=== PATIENT | male | born 1960 | race Caucasian/White ===

== ENCOUNTER 2020-01-15 07:43 | Outpatient (CLI) | payer MEDICARE, SELFPAY ==
--- NOTE | ~2020-01-15 | CT_ITS ---
EXAMINATION: CT abdomen pelvis w con DATE: 01/15/2020 08:37 INDICATION: Intermittent diarrhea for year, becoming more frequent TECHNIQUE: Computed tomography (CT) of the abdomen and pelvis was performed with 100 cc Omnipaque 350 intravenous contrast. Automated exposure control and iterative reconstruction technique were employe d. Exam dose: 695.97 mGy-cm total exam DLP. COMPARISON: 06/06/2018 CT abdomen pelvis FINDINGS: The included lower lung zones are clear of infiltrate or consolidation or mass lesion. Norm al heart size. No pericardial or pleural effusion. The liver, gallbladder, bile ducts, spleen, pancreas and pancreatic duct appear normal. Normal morphology of the adrenal glands. Bilateral parapelvic renal cysts and multiple small renal cortical cysts. Approximately 3 mm nonobstructing upper pole left renal calculus additional punctate nonobstructing u pper pole left renal calculus is noted. One or 2 punctate mid right renal calculi and approximately 2.5 mm lower pole nonobstructing right re nal calculus. No ureteral calculus or hydroureteronephrosis is evident on either side. Prostate enlargement and calcifications. The urinary bladder is relatively evacuated, unremarkable. There is minimal abdominal aortic calcification. No abdominal aortic aneurysm. No intraperitoneal or retroperitoneal or pelvic mass lesion or adenopathy or ascites. Normal appendix. No bowel obstruction or intraperitoneal free air. No bowel wall thickening, pneumato sis. Bilateral small left larger than right fat-containing inguinal hernias. Small fat-containing umbilical hernia. There is severe degenerative disc disease at L4-5. No suspicious osteolytic or osteoblastic lesions. IMPRESSION: Bilateral renal cysts Mild bilateral nonobstructive nephrolithiasis Prostate enlargement and calcification Reviewed, dictated and finalized at Location A. Reviewed, dictated and finalized at location B.
[2020-01-15 08:05] LABS: Estimated Glomerular Filt Rate > 60
== END 2020-01-15 07:44 | disposition home or self-care (01) ==
PROVIDERS: PCP Internal Medicine; Visit Provider Internal Medicine
DX: R19.7 Diarrhea, unspecified (principal)
CPT/HCPCS: 74177; Q9965

== ENCOUNTER 2020-05-19 10:46 | Outpatient (CLI) | payer MEDICARE, SELFPAY ==
--- NOTE | ~2020-05-19 | XR_ITS ---
EXAMINATION: XR abdomen/kub 1V INDICATION: Right flank pain TECHNIQUE: Supine views of the abdomen were obtained on 2 radiographs. COMPARISON: CT from today FINDINGS: Punctate bilateral nephrolithiasis is noted. The bowel gas pattern is normal. Phleboliths a re noted in the pelvis. There is severe spondylosis at L4-5. IMPRESSION: 1. No radiographic correlate for the patient's symptoms. Reviewed, dictated and finalized at location A.
--- NOTE | ~2020-05-19 | CT_ITS ---
EXAMINATION: CT abdomen pelvis wo con DATE: 05/19/2020 11:13 INDICATION: Right flank pain TECHNIQUE: Computed tomography (CT) of the abdomen and pelvis was performed without intravenous contr ast. The dose-length product (DLP) was 704.25 mGy-cm. Automated exposure control and iterative recons truction technique were employed. COMPARISON: 01/15/2020 FINDINGS: Minimal dependent atelectasis is present in the lung bases. The heart size is normal. A sta ble 4 mm nodule of the left lower lobe is consistent with old granulomatous disease. The liver, splee n, pancreas, gallbladder, and adrenal glands are normal. There are peripelvic cysts of the kidneys. N onobstructing stones of the right kidney measure up to 3 mm. Nonobstructing left kidney stones measur e up to 4 mm. No stones are identified in the ureters or bladder. There is no hydronephrosis or hydro ureter. No pathologically enlarged abdominal or pelvic lymph nodes are identified. There is no free i ntraperitoneal gas or evidence of bowel obstruction. The appendix is normal. Small areas of fat necro sis are noted in the left lower quadrant. There is severe lumbar spondylosis at L4-5. IMPRESSION: 1. No CT correlate for the patient's symptoms. 2. Nonobstructing bilateral nephrolithiasis. Reviewed, dictated and finalized at location A.
== END 2020-05-19 10:47 | disposition home or self-care (01) ==
LOC: ANHIMG 10:49
PROVIDERS: PCP Internal Medicine; Visit Provider Nurse Practitioner Adult Health
DX: R10.9 Unspecified abdominal pain (principal); N20.0 Calculus of kidney
CPT/HCPCS: 74018; 74176

== ENCOUNTER 2021-02-16 15:24 | Outpatient (CLI) | payer MEDICARE, SELFPAY ==
[2021-02-16 17:05] LABS: SARS-CoV-2 RNA PCR Negative (Negative)
== END 2021-02-16 15:25 | disposition home or self-care (01) ==
LOC: CHSLAB 15:26
PROVIDERS: PCP Internal Medicine; Visit Provider Internal Medicine
DX: Z20.822 Contact with and (suspected) exposure to COVID-19 (principal)
CPT/HCPCS: C9803; U0003; U0005

== ENCOUNTER 2021-04-30 09:30 | Outpatient (CLI) | payer MEDICARE, SELFPAY ==
--- NOTE | ~2021-04-30 | CT_ITS ---
EXAMINATION: CT abdomen pelvis w con EXAM DATE: 04/30/2021 10:13 INDICATION: Left groin and abdominal pain . TECHNIQUE: Spiral CT of the abdomen and pelvis was performed following intravenous injection of 100 m L Omnipaque 350. Axial, coronal and sagittal images of the abdomen and pelvis were reviewed. The do se-length product (DLP) for this examination was 588.87 mGy-cm. The exposure was tailored according to patient size (auto mA exposure control), and iterative reconstruction (ASIR) was used as additiona l dose reduction technique. Comparison is made to prior examination from 05/19/2020. FINDINGS: The liver, spleen, adrenal glands and pancreas are unremarkable. Gallbladder is unremarkab le. No biliary obstruction. Portal and splenic veins are patent. Kidneys enhance symmetrically. T here are 2 punctate right calyceal stones. There is a 3 mm left superior calyceal stone additional pu nctate superior calyceal calcification. Renal peripelvic cysts. Mild prostatomegaly. The bladder is unremarkable. There is no retroperitoneal or pelvic lymphadenopathy. There is mild scattered arter iosclerotic disease. Small to moderate left, small right inguinal fat-containing hernias. The appendix is normal. Some small regions of fat necrosis along the descending colon There is mild s igmoid colonic diverticulosis. There is no adjacent inflammatory change to suggest diverticulitis. T he stomach and small bowel are unremarkable. There is expected amount of colonic stool. No free in traperitoneal gas. The heart is normal in size. There are no pericardial or pleural effusions. Mi ld basilar emphysema. There is 3 mm right lower lobe granuloma. The bones are unremarkable. IMPRESSION: 1. No acute intra-abdominal findings. 2. Small to moderate left, small right inguinal hernias. 3. Bilateral nonobstructing small calyceal stones. 4. Mild emphysema. Reviewed, dictated and finalized at location A.
[2021-04-30 09:51] LABS: Estimated Glomerular Filt Rate > 60
== END 2021-04-30 09:31 | disposition home or self-care (01) ==
PROVIDERS: PCP Internal Medicine; Visit Provider Internal Medicine
DX: R10.9 Unspecified abdominal pain (principal)
CPT/HCPCS: 74177; Q9967

== ENCOUNTER 2021-06-15 13:51 | Outpatient (CLI) | payer MEDICARE, SELFPAY ==
[2021-06-15 15:12] LABS: SARS-CoV-2 Ag Negative (Negative)
== END 2021-06-15 13:52 | disposition home or self-care (01) ==
LOC: CHSLAB 13:55
PROVIDERS: PCP Internal Medicine; Visit Provider Internal Medicine
DX: Z20.822 Contact with and (suspected) exposure to COVID-19 (principal)
CPT/HCPCS: 87426; C9803

== ENCOUNTER 2021-08-23 13:13 | Outpatient (CLI) | payer MEDICARE, SELFPAY ==
--- NOTE | 2021-08-23 13:15 | ECG_ITS ---
Measurements Intervals [place] Rate: 67 P: 41 [place]: 161 QRS: -17 QRSD: 110 T: 10 QT: 374 QTc: 395 Interpretive Statements SINUS RHYTHM INCOMPLETE RIGHT BUNDLE BRANCH BLOCK DELAYED PRECORDIAL R/S TRANSITION BASELINE ARTIFACT- I, II, AVR, AVL BORDERLINE ECG Electronically Signed On 08-23-2021 13:31:35 STORES CLERK by Dante Redding D.O.
[2021-08-23 14:05] LABS: Anion Gap 7 mmol/L (8-16); Blood Urea Nitrogen 17 mg/dL (9-20); Calcium 9.7 mg/dL (8.4-10.2); Carbon Dioxide 31 mmol/L (22-30); Chloride 102 mmol/L (98-107); Estimated Glomerular Filt Rate > 60; Glucose 88 mg/dL (65-110); Potassium 3.9 mmol/L (3.4-5.0); Sodium 140 mmol/L (137-145)
== END 2021-08-23 13:14 | disposition home or self-care (01) ==
LOC: ANHSURGERY 13:16
PROVIDERS: Anesthesiology; PCP Internal Medicine; Visit Provider Surgery
DX: E11.9 Type 2 diabetes mellitus without complications (principal); K40.20 Bilateral inguinal hernia, without obstruction or gangrene, not specified as recurrent; I10 Essential (primary) hypertension; Z79.899 Other long term (current) drug therapy
CPT/HCPCS: 36415; 80048; 86850; 86900; 86901; 93005

== ENCOUNTER 2021-08-24 00:04 | Day surgery (SDC) | payer MEDICARE, SELFPAY ==
[2021-08-20 08:52] VITALS: BMI 27.1
--- NOTE | 2021-08-20 09:10 | PC.NURSE ---
Report to the Outpatient Waiting Room, entrance under the green pavilion located off [facility], at time 6:30 on date 08/24/21. OR Time: 8:30. - You and your visitor will be asked a series of questions to screen for COVID 19 for your protection. - A mask is required within the hospital. - Only one visitor is allowed at this time. Patient visitors will be guided where to wait when not with patient. Preoperative COVID Testing Requirements: No COVID Test needed if: (proof is required; if not received patient will have Rapid Test prior to entry) - Patient has received COVID Vaccine at least 14 days prior to procedure date or - Patient has positive COVID test result within last 90 days of surgery date. COVID Test needed if above criteria is not met If not COVID vaccinated a COVID test must be conducted within 72 hours of surgery and patient is asked to isolate self from time of testing until procedure. You will go to the [facility] for your COVID testing. The [facility] is located at the corner of [address] [facility]. You will only be called if COVID results are positive and your surgeon may reschedule your elective surgery date. Patients may have clear liquids (water, carbonated beverages, clear teas, apple juice) until 3 hours prior to surgery with a maximum of 20 ounces. - No food from midnight until time of surgery - Infants may have breast milk until 4 hours before surgery, formula 6 hours prior to surgery. - Children will be allowed to drink immediately following surgery. If applicable, please bring a bottle or sippy cup to assist with drinking. Juice, water, soda, and popsicles are readily available. For infants on formula, please bring formula the day of surgery. Pacifiers are allowed. Take the following medications with a SIP of water the morning of surgery: N/A Medications to discontinue per physician: VITAMINS/SUPPLEMENTS (PROBIOTIC) Date to take last dose: 3 DAYS PRE-OP Please no make-up, nail yoruba, hairspray, perfume, deodorant, or body powder the day of surgery. No jewelry (including any body piercings) or valuables the day of surgery, leave them at home. Please take a shower or bath the night before, or the morning of, surgery with an antibacterial soap. Wear comfortable, loose fitting clothing. Children are encouraged to wear pajamas. HIBICLENS SHOWER - Jewelry must be removed prior to entering the operating room. Rings and piercings that are not removed may be cut off. - The hospital will not accept responsibility for valuables. - Please leave all valuables, including medications, at home the day of surgery. If you are going home after surgery, a licensed diesel truck driver must drive you home. - NO public transportation without another adult. - We recommend that an adult stay with you for 24 hours following discharge. - We also recommend that you do not drive, make important decision, drink alcoholic beverages, or take any drugs that were not prescribed by your health care provider for at least 24 hours after your discharge time. For Pediatric surgeries, we recommend two adults accompany the child home (only one inside the building at this time). Follow any additional instructions given to you from your surgeon. Telephone instructions given to MELISSA TOBIN and asked if any additional questions and then verbalized understanding. Patient advised to call surgeon office or pre surgery nurse liaison [phone] if any additional questions.
[2021-08-24] VITALS (14 sets, daily range): BP systolic 127–152; BP diastolic 70–82; PULSE 65–89; RESP 12–20; TEMP 36.2–36.7; O2SAT 94–100
[2021-08-24] MEDS: ACETAMINOPHEN 500 MG TABLET 1000 MG PO (06:53)
--- NOTE | 2021-08-24 07:13 | PM.IMHP ---
H&P: HPI History of Present Illness Date/Time: 08/24/21 07:13 Chief Complaint: [facility] Narrative: 61 yo man presents for left inguinal hernia repair. He reports no changes since last seen in office. Review of Systems Review of Systems: All systems reviewed & are unremarkable except as noted in HPI and below Constitutional: Constitutional: Denies chills, Denies fever(s), Denies headache(s) and Denies weight loss Eyes: Eyes: Denies change in vision ENT: Denies dizziness, Denies headache(s), Denies neck mass and Denies throat swelling Cardiovascular: Cardiovascular: Denies chest pain, Denies lightheadedness and Denies dyspnea Respiratory: Respiratory: Denies cough, Denies dyspnea and Denies wheezing Gastrointestinal: Gastrointestinal: Denies abdominal pain, Denies change in bowel habits, Denies nausea and Denies vomiting Genitourinary: Genitourinary: Denies hematuria and Denies dysuria Musculoskeletal: Musculoskeletal: Reports as per HPI Integumentary/Breasts: Skin/Breast: Reports as per HPI Neurologic: Denies dizziness and Denies headache(s) Allergic/Immunologic: Allergic/Immunologic: Denies throat swelling and Denies wheezing [facility] Past Medical History Medical History Diarrhea Social History Social History Smoking status: Never smoker Alcohol intake: current Alcohol use details: 1/MONTH Substance use: never Substance use type: does not use Living arrangements: with family Gender identity (if verbalized by the patient): Male Spiritual care concerns: No Meds Home Medications and Allergies Home Medications Medication Instructions Recorded Confirmed Type finasteride 5 mg tablet 5 mg PO DAILY 09/16/20 08/24/21 History glimepiride 1 mg tablet 1 mg PO QAM 09/16/20 08/24/21 History lovastatin 20 mg tablet,extended 20 mg PO HS 09/16/20 08/24/21 History release 24 hr Saccharomyces boulardii 250 mg 250 mg PO BID 05/24/21 08/24/21 History capsule hydrocodone-acetaminophen 1 tablet PO Q6H PRN 08/20/21 08/24/21 History triamterene-hydrochlorothiazid 1 tablet PO DAILY 08/20/21 08/24/21 History Allergies Allergy/AdvReac Type Severity Reaction Status Date / Time No Known Allergies Allergy Verified 08/20/21 08:50 Exam Const: General: no acute distress and alert Orientation/consciousness: patient oriented x3 HENMT: Head: normocephalic and atraumatic Ears: hearing grossly normal bilaterally General nose exam: Normal nares present Mouth: Yes Normal oral and palatal mucosa present Eyes: Periorbital: periorbital findings normal Sclera: sclerae normal EOM: EOMs intact bilaterally Neck: Neck: normal visual inspection, no lymphadenopathy and trachea midline Chest: Chest palpation & inspection: normal inspection of the chest Resp: Effort & Inspection: normal respiratory effort Auscultation: clear to auscultation bilaterally Cardio: Jugular venous distension: no JVD Rate: regular rate Rhythm: regular rhythm Heart sounds: S1 normal heart sound present and S2 normal heart sound present Peripheral pulses: Peripheral pulses 2+ throughout GI: Inspection: normal to inspection GI Palp: Yes Soft to palpation, No Tenderness to palpation present (GI), No Guarding due to palpation present (GI) and No Rebound tenderness present Percussion: Yes normal to percussion Auscultation: normal bowel sounds : General: Yes no CVA tenderness Scrotum: inguinal hernia on the left Back/Spine/Pelvis: Back: no CVA tenderness Neuro: General: patient oriented x3, no focal motor deficits and CN's II-XI intact bilaterally Cognition (Neuro): normal cognition Speech: normal speech Motor exam (neuro): 5/5 motor strength present throughout Extrem: General: capillary refill normal and no clubbing, cyanosis or edema Assessment and Plan Assessment and plan (1) Left inguinal hernia: C
--- NOTE | 2021-08-24 07:15 | WPDHPUPDATE1 ---
History and Physical Update Update Date/Time: 08/24/21 07:15 History and Physical has been reviewed, including an updated exam of the patient. There are NO changes in the patient's condition. Risks, benefits, and alternatives have been discussed and questions answered. Patient agrees to proceed with procedure.
[2021-08-24] MEDS: KETOROLAC 15 MG/ML VIAL (*BKC) IV PUSH (07:25)
[2021-08-24] MEDS: LACTATED RINGERS 1,000 ML 30 ML IV CONT ×2 (07:25→10:30)
--- NOTE | 2021-08-24 07:28 | P.PNAN_ITS ---
Anes - Initial Pre Proc Eval Procedure: Operation Date: 08/24/21 08:30 Proposed Procedures p Laparoscopic Left Inguinal Hernia Repair with Mesh, Davinci Assisted - Peter Card DO Date/Time: 08/24/21 07:28 Surgeon: Peter Card DO Pre Op Diagnosis: bilateral inguinal hernia Patient Data Age: 61 Gender: M Height: 1.8 m Weight: 90.6 kg Allergies Allergy/AdvReac Type Severity Reaction Status Date / Time No Known Allergies Allergy Verified 08/20/21 08:50 Home Medications Medication Instructions Recorded Confirmed Type finasteride 5 mg tablet 5 mg PO DAILY 09/16/20 08/24/21 History glimepiride 1 mg tablet 1 mg PO QAM 09/16/20 08/24/21 History lovastatin 20 mg tablet,extended 20 mg PO HS 09/16/20 08/24/21 History release 24 hr Saccharomyces boulardii 250 mg 250 mg PO BID 05/24/21 08/24/21 History capsule hydrocodone-acetaminophen 1 tablet PO Q6H PRN 08/20/21 08/24/21 History triamterene-hydrochlorothiazid 1 tablet PO DAILY 08/20/21 08/24/21 History Patient hx anesthesia problems: none Family hx anesthesia problems: none Results Review: All pre-operative results and documents have been reviewed as part of the pre-operative evaluation. [facility] Past Medical History Medical History (Updated 08/24/21 @ 07:14 by Peter Card DO) Diarrhea Surgical History Surgical History (Updated 08/24/21 @ 07:32 by Salbador Thomas MD) History of lumbar surgery Social History Social History Smoking status: Never smoker Alcohol intake: current Alcohol use details: 1/MONTH Substance use: never Substance use type: does not use Living arrangements: with family Gender identity (if verbalized by the patient): Male Spiritual care concerns: No Anes - Eval Final PreProcedure Day of Procedure 08/24/21 07:28 Patient weight: overweight Heart: regular rate and rhythm Lungs: clear to auscultation Airway: Mallampati scale class 1 Neurological: alert and oriented Last oral intake: >/= 8 hours ASA classification: III Emergent: no Anesthetic plan: proceed Anesthesia type and monitoring: general ETT Results Review: All pre-operative results and documents have been reviewed as part of the pre-operative evaluation. Informed Consent: The patient's anesthetic plan and its attendant risks and benefits were discussed with the patient/family/POA. Questions were solicited and answers provided to the satisfaction of the patient/family/POA.
[2021-08-24 07:31] LABS: Glucose Point of Care 140 mg/dl (65-105)
[2021-08-24] MEDS: ceFAZolin 2 GM/D5W 50 ML 2 GM/50 ML BAG IVPB (08:30)
[2021-08-24] MEDS: BUPIVACAINE HCL 0.5% PF 30 ML VIAL INFILTRATE (08:53)
--- NOTE | 2021-08-24 09:52 | W.PM.PROC2 ---
Procedure Note - Detailed Date of Procedure 08/24/21 Pre-op Diagnosis Left inguinal hernia Post-op Diagnosis same (Indirect left inguinal hernia) Procedure Performed Laparoscopic left inguinal hernia repair with mesh, da Jaci assisted Surgeon Peter Card, Anesthesia general and local (0.5% bupivacaine) Indications This is a 61-year-old man who presents with left groin pain and a left groin bulge that he has noticed for several years. Over the past several months he has become more symptomatic from it. He was seen a couple months ago and his PCP had ordered a CT of his pelvis which did show evidence of a bilateral inguinal hernia. The left side was larger than the right, and he had no symptoms on the right. The left inguinal hernia was easily palpable, and he had a very small right inguinal hernia on exam. Discussions were made with the patient about treatment options and he did not want a pursue right inguinal hernia at the time due to it being asymptomatic. I even discussed with him that it would not increase the amount of incisions, but he still wished to proceed with only left inguinal hernia repair. Decision was made to proceed with robotic assisted laparoscopic left inguinal hernia repair with mesh. Findings Laparoscopic left inguinal hernia repair was performed. A robotic transabdominal preperitoneal approach was utilized. Patient was found to have a moderate-sized indirect left inguinal hernia and sigmoid colon was going right up to the opening of the hernia. Epiploic appendages were also scarred within the hernia sac and this had to be taken down to allow adequate mobilization. On exam on the right side he did not have an easily visible right inguinal hernia laparoscopically. There might have been a small amount of adipose tissue going within the inguinal canal or he might of had a small direct hernia on the right side containing some preperitoneal fat, but laparoscopically this was not clearly evident. Decision was made to only repair the left side. Once the preperitoneal pocket was created, a large left Bard 3DMax mid mesh was placed within the preperitoneal pocket overlying the entire left myopectineal orifice. The mesh was secured in place using 3-0 Vicryl sutures. No specimens were obtained for pathology. Description of Procedure Procedure as well as risks, benefits, and alternatives were discussed with the patient. Written consent was obtained and placed in chart prior to procedure. Patient was brought back to surgical suite. He was placed supine on operating table. Time-out was done to confirm patient and procedure. He was then intubated by Anesthesia Department. His abdomen was prepped and draped in sterile fashion using chlorhexidine prep. 0.5% bupivacaine with epinephrine was infiltrated at each location for incision. An 8 mm incision was made in the left lateral abdomen, and a 5 mm Optiview trocar was advanced through the abdominal layers under direct visualization. Once inside the abdominal cavity, carbon dioxide insufflation was used to create a pneumoperitoneum. A camera was inserted and the abdominal cavity was inspected. The patient was placed in slight Trendelenburg position. An 8 millimeter incision was made on the right lateral abdomen and an 8 millimeter trocar was inserted under direct visualization. Another 8 millimeter incision was made just superior to the umbilicus and an 8 millimeter trocar was inserted under direct visualization. The 5 mm port was then removed and this was replaced with another 8 mm robotic port. The robotic arms were brought up to the patient's bedside and secured to the ports. The camera and instruments were inserted. I then moved over to the robotic console and took control of the camera and instruments. After careful inspection of the abdominal cavity, I began scoring the peritoneum along the left lower quadrant using scissors with electrocautery. The preperitoneal plane was enter
[2021-08-24 10:21] LABS: Glucose Point of Care 126 mg/dl (65-105)
[2021-08-24] MEDS: fentaNYL CITRATE INJ (*CRX) 100 MCG/2 ML VIAL 25 MCG IV PUSH ×8 (10:35→11:32)
[2021-08-24] MEDS: oxyCODONE HCL (*CRX) 5 MG TAB IR PO (11:55)
--- NOTE | 2021-08-24 14:02 | SUR.PHASEII ---
1250- pt urinated at 1250 with difficulty.
== END 2021-08-24 13:05 | disposition home or self-care (01) ==
PROVIDERS: PCP Internal Medicine; Visit Provider Surgery
PROC: 8E0Y4CZ Robotic Assisted Procedure of Lower Extremity, Percutaneous Endoscopic Approach (ICD-10-PCS; CPT 49650; principal; 2021-08-24 08:30)
DX: K40.90 Unilateral inguinal hernia, without obstruction or gangrene, not specified as recurrent (principal); Z79.899 Other long term (current) drug therapy
CPT/HCPCS: 49650; S2900; 82948; A9270; C1781; J0690; J1100; J1170; J1885; J2250; J2405; J2704; J2710; J3010; J7030; J7120

== ENCOUNTER 2021-11-25 07:38 | Outpatient (CLI) | payer MEDICARE, SELFPAY ==
[2021-11-25 09:02] LABS: SARS-CoV-2 Ag Negative (Negative)
[2021-11-25 09:40] LABS: SARS-CoV-2 RNA PCR Negative (Negative)
== END 2021-11-25 07:39 | disposition home or self-care (01) ==
LOC: CHSLAB 07:41
PROVIDERS: PCP Internal Medicine; Visit Provider Nurse Practitioner Family
DX: R05.9 Cough, unspecified (principal); R51.9 Headache, unspecified; Z20.822 Contact with and (suspected) exposure to COVID-19
CPT/HCPCS: 87426; C9803; U0003; U0005

== ENCOUNTER 2022-02-16 13:57 | Outpatient (CLI) | payer MEDICARE, SELFPAY ==
--- NOTE | ~2022-02-16 | XR_ITS ---
EXAMINATION: XR knee LT min 4V DATE: 02/16/2022 14:24 INDICATION: Left knee pain. TECHNIQUE: 4 views of left knee were obtained. COMPARISON: Left knee radiographs 09/10/2012 FINDINGS: Bone alignment is normal. No fracture. There is mild tricompartmental osteoarthritis charac terized by tiny osteophytes. No joint space narrowing. There is chondrocalcinosis of the menisci. No knee joint effusion. IMPRESSION: 1. Mild left knee osteoarthritis. Reviewed, dictated and finalized at location B.
--- NOTE | ~2022-02-16 | XR_ITS ---
EXAMINATION: XR knee RT min 4V DATE: 02/16/2022 14:24 INDICATION: Right knee pain. TECHNIQUE: 4 views of right knee were obtained. COMPARISON: Right knee radiographs 02/11/2011 FINDINGS: Bone alignment is normal. No fracture. There is mild tricompartmental osteoarthritis charac terized by tiny osteophytes. No joint space narrowing. There is chondrocalcinosis of the menisci. No knee joint effusion. IMPRESSION: 1. Mild right knee osteoarthritis. Reviewed, dictated and finalized at location B.
== END 2022-02-16 13:58 | disposition home or self-care (01) ==
LOC: CHSIMG 13:59
PROVIDERS: PCP Internal Medicine; Visit Provider Internal Medicine
DX: M25.562 Pain in left knee (principal); M25.561 Pain in right knee
CPT/HCPCS: 73564

== ENCOUNTER 2022-03-15 03:15 | Inpatient (IN) | payer MEDICARE, SELFPAY ==
[2022-03-15] VITALS (21 sets, daily range): BP systolic 89–140; BP diastolic 66–111; PULSE 45–165; RESP 16–26; TEMP 36.3–36.7; O2SAT 92–99; BMI 28.5
--- NOTE | ~2022-03-15 | XR_ITS ---
EXAMINATION: XR chest 1V portable 03/15/2022 03:28 INDICATION: Chest pain. A. fib. PROCEDURE: AP portable chest COMPARISON: Comparison to multiple prior studies sequentially, with oldest reviewed study dated 01/2012. FINDINGS: The lungs are clear. The cardiomediastinal silhouette is within normal limits. There are no pleural effusions. There is no pneumothorax suspected. IMPRESSION: 1: NO ACUTE CARDIOPULMONARY DISEASE. Reviewed, dictated and finalized at location A.
--- NOTE | ~2022-03-15 | CT_ITS ---
EXAMINATION: CT chest abdomen pelvis wo con DATE: 03/17/2022 09:20 INDICATION: Leukocytosis. Chest pressure. Shortness of breath. Cough. TECHNIQUE: Computed tomography (CT) of the chest, abdomen, and pelvis was performed without intraveno us contrast. Automated exposure control and iterative reconstruction technique were employed. The dos e-length product was 965.43 mGy-cm. COMPARISON: CT abdomen and pelvis 04/30/2021 FINDINGS: CHEST CT: The lungs demonstrate mild atelectasis. Again seen is a 3 mm nodule in right lower lobe, likely benig n. Again seen is a 5 mm nodule in left lower lobe, likely benign. No pleural effusion. The heart size is normal. There are coronary artery calcifications. No pericardial effusion. There is mild chronic height loss of multiple vertebral bodies. There is mild thoracic spondylosis. ABDOMEN/PELVIS CT: The liver, gallbladder, spleen, pancreas, and adrenal glands are normal. There are cysts in the kidne ys including peripelvic cysts measuring up to 5.4 cm on the right. There are 3 stones in right kidney measuring up to 2 mm. There are 2 stones in left kidney measuring up to 4 mm. The prostate is mildly enlarged. Again seen is prominent fat in right inguinal canal that may be a hernia. There is promine nt fat in left inguinal canal status post inguinal hernia repair. There are no dilated loops of bowel . The appendix is normal. There are no pathologically enlarged lymph nodes. There is no free intraper itoneal fluid. There is severe lumbar spondylosis. IMPRESSION: 1. Bilateral nonobstructing kidney stones. Reviewed, dictated and finalized at location A.
--- NOTE | 2022-03-15 03:17 | ECG_ITS ---
Measurements Intervals [place] Rate: 155 P: NC: 0 QRS: 3 QRSD: 82 T: 29 QT: 266 QTc: 427 Interpretive Statements ATRIAL FIBRILLATION WITH RAPID VENTRICULAR RESPONSE BASELINE ARTIFACT- I, II, III, AVR, AVL, AVF, V2 ABNORMAL ECG Electronically Signed On 03-15-2022 6:41:13 CDT by Dante Redding D.O.
--- NOTE | 2022-03-15 03:19 | ED.GENADULT ---
HPI - General Adult General Chief complaint: Chest Pain Stated complaint: chest pain History of Present Illness HPI narrative: Beck is a 62M with a PMH of DMII and recent covid that presented to the ED with chest pain. It is a severe pressure in his left chest that does not radiate. It started an hour before coming to the ED. He has some increased work of breathing and nausea but no vomiting or syncope. Of note he was diagnosed with COVID a little over 2 weeks ago. Related Data Home Medications Medication Instructions Recorded Confirmed finasteride 5 mg tablet 5 mg PO DAILY 09/16/20 03/15/22 glimepiride 1 mg tablet 1 mg PO QAM 09/16/20 03/15/22 lovastatin 20 mg tablet,extended 20 mg PO HS 09/16/20 03/15/22 release 24 hr Saccharomyces boulardii 250 mg 250 mg PO BID 05/24/21 03/15/22 capsule (Daily Probiotic (S. boulardii)) triamterene 37.5 1 tablet PO DAILY 08/20/21 03/15/22 mg-hydrochlorothiazide 25 mg tablet albuterol sulfate 90 mcg/actuation 2 puff inhalation PRN PRN 03/15/22 03/15/22 aerosol inhaler Shortness Of Breath Allergies Allergy/AdvReac Type Severity Reaction Status Date / Time No Known Allergies Allergy Verified 03/15/22 03:27 Review of Systems Constitutional: Constitutional: Denies chills and Denies fever(s) Eyes: Eyes: Reports no additional eye complaints ENT: Reports system reviewed and no additional complaints, except as documented Cardiovascular: Cardiovascular: Reports as per HPI Respiratory: Respiratory: Reports as per HPI Gastrointestinal: Gastrointestinal: Reports no additional gastrointestinal complaints Genitourinary: Genitourinary: Reports no additional male genitourinary complaints Musculoskeletal: Musculoskeletal: Reports no additional musculoskeletal complaints Integumentary/Breasts: Skin/Breast: Reports system reviewed and no additional complaints, except as docu Neurologic: Reports system reviewed and no additional complaints, except as documented Psychiatric: Psychiatric: Reports no additional psychiatric complaints Endocrine: Endocrine: Reports no additional endocrine complaints Hematologic/Lymphatic: Hematologic/Lymphatic: Reports no additional hematologic/lymphatic complaints Allergic/Immunologic: Allergic/Immunologic: Reports no additional allergic/immunologic complaints PMFSH Past Medical History Medical History Diarrhea Surgical History Surgical History History of hernia repair LIH hernia repair with mesh 08/24/21 History of lumbar surgery Family History Family History Sibling Acute myocardial infarction Sibling Acute myocardial infarction Social History Social History Smoking status: Never smoker Second hand tobacco smoke exposure: Yes Alcohol intake: never Alcohol use details: 1/MONTH Substance use: never Substance use type: does not use Gender identity (if verbalized by the patient): Male Spiritual care concerns: No Exam Const: Nutritional Appearance: well nourished Orientation/consciousness: patient oriented x3 Other: Beck was in moderate distress HENMT: Head: normal to inspection Ears: external ears normal Face and sinus: normal facial exam Mouth: Yes Normal oral and palatal mucosa present Eyes: Conjunctivae: conjunctivae normal Pupils: Equal, round and reactive pupils present Neck: Neck: normal visual inspection Chest: Chest palpation & inspection: normal inspection of the chest Resp: Effort & Inspection: normal respiratory effort Cardio: Other: tachypnea with irregularly irregular rhythm GI: Other: normal to inspection Skin: General skin exam: normal color Neuro: General: patient oriented x3 and moves all extremities Speech: normal speech Extrem: Other: n
[2022-03-15] MEDS: dilTIAZem HCl INJ 25 MG/5 ML VIAL 10 MG IV PUSH (03:32)
[2022-03-15] MEDS: dilTIAZem 100 MG/100 ML 100 MG/100 ML BAG IV CONT (03:33)
[2022-03-15 03:47] LABS: Basophils Absolute Auto 0.03 K/mm3 (0.00-0.10); Basophils Percent Auto 0.2 % (0.0-1.0); Hematocrit 46.3 % (40.0-54.0); Hemoglobin 15.8 g/dL (14.0-18.0); Immature Granulocyte Absolute 0.19 K/mm3 (0.00-0.00); Lymphocytes Percent Auto 6.1 % (18.0-42.0); Mean Corpuscular HGB Conc 34.1 g/dL (32.0-36.0); Mean Corpuscular Hemoglobin 29.8 pg (27.0-31.0); Mean Corpuscular Volume 87.2 fL (78.0-102.0); Mean Platelet Volume 10.3 fl (8.7-11.0); Monocytes Absolute Auto 1.36 K/mm3 (0.10-0.90); Monocytes Percent Auto 7.5 % (2.0-11.0); Neutrophils Absolute Auto 15.5 K/mm3 (1.7-7.2); Neutrophils Percent Auto 85.2 % (50.0-70.0); Platelet Count Result 262 K/mm3 (150-420); Red Blood Count 5.31 M/mm3 (4.70-6.10); Red Cell Distribution Width 12.7 % (11.6-14.4); White Blood Count 18.2 K/mm3 (4.8-10.8)
[2022-03-15 03:59] LABS: Prothrombin Time 10.5 Seconds (9.50-12.10)
[2022-03-15 04:09] LABS: Alanine Aminotransferase 45 U/L (16-63); Albumin Level 3.1 g/dL (3.4-5.0); Alkaline Phosphatase 71 U/L (46-116); Anion Gap 8 mmol/L (8-16); Aspartate Amino Transferase 16 U/L (15-37); Bilirubin,Total 0.7 mg/dL (0.00-1.00); Blood Urea Nitrogen 25 mg/dL (7-18); Calcium 8.9 mg/dL (8.5-10.1); Carbon Dioxide 25 mmol/L (21-32); Chloride 100 mmol/L (98-108); Estimated CRCL calculation 64 ml/min; Estimated Glomerular Filt Rate > 60; Glucose 221 mg/dL (70-99); Lipase 322 U/L (73-393); Magnesium 2.2 mg/dL (1.8-2.4); NT Pro B Type Natriuretic Pept 237 pg/mL (0-125); Osmolality Calculated 287 mOsm/kg (285-295); Potassium 4.2 mmol/L (3.5-5.1); Sodium 133 mmol/L (136-145); Total Protein 6.4 g/dL (6.4-8.2); Troponin I 7.5 ng/L (0.00-60.4)
[2022-03-15] MEDS: METOPROLOL TARTRATE INJ 5 MG/5 ML VIAL IV PUSH (04:23)
[2022-03-15] MEDS: METOPROLOL TARTRATE 25 MG TABLET 50 MG (04:41)
[2022-03-15 05:07] LABS: Add Urine Microscopic? NO; Appearance Urine Clear (Clear); Bilirubin Urine Negative (Negative); Blood Urine Negative (Negative); Color Urine Light Yellow (Yellow); Glucose Urine UA Negative (Negative); Ketones Urine Negative (Negative); Leukocyte Esterase Ur Negative LEU/UL (Negative); Nitrate Urine Negative (Negative); Protein Urine Negative (Negative); Urobilinogen Urine 0.2 mg/dL (0.2-1.0)
--- NOTE | 2022-03-15 05:20 | PC.NURSE ---
ERP Dr Browne spoke c BILL Whitt about admission. Pt accepted for admission. Orders being put in by FLOW SPECIALIST. Call placed to floor for bed assignment.
--- NOTE | 2022-03-15 06:39 | ADMGEN ---
This patient, Beck Almeida, was admitted to 2nd Floor Room 226-2. Patient/family oriented to hospital policies and general routines including ID bracelet, bed and alarms, pain management, procedures, bathroom and other care routines, personal items, smoking policy, room service/diet, and visiting hours. Information on how to activate the Rapid Response Team has been discussed. Patient/Family are encouraged to report perceived risks to care and to ask questions if they do not understand what they are told or what they should do.
--- NOTE | 2022-03-15 06:40 | PC.NURSE ---
Patient was brought to the unit at 0520 while on a cardizem drip. Patient had been titrated down from 15mg to 10 mg immediately prior to coming to the floor. ER nurse indicated that he should be titrated down again, in approximately 30 minutes, if his heart rate remained in the 70 to 80 range. Patient was placed on a heart monitor, and his heart rate did stay in that range. Patient remained in Atrial Fibrillation. His cardizem drip was titrated down at approximately 0630, as his heart rate remained in the 70 to 80 range. Patient's blood pressure was 124/111 and his heart rate was 80 when vitals were given.
--- NOTE | 2022-03-15 06:53 | PC.NURSE ---
Cardizem drip paused at this time. Pulse rate is 74 and pt denies c/o chest pain or discomfort.
[2022-03-15 08:13] LABS: Glucose Point of Care 171 mg/dl (65-105)
--- NOTE | 2022-03-15 09:03 | PCOTNOTE ---
Patient is independent, up ad desiree in room. Has no OT concerns at this time and will not have an OT plan of care. Will be discharged from OT
[2022-03-15] MEDS: TRIAMTERENE 37.5 MG/HCTZ 25 MG (MAXZIDE) TABLET 1 TAB PO (09:30)
[2022-03-15] MEDS: SACCHAROMYCES BOULARDII 250 MG CAPSULE PO ×2 (09:30→18:08)
[2022-03-15] MEDS: FINASTERIDE 5 MG TABLET PO (09:31)
[2022-03-15] MEDS: ENOXAPARIN 40 MG/0.4 ML SYRINGE SUB-Q (09:31)
--- NOTE | 2022-03-15 09:47 | PCPTNOTE ---
03/15/22 - 47 - spoke with CHANGE MANAGEMENT DIRECTOR this morning. she informed PT she is removing PT orders on patient, and no need to evaluate him. TRISTA
[2022-03-15 10:33] LABS: Troponin I 11.4 ng/L (0.00-60.4)
--- NOTE | 2022-03-15 10:36 | PM.IMHP ---
H&P: HPI History of Present Illness Date/Time: 03/15/22 10:36 Chief Complaint: Heart palpitations shortness of breath and chest pain Narrative: This is a 62-year-old male that states that yesterday he was not feeling well when he woke up early in the morning when he got out of bed he felt dizzy and he could feel his heart beating funny per patient. Patient states that he went and got his apple watch put it on and it told him he was in A. fib asked him several questions told him he needed to go to the emergency room. When patient arrived his heart rate was 165 and he was in atrial fibrillation with RVR patient received some metoprolol as well as on Cardizem and his heart rate stayed in A. fib but was controlled. Patient denies having a history of atrial fibrillation he has a history of high blood pressure. States that he is has some heart problems every since he has been recovering from COVID which she was diagnosed 2 weeks ago. Patient states he has been more tired since he has been recovering I will start him on some oral Cardizem and some Xarelto at this time we will continue to monitor him echocardiogram has been ordered which is pending he will need to see a employment office clerk on after discharge. Patient has a past history of hernia repair approximately a month ago, hypertension, prostate problems, patient states he has some respiratory issues and not for sure what even prior to COVID. He also has diabetes that is controlled with oral antiglycemic. labs were potassium 4.2, sodium 133, BUN 25, creatinine 1.11, white blood count is 18.2 patient states he just got off a steroid Dosepak less than 24 hours ago chest x-ray is negative urine is negative no source of infection noted at this time we will continue to monitor labs. Had a conversation with patient regarding atrial fibrillation explained to him the risk of stroke and or the need of medications that he was going to need to be on and the need for him to follow-up with employment office clerk patient acknowledged understanding and pamphlets have been given to him. Review of Systems Review of Systems: Shortness of breath atrial fibrillation with RVR All systems reviewed & are unremarkable except as noted in HPI and below [facility] Past Medical History Medical History Diarrhea Surgical History Surgical History History of hernia repair LIH hernia repair with mesh 08/24/21 History of lumbar surgery Family History Family History Sibling Acute myocardial infarction Sibling Acute myocardial infarction Social History Social History Smoking status: Never smoker Second hand tobacco smoke exposure: Yes Alcohol intake: never Alcohol use details: 1/MONTH Substance use: never Substance use type: does not use Gender identity (if verbalized by the patient): Male Spiritual care concerns: No Meds Home Medications and Allergies Home Medications Medication Instructions Recorded Confirmed Type finasteride 5 mg tablet 5 mg PO DAILY 09/16/20 03/15/22 History glimepiride 1 mg tablet 1 mg PO QAM 09/16/20 03/15/22 History lovastatin 20 mg tablet,extended 20 mg PO HS 09/16/20 03/15/22 History release 24 hr Saccharomyces boulardii 250 mg 250 mg PO BID 05/24/21 03/15/22 History capsule (Daily Probiotic (S. boulardii)) triamterene 37.5 1 tablet PO DAILY 08/20/21 03/15/22 History mg-hydrochlorothiazide 25 mg tablet albuterol sulfate 90 mcg/actuation 2 puff inhalation PRN PRN 03/15/22 03/15/22 History aerosol inhaler Shortness Of Breath Allergies Allergy/AdvReac Type Severity Reaction Status Date / Time No Known Allergies Allergy Verified 03/15/22 03:27 Vital Signs Vital Signs - 24 hr 03/15/22 03:33 03/15/22 03:15 03/15/22 0
[2022-03-15 11:40] LABS: Glucose Point of Care 139 mg/dl (65-105)
[2022-03-15] MEDS: ACETAMINOPHEN 325 MG TABLET 650 MG PO (11:42)
[2022-03-15] MEDS: RIVAROXABAN 10 MG TABLET 20 MG PO (11:43)
[2022-03-15 16:49] LABS: Glucose Point of Care 187 mg/dl (65-105)
--- NOTE | 2022-03-15 18:05 | P.PNCROSS_ITS ---
Event Note Event Note Event Note: patient remained in afib but not he is sinus rythmn but his heart rate is curre ntly in the 50s we may need to reduce his dosage of cardizem
[2022-03-15] MEDS: LOVASTATIN 20 MG TABLET PO (21:23)
[2022-03-15 21:30] LABS: Glucose Point of Care 203 mg/dl (65-105)
--- NOTE | 2022-03-15 22:17 | PC.NURSE ---
2135 Gabi George Hospitalist/MASTER [employer], updated on patient's heart rate and status. No new orders at this time.
--- NOTE | 2022-03-15 22:18 | PC.NURSE ---
Call received from Gabi George NP with new order for D/C Trazodone and start Melatonin 10 mg prn sleep.
[2022-03-15] MEDS: MELATONIN 5 MG TABLET 10 MG PO (23:59)
[2022-03-16] VITALS (8 sets, daily range): BP systolic 122–129; BP diastolic 67–74; PULSE 47–64; RESP 16; TEMP 36.3–36.6; O2SAT 95–99
--- NOTE | 2022-03-16 01:00 | ECHO_ITS ---
Patient Info Name: Beck Almeida Age: 62 years : 1960 Gender: Male Ht: 71 in Wt: 204 lbs BSA: 2.17 m2 HR: 47 bpm BP: 115 / 66 mmHg Heart Rhythm: Bradycardia Technical Quality: Fair Exam Date: 03/16/2022 7:09 AM Exam Location: [facility] Patient Status: Inpatient Admit Date: 03/15/2022 Staff Ordering Physician: Amy George NP Title Lawyer: Cristiana Dasilva RDCS Attending Provider: Nicho Bella MD Referring Physician: Ariel RODRIGES; Exam Type: CA echo doppler color flow Study Info Indications - new onset Afib Complete two-dimensional, color flow and Doppler transthoracic echocardiogram is performed. Summary 1. Complete two-dimensional, color flow and Doppler transthoracic echocardiogram is performed. 2. Left ventricular chamber dimension is normal. 3. Left ventricular systolic function is normal, estimated at 60-65%. 4. The left ventricular diastolic function is normal. 5. E/e' 9 is minimally elevated. 6. There is mild tricuspid valve regurgitation. 7. No pulmonary hypertension, estimated pulmonary arterial systolic pressure is 20 mmHg. Left Ventricle E/e' 9 is minimally elevated. Left ventricular chamber dimension is normal. Left ventricular systolic function is normal, estimated at 60-65%. The left ventricular diastolic function is normal. Right Ventricle Right ventricular systolic function is normal and with normal TAPSE 2.5 cm. Right ventricular chamber dimension is normal. Left Atria Left atrial chamber dimension is normal. Right Atria Right atrial chamber dimension is normal. Aortic Valve The aortic valve is trileaflet. There is no aortic valve stenosis. There is no aortic valve regurgitation. Pulmonic Valve There is no pulmonic regurgitation. Mitral Valve There is no mitral valve stenosis. There is no mitral valve regurgitation. Tricuspid Valve There is mild tricuspid valve regurgitation. No pulmonary hypertension, estimated pulmonary arterial systolic pressure is 20 mmHg. Pericardium/Pleural There is no pericardial effusion. Inferior Vena Cava Normal inferior vena cava with >50% collapse upon inspiration consistent with normal right atrial pressure, 5 mmHg. Aorta The aortic root size at the sinus of Valsalva is normal. Left Ventricular Outflow Tract Name Value Normal LVOT 2D LVOT Diameter 2.1 cm LVOT Doppler LVOT Peak Velocity 100 cm/s LVOT Peak Gradient 4 mmHg LVOT Mean Gradient 0 mmHg LVOT VTI 18 cm LVOT VTI/AV VTI Ratio 0.6 LVOT Stroke Volume 65 ml Pulmonic Valve Name Value Normal RVOT Doppler RVOT Peak Gradient 2 mmHg PV Doppler
[2022-03-16 05:04] LABS: Hematocrit 46.4 % (40.0-54.0); Hemoglobin 15.5 g/dL (14.0-18.0); Mean Corpuscular HGB Conc 33.4 g/dL (32.0-36.0); Mean Corpuscular Hemoglobin 29.9 pg (27.0-31.0); Mean Corpuscular Volume 89.6 fL (78.0-102.0); Mean Platelet Volume 10.3 fl (8.7-11.0); Platelet Count Result 271 K/mm3 (150-420); Red Blood Count 5.18 M/mm3 (4.70-6.10); Red Cell Distribution Width 12.9 % (11.6-14.4)
[2022-03-16 05:09] LABS: White Blood Count 21.6 K/mm3 (4.8-10.8)
[2022-03-16 05:14] LABS: Anion Gap 3 mmol/L (8-16); Blood Urea Nitrogen 26 mg/dL (7-18); Calcium 8.6 mg/dL (8.5-10.1); Carbon Dioxide 30 mmol/L (21-32); Chloride 99 mmol/L (98-108); Estimated CRCL calculation 62 ml/min; Estimated Glomerular Filt Rate > 60; Glucose 202 mg/dL (70-99); Osmolality Calculated 284 mOsm/kg (285-295); Potassium 4.4 mmol/L (3.5-5.1); Sodium 132 mmol/L (136-145)
--- NOTE | 2022-03-16 06:05 | PC.NURSE ---
Lab called to report critical lab value for WBC of 21.6.
--- NOTE | 2022-03-16 06:07 | PC.NURSE ---
Gabi George called and WBC results were reported. New orders received and noted.
[2022-03-16 08:16] LABS: Glucose Point of Care 176 mg/dl (65-105)
[2022-03-16] MEDS: SACCHAROMYCES BOULARDII 250 MG CAPSULE PO ×2 (08:57→17:32)
[2022-03-16] MEDS: TRIAMTERENE 37.5 MG/HCTZ 25 MG (MAXZIDE) TABLET 1 TAB PO (08:57)
[2022-03-16] MEDS: FINASTERIDE 5 MG TABLET PO (08:57)
[2022-03-16 12:02] LABS: Glucose Point of Care 201 mg/dl (65-105)
--- NOTE | 2022-03-16 12:27 | ECG_ITS ---
Measurements Intervals [place] Rate: 58 P: 56 [place]: 145 QRS: -15 QRSD: 102 T: 35 QT: 386 QTc: 382 Interpretive Statements SINUS BRADYCARDIA OTHERWISE NORMAL ECG COMPARED TO ECG 03/15/2022 03:21:58 SINUS BRADYCARDIA HAS REPLACED ATRIAL FIBRILLATION Electronically Signed On 03-16-2022 13:51:22 CDT by Sal Coello M.D.
--- NOTE | 2022-03-16 12:49 | WPDPN ---
Progress Note: A&P Assessment and Plan (1) New onset a-fib: Code(s): I48.91 - Unspecified atrial fibrillation Status: Acute Assessment and Plan: Oxygen as needed On quality assurance monitor final controlled Started on oral Cardizem discontinue Cardizem and changed to Coreg due to bradycardia. Will closely monitor Started on Xarelto Patient will need to follow-up with sales marketing director on discharge we will continue to monitor for 24 hours Echocardiogram ordered no significant findings (2) Type 2 diabetes mellitus: Code(s): E11.9 - Type 2 diabetes mellitus without complications Status: Acute Assessment and Plan: Hold all oral antiglycemic's We will treat with insulin (3) Hypertension: Code(s): I10 - Essential (primary) hypertension Status: Acute Assessment and Plan: We will continue on all home medications Monitor vitals Patient on telemetry (4) Abnormal WBC count: Code(s): D72.9 - Disorder of white blood cells, unspecified Status: Acute Assessment and Plan: WBCs 18>21.6 Etiology unknown We will complete a differential blood cultures pending CRP pending Chest x-ray negative for infection Urine negative for infection we will continue to monitor labs Patient has remained afebrile Subjective Date/time seen: 03/16/22 12:49 patient does not appear to be in any distress at this time. Did receive report the patient's heart rate has been in the 40s. While patient around heart rate did increase in the 60s to 80s. Patient is asymptomatic with bradycardia. Patient did note that on occasions when he stands up he is feels a little lightheaded and dizzy. Patient's and family members given echo results and plan of care explained to family members and patient. Patient later decides that he wants to be transferred to [facility] so that he can be seen by a sales marketing director. Call to [facility] in [place] for transfer informed that he will be placed on a waiting list, call center notes that several patients are waiting in ER for placement. I informed patient that he is on a waiting list and there are no beds available in [facility]. I also explained to him that if his situation worsens which I do not believe it will we will transfer him to any hospital that has a bed available in able to treat him. Patient agrees. Patient has no complaints at this time. The patient denies SOB, CP, palpitation, extremity numbness, constipation, diarrhea, chills, or fever. Review of Systems Review of Systems: All systems reviewed & are unremarkable except as noted in HPI and below Exam Narrative: GENERAL:Well-appearing, well-nourished, and in no acute distress. HEAD:Normocephalic, atraumatic. EYES: PERRLA and EOMI. ENT: Nares clear, no rhinorrhea or epistaxis. Mucous membranes moist. NECK: Supple. CHEST: Clear to auscultation. No respiratory distress. HEART: Irregular Regular rate and rhythm.. Normal peripheral pulses. ABDOMEN: Soft, nontender, nondistended, normal active bowel sounds. EXTREMITIES: Normal range of motion. No edema. SKIN: Warm, dry, no rash. NEURO: No focal deficits. Alert and oriented x3. Objective Data Vital Signs Vital Signs: Vital Signs - 24 hr 03/15/22 16:45 03/15/22 16:45 03/15/22 18:09 Temperature 97.4 F L Pulse Rate 88 83 55 L Respiratory Rate 18 Blood Pressure 112/81 Pulse Oximetry 97 Oxygen Delivery Room Air 03/15/22 18:14 03/15/22 19:57 03/15/22 23:07 Temperature 97.6 F Pulse Rate 48 L 45 L 49 L Respiratory Rate 16 Blood Pressure 115/66 Pulse Oximetry 92 Oxygen Delivery Room Air 03/15/22 23:07 03/16/22 03:06 03/16/22 08:00 Temperature Pulse Rate 47 L 47 L 49 L Respiratory Rate Blood Pressure Pulse Oximetry Oxygen Delivery 03/16/22 08:00 03/16/22 09:00 03/16/22 12:00 Temperature 97.4 F L Pulse Rate 54 L 48 L 53 L Respiratory Rate 16 Blood Pressure 129/74 Pulse Oximetry 99 O
[2022-03-16] MEDS: carvediloL 3.125 MG TABLET PO ×2 (12:51→20:38)
[2022-03-16] MEDS: guaiFENesin 12 HR 600 MG TABCR 1200 MG PO ×2 (12:51→20:39)
[2022-03-16 16:54] LABS: Glucose Point of Care 188 mg/dl (65-105)
[2022-03-16] MEDS: RIVAROXABAN 10 MG TABLET 20 MG PO (17:31)
[2022-03-16 20:32] LABS: Glucose Point of Care 214 mg/dl (65-105)
[2022-03-16] MEDS: LOVASTATIN 20 MG TABLET PO (21:18)
[2022-03-16] MEDS: ACETAMINOPHEN 325 MG TABLET 650 MG PO (23:14)
[2022-03-17] VITALS (8 sets, daily range): BP systolic 120–128; BP diastolic 58–74; PULSE 54–76; RESP 18–20; TEMP 36.2–36.6; O2SAT 95–98
[2022-03-17 05:11] LABS: Basophils Absolute Auto 0.02 K/mm3 (0.00-0.10); Basophils Percent Auto 0.1 % (0.0-1.0); Eosinophils Absolute Auto 0.08 K/mm3 (0.02-0.50); Eosinophils Percent Auto 0.5 % (1.0-6.0); Hematocrit 42.4 % (40.0-54.0); Hemoglobin 14.4 g/dL (14.0-18.0); Immature Granulocyte Absolute 0.19 K/mm3 (0.00-0.00); Immature Granulocyte Percent A 1.1 % (0.0-0.0); Lymphocytes Absolute Auto 1.93 K/mm3 (1.10-4.50); Lymphocytes Percent Auto 11.1 % (18.0-42.0); Mean Corpuscular Hemoglobin 30.1 pg (27.0-31.0); Mean Corpuscular Volume 88.5 fL (78.0-102.0); Mean Platelet Volume 10.6 fl (8.7-11.0); Monocytes Absolute Auto 1.31 K/mm3 (0.10-0.90); Monocytes Percent Auto 7.5 % (2.0-11.0); Neutrophils Absolute Auto 13.9 K/mm3 (1.7-7.2); Neutrophils Percent Auto 79.7 % (50.0-70.0); Platelet Count Result 224 K/mm3 (150-420); Red Blood Count 4.79 M/mm3 (4.70-6.10); Red Cell Distribution Width 12.7 % (11.6-14.4); White Blood Count 17.4 K/mm3 (4.8-10.8)
[2022-03-17 05:32] LABS: Alanine Aminotransferase 113 U/L (16-63); Albumin Level 2.7 g/dL (3.4-5.0); Alkaline Phosphatase 61 U/L (46-116); Anion Gap 4 mmol/L (8-16); Aspartate Amino Transferase 17 U/L (15-37); Bilirubin,Total 0.7 mg/dL (0.00-1.00); Blood Urea Nitrogen 25 mg/dL (7-18); Calcium 8.3 mg/dL (8.5-10.1); Carbon Dioxide 28 mmol/L (21-32); Chloride 102 mmol/L (98-108); Estimated CRCL calculation 64 ml/min; Estimated Glomerular Filt Rate > 60; Glucose 193 mg/dL (70-99); Magnesium 2.2 mg/dL (1.8-2.4); Osmolality Calculated 287 mOsm/kg (285-295); Potassium 4.4 mmol/L (3.5-5.1); Sodium 134 mmol/L (136-145); Total Protein 5.8 g/dL (6.4-8.2)
[2022-03-17 05:33] LABS: CRP < 0.2 mg/dL (0.0-0.9)
[2022-03-17 07:23] LABS: Glucose Point of Care 174 mg/dl (65-105)
[2022-03-17] MEDS: SACCHAROMYCES BOULARDII 250 MG CAPSULE PO ×2 (08:09→16:58)
[2022-03-17] MEDS: TRIAMTERENE 37.5 MG/HCTZ 25 MG (MAXZIDE) TABLET 1 TAB PO (08:09)
[2022-03-17] MEDS: carvediloL 3.125 MG TABLET PO ×2 (08:09→20:39)
[2022-03-17] MEDS: guaiFENesin 12 HR 600 MG TABCR 1200 MG PO ×2 (08:10→20:39)
[2022-03-17] MEDS: FINASTERIDE 5 MG TABLET PO (08:10)
--- NOTE | 2022-03-17 09:58 | PC.NURSE ---
0930 mrsa done of nares. down and back from xray. up in halls walking at this time.
[2022-03-17 11:51] LABS: Glucose Point of Care 221 mg/dl (65-105)
--- NOTE | 2022-03-17 11:51 | WPDPN ---
Progress Note: A&P Assessment and Plan (1) New onset a-fib: Code(s): I48.91 - Unspecified atrial fibrillation Status: Acute Assessment and Plan: Controlled Oxygen as needed On monitoring engineer controlled Started on oral Cardizem discontinue Cardizem and changed to Coreg due to bradycardia. Patient will discharge home with Coreg Started on Xarelto Patient will need to follow-up with industrial workers on discharge Echocardiogram ordered no significant findings (2) Type 2 diabetes mellitus: Code(s): E11.9 - Type 2 diabetes mellitus without complications Status: Acute Assessment and Plan: Hold all oral antiglycemic's We will treat with insulin Resume home medication on discharge (3) Hypertension: Code(s): I10 - Essential (primary) hypertension Status: Acute Assessment and Plan: We will continue on all home medications Monitor vitals Patient on telemetry (4) Abnormal WBC count: Code(s): D72.9 - Disorder of white blood cells, unspecified Status: Acute Assessment and Plan: WBCs 18>21.6>18.2 Etiology unknown Differential no significant findings CRP within normal limits Chest x-ray negative for infection Urine negative for infection we will continue to monitor labs repeat UA negative Patient has remained afebrile Will call patient's primary care physician and inform him of patient leukocytosis, will do repeat CBC in 1 week with results going to primary care physician Patient afebrile and asymptomatic. Patient stable enough to discharge patient agrees with discharge Patient instructed to return back to the hospital if he becomes febrile, short of breath or any other abnormal Subjective Date/time seen: 03/17/22 11:51 patient has no complaints today he does not complain of chest pains, palpitation or shortness of breath. Patient is anxious to discharge home. Will keep patient for an additional day to monitor WBC count. The patient denies SOB, CP, palpitation, extremity numbness, lightheadedness, dizziness, constipation, diarrhea, chills, or fever. Review of Systems Review of Systems: All systems reviewed & are unremarkable except as noted in HPI and below Exam Narrative: GENERAL:Well-appearing, well-nourished, and in no acute distress. HEAD:Normocephalic, atraumatic. EYES: PERRLA and EOMI. ENT: Nares clear, no rhinorrhea or epistaxis. Mucous membranes moist. NECK: Supple. CHEST: Clear to auscultation. No respiratory distress. HEART: Irregular Regular rate and rhythm.. Normal peripheral pulses. ABDOMEN: Soft, nontender, nondistended, normal active bowel sounds. EXTREMITIES: Normal range of motion. No edema. SKIN: Warm, dry, no rash. NEURO: No focal deficits. Alert and oriented x3. Objective Data Vital Signs Vital Signs: Vital Signs - 24 hr 03/16/22 12:00 03/16/22 12:51 03/16/22 16:00 Temperature 98 F Pulse Rate 53 L 62 64 Respiratory Rate 16 Blood Pressure 122/67 Pulse Oximetry 95 Oxygen Delivery Room Air 03/16/22 16:00 03/16/22 20:38 03/16/22 20:00 Temperature Pulse Rate 64 59 L 59 L Respiratory Rate Blood Pressure Pulse Oximetry Oxygen Delivery 03/17/22 00:00 03/17/22 00:00 03/17/22 04:00 Temperature 97.2 F L Pulse Rate 59 L 59 L 58 L Respiratory Rate 20 Blood Pressure 122/69 Pulse Oximetry 95 Oxygen Delivery Room Air 03/17/22 08:09 03/17/22 08:00 03/17/22 08:00 Temperature 97.8 F Pulse Rate 54 L 54 L 54 L Respiratory Rate 18 Blood Pressure 120/74 Pulse Oximetry 96 Oxygen Delivery Room Air Intake/Output Intake/Output: Intake & Output 03/14/22 03/15/22 03/16/22 03/17/22 23:59 23:59 23:59 23:59 Intake Total 2130 1800 1130 Output Total 1325 1400 Balance 2130 864 -270 Meds/Results Medications: Active Medications Generic Name Dose Route Start Last Admin Trade Name Freq PRN Reason Stop Dose Admin Acetaminophen 650 mg 03/15/22 04:54
--- NOTE | 2022-03-17 12:18 | PC.NURSE ---
Patient request lab to be drawn this evening and if ok to go home this evening, message sent to hospitalist regarding patient request
[2022-03-17 16:06] LABS: Hematocrit 45.5 % (40.0-54.0); Hemoglobin 15.1 g/dL (14.0-18.0); Mean Corpuscular HGB Conc 33.2 g/dL (32.0-36.0); Mean Corpuscular Hemoglobin 29.3 pg (27.0-31.0); Mean Corpuscular Volume 88.3 fL (78.0-102.0); Mean Platelet Volume 10.1 fl (8.7-11.0); Platelet Count Result 242 K/mm3 (150-420); Red Blood Count 5.15 M/mm3 (4.70-6.10); Red Cell Distribution Width 12.7 % (11.6-14.4); White Blood Count 19.7 K/mm3 (4.8-10.8)
[2022-03-17 16:39] LABS: Glucose Point of Care 146 mg/dl (65-105)
--- NOTE | 2022-03-17 16:50 | PC.NURSE ---
No new orders. Patient will not be discharged tonight.
[2022-03-17] MEDS: RIVAROXABAN 10 MG TABLET 20 MG PO (16:58)
[2022-03-17] MEDS: LOVASTATIN 20 MG TABLET PO (20:27)
[2022-03-17 20:35] LABS: Glucose Point of Care 206 mg/dl (65-105)
[2022-03-17] MEDS: MELATONIN 5 MG TABLET 10 MG PO (20:39)
[2022-03-18] VITALS: BP 137/76; PULSE 71; RESP 20; TEMP 36.4; O2SAT 96
[2022-03-18 04:00] VITALS: PULSE 76
[2022-03-18 05:04] LABS: Hematocrit 41.5 % (40.0-54.0); Hemoglobin 14.2 g/dL (14.0-18.0); Mean Corpuscular HGB Conc 34.2 g/dL (32.0-36.0); Mean Corpuscular Hemoglobin 30.2 pg (27.0-31.0); Mean Corpuscular Volume 88.3 fL (78.0-102.0); Mean Platelet Volume 10.4 fl (8.7-11.0); Platelet Count Result 205 K/mm3 (150-420); Red Cell Distribution Width 12.7 % (11.6-14.4); White Blood Count 17.4 K/mm3 (4.8-10.8)
[2022-03-18 05:26] LABS: Alanine Aminotransferase 90 U/L (16-63); Albumin Level 2.6 g/dL (3.4-5.0); Alkaline Phosphatase 63 U/L (46-116); Anion Gap 3 mmol/L (8-16); Aspartate Amino Transferase 13 U/L (15-37); Bilirubin,Total 0.6 mg/dL (0.00-1.00); Blood Urea Nitrogen 24 mg/dL (7-18); Calcium 8.2 mg/dL (8.5-10.1); Carbon Dioxide 29 mmol/L (21-32); Chloride 100 mmol/L (98-108); Estimated CRCL calculation 60 ml/min; Estimated Glomerular Filt Rate > 60; Glucose 266 mg/dL (70-99); Osmolality Calculated 287 mOsm/kg (285-295); Potassium 4.4 mmol/L (3.5-5.1); Sodium 132 mmol/L (136-145)
[2022-03-18 07:31] LABS: Glucose Point of Care 160 mg/dl (65-105)
[2022-03-18 08:00] VITALS: BP 120/60; PULSE 56; RESP 18; TEMP 36.5
[2022-03-18 08:47] VITALS: PULSE 54
[2022-03-18] MEDS: carvediloL 3.125 MG TABLET PO (08:47)
[2022-03-18] MEDS: SACCHAROMYCES BOULARDII 250 MG CAPSULE PO (08:47)
[2022-03-18] MEDS: TRIAMTERENE 37.5 MG/HCTZ 25 MG (MAXZIDE) TABLET 1 TAB PO (08:47)
[2022-03-18] MEDS: guaiFENesin 12 HR 600 MG TABCR 1200 MG PO (08:47)
[2022-03-18] MEDS: FINASTERIDE 5 MG TABLET PO (08:47)
[2022-03-18 12:00] VITALS: PULSE 58
[2022-03-18 12:16] LABS: Glucose Point of Care 156 mg/dl (65-105)
--- NOTE | 2022-03-18 12:33 | PM.DS ---
DS: Admitting Diagnosis Discharge Date 04/14/2022 Admitting Diagnosis A. fib with RVR DS: Discharge Diagnosis Discharge Diagnosis (1) New onset a-fib: Code(s): I48.91 - Unspecified atrial fibrillation Status: Acute Assessment and Plan: Controlled Oxygen as needed On internet retailer controlled Started on oral Cardizem discontinue Cardizem and changed to Coreg due to bradycardia. Patient will discharge home with Coreg Started on Xarelto Patient will need to follow-up with paintings restorer on discharge Echocardiogram ordered no significant findings (2) Type 2 diabetes mellitus: Code(s): E11.9 - Type 2 diabetes mellitus without complications Status: Acute Assessment and Plan: Hold all oral antiglycemic's We will treat with insulin Resume home medication on discharge (3) Hypertension: Code(s): I10 - Essential (primary) hypertension Status: Acute Assessment and Plan: We will continue on all home medications Monitor vitals Patient on telemetry (4) Abnormal WBC count: Code(s): D72.9 - Disorder of white blood cells, unspecified Status: Acute Assessment and Plan: WBCs 18>21.6>18.2 Etiology unknown Differential no significant findings CRP within normal limits Chest x-ray negative for infection Urine negative for infection we will continue to monitor labs repeat UA negative Patient has remained afebrile Will call patient's primary care physician and inform him of patient leukocytosis, will do repeat CBC in 1 week with results going to primary care physician Patient afebrile and asymptomatic. Patient stable enough to discharge patient agrees with discharge Patient instructed to return back to the hospital if he becomes febrile, short of breath or any other abnormal Unsure if the leukocytosis is a result of long-haul COVID. Patient reports being treated for COVID at the beginning of February with steroids. (5) Elevated liver enzymes: Code(s): R74.8 - Abnormal levels of other serum enzymes Status: Acute Plan A. fib and leukocytosis DS: Summary Hospital Course Reason for hospitalization: Shortness of breath with chest pain and palpitations Hospital Course: This is a 62-year-old male that states that y he was not feeling well when he woke up early in the morning the day of admission .when he got out of bed he felt dizzy and he could feel his heart beating fast per patient.? Patient states that he went and got his apple watch put it on and it told him he was in A. fib .? When patient arrived his heart rate was 165 and he was in atrial fibrillation with RVR patient received some metoprolol as well as on Cardizem .? Patient denies having a history of atrial fibrillation he has a history of high blood pressure.? States that he is has some heart problems every since he has been recovering from COVID which she was diagnosed 2 weeks ago. This day of discharge patient will discharge with Coreg his Cardizem was discontinued due to bradycardia. Patient did continue to have leukocytosis as inpatient. All diagnostic tests such as chest x-ray and UA along with abdominal CT are negative. A blood culture will be collected. Patient is asymptomatic he denies any fever chills, fatigue, chills, chest pain, palpitation, lightheadedness, dizziness, nausea and vomiting. His primary care physician will be updated he will get a repeat CBC in 1 week with results going to his primary care physician. Patient agrees with discharge she was instructed that if he have any abnormal signs and symptoms he will need to come back to our emergency department. Will contact patient's primary care physician: 1.We will recheck labs in 1 week if patient's WBC remains elevated: 2. Patient will more than likely need to follow-up with a apple solutions consultant 3. Need further diagnostics testing to determine etiology 4. Hepatic panel ordered with results going to primary care physician Time Spent with Patient
[2022-03-18 13:11] LABS: Add Urine Microscopic? NO; Appearance Urine Clear (Clear); Bilirubin Urine Negative (Negative); Blood Urine Negative (Negative); Color Urine Light Yellow (Yellow); Glucose Urine UA Negative (Negative); Ketones Urine Negative (Negative); Leukocyte Esterase Ur Negative LEU/UL (Negative); Nitrate Urine Negative (Negative); Protein Urine Negative (Negative); Urobilinogen Urine 0.2 mg/dL (0.2-1.0)
--- NOTE | 2022-03-18 13:40 | PC.NURSE ---
1330 patient dc to home. walked down to personal auto with nurse and at his side. dc orders went over. they both vocalize an understanding.
--- NOTE | 2022-03-21 15:53 | PC.NURSE ---
Pt states he received and understood his discharge instructions. Pt has no other comments.
== END 2022-03-18 13:00 | disposition home or self-care (01) | DRG 310 ==
LOC: CHSED 04:57 → CHS2ND 05:20
PROVIDERS: Nurse Practitioner; Nurse Practitioner Family; Admitting Provider Internal Medicine; Emergency Provider Family Medicine; PCP Internal Medicine; Visit Provider Internal Medicine
DX: I48.91 Unspecified atrial fibrillation (principal); E11.9 Type 2 diabetes mellitus without complications; Z86.16 Personal history of COVID-19; R06.9 Unspecified abnormalities of breathing; I10 Essential (primary) hypertension; D72.829 Elevated white blood cell count, unspecified
CPT/HCPCS: 36415; 71045; 71250; 74176; 80048; 80053; 81003; 82948; 83690; 83735; 83880; 84443; 84484; 85025; 85027; 85610; 86140; 87040; 87081; 93005; 93306; 96365; 96375; 97165; 99285; A9270; J0696; J1650; J1815; J3370

== ENCOUNTER 2022-03-29 09:52 | Outpatient (CLI) | payer MEDICARE, SELFPAY ==
--- NOTE | 2022-05-02 11:16 | P.PCNHOL_ITS ---
Holter/Event Monitor Holter/Event Monitor Date of procedure: 03/29/22 Holter/Event Procedure: Event Monitor Indications: PAF Conclusion: 1. 24 days event monitor between 03/29/22-04/27/22. There are 30 available transm issions for analysis. 2. Predominant rhythm is sinus rhythm. HR range 50-207 bpm; average HR 75 bpm. 3. There are occasional premature supraventricular coplexes with total burden of 1%. No supraventricular tachycardia. 4. There are occasional premature ventricular complexes with total burden of 1%. 1 episode of ventricular tachycardia at 207 bpm lasting 4 beats on 04/17/22 at 17:04. 5. No significant pauses greater than seconds. 6. No symptoms availalbe for correlation.
== END 2022-03-29 09:53 | disposition home or self-care (01) ==
PROVIDERS: PCP Internal Medicine; Visit Provider Internal Medicine
DX: I48.91 Unspecified atrial fibrillation (principal)
CPT/HCPCS: 93225

== ENCOUNTER 2022-04-19 14:00 | Outpatient (RCR) | payer MEDICARE, SELFPAY ==
--- NOTE | 2022-04-19 17:50 | PTOPEVAL ---
Thank you for referring Beck Almeida to [facility].? The patient is scheduled to be seen for therapy? ____x/week for ___ weeks. Please review, sign, date and return this plan of care TERESA. I agree with and certify that the following plan of care is medically necessary. Referring Physician Date Admitting Provider: Attending Provider: Noe Fisher MD Referring Provider: *PT Outpatient Evaluation Start: 04/19/22 14:09 Freq: Status: Active Protocol: Document 04/19/22 14:00 Dequan (Rec: 04/19/22 15:09 [facility] [email or web address]) Therapy Assessment Status Assessment Status Assessment Status Evaluation Outpatient Past Medical History Neurological History Hx Neurological Disorders No Significant History Cardiovascular History Hx Hypercholesterolemia Yes Hx Hypertension Yes Respiratory History Hx COVID-19 Yes: OCT 2020-LOSS OF SMELL/ TASTE, H/A, TIRED Hx Other Respiratory Disorders Yes: chronic cough years ago Gastrointestinal History Hx Gastroesophageal Reflux Disease Yes Hx Hernia Yes: Fixed 08/2021 Genitourinary History Hx Benign Prostatic Hyperplasia Yes Hx Kidney Stones Yes: 20's to 40's Musculoskeletal History Hx Back Injury Yes: LOW D/T FALL Hx Back Pain Yes: LOW Hx Spinal Surgery Yes: L4-5 - DISCECTOMY (NO IMPLANTS) Hematological History Hx Hematological Disorders No Significant History Endocrine History Hx Diabetes Yes: TYPE 2 PREDIABETIC HEENT History Hx HEENT Disorders No Significant History Integumentary History Hx Other Skin Disorders Yes: EXC. SCCA NOSE, ARM, FACE Reproductive History Hx Reproductive Disorders No Significant History Psychosocial History Hx Psychiatric Disorders No Significant History Pain History Has Past Pain Affected Your Daily Life Yes History of Long-Term Prescription Pain Yes Medication Use (Opiates) Effective Methods of Pain Control Uses low dose vicodin for back pain when needed Anesthesia History Hx Anesthesia Reactions No Significant History Other History Hx Other Surgeries Yes: FATTY TUMORE EXC FROM BACK Evaluation Information Problem Diagnosis R knee pain Onset 10/30/21 Additional Evaluation Detail LEFS = 59% Functionally Declined Subjective Information Pt reports that he went to Query Text:As Reported By Patient/ [place] in October, which is Family when his knee started bothering him so much. that he recently got a shot in his R
--- NOTE | 2022-05-17 12:44 | PTOPEVAL ---
Thank you for referring Beck Almeida to [facility].? The patient is scheduled to be seen for therapy? ____x/week for ___ weeks. Please review, sign, date and return this plan of care TERESA. I agree with and certify that the following plan of care is medically necessary. Referring Physician Date Admitting Provider: Attending Provider: Noe Fisher MD Referring Provider: *PT Outpatient Evaluation Start: 04/19/22 14:09 Freq: Status: Active Protocol: Document 05/17/22 12:00 TRISTA (Rec: 05/17/22 12:43 [facility] [email or web address]) Therapy Assessment Status Assessment Status Assessment Status Discharge Outpatient Past Medical History Neurological History Hx Neurological Disorders No Significant History Cardiovascular History Hx Hypercholesterolemia Yes Hx Hypertension Yes Respiratory History Hx COVID-19 Yes: OCT 2020-LOSS OF SMELL/ TASTE, H/A, TIRED Hx Other Respiratory Disorders Yes: chronic cough years ago Gastrointestinal History Hx Gastroesophageal Reflux Disease Yes Hx Hernia Yes: Fixed 08/2021 Genitourinary History Hx Benign Prostatic Hyperplasia Yes Hx Kidney Stones Yes: 20's to 40's Musculoskeletal History Hx Back Injury Yes: LOW D/T FALL Hx Back Pain Yes: LOW Hx Spinal Surgery Yes: L4-5 - DISCECTOMY (NO IMPLANTS) Hematological History Hx Hematological Disorders No Significant History Endocrine History Hx Diabetes Yes: TYPE 2 PREDIABETIC HEENT History Hx HEENT Disorders No Significant History Integumentary History Hx Other Skin Disorders Yes: EXC. SCCA NOSE, ARM, FACE Reproductive History Hx Reproductive Disorders No Significant History Psychosocial History Hx Psychiatric Disorders No Significant History Pain History Has Past Pain Affected Your Daily Life Yes History of Long-Term Prescription Pain Yes Medication Use (Opiates) Effective Methods of Pain Control Uses low dose vicodin for back pain when needed Anesthesia History Hx Anesthesia Reactions No Significant History Other History Hx Other Surgeries Yes: FATTY TUMORE EXC FROM BACK Evaluation Information Problem Diagnosis R knee pain Onset 10/30/21 Additional Evaluation Detail LEFS = 48% functionally declined Subjective Information mr. almeida reports he feels Query Text:As Reported By Patient/ about the same overall. he Family reports slight improvements in activities at home, but reports he is still limited by
== END 2022-05-17 14:29 | disposition home or self-care (01) ==
LOC: CHSPT 14:00
PROVIDERS: Visit Provider Orthopaedic Surgery
DX: M25.561 Pain in right knee (principal); M17.11 Unilateral primary osteoarthritis, right knee; S83.241A Other tear of medial meniscus, current injury, right knee, initial encounter
CPT/HCPCS: 97014; 97035; 97110; 97161; 97530; G0283

== ENCOUNTER 2022-06-08 09:26 | Outpatient (CLI) | payer MEDICARE, SELFPAY ==
--- NOTE | ~2022-06-08 | CT_ITS ---
EXAMINATION: CT sinus wo con DATE: 06/08/2022 09:48 INDICATION: Chronic sinusitis. TECHNIQUE: Computed tomography (CT) of the paranasal sinuses was performed without intravenous contra st. Iterative reconstruction technique was employed. The dose-length product was 295.03 mGy-cm. COMPARISON: CT sinuses 05/14/2012 FINDINGS: There is mild mucosal thickening in the frontal and ethmoid sinuses. The sphenoid sinuses a re clear. There is mild mucosal thickening in the maxillary sinuses. There are Sylvester cells bilateral ly. The ostiomeatal units are patent. The middle turbinates are paradoxical. The nasal septum is at m idline. IMPRESSION: 1. Mucosal thickening in the paranasal sinuses. Reviewed, dictated and finalized at location A.
== END 2022-06-08 09:27 | disposition home or self-care (01) ==
LOC: CHSIMG 09:28
PROVIDERS: PCP Internal Medicine; Visit Provider Internal Medicine
DX: J32.9 Chronic sinusitis, unspecified (principal)
CPT/HCPCS: 70486

== ENCOUNTER 2022-08-23 10:55 | Outpatient (CLI) | payer MEDICARE, SELFPAY ==
--- NOTE | ~2022-08-23 | XR_ITS ---
EXAMINATION: XR chest 2V DATE: 08/23/2022 11:21 INDICATION: Cough TECHNIQUE: PA and lateral views of the chest are obtained. COMPARISON: None available FINDINGS: The lungs are free of acute opacities. No pleural effusion or pneumothorax. The cardiomedia stinal silhouette is normal. There is moderate thoracic spondylosis. IMPRESSION: 1. No acute cardiopulmonary abnormality. Reviewed, dictated and finalized at location B. RNMENT PROFESSOR
[2022-08-23 11:10] LABS: Basophils Absolute Auto 0.06 K/mm3 (0.00-0.10); Basophils Percent Auto 0.5 % (0.0-1.0); Eosinophils Absolute Auto 0.18 K/mm3 (0.02-0.50); Eosinophils Percent Auto 1.5 % (1.0-6.0); Hematocrit 42.6 % (40.0-54.0); Hemoglobin 14.4 g/dL (14.0-18.0); Immature Granulocyte Absolute 0.06 K/mm3 (0.00-0.00); Immature Granulocyte Percent A 0.5 % (0.0-0.0); Lymphocytes Absolute Auto 2.03 K/mm3 (1.10-4.50); Lymphocytes Percent Auto 16.7 % (18.0-42.0); Mean Corpuscular HGB Conc 33.8 g/dL (32.0-36.0); Mean Corpuscular Volume 88.8 fL (78.0-102.0); Mean Platelet Volume 9.9 fl (8.7-11.0); Monocytes Absolute Auto 1.03 K/mm3 (0.10-0.90); Monocytes Percent Auto 8.4 % (2.0-11.0); Neutrophils Absolute Auto 8.8 K/mm3 (1.7-7.2); Neutrophils Percent Auto 72.4 % (50.0-70.0); Platelet Count Result 252 K/mm3 (150-420); Red Cell Distribution Width 12.3 % (11.6-14.4); White Blood Count 12.2 K/mm3 (4.8-10.8)
[2022-08-23 11:26] LABS: Alanine Aminotransferase 36 U/L (16-63); Albumin Level 3.5 g/dL (3.4-5.0); Alkaline Phosphatase 64 U/L (46-116); Anion Gap 3 mmol/L (8-16); Aspartate Amino Transferase 11 U/L (15-37); Bilirubin,Total 0.6 mg/dL (0.00-1.00); Blood Urea Nitrogen 22 mg/dL (7-18); Calcium 8.7 mg/dL (8.5-10.1); Carbon Dioxide 30 mmol/L (21-32); Chloride 103 mmol/L (98-108); Estimated Glomerular Filt Rate > 60; Glucose 128 mg/dL (70-99); Osmolality Calculated 287 mOsm/kg (285-295); Potassium 3.7 mmol/L (3.5-5.1); Sodium 136 mmol/L (136-145); Total Protein 6.7 g/dL (6.4-8.2)
== END 2022-08-23 10:56 | disposition home or self-care (01) ==
LOC: CHSLAB 10:57
PROVIDERS: PCP Internal Medicine; Visit Provider Internal Medicine
DX: R05.9 Cough, unspecified (principal)
CPT/HCPCS: 36415; 71046; 80053; 85025

== ENCOUNTER 2022-09-27 12:27 | Outpatient (CLI) | payer MEDICARE, SELFPAY ==
[2022-09-27 12:41] LABS: Basophils Absolute Auto 0.04 K/mm3 (0.00-0.10); Basophils Percent Auto 0.5 % (0.0-1.0); Eosinophils Percent Auto 2.6 % (1.0-6.0); Hematocrit 42.9 % (40.0-54.0); Hemoglobin 14.2 g/dL (14.0-18.0); Immature Granulocyte Absolute 0.02 K/mm3 (0.00-0.00); Immature Granulocyte Percent A 0.3 % (0.0-0.0); Lymphocytes Percent Auto 19.3 % (18.0-42.0); Mean Corpuscular HGB Conc 33.1 g/dL (32.0-36.0); Mean Corpuscular Hemoglobin 29.9 pg (27.0-31.0); Mean Corpuscular Volume 90.3 fL (78.0-102.0); Mean Platelet Volume 9.6 fl (8.7-11.0); Monocytes Absolute Auto 0.62 K/mm3 (0.10-0.90); Neutrophils Absolute Auto 5.4 K/mm3 (1.7-7.2); Neutrophils Percent Auto 69.3 % (50.0-70.0); Platelet Count Result 235 K/mm3 (150-420); Red Blood Count 4.75 M/mm3 (4.70-6.10); Red Cell Distribution Width 12.9 % (11.6-14.4); White Blood Count 7.8 K/mm3 (4.8-10.8)
[2022-09-27 12:42] LABS: Add Urine Microscopic? NO; Appearance Urine Clear (Clear); Bilirubin Urine Negative (Negative); Blood Urine Negative (Negative); Color Urine Light Yellow (Yellow); Glucose Urine UA Negative (Negative); Ketones Urine Negative (Negative); Leukocyte Esterase Ur Negative (Negative); Nitrate Urine Negative (Negative); Protein Urine Negative (Negative); Urobilinogen Urine 0.2 mg/dL (0.2-1.0)
[2022-09-27 13:36] LABS: Prostate Specific Antigen 12.8 ng/mL (< OR = 4.0)
[2022-09-27 13:44] LABS: CRP < 0.5 mg/dL (0.0-0.9)
[2022-10-03 07:45] LABS: LH 2.9 mIU/mL (1.6-15.2)
[2022-10-03 11:41] LABS: Testosterone Free 61.1 pg/mL (35.0-155.0); Testosterone Total 330 ng/dL (250-1100)
== END 2022-09-27 12:28 | disposition home or self-care (01) ==
LOC: CHSLAB 12:29
PROVIDERS: PCP Internal Medicine; Visit Provider Internal Medicine
DX: R61 Generalized hyperhidrosis (principal); R97.20 Elevated prostate specific antigen [PSA]; N39.0 Urinary tract infection, site not specified
CPT/HCPCS: 36415; 81003; 83002; 84153; 84402; 84403; 85025; 86140; 87086

== ENCOUNTER 2022-12-28 13:48 | Outpatient (CLI) | payer MEDICARE, SELFPAY ==
--- NOTE | ~2022-12-28 | XR_ITS ---
EXAMINATION: XR chest 2V Exam Date/Time: 12/28/2022 13:58 CDT HISTORY: PRODUCTIVE COUGH SEVERAL WEEKS. Comparison: 08/23/2022. RESULT: Lines, tubes, and devices: None. Lungs and pleura: Clear. Cardiomediastinal silhouette: Stable. Other: No acute osseous or upper abdominal finding. IMPRESSION: No acute cardiopulmonary process. Reviewed, dictated and finalized at location K.
--- NOTE | ~2022-12-28 | XR_ITS ---
EXAM: XR lumbar spine 2-3V DATE: 12/28/2022 14:18 HISTORY: LEFT LOWER BACK PAIN WITH RADIATION TO LEFT LEG; ACUTE. . COMPARISON: X-ray chest 08/23/2022. FINDINGS: 5 nonrib-bearing lumbar-type vertebral bodies. Pedicles intact. Mild rotatory scoliosis. N ormal vertebral body alignment. Mild stable anterior wedge deformity at L1. Remaining vertebral body heights preserved. Multilevel disc space narrowing and marginal osteophytosis, severe at L4-5. Mid an d lower lumbar facet hypertrophy and sclerosis. No fracture or dislocation. IMPRESSION: Mild stable anterior wedge deformity at L1. Multilevel degenerative disc disease, severe at L4-5. Mid and lower lumbar facet arthropathy. Reviewed, dictated and finalized at location K.
== END 2022-12-28 13:49 | disposition home or self-care (01) ==
LOC: CHSIMG 13:50
PROVIDERS: PCP Internal Medicine; Visit Provider Internal Medicine
DX: R05.9 Cough, unspecified (principal); M54.50 Low back pain, unspecified; M48.56XA Collapsed vertebra, not elsewhere classified, lumbar region, initial encounter for fracture; M51.36 Other intervertebral disc degeneration, lumbar region; M12.88 Other specific arthropathies, not elsewhere classified, other specified site
CPT/HCPCS: 71046; 72100

== ENCOUNTER 2023-02-16 10:31 | Outpatient (CLI) | payer MEDICARE, SELFPAY ==
[2023-02-16 10:48] LABS: Appearance Urine Clear (Clear); Basophils Absolute Auto 0.06 K/mm3 (0.00-0.10); Basophils Percent Auto 0.5 % (0.0-1.0); Bilirubin Urine Negative (Negative); Blood Urine Negative (Negative); Color Urine Yellow (Yellow); Eosinophils Absolute Auto 0.12 K/mm3 (0.02-0.50); Eosinophils Percent Auto 1.1 % (1.0-6.0); Glucose Urine UA Negative (Negative); Hematocrit 44.9 % (37.0-46.0); Hemoglobin 15.3 g/dL (12.4-15.3); Immature Granulocyte Absolute 0.14 K/mm3 (0.00-0.00); Immature Granulocyte Percent A 1.2 % (0.0-0.0); Ketones Urine Negative (Negative); Leukocyte Esterase Ur Negative (Negative); Lymphocytes Absolute Auto 2.52 K/mm3 (1.10-4.50); Lymphocytes Percent Auto 22.4 % (18.0-42.0); Mean Corpuscular HGB Conc 34.1 g/dL (32.0-36.0); Mean Corpuscular Hemoglobin 30.3 pg (27.0-31.0); Mean Corpuscular Volume 88.9 fL (78.0-102.0); Monocytes Absolute Auto 1.18 K/mm3 (0.10-0.90); Monocytes Percent Auto 10.5 % (2.0-11.0); Neutrophils Absolute Auto 7.2 K/mm3 (1.7-7.2); Neutrophils Percent Auto 64.3 % (50.0-70.0); Nitrate Urine Negative (Negative); Platelet Count Result 319 K/mm3 (150-420); Protein Urine Negative (Negative); Red Blood Count 5.05 M/mm3 (4.70-6.10); Red Cell Distribution Width 12.5 % (11.6-14.4); Specific Grav Ur >= 1.030 (1.010-1.020); Urobilinogen Urine 0.2 mg/dL (0.2-1.0); White Blood Count 11.2 K/mm3 (4.8-10.8)
[2023-02-16 10:49] LABS: Add Urine Microscopic? NO
[2023-02-16 11:32] LABS: Alanine Aminotransferase 38 U/L (16-63); Albumin Level 3.5 g/dL (3.4-5.0); Alkaline Phosphatase 58 U/L (46-116); Anion Gap 9 mmol/L (8-16); Aspartate Amino Transferase 15 U/L (15-37); Bilirubin,Total 0.7 mg/dL (0.00-1.00); Blood Urea Nitrogen 29 mg/dL (7-18); Carbon Dioxide 30 mmol/L (21-32); Chloride 103 mmol/L (98-108); Estimated Glomerular Filt Rate 60; Glucose 124 mg/dL (70-99); Osmolality Calculated 300 mOsm/kg (285-295); Potassium 3.7 mmol/L (3.5-5.1); Sodium 142 mmol/L (136-145); Total Protein 6.3 g/dL (6.4-8.2)
== END 2023-02-16 10:32 | disposition home or self-care (01) ==
LOC: CHSLAB 10:32
PROVIDERS: PCP Internal Medicine; Visit Provider Internal Medicine
DX: R31.9 Hematuria, unspecified (principal); R97.20 Elevated prostate specific antigen [PSA]
CPT/HCPCS: 36415; 80053; 81003; 84153; 85025; 87086

== ENCOUNTER 2023-07-24 15:12 | Outpatient (CLI) | payer MEDICARE, SELFPAY ==
--- NOTE | ~2023-07-24 | XR_ITS ---
EXAMINATION: XR chest 2V 07/24/2023 15:38 INDICATION: Cough. Covid 19. PROCEDURE: 2 view chest COMPARISON: No prior studies for comparison. FINDINGS: The lungs are clear. The cardiomediastinal silhouette is within normal limits. There are no pleural effusions. There is no pneumothorax suspected. IMPRESSION: 1: NO ACUTE CARDIOPULMONARY DISEASE. Reviewed, dictated and finalized at location B.
[2023-07-24 15:25] LABS: Basophils Absolute Auto 0.02 K/mm3 (0.00-0.10); Basophils Percent Auto 0.4 % (0.0-1.0); Eosinophils Absolute Auto 0.18 K/mm3 (0.02-0.50); Eosinophils Percent Auto 3.3 % (1.0-6.0); Hematocrit 43.8 % (37.0-46.0); Hemoglobin 14.5 g/dL (12.4-15.3); Immature Granulocyte Absolute 0.02 K/mm3 (0.00-0.00); Immature Granulocyte Percent A 0.4 % (0.0-0.0); Lymphocytes Absolute Auto 1.57 K/mm3 (1.10-4.50); Lymphocytes Percent Auto 28.9 % (18.0-42.0); Mean Corpuscular HGB Conc 33.1 g/dL (32.0-36.0); Mean Corpuscular Hemoglobin 29.6 pg (27.0-31.0); Mean Corpuscular Volume 89.4 fL (78.0-102.0); Mean Platelet Volume 10.3 fl (8.7-11.0); Monocytes Absolute Auto 0.72 K/mm3 (0.10-0.90); Monocytes Percent Auto 13.2 % (2.0-11.0); Neutrophils Absolute Auto 2.9 K/mm3 (1.7-7.2); Neutrophils Percent Auto 53.8 % (50.0-70.0); Platelet Count Result 220 K/mm3 (150-420); White Blood Count 5.4 K/mm3 (4.8-10.8)
[2023-07-24 15:40] LABS: Alanine Aminotransferase 41 U/L (16-63); Albumin Level 3.2 g/dL (3.4-5.0); Alkaline Phosphatase 61 U/L (46-116); Anion Gap 6 mmol/L (8-16); Aspartate Amino Transferase 17 U/L (15-37); Bilirubin,Total 0.6 mg/dL (0.00-1.00); Blood Urea Nitrogen 21 mg/dL (7-18); Calcium 8.8 mg/dL (8.5-10.1); Carbon Dioxide 31 mmol/L (21-32); Chloride 103 mmol/L (98-108); Estimated Glomerular Filt Rate 56; Glucose 100 mg/dL (70-99); Osmolality Calculated 293 mOsm/kg (285-295); Potassium 4.2 mmol/L (3.5-5.1); Sodium 140 mmol/L (136-145); Total Protein 6.5 g/dL (6.4-8.2)
== END 2023-07-24 15:13 | disposition home or self-care (01) ==
LOC: CHSLAB 15:14
PROVIDERS: PCP Internal Medicine; Visit Provider Internal Medicine
DX: R05.9 Cough, unspecified (principal)
CPT/HCPCS: 36415; 71046; 80053; 85025

== ENCOUNTER 2023-08-24 14:31 | Outpatient (RCR) | payer MEDICARE, SELFPAY ==
--- NOTE | 2023-08-24 15:51 | OPREHPOC ---
Outpatient Therapy Plan of Care This is a Multidisciplinary Plan of Care that may contain components documented by all disciplines (PT, OT, and ST.) PT Problem 1 PT Problem #1 Knowledge Deficit PT Goal 1 Goal Patient to demonstrate independence with HEP Target Visit 6 PT Problem 2 PT Problem #2 Pain PT Goal 1 Goal 1. Patient to report highest pain at 2/10 2. Patient to report ability to sleep with no disturbance due to neck pain Target Visit 12 PT Problem 3 PT Problem #3 Impaired Range of Motion PT Goal 1 Goal Patient to demonstrate 70 deg of B cervical rotation to improve ability to look over his shoulder when driving Target Visit 12 PT Problem 4 PT Problem #4 Impaired Functional Mobil PT Goal 1 Goal 1. Patient to improve NDI by 20% 2. Patient to report ability to lift house hold objects with no limitations due to pain Target Visit 12
--- NOTE | 2023-08-24 15:51 | PTOPEVAL1 ---
Assessment and note entered by Luz Hernandes DPT Evaluation Information Assessment Status Evaluation Diagnosis neck pain Onset 08/11/23 Subjective Information Patient reports that on Aug 11 he was sleeping in a hotel and woke up with a stiff neck. He reports he has a history of neck pain but it typically goes away within a week. He reports pain is persisting this occurance. He reports pain is from the neck into the R shoulder. He denies numbness and tingling but does report sensation of decreased library sales consultant strength. Patient has difficulty with sleeping, lifting with the R UE and turning his head to drive. Patient is retired but does house and yard work. Reported Pain Level Pain Score 8: Self Report Assessment PT Clinical Summary Mr. Almeida is a 63 year old male who presents to PT with R sided neck pain. Patient demonstrates decreased B cervical ROM, hypomobility of the cervical spine and tenderness to the R upper trap consistent with R sided facet involvement. Patient has difficulty with sleeping, driving and lifting objects at home. He would benefit from skilled PT to address impairments and return to [facility]. Plan of Care Interventions Electrical Stimulation,Hot Pack/Cold Pack,Manual Therapy,Mechanical Traction,Neuro Re-education, Patient/Caregiver Educati,Therapeutic Activities, Therapeutic Exercise PT Services Indicated Yes Treatment Frequency and 2x weekly for 12 visits Duration These treatments will address the objective and functional deficits as defined above. The patient will be advanced safely and appropriately in order for the patient to progress towards his/her prior level of function. Additional exercises will be introduced and as well as a comprehensive home exercise program upon discharge, if needed, ?to ensure carryover of functional gains achieved in the clinic. This treatment plan has been reviewed and agreement upon by the patient.
== END 2023-11-22 23:59 | disposition home or self-care (01) ==
LOC: CHSPT 14:31
PROVIDERS: PCP Internal Medicine; Visit Provider Internal Medicine
DX: M54.12 Radiculopathy, cervical region (principal)
CPT/HCPCS: 97014; 97110; 97140; 97161; G0283

== ENCOUNTER 2023-08-29 12:34 | Outpatient (CLI) | payer MEDICARE, SELFPAY ==
--- NOTE | ~2023-08-29 | US_ITS ---
EXAMINATION: US art doppler w press UE BI DATE: 08/29/2023 13:32 INDICATION: Arterial occlusive disease. Subclavian stenosis. TECHNIQUE: Segmental pressures and plethysmographic and Doppler waveforms of the upper extremity jose manuel sherron were obtained. COMPARISON: None. FINDINGS: Right and left brachial artery pressures of 124 mm Hg and 120 mm Hg, respectively, are concordant (no rmal difference <= 30 mmHg). The right finger:brachial systolic pressure ratio is 1.06 (normal > 0.8) . Arterial Doppler waveforms demonstrate normal upstroke (normal upstroke < 0.2 s). The left finger:brachial systolic pressure ratio is 1.19. Arterial Doppler waveforms demonstrate nor mal upstroke. IMPRESSION: 1. No significant arterial occlusive disease. Reviewed, dictated and finalized at location A. Y LEVEL JAVA DEVELOPER
--- NOTE | ~2023-08-29 | US_ITS ---
Procedure: Duplex Doppler examination of the bilateral carotids. Indication: Asymmetric blood pressure Technique: Real time, color-flow and pulse wave Doppler examination of the bilateral carotids was performed. Findings: Christopher scale ultrasonography of the right neck demonstrated no significant plaque. There was demonstrat ion of normal color-flow and Doppler waveforms within the right common, internal and external carotid arteries. The peak systolic velocities in the right common, internal and external carotid arteries w ere demonstrated to be 84 cm/sec, 85 cm/sec and 82 cm/sec respectively. The right ICA/CCA ratio was 1 .0.The proximal right internal carotid artery demonstrates 0% stenosis relative to the normal distal artery lumen diameter. Christopher scale sonography of the left neck demonstrated no significant plaque. There was demonstration of normal color-flow and wave forms within the left common, internal and external carotid arteries. The peak systolic velocities in the left common, internal and external carotid arteries were demonstrate d to be 105cm/sec, 67 cm/sec and 88 cm/sec respectively. The left ICA/CCA ratio was 0.6. The proximal left internal carotid artery demonstrates 0% stenosis relative to the normal distal artery lumen latoya meter. There was antegrade flow demonstrated in the bilateral vertebral arteries. Impression: No hemodynamically significant stenosis of the bilateral internal carotid arteries. Antegrade flow in the bilateral vertebral arteries. Note: The methodology used is an indirect measurement validated against a direct method (such as the NASCET criteria) that compares diameters at the stenosis to the distal ICA. Reviewed, dictated and finalized at location . ER MERCHANDISER Impression: No hemodynamically significant stenosis of the bilateral internal carotid arter ies. Antegrade flow in the bilateral vertebral arteries. Note: The methodology used is an indirect measurement validated against a direct meth od (such as the NASCET criteria) that compares diameters at the stenosis to the distal ICA.
== END 2023-08-29 12:35 | disposition home or self-care (01) ==
LOC: CHSIMG 12:35
PROVIDERS: PCP Internal Medicine; Visit Provider Internal Medicine
DX: I65.23 Occlusion and stenosis of bilateral carotid arteries (principal)
CPT/HCPCS: 93880; 93923

== ENCOUNTER 2023-08-30 16:28 | Outpatient (CLI) | payer MEDICARE, SELFPAY ==
--- NOTE | ~2023-08-30 | XR_ITS ---
Cervical Spine: AP, lateral, open-mouth views Clinical History: Pain Findings: The normal lordotic curve is maintained. No fracture seen. There is minimal grade 1 retroli sthesis of C4 over C5. There is minimal degenerative disc narrowing at C5-C6. There is minimal facet arthropathy and cervical spine. Pre-vertebral soft tissues are unremarkable. Impression: Minimal grade 1 retrolisthesis of C4 over C5. Minimal degenerative spondylosis, as above. Reviewed, dictated and finalized at location . SUPPORT TECHNICIAN Impression: Minimal grade 1 retrolisthesis of C4 over C5. Minimal degenerative spondylosis, as above.
== END 2023-08-30 16:29 | disposition home or self-care (01) ==
LOC: CHSIMG 16:30
PROVIDERS: PCP Internal Medicine; Visit Provider Internal Medicine
DX: M54.12 Radiculopathy, cervical region (principal); M43.12 Spondylolisthesis, cervical region
CPT/HCPCS: 72040

== ENCOUNTER 2023-11-23 11:49 | Outpatient (CLI) | payer MEDICARE, SELFPAY ==
--- NOTE | 2023-11-23 12:07 | ECG_ITS ---
Measurements Intervals [place] Rate: 63 P: 27 VA: 165 QRS: -4 QRSD: 108 T: 2 QT: 372 QTc: 383 Interpretive Statements SINUS RHYTHM INFERIOR MYOCARDIAL INFARCTION , PROBABLY OLD [40+ ms Q WAVE AND/OR ST/T ABNORMALITY IN II/aVF] COMPARED TO ECG 03/16/2022 13:06:59 SINUS RHYTHM NOW PRESENT MYOCARDIAL INFARCT FINDING NOW PRESENT Electronically Signed On 11-23-2023 15:00:21 PILE DRIVING SUPERINTENDENT by Harleen West M.D.
== END 2023-11-23 11:50 | disposition home or self-care (01) ==
LOC: CHSCARD 11:50
PROVIDERS: PCP Internal Medicine; Visit Provider Internal Medicine
DX: Z01.818 Encounter for other preprocedural examination (principal); I21.9 Acute myocardial infarction, unspecified
CPT/HCPCS: 93005

== ENCOUNTER 2024-02-23 10:38 | Outpatient (CLI) | payer MEDICARE, SELFPAY ==
--- NOTE | ~2024-02-23 | MR_ITS ---
MRI of the lumbar spine Clinical History: Disc herniation Technique: Axial T2-weighted images, and sagittal T1-weighted, T2-weighted, and T2 fat-sat images wer e acquired. Following intravenous administration of 19 cc MultiHance gadolinium, T1-weighted fat-sat imaging was performed in the axial and sagittal planes. Findings: No acute fracture identified. There is minimal grade 1 retrolisthesis of L4 over L5. There is probable focal orthopedic hardware or metallic debris in the right paravertebral region near the f acet joint at L4-L5 level with focal susceptibility artifact. Suspected prior left L3 hemilaminectomy . No suspicious bone marrow signal abnormality seen. At L1-L2, there is no disc bulge or herniation. There is moderate to advanced facet arthropathy. No c entral canal stenosis or neural foraminal narrowing. At L2-L3, there is no disc bulge or herniation. There is moderate facet arthropathy. No central canal stenosis or left neural foraminal narrowing. Is mild right neural foraminal narrowing. At L3-L4, there is mild degenerative disc narrowing. There is diffuse disc bulge and severe facet art hropathy. No hugh central canal stenosis. There is severe bilateral neural foraminal compromise. At L4-L5, there is severe degenerative disc narrowing. Diffuse disc bulge and moderate to advanced fa cet arthropathy are present. No central canal stenosis. There is severe bilateral neural foraminal, o r mass. At L5-S1, there is diffuse disc bulge with advanced facet arthropathy. No central canal stenosis. The re is severe left neural foraminal narrowing. Right neural foramen preserved. Paravertebral soft tissues are unremarkable. No abnormal postcontrast enhancement identified. Impression: Advanced degenerative spondylosis at L3-L4, L4-L5, and L5-S1, as detailed above. Minimal grade 1 retrolisthesis of L4 over L5. Probable postoperative changes, as above. Reviewed, dictated and finalized at location . Impression: Advanced degenerative spondylosis at L3-L4, L4-L5, and L5-S1, as detailed above . Minimal grade 1 retrolisthesis of L4 over L5. Probable postoperative changes, as above.
== END 2024-02-23 10:39 ==
LOC: MICIMG 10:39
PROVIDERS: PCP Neurological Surgery; Visit Provider Neurological Surgery
DX: M51.26 Other intervertebral disc displacement, lumbar region (principal); M47.896 Other spondylosis, lumbar region; M47.897 Other spondylosis, lumbosacral region; M43.16 Spondylolisthesis, lumbar region
CPT/HCPCS: 72158; A9577

== ENCOUNTER 2024-04-05 09:34 | Outpatient (CLI) | payer MEDICARE, SELFPAY ==
[2024-04-05 09:59] LABS: Basophils Absolute Auto 0.07 K/mm3 (0.00-0.10); Basophils Percent Auto 0.9 % (0.0-1.0); Eosinophils Percent Auto 2.6 % (1.0-6.0); Hematocrit 44.6 % (37.0-46.0); Hemoglobin 15.2 g/dL (12.4-15.3); Immature Granulocyte Absolute 0.03 K/mm3 (0.00-0.00); Immature Granulocyte Percent A 0.4 % (0.0-0.0); Lymphocytes Percent Auto 18.4 % (18.0-42.0); Mean Corpuscular HGB Conc 34.1 g/dL (32-36); Mean Corpuscular Hemoglobin 29.2 pg (27.0-31.0); Mean Corpuscular Volume 85.6 fL (78.0-102.0); Mean Platelet Volume 9.9 fl (8.7-11.0); Monocytes Absolute Auto 0.62 K/mm3 (0.10-0.90); Monocytes Percent Auto 8.1 % (2.0-11.0); Neutrophils Absolute Auto 5.29 K/mm3 (1.70-7.20); Neutrophils Percent Auto 69.6 % (50.0-70.0); Platelet Count Result 275 K/mm3 (150-420); Red Blood Count 5.21 M/mm3 (4.70-6.10); Red Cell Distribution Width 12.3 % (11.6-14.4); White Blood Count 7.6 K/mm3 (4.8-10.8)
[2024-04-05 10:02] LABS: Appearance Urine Clear (Clear); Bilirubin Urine Negative (Negative); Blood Urine Negative (Negative); Color Urine Yellow (Yellow); Glucose Urine UA Negative (Negative); Ketones Urine Negative (Negative); Leukocyte Esterase Ur Trace (Negative); Nitrate Urine Negative (Negative); Protein Urine Negative (Negative); Urobilinogen Urine 0.2 mg/dL (0.2-1.0)
[2024-04-05 10:08] LABS: Creatinine Urine 229.08 mg/dL (40-278); MALB Creatinine Ratio 5.6 mg/g (0-30); Microalbumin Urine Random < 13.0 mg/L
[2024-04-05 10:10] LABS: Hemoglobin A1C 6.1 % (<5.7)
[2024-04-05 10:12] LABS: Add Urine Microscopic? YES
[2024-04-05 10:13] LABS: Bacteria Urine Trace /hpf; Mucus Urine Few /lpf; RBC Urine None seen /hpf (0-2); WBC Urine 0-3 /hpf (0-3)
[2024-04-05 10:30] LABS: Alanine Aminotransferase 31 U/L (16-63); Albumin Level 3.6 g/dL (3.4-5.0); Alkaline Phosphatase 59 U/L (46-116); Anion Gap 3 mmol/L (4-12); Aspartate Amino Transferase 16 U/L (15-37); Bilirubin,Total 0.6 mg/dL (0.00-1.00); Blood Urea Nitrogen 17 mg/dL (7-18); Calcium 9.1 mg/dL (8.5-10.1); Carbon Dioxide 32 mmol/L (21-32); Chloride 106 mmol/L (98-108); Cholesterol 177 mg/dL (0-200); Estimated Glomerular Filt Rate > 60; Glucose 128 mg/dL (70-99); HDL Direct 47 mg/dL (40-60); LDL Cholesterol Calculated 114 mg/dL (<130); NT Pro B Type Natriuretic Pept 110 pg/mL (0-125); Osmolality Calculated 295 mOsm/kg (285-295); Potassium 4.3 mmol/L (3.5-5.1); Sodium 141 mmol/L (136-145); Total Protein 6.4 g/dL (6.4-8.2); Triglycerides 80 mg/dL (0-150)
== END 2024-04-05 09:35 | disposition home or self-care (01) ==
LOC: CHSLAB 09:36
PROVIDERS: PCP Internal Medicine; Visit Provider Internal Medicine
DX: E78.2 Mixed hyperlipidemia (principal); E11.9 Type 2 diabetes mellitus without complications; R53.82 Chronic fatigue, unspecified; I48.0 Paroxysmal atrial fibrillation; I10 Essential (primary) hypertension; I50.9 Heart failure, unspecified
CPT/HCPCS: 36415; 80053; 80061; 81001; 82043; 83036; 83880; 85025

== ENCOUNTER 2024-06-25 09:53 | Outpatient (CLI) | payer MEDICARE, SELFPAY ==
--- NOTE | ~2024-06-25 | PE_ITS ---
EXAMINATION: PET_PETPSMAST_PT DATE: 06/25/2024 12:02 INDICATION: Prostate cancer TECHNIQUE: 4.498 mCi of Illucix Ga-68([id number]) was administered i.v. Low dose computed yoanna graphy (CT) images were acquired from the base of the brain to the base of the brain to the proximal thighs for attenuation correction and anatomic localization. Positron emission tomography (PET) image s were acquired in the same distribution beginning 95 minutes after injection. Images including fused PET/CT images were reconstructed in axial, coronal, and sagittal planes. Automated exposure control technique was employed. The dose-length product was 1238.77mGy-cm. COMPARISON: CT chest, abdomen and pelvis dated 03/17/2022 FINDINGS: Head/neck: Typical pattern of symmetric physiologic increased activity in the lacrimal, parotid and submandibula r glands as well as along the mucosa of the nasal and oral cavities, pharynx and hypopharynx. No path ologically enlarged cervical lymphadenopathy or suspicious foci of increased uptake in the visualized head or neck. Chest: 5 mm left lower lobe nodule without evident PSMA uptake. No other suspicious pulmonary nodules, pneum onia, pulmonary edema or pleural effusion. Heart size is normal. Atherosclerotic coronary artery calc ifications. No pericardial effusion. Thoracic aorta is normal in caliber. There are few calcified med iastinal lymph nodes consistent with old granulomatous disease. No pathologically enlarged or PSMA av id thoracic lymphadenopathy. Abdomen/pelvis/proximal thighs: Physiologic renal accumulation and excretion of activity in the kidneys, bladder and along portions o f ureters. Multiple bilateral photopenic renal peripelvic cysts an additional 2.8 cm photopenic 2.8 c m parenchymal cyst in the right kidney. There are few nonobstructing bilateral renal stones the large st on the left measuring up to 3-4 mm. There is increased PSMA uptake without radiologic correlate al ethan the right and right posterior aspect of the mildly enlarged prostate with maximal SUV of 20.3 con sistent with primary prostate cancer. Normal degree and slightly heterogenous pattern of increased up take throughout the liver and spleen without radiologic correlate or dominant PSMA avid lesion. The g allbladder, pancreas and bilateral adrenal glands are normal. Moderate uptake scattered throughout th e bowels with typical duodenal and proximal jejunal predominance and without radiologic correlate, al so likely physiologic. There are few scattered colonic diverticula without adjacent from 3 change to suggest diverticulitis. Normal appendix. No other abnormal foci of increased uptake or pathologically enlarged lymphadenopathy in the abdomen, pelvis or proximal thighs. Musculoskeletal: Severe lower lumbar spondylosis. No suspicious lytic, blastic or PSMA abdomen avid bone lesions. IMPRESSION: 1. Foci of increased PSMA activity at the right and right posterior aspect of the enlarged prostate c onsistent with primary prostate cancer. No evident metastatic disease. 2. Bilateral nonobstructing nephrolithiasis. Reviewed, dictated and finalized at location B. IMPRESSION: 1. Foci of increased PSMA activity at the right and right posterior aspect of t he enlarged prostate consistent with primary prostate cancer. No evident metast atic disease. 2. Bilateral nonobstructing nephrolithiasis.
== END 2024-06-25 09:54 | disposition home or self-care (01) ==
PROVIDERS: PCP Internal Medicine; Visit Provider Urology
DX: C61 Malignant neoplasm of prostate (principal); N20.0 Calculus of kidney
CPT/HCPCS: 78815; A9596

== ENCOUNTER 2024-10-14 22:00 | Emergency (ER) | payer MEDICARE, SELFPAY ==
[2024-10-14] VITALS (7 sets, daily range): BP systolic 123–132; BP diastolic 72–85; PULSE 69–93; RESP 12–22; TEMP 36.6; O2SAT 95–99
--- NOTE | ~2024-10-14 | XR_ITS ---
XR chest 2V Ordering provider: Ray Meng MD History: 64 years Male with . EPISTRIC PAIN . Comparison: , July 24, 2023 FINDINGS: MEDIASTINUM: The cardiac silhouette is not enlarged. LUNGS: No infiltrates, effusions or pneumothorax. OTHER: No free air under the diaphragm. IMPRESSION: No acute cardiopulmonary pathology. Reviewed, dictated and finalized at location A. 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
--- NOTE | 2024-10-14 22:15 | ED_ITS ---
HPI - Chest Pain General Chief Complaint: Abdominal Pain Stated Complaint: gastric pain Time Seen by Provider: 10/14/24 22:13 Source: patient and family Mode of arrival: ambulatory Limitations: no limitations History of Present Illness HPI narrative: patient is a 64-year-old male with chest pain that goes down to the abdomen and more so abdominal pain. He had a PET-CT scan that was showing a negative abnormality of the aorta in June 2024. Patient is having multiple complaints and self diagnosis of many symptoms. abdomen pain is more of a bloating feeling and throughout the entire abdomen. Apparently the chest pain at this time has resolved. He is concerned with a heart rate of 100. He is concerned with yeast infection of the skin. He is concerned with many different nonspecific complaints. He is currently in treatment for prostate cancer. He has diabetes and AFib. MD complaint: chest pain Pertinent past history: other ( History of AFib) Onset (ago): month(s) (1) Timing of current episode: episodic and daily Prior episodes: Yes Onset: during rest and during exertion Pain location: epigastric ( midline) Pain radiation: abdomen Severity: mild Pain scale (0-10): 2 Quality: fullness Relieving factors: nothing Exacerbating factors: nothing Context: other ( patient currently in prostate cancer treatment and here for abdominal bloating sensation and occasional chest pain midline /epigastric) Associated symptoms: other ( elevated heart rate at 100 concerns the patient) Treatment prior to arrival: none Risk Factors Coronary artery disease risk factors: diabetes, hyperlipidemia and hypertension Thoracic aortic dissection risk factors: none Related Data Home Medications ?Medication ?Instructions ?Recorded ?Confirmed ?Last Taken ?Type finasteride 5 mg tablet 5 mg PO DAILY 09/16/20 03/15/22 08/23/21 History glimepiride 1 mg tablet 1 mg PO QAM 09/16/20 03/15/22 08/23/21 History lovastatin 20 mg tablet,extended 20 mg PO HS 09/16/20 03/15/22 08/23/21 History release 24 hr Saccharomyces boulardii 250 mg 250 mg PO BID 05/24/21 03/15/22 08/23/21 History capsule (Daily Probiotic (S. boulardii)) triamterene 37.5 1 tablet PO DAILY 08/20/21 03/15/22 08/23/21 History mg-hydrochlorothiazide 25 mg tablet albuterol sulfate 90 mcg/actuation 2 puff inhalation PRN PRN 03/15/22 03/15/22 Unknown History aerosol inhaler Shortness Of Breath Allergies Allergy/AdvReac Type Severity Reaction Status Date / Time No Known Allergies Allergy Verified 03/15/22 03:27 Review of Systems 2 Review of Systems: All systems reviewed & are unremarkable except as noted in HPI and below Constitutional: Constitutional: Reports no additional constitutional complaints Eyes: Eyes: Reports no additional eye complaints ENT: Reports system reviewed and no additional complaints, except as documented Cardiovascular: Cardiovascular: Reports no additional cardiovascular complaints Respiratory: Respiratory: Reports no additional respiratory complaints Gastrointestinal: Gastrointestinal: Reports no additional gastrointestinal complaints Genitourinary: Genitourinary: Reports no additional male genitourinary complaints Musculoskeletal: Musculoskeletal: Reports no additional musculoskeletal complaints Integumentary/Breasts: Skin/Breast: Reports system reviewed and no additional complaints, except as docu Neurologic: Reports system reviewed and no additional complaints, except as documented Psychiatric: Psychiatric: Reports no additional psychiatric complaints Endocrine: Endocrine: Reports no additional endocrine complaints Hematologic/Lymphatic: Hematologic/Lymphatic: Reports no additional hematologic/lymphatic complaints Allergic/Immunologic: Allergic/Immunologic: Reports no additional allergic/immunologic complaints PMFSH Past Medical History Medical History Diarrhea Surgical History Surgical History History of hernia repair LIH hernia repair with mesh 08/24/21 History of lumbar surgery Family History Family History Sibling Acute myocardial infarction Sibling Acute myocardial infarction Social History Social History Smoking status: Never smoker Second hand tobacco smoke exposure: Yes Alcohol intake: never Alcohol use details: 1/MONTH Substance use: never Substance use type: does not use Living arrangements: with family Occupation/Education: retired Gender identity (if verbalized by the patient): Male Spiritual care concerns: No Exam 2 Const: General: healthy appearing Nutritional Appearance: well nourished Orientation/consciousness: patient oriented x3 Limitations: no limitations HENMT: Head: normal to inspection Ears: external ears normal F peter/Nose/Sinus: Normal external nose present Eyes: Conjunctivae: conjunctivae normal Pupils: Equal, round and reactive pupils present EOM: EOMs intact bilaterally Neck: Neck: normal visual inspection Chest: Chest palpation & inspection: normal inspection of the chest Resp: Effort & Inspection: normal respiratory effort and not labored A uscultation: clear to auscultation bilaterally and no crackles Cardio: Rate: regular rate Rhythm: regular rhythm Heart sounds: no murmurs GI: Inspection: non-distended GI Palp: Yes Soft to palpation, No Tenderness to palpation present (GI), No Guarding due to palpation present (GI), No Rigid due to palpation, No Hernia present, No Palpable mass present and No Rebound tenderness present Auscultation: normal bowel sounds : General: Yes bladder normal to palpation Back/Spine/Pelvis: Back: no CVA tenderness Skin: General skin exam: normal color Rashes: no rashes Wounds: no wounds Neuro: General: patient oriented x3 Cranial nerves: Yes Nystagmus not present Speech: normal speech Gait exam (Neuro): Normal gait present Extrem: General: normal to inspection Psych: Mental Status: mental status grossly normal Affect: Anxious affect present Attitude: cooperative MDM - Chest Pain MDM Narrative Medical decision making narrative: patient is a 64-year-old male with multiple complaints but specifically abdominal bloating. He did have some chest pain. We did a cardiac workup which was negative at this time and further no abnormal findings on examination for the belly. I offered a CT scan of the abdomen and pelvis but he declined at this time. He was happy with current workup and negative findings. He will see the primary doctor this week. Lab Data Attestation: I reviewed the patient's lab results. 10/14/24 22:22 10/14/24 22:22 Labs: Lab Results 10/14/24 Range/Units 22:22 WBC 6.8 (4.8-10.8) K/mm3 RBC 4.25 L (4.70-6.10) M/mm3 Hgb 13.0 (12.4-15.3) g/dL Hct 35.8 L (37.0-46.0) % MCV 84.2 (78.0-102.0) fL MCH 30.6 (27.0-31.0) pg MCHC 36.3 H (32-36) g/dL RDW 12.6 (11.6-14.4) % Plt Count 192 (150-420) K/mm3 MPV 9.7 (8.7-11.0) fl Immature Gran % (Auto) 0.3 H (0.0-0.0) % Neut % (Auto) 64.1 (50.0-70.0) % Lymph % (Auto) 22.9 (18.0-42.0) % Hopkins % (Auto) 10.0 (2.0-11.0) % Eos % (Auto) 2.1 (1.0-6.0) % Baso % (Auto) 0.6 (0.0-1.0) % Lymph # (Auto) 1.55 (1.10-4.50) K/mm3 Hopkins # (Auto) 0.68 (0.10-0.90) K/mm3 Eos # (Auto) 0.14 (0.02-0.50) K/mm3 Baso # (Auto) 0.04 (0.00-0.10) K/mm3 Abs Immat Gran (auto) 0.02 H (0.00-0.00) K/mm3 Absolute Neuts (auto) 4.34 (1.70-7.20) K/mm3 Absolute Nucleated RBC 0.00 (0.00-0.00) K/mm3 Nucleated RBC % 0.0 (0-0.0) % PT 13.7 H (9.50-12.1) Seconds INR 1.3 APTT 34.2 H (23.9-30.70) Sec D-Dimer 0.19 (0.19-0.50) mg/L Sodium 140 (136-145) mmol/L Potassium 3.6 (3.5-5.1) mmol/L Chloride 104 (98-108) mmol/L Carbon Dioxide 27 (21-32) mmol/L Anion Gap 9 (4-12) mmol/L BUN 26 H (7-18) mg/dL Creatinine 1.22 (0.70-1.30) mg/dL Estim Creat Clear Calc Not Reportable Estimated GFR 59 (59 - ) Glucose 139 H (70-99) mg/dL Calculated Osmolality 296 H (285-295) mOsm/kg Calcium 8.9 (8.5-10.1) mg/dL Total Bilirubin 0.4 (0.00-1.00) mg/dL AST 11 L (15-37) U/L ALT 28 (16-63) U/L Alkaline Phosphatase 67 (46-116) U/L Troponin I 4.4 (0.00-60.4) ng/L NT-Pro-B Natriuret Pep 118 (0-125) pg/mL Total Protein 6.1 L (6.4-8.2) g/dL Albumin 3.4 (3.4-5.0) g/dL Imaging Data Attestation: I personally reviewed and interpreted this imaging study as follows: Radiologist's impression: Chest x-ray is negative for acute process ECG Data EKG #1: Attestation: I personally reviewed and interpreted this ECG as follows: ECG completion date: 10/14/24 ECG completion time: 22:46 EKG Interpretation: normal rate, sinus rhythm, no ectopy, non-specific ST changes, normal QRS, normal QT and left axis Discharge Plan Discharge Clinical Impression: Atypical chest pain Abdominal pain Qualifiers: Abdominal location: generalized Qualified Code(s): R10.84 - Generalized abdominal pain Patient Disposition: Home, Self-Care Condition: Stable Instructions: Chest Pain (ED), Abdominal Pain (ED) Additional Instructions: please follow-up with the primary doctor in the next week. Come back to the emergency room with any worsening symptoms. Patient Language: Faroese Prescriptions: No Action albuterol sulfate 90 mcg/actuation HFA aerosol inhaler 2 puff INHALATION PRN PRN (Reason: Shortness Of Breath) carvedilol [Coreg] 3.125 mg Tablet 3.125 mg PO Q12HR Qty: 30 0RF Xarelto 10 mg Tablet 20 mg PO DAILY@1700 Qty: 30 0RF lovastatin 20 mg tablet extended release 24 hr 20 mg PO HS glimepiride 1 mg tablet 1 mg PO QAM Rx Instructions: administer with breakfast finasteride 5 mg tablet 5 mg PO DAILY Saccharomyces boulardii [Daily Probiotic (S. boulardii)] 250 mg capsule 250 mg PO BID triamterene-hydrochlorothiazid 37.5-25 mg tablet 1 tablet PO DAILY hydrocodone-acetaminophen 10-325 mg tablet 1 tablet PO Q4-6H PRN (Reason: pain) Qty: 20 0RF Follow-up/Referrals: Ludivina Loaiza MD [Primary Care Provider] - Time of Disposition: 23:12
--- NOTE | 2024-10-14 22:15 | ECG_ITS ---
Test Date: 2024-10-14 22:28:44 Measurements Intervals [place] Rate: 73 P: 52 [place]: 164 QRS: -12 QRSD: 111 T: 18 QT: 376 QTc: 415 Interpretive Statements SINUS RHYTHM INCOMPLETE RIGHT BUNDLE BRANCH BLOCK [90+ ms QRS DURATION, TERMINAL R IN V1/V2, 40+ ms S IN I/aVL/V4/V5/V6] No previous ECG available for comparison Electronically Signed On 10-15-2024 22:52:45 FRONT DESK COORDINATOR by Mckenzie Macdonald M.D.
[2024-10-14 22:25] LABS: Basophils Absolute Auto 0.04 K/mm3 (0.00-0.10); Basophils Percent Auto 0.6 % (0.0-1.0); Eosinophils Absolute Auto 0.14 K/mm3 (0.02-0.50); Eosinophils Percent Auto 2.1 % (1.0-6.0); Hematocrit 35.8 % (37.0-46.0); Immature Granulocyte Absolute 0.02 K/mm3 (0.00-0.00); Immature Granulocyte Percent A 0.3 % (0.0-0.0); Lymphocytes Absolute Auto 1.55 K/mm3 (1.10-4.50); Lymphocytes Percent Auto 22.9 % (18.0-42.0); Mean Corpuscular HGB Conc 36.3 g/dL (32-36); Mean Corpuscular Hemoglobin 30.6 pg (27.0-31.0); Mean Corpuscular Volume 84.2 fL (78.0-102.0); Mean Platelet Volume 9.7 fl (8.7-11.0); Monocytes Absolute Auto 0.68 K/mm3 (0.10-0.90); Neutrophils Absolute Auto 4.34 K/mm3 (1.70-7.20); Neutrophils Percent Auto 64.1 % (50.0-70.0); Platelet Count Result 192 K/mm3 (150-420); Red Blood Count 4.25 M/mm3 (4.70-6.10); Red Cell Distribution Width 12.6 % (11.6-14.4); White Blood Count 6.8 K/mm3 (4.8-10.8)
--- NOTE | 2024-10-14 22:28 | PC.NURSE ---
patient to imaging via wheelchair, spouse at bedside. patient awaiting results of labs. ekg completed.
[2024-10-14 22:40] LABS: D Dimer 0.19 mg/L (0.19-0.50); INR 1.3; Partial Thromboplastin Time 34.2 Sec (23.9-30.70); Prothrombin Time 13.7 Seconds (9.50-12.1)
[2024-10-14 22:47] LABS: Alanine Aminotransferase 28 U/L (16-63); Albumin Level 3.4 g/dL (3.4-5.0); Alkaline Phosphatase 67 U/L (46-116); Anion Gap 9 mmol/L (4-12); Aspartate Amino Transferase 11 U/L (15-37); Bilirubin,Total 0.4 mg/dL (0.00-1.00); Blood Urea Nitrogen 26 mg/dL (7-18); Calcium 8.9 mg/dL (8.5-10.1); Carbon Dioxide 27 mmol/L (21-32); Chloride 104 mmol/L (98-108); Estimated Glomerular Filt Rate 59; Glucose 139 mg/dL (70-99); NT Pro B Type Natriuretic Pept 118 pg/mL (0-125); Osmolality Calculated 296 mOsm/kg (285-295); Potassium 3.6 mmol/L (3.5-5.1); Sodium 140 mmol/L (136-145); Total Protein 6.1 g/dL (6.4-8.2); Troponin I 4.4 ng/L (0.00-60.4)
== END 2024-10-14 23:31 | disposition home or self-care (01) ==
PROVIDERS: Emergency Provider Emergency Medicine; PCP Internal Medicine
DX: R07.89 Other chest pain (principal); R10.84 Generalized abdominal pain; C61 Malignant neoplasm of prostate; E11.9 Type 2 diabetes mellitus without complications; I48.91 Unspecified atrial fibrillation; Z79.84 Long term (current) use of oral hypoglycemic drugs; Z79.51 Long term (current) use of inhaled steroids
CPT/HCPCS: 36415; 71046; 80053; 83880; 84484; 85025; 85380; 85610; 85730; 93005; 99284

== ENCOUNTER 2024-11-27 15:31 | Outpatient (CLI) | payer MEDICARE, SELFPAY ==
--- NOTE | ~2024-11-27 | XR_ITS ---
CHEST RADIOGRAPH, PA AND LATERAL CLINICAL HISTORY: URI, CREPTS/WHEEZING,SORE THROAT,CONGESTION,X2WK . COMPARISON: 10/14/2024 TECHNIQUE: PA and lateral views of the chest. FINDINGS The cardiomediastinal silhouette is unremarkable. The lungs are clear. Visualized osseous structures and soft tissues are unremarkable. IMPRESSION: No focal infiltrate or effusion. Reviewed, dictated and finalized at location A. ER STITCHER
--- OUTSIDE RECORDS SUMMARY | 2024-11-27 15:36 | XMS_ITS | Continuity of Care Document ---
Author Organization [facility], located [facility]. If a dditional information is needed, contact Health Information Management at [phone] [address] [place] [address] Phone Care Team Providers Care Mining Technician Name Role Phone Unavailable Unavailable Unavailable Unavailable Unavailable Unavailable Unavailable Unavailable Unavailable Problems Backache Onset:25-Oct-2023 Elayne BLANCO Allergies and Adverse Reactions No Known Drug Allergies(Tay rgy) Onset: 25-Oct-2023 Social History Smoking Status Tobacco smoking consumption unknown Recorded:
--- OUTSIDE RECORDS SUMMARY | 2024-11-27 15:36 | XMS_ITS | Clinical Summary ---
Author Organization [facility] Address [address] [place] [address] Care Team Providers Care Layup Worker Name Role Phone Ludivina Loaiza MD Primary Care Provider [phone] Brian Cole MD Unavailable + [phone] Christiano Ramesh MD Unavailable [phone] Dharmesh Roche MD Unavailable [phone] Edinson York APRN Unavailable [phone] Denis Cantrell MD Unavailable Pennie Garcia PA-C Unavailable + [phone] Allergies No known active allergies Medications glimepiride 1 MG tablet Take 0.5 tablets (0.5 mg total) by mouth every morning before breakfast. 1/2 tab daily Active lovastatin (MEVACOR) 10 MG tablet Take 1 tablet (10 mg total) by mouth nightly at bedtime. Active fluticasone propionate 50 MCG/ACT nasal spray 1 spray by Nasal route daily. Active budesonide-form oterol 160-4.5 MCG/ACT inhaler Inhale 2 puffs into the lungs 2 (two) times daily. Active XARELTO 20 MG Tab tablet Take 1 tablet (20 mg total) by mouth daily with supper. 2 Active baclofen (LIORESAL) 10 MG tablet Take 1 tablet (10 mg total) by mouth 3 (three) times daily as needed. Active HYDROcodone-peter taminophen (NORCO) 10-325 MG tablet Take 0.5 tablets by mouth every 8 (eight) hours as needed for Pain. 3 Active albuterol sulfate HFA 108 (90 Base) MCG/ACT inhaler 3 Active ipratropium (ATROVENT) 0.06 % nasal spray USE 2 SPRAYS IN BOTH NOSTRILS 3 TIMES DAILY 3 Active triamterene-hyd roCHLOROthiazid e (MAXZIDE-25) 37.5-25 MG tablet 3 Active COMPRESSION STOCKINGSIndica tions:Fluctuati ng blood pressure 20-30 MMHG Compression stockings, Thigh -high, open or closed toe Dx: I83.893 1 Container 6 3 Active gabapentin (NEURONTIN) 100 MG capsule Take 1 capsule (100 mg total) by mouth 3 (three) times daily. 4 Active relugolix (ORGOVYX) 120 MG Tab tablet Take 1 tablet by mouth daily. Active Active Problems Problem Noted Date Diagnosed Date Varicose veins of bilateral lower extremities with other complications 08/22/2023 Paroxysmal atrial fibrillation ([facility]) 03/28/2023 Typical atrial flutter ([facility]) 023 Chronic venous insufficiency 02/17/2023 Chronic pain Dyslipidemia Essential hypertension Diabetes ([facility]) Chest pain Dyspnea Resolved Problems Problem Noted Date Diagnosed Date Resolved Date Pre-operative cardiovascular examination 02/17/2023 12/25/2023 Encounters Date Type Department Care Team Description 11/01/2024 [facility] [address] [place] [address] Brian Cole MD Question from Last 3 Months Family History Medical History Relation Comments Coronary artery disease Brother Open Heart Brother Stroke Brother cad, Stent Sister Relation Status Comments Brother Father Maternal Grandfather Maternal Grandmother Mother Paternal Grandfather Paternal Grandmother Sister Alive Social History Tobacco Use Types Packs/Day Years Used Date Smoking Tobacco: Never Smokeless Tobacco: Never Tobacco Cessation:Counseling Given: Not Answered Alcohol Use Standard Drinks/Week Comments Yes 0 (1 standard drink = 0.6 oz pur e alcohol) 1 drink per week Humiliation, Afraid, Rape, and Kick questionnair e Answer Date Recorded Within the last year, have y ou been afraid of your partner or ex-partner? No 04/25/2023 Within the last year, have y ou been humiliated or emotionally abused in other ways by your partner or ex-partner? No Within the last year, have y ou been kicked, hit, slapped, or otherwise physically hurt by your partner or ex-partner? No 04/25/2023 Within the last year, have y ou been raped or forced to have any kind of sexual activity by your partner or ex-partner? No 04/25/2023 Overall Financial Resource Strain (CARDIA) Answe r Date Recorded How hard is it for you to pa y for the very basics like food, housing, medical care, and heating? Not hard at all 04/25/2023 Hunger Vital Sign Answer Date Recorded Within the past 12 months, y ou worried that your food would run out before you got the money to buy more. Never true 04/25/20 23 Within the past 12 months, t he food you bought just didn't last and you didn't have money to get more. Never true 04/25/2023 PRAPARE - Transportation Answer Date Re corded In the past 12 months, has l ack of transportation kept you from medical appointments or from getting medications? No 04/15 In the past 12 months, has l ack of transportation kept you from meetings, work, or from getting things needed for daily living? No 04/25/2023 Housing Stability Vital Sign Answer Jose e Recorded In the last 12 months, was t here a time when you were not able to pay the mortgage or rent on time? No 04/25/2023 In the last 12 months, how many places have you lived? 1 04/25/2023 In the last 12 months, was t here a time when you did not have a steady place to sleep or slept in a [facility] (including now)? No 04/25/2023 Sex and Gender Information Value Date Recorded Sex Assigned at Not on file Legal Sex Male 10:24 AM CDT Gender Identity Not on file Sexual Orientation Not on file Occupation Industry Job Start Date Job End Date disabled Not on file Not on file Not on file Last Filed Vital Signs Vital Sign Reading Time Taken Comments Blood Pressure 130/80 08/05/2024 1:26 PM CDT Pulse 64 08/05/2024 1:26 PM CDT Temperature 36.6 C (97.9 F) 04/26/2023 8:48 AM CDT Respiratory Rate 16 08/05/2024 1:26 PM CDT Oxygen Saturation 96% 08/05/2024 1:26 PM CDT Inhaled Oxygen Concentration - - Weight 93.8 kg (206 lb 12.8 oz) 08/05/2024 1:26 PM CDT Height 180.3 cm (5' 11 ) 08/05/2024 1:26 PM CDT Body Mass Index 28.84 08/05/2024 1:26 PM CDT Plan of Treatment Upcoming Encounters Date Type Department Care Team (Late st Contact Info) Description 08/05/2025 12:45 PM CDT Office Visit [facility] [address] [place] [id number] Brian Cole MD [address] [place] [address] Health Maintenance Due Date Last Done Comments Colorectal Cancer Screening Colonoscopy (10 Years) 1960 Kidney Health Evaluation 1960 Hemoglobin A1C 1958 Lipid Panel 1960 Diabetes: Retinopathy Eye Exam 02/10/1976 Hepatitis C 02/10/1976 Pneumococcal Vaccine: 65+ Years (2 of 2 - PPSV23 or PCV20) 12/11/2017 10/16/2017, 04/06/2016 RSV Immunization or 60+ Years (1 - Risk 60-74 years 1-dose series) 2018 Zoster Vaccines (2 of 2) 08/07/2020 06/12/2020 Annual Medicare Wellness Visit 2023 COVID-19 Vaccine (3 - season) 2024 10/04/2021, 01/21/2021 Influenza Adult (#1) 2024 07/27/2021, 07/30/2020, 08/06/2019, Additional history exists DTaP, Tdap and Td Vaccines (2 - Td or Tdap) 12/08/2024 12/08/2014 Meningococcal B Vaccine Aged Out No l onger eligible based on patient's age to complete this topic Meningococcal Vaccine Aged Out No ricky momo eligible based on patient's age to complete this topic RSV Immunizations Under 20 Months Aged Out No longer eligible based on patient's age to complete this topic Insurance [facility] Advance Directives * Full Code (Latest Code Status on File) Date Activated Date Inactivated Comments 04/25/2023 10:58 AM 04/26/2023 12:31 PM Care Teams Layup Worker Relationship Specialty Start Date End Date Ludivina Loaiza MD [address] [place] [address] PCP - General INTERNAL MEDICINE 01/24/18 Brian Cole MD [address] [place] [address] EP Flight Radio Officer CLINICAL CARDIAC ELECTROPHYSIOLOGY 03/25/22 Christiano Ramesh MD [address] [facility]. [address] [place] [address] Surgeon NEUROLOGICAL SURGERY 02/17/23 Dharmesh Roche MD [address] [place] [address] Consulting Physician INTERVENTIONAL CARDIOLOGY 02/20/23 Edinson York APRN [address] [facility] [address] [address] Nurse Practitioner NURSE PRACTITIONER 02/20/23 Denis Cantrell MD [address] [place] [address] Consulting Physician INTERNAL MEDICINE 07/28/23 Pennie Garcia PA-C [address] [place] [address] Referring Physician PHYSICIAN VENEER JOINTER 08/05/24
--- OUTSIDE RECORDS SUMMARY | 2024-11-27 15:36 | XMS_ITS | Continuity of Care Document ---
Author Organization [employer] [facility] Address [address] [address] [place] [address] Phone Care Team Providers Care Lathe Set Up Operator Name Role Phone Jaya Florentino PA-C Unavailable [...] 12 Lead; W/intrpt Offic/outpt E m [facility] Advance Directives Directive Yes / No Effective Date File Name No Information Encounters Encounter Description Practice Location Reason(s) For Visit Diagnoses Date Provider Providers Copied on Encounter [employer], [address] [address], [place], [place], [id number], tel:[phone] No Information [address] [place]. [address] [place], [place], [id number] , . tel:[phone] Offic/outpt E m [facility], [address] [address], [place], [id number], tel:[phone] 1st Care Swelling (chief complaint) Edema, unspecifiedChest pain, unspecified type [facility] [address] [place] [address], [id number] , [place]. tel: [phone] Family History Family Member Type Diagnosis Age At Onset No Information Payers Payer name Insurance type Covered libertarian ID Ching lopez(s) [facility] [id number] Social History Type Description Quantity Date Captured Comments Sex Male Smoking Status No Information Chief Complaint And Reason For Visit No Information Reason For Referral Reason For Referral No Information Plan Of Treatment Date Type Action Status Future Order: Radiology Order XR Chest 2 View ([id number]), Sent on: Sent History Of Present Illness Encounter Date Complaint History Of Prese nt Illness Swelling Swelling (comments) Patient ents the clinic today with recent chest pain, bilateral lower extremity swelling, shortness of breath.He arrived in [place] from the [place] [address], having traveled on a cruise ship and then most recently on an extended train ride from [place] to [facility].He states that his symptoms began after exiting [...]
--- OUTSIDE RECORDS SUMMARY | 2024-11-27 15:36 | XMS_ITS | Encounter Summary ---
Author Organization [facility] Address [facility] [place] [address] Care Team Providers Care Cardiac Rn Name Role Phone Ludivina Loaiza MD Primary Care Provider [phone] Tor Burns MD Unavailable Unavailabl e Brian Cole MD Unavailable [phone] Christiano Ramesh MD Unavailable [phone] Dharmesh Roche MD Unavailable [phone] Edinson York APRN Unavailable [phone] Denis Cantrell MD Unavailable Pennie Garcia PA-C Unavailable + [phone] Encounter Details Date Type Department Care Team (Late st Contact Info) Description 02/14/2023 Hospital Orders Only [facility] Pre/Post [address] [place] [address] Brian Cole MD [address] [place], [place] [address] Social History Tobacco Use Types Packs/Day Years Used Date Smoking Tobacco: Never Smokeless Tobacco: Never Alcohol Use Standard Drinks/Week Comments Yes 0 (1 standard drink = 0.6 oz pur e alcohol) 1 drink per week Sex and Gender Information Value Date Recorded Sex Assigned at Not on file Legal Sex Male 10:24 AM CDT Gender Identity Not on file Sexual Orientation Not on file Occupation Industry Job Start Date Job End Date disabled Not on file Not on file Not on file COVID-19 Exposure Response Date Recorded In the last 10 days, have yo u been in contact with someone who was confirmed or suspected to have Coronavirus/COVID-19? No / Unsure 02/17/2023 11:48 AM CDT documented as of this encounter Plan of Treatment Upcoming Encounters Date Type Department Care Team (Late st Contact Info) Description 08/05/2025 12:45 PM CDT Office Visit [facility] el [address] [place] [phone] Brian Cole MD [address] [place] [address] documented as of this encounter Visit Diagnoses Not on filedocumented in this encounter Care Teams Cardiac Rn Relationship Specialty Start Date End Date Ludivina Loaiza MD [address] [place] [address] PCP - General INTERNAL MEDICINE 01/24/18 Tor Burns MD [address] [place] [address] [place] [facility] [employer] Lace CARDIOVASCULAR DISEASE 01/24/18 02/16/23 Brian Cole MD [address] [place] [address] EP Burn Out Tender Lace CLINICAL CARDIAC ELECTROPHYSIOLOGY 03/25/22 Christiano Ramesh MD [address] [facility] [address] [place] [address] Surgeon NEUROLOGICAL SURGERY 02/17/23 Dharmesh Roche MD [address] [place] [address] Consulting Physician INTERVENTIONAL CARDIOLOGY 02/20/23 Edinson York APRN [address] [facility] [address] [place] [address] Nurse Practitioner NURSE PRACTITIONER 02/20/23 Denis Cantrell MD [address] [place] [address] Consulting Physician INTERNAL MEDICINE 07/28/23 Pennie Garcia PA-C [address] [place] [address] Referring Physician PHYSICIAN RADIATOR SPECIALIST 08/05/24 documented as of this encounter
--- OUTSIDE RECORDS SUMMARY | 2024-11-27 15:36 | XMS_ITS | Data Portability ---
Author Organization [place] [facility] [employer], Main Office Address [address] [place] [address] Care Team Providers Care Service Line Bus Cleaner Name Role Phone ANABELLA ISABEL Primary Care Provider [phone] ANABELLA ISABEL Referring Provider Assessment No assessment recorded. Plan of Treatment Reminders Order Date Submit Date Provider Last Modified By Organization Details Last Modified Time Details Appointments None recorded. Lab None recorded. Referral None recorded. Procedures None recorded. Surgeries None recorded. Imaging None recorded. Medication Orders mometasone 0.1 % topical cream 2023 024 [facility]/Pharmacy #[id number], [address] [place], [address], 12:40:55 Patient TargetsNo targets recorded. Patient Instructions Encounter Date Encounter Id Patient Instructions Last Modified By Organization Details Last Modified Time 06/13/2024 [id number] An audiogram was also ordered the patient reports asymmetrical loss [email or web address] Not available 06/13/2024 12:41:11 Reason for Referral None Reported. Results Created Date Observation Date Name Description Value Unit Range Abnormal Flag Note LastModifiedBy Organization Detail LastModifiedTime 04/13/20 22 XR, knee No observ ation record ed. [id number] [id number] [place] [address], [place], [address], 12/15/2022 01:02:20 04/13/20 22 02/24/2022 XR, knee No observ ation record ed. [id number] [facility]) [address] [place], [address], 12/15/2022 01:02:20 04/13/20 22 02/24/2022 MRI, knee, w/o contr ast No observ ation record ed. [id number] Not Available 12/15/2022 01:02:20 09/02/20 22 XR, knee No observ ation record ed. [id number] [facility] [place] [address], [place], [address], 12/15/2022 01:02:20 Result Notes None recorded. Problems Name Problem SNOMED Code Status Onset Date Resolution Date Notes Provider Name and Address Organization Details Recorded Time Arthriti s 4130154 Active 2021 Not Available [facility] 3 00:59:55 Osteoart hritis 804448007 Active 2021 Not Available [facility] 3 00:59:56 Pain of right knee joint 84336361810 4100 Active 2021 Not Available [facility] 3 00:59:56 Paroxysm al atrial fibrilla tion 682919979 Completed 202306/11/2024 JENNY Perez, [facility] [employer] [facility] 4 12:45:17 Kidney stone 71479885 Completed 202306/11/2024 Renal stones. JENNY Perez, [place] [facility] [employer] [facility] 17:17:10 COVID-19 450399734 Completed 202306/11/2024 Removal Reason: 2020, 2021. JENNY Perez, [place] [facility] [employer] 17:20:10 Sensorin eural hearing loss 97052173 Active 2023 Paulette Garsia RN null, [facility] [employer] [facility] 12:37:25 Eczema of external auditory canal 66630641 Active 2023 Jake Peres MD [address] [place] [address], [phone] , [place] [facility] 12:40:33 Problem Notes None recorded. Procedures Surgical History Date Name Laterality Status Provider Name and Address Organization Details Recorded Time hernia repair completed Not Available [facility] 12/15/2022 00:58:09 Back Surgery completed Not Available [facility] 12/15/2022 00:58:09 Imaging Results Imaging Date Name Status [facility] Details LastModified Time 09/02/2022 XR, knee completed [id number] [facility] [place] [address] [facility] [address] [facility] [address], [place], [address], 12/15/2022 01:02:20 04/13/2022 XR, knee completed [id number] 026 [facility] [place] [address], [place], [address], 12/15/2022 01:02:20 02/24/2022 XR, knee completed [id number] [facility]) [address] [place] [address], [address], 12/15/2022 01:02:20 02/24/2022 MRI, knee, w/o contrast completed [id number] Information not available 12/15/2022 01:02:20 Procedure Notes None recorded. Medical Equipment None Reported. Allergies No known drug allergies Medications Name Sig Start Date Stop Date Status Note LastModified by Organization Details LastModified Time xarelto no dispense - refill NO DISPENSE 06/13 completed Not Available Not Available Not Available amoxicillin 500 mg capsule TAKE 1 CAPSULE BY MOUTH EVERY 8 HOURS UNTIL GONE 04/13 completed Not Available Not Available Not Available hydrocodone 5 mg-acetamin ophen 325 mg tablet TAKE 1 TO 2 TABLETS BY MOUTH EVERY 4 HOURS NEEDED FOR PAIN active Not Available Not Available No t Available hydrocodone 10 mg-acetamin ophen 325 mg tablet TAKE 1 TABLET BY MOUTH EVERY 6 TO 8 HOURS NEEDED FOR PAIN 06/11 completed Not Available Not Available Not Available lovastatin 10 mg tablet active Not Available Not Available Not Available carvedilol 3.125 mg tablet TAKE 1 TABLET BY MOUTH EVERY 12 HOURS active Not Available Not Available No t Available glimepiride 1 mg tablet TAKE 1/2 A TABLET BY MOUTH EVERY DAY active Not Available Not Available No t Available oxycodone-a cetaminophe n 10 mg-325 mg tablet TAKE BY MOUTH 1 TABLET EVERY 6 HOURS NEEDED FOR ACUTE PAIN (3 DAYS) active Not Available Not Available No t Available Kenalog 10 mg/mL suspension for injection In office injection administe red by the provider active [facility]: 0003- 0494- 20 Not Available Not Available Not Available baclofen 10 mg tablet TAKE 1 TABLET BY MOUTH THREE TIMES A DAY NEEDED 06/13 completed Not Available Not Available Not Available doxycycline monohydrate 100 mg capsule TAKE 1 CAPSULE BY MOUTH TWICE A DAY 06/13 completed Not Available Not Available Not Available dexamethaso ne 4 mg tablet TAKE 1 TABLET BY MOUTH 4X DAILY X 2 DAYS, THEN 2X DAILY X 2 DAYS, THEN DAILY X 2 DAYS 06/13 completed Not Available Not Available Not Available gabapentin 300 mg capsule TAKE 1 CAPSULE BY MOUTH THREE TIMES A DAY 06/13 completed Not Available Not Available Not Available triamterene 37.5 mg-hydrochl orothiazide 25 mg tablet active Not Available Not Available Not Available montelukast 10 mg tablet Take 1 tablet every day by oral route. active Not Available Not Available No t Available mupirocin 2 % topical ointment APPLY A SMALL AMOUNT TO THE AFFECTED AREA BY TOPICAL ROUTE 3 TIMES PER DAY active Not Available Not Available No t Available gabapentin 100 mg capsule Take 1 capsule 3 times a day by oral route. active Not Available Not Available No t Available lorazepam 1 mg tablet TAKE 1 TABLET (1 MG) BY ORAL ROUTE 2 HOURS PRIOR TO PROCEDURE . MAY REPEAT ONCE AT TIME OF PROCEDURE 06/13 completed Not Available Not Available Not Available lovastatin 20 mg tablet 06/11 completed Not Available Not Available Not Available methylpredn isolone 4 mg tablets in a dose pack TAKE 6 TABLETS ON DAY 1 DIRECTED ON PACKAGE AND DECREASE BY 1 TAB EACH DAY FOR A TOTAL OF 6 DAYS 06/11 completed Not Available Not Available Not Available albuterol sulfate HFA 90 mcg/actuati on aerosol inhaler INHALE 2 PUFFS EVERY 6 HOURS NEEDED active Not Available Not Available No t Available ipratropium bromide 42 mcg (0.06 %) nasal spray [place] 2 sprays 3 times a day by intranasa l route. active Not Available Not Available No t Available fluticasone propionate 50 mcg/actuati on nasal spray,suspe nsion [place] 1 spray every day by intranasa l route. active Not Available Not Available No t Available mometasone 0.1 % topical cream APPLY SPARINGLY TO AFFECTED AREA EVERY DAY active Not Available Not Available No t Available diazepam 5 mg tablet TAKE 1 TABLET BY MOUTH 30 MINS PRIOR TO MRI AND 1 TABLET AT TIME OF MRI 06/13 completed Not Available Not Available Not Available amoxicillin 875 mg-potassiu m clavulanate 125 mg tablet TAKE 1 TABLET BY MOUTH EVERY 12 HOURS 06/11 completed Not Available Not Available Not Available neomycin-po lymyxin-hyd rocort 3.5 mg-10,000 unit/mL-1 % ear drops,susp INSTILL 4 DROPS INTO AFFECTED EAR(S) BY OTIC ROUTE 4 TIMES PER DAY 06/13 completed Not Available Not Available Not Available sildenafil (pulmonary hypertensio n) 20 mg tablet TAKE 2 TO 5 TABLETS BY MOUTH DAILY NEEDED active Not Available Not Available No t Available neomycin active Not Available Not Avai lable Not Available baclofen active Not Available Not Avai lable Not Available lidocaine (PF) 5 mg/mL (0.5 %) injection solution In office injection administe red by the provider active Not Available Not Available No t Available ropivacaine (PF) 5 mg/mL (0.5 %) injection solution In office injection administe red by the provider active Not Available Not Available No t Available Xarelto 20 mg tablet TAKE 1 TABLET BY MOUTH EVERY DAY WITH EVENING MEAL active Not Available Not Available No t Available Paxlovid 300 mg (150 mg x 2)-100 mg tablets in a dose pack TAKE 3 TABS BY MOUTH TWICE A DAY IN THE MORNING AND EVENING FOR 5 DAYS. FOLLOW PACKAGE DIRECTION S active Not Available Not Available No t Available Vitals Date Recorded Body mass index (BMI) Body height Body height Body height Body weight Provider Name and Address Organization Details Last Updated DateTime 12/15/2022 29.5 kg/m2 175.26 cm 175.26 cm 175.26 cm 33032.47 g Not Available [facility] 12/15/2022 00:58:15 Date Recorded Body height Body mass index (BMI) Body weight Body temperature Provider Name and Address Organization Details Last Updated DateTime 06/13/2024 180.34 cm 28.7 kg/m2 82586.59 g 98.6 [degF] JENNY Perez [place] [facility] [employer] [facility] 06/13/2024 12:28:29 Social History Question Answer Notes LastModified by Organizat ion Details LastModified Time Tobacco Smoking Status Never Smoker Not Available [facility] 12/15/2022 00:57:20 What Is Your Level Of Alcohol Consumption? Occasional [id number] Information not available 12/15/2022 Sex: Unknown Functional Status None recorded. Mental Status None recorded. Family History Relationship Description Onset Age of this Age Resolved Age Notes LastModified by Organization Details LastModified Time Brother Heart disease [id number] Not available 12/15/2022 00:58:09 Brother Family history of stroke [id number] Not available 12/15/2022 00:58:09 Brother Diabetes mellitus [id number] Not available 12/15/2022 00:58:09 Notes:NO ENT Medical History Condition Response BLINDNESS N KIDNEY STONES N MRSA N CARPAL TUNNEL SYNDROME N LUNG DISEASE/DISORDER N HISTORY OF DRUG ABUSE N COPD N RADIATION / CHEMOTHERAPY N SPORTS INJURY N ANKLE PAIN N BLOOD DISEASES N SCHIZOPHRENIA N SHINGLES N BOWEL PROBLEMS N SHOULDER PAIN N DEPRESSION (INCLUDING POST ) Y STROKE/TIA N KNEE PAIN Y ULCERS N BENIGN PROSTATIC HYPERPLASIA N OBESITY N GERD/NAUSEA N ANEURYSM N URINARY/BLADDER/KIDNEY PROBLEMS N CORONARY ARTERY DISEASE (CAD) N ADDICTION CONCERNS N USE OF BLOOD THINNERS Y SKIN PROBLEMS N EMPHYSEMA N MUSCLE,JOINT OR BONE PROBLEMS N DVT N STOMACH ULCERS N BLOOD CLOTS N USE OF NSAIDS N CONCUSSION OR SPINAL TRAUMA N NEUROPATHY N AIDS/HIV N FRACTURES N ELBOW PAIN N HYPERTENSION Y TOURETTE'S N ANXIETY DISORDER N Metal allergy N BLOOD TRANSFUSION N ANEMIA/BLOOD DISORDER N BIPOLAR DISORDER N BRONCHITIS N OSTEOARTHRITIS N TUBERCULOSIS N FOOT PROBLEM N HEART VALVE DISORDERS N ALLERGIES/HAYFEVER N SOFT TISSUE INJURY N INFECTIOUS DISEASE N HEART ARRHYTHMIA N INSOMNIA N RHEUMATOID ARTHRITIS N HIGH CHOLESTEROL / HYPERLIPIDEMIA Y EDEMA N CHRONIC PAIN SYNDROME N CAROTID BLOCKAGE N BACK / NECK PROBLEMS Y HAVE YOU BEEN HOSPITALIZED OR SEEN IN TH E ER IN THE PAST YEAR ? N BURSITIS N HERNIATED DISC N DIALYSIS N FIBROMYALGIA N OSTEOPOROSIS N ARTHRITIS N NO SIGNIFICANT PAST MEDICAL HISTORY N PERIPHERAL NEUROPATHY N DIABETES, TYPE Y ENT Y SEASONAL ALLERGIES Y HEARTBURN / REFLUX N HEPATITIS / LIVER DISEASE N GOUT N SLEEP DISORDER Y ALZHEIMER'S DISEASE N HERPES N SEIZURES/EPILEPSY N HEADACHES/MIGRAINES N VASCULAR DISEASE N HIP PAIN N Blood Disorder N DIZZINESS N HEAD TRAUMA OR INJURY N HEART DISEASE/HEART PROBLEMS Y MULTIPLE SCLEROSIS N CARDIAC ARRHYTHMIA N CANCER: SPECIFY N ANESTHESIA COMPLICATIONS N ATRIAL FIBRILLATION N AUTOIMMUNE DISEASE N Past Encounters Encounter ID Performer Location Encounter Start Date Encounter Closed Date Diagnosis/Indication Diagnosis SNOMED-CT Code Diagnosis ICD10 Code Diagnosis Note [id number] [facility] [place] [address] [place] [address] 04/13/2022 00:00:00 04/13/2022 12:41:49 [id number] [facility] [place] [address] [place] [address] 05/25/2022 00:00:00 05/25/2022 12:44:51 [id number] [facility] [place] [address] [place] [address] 09/02/2022 00:00:00 09/02/2022 16:12:17 [id number] Jake Peres MD [facility] [place] [address] [place] [address] 06/13/2024 12:10:58 06/14/2024 12:04:16 Eczema of external auditory canal 16686969 H60.549 Health Concerns Section Related Observation LastModified by Organization Detai ls LastModified Time None Recorded Concern Status LastModified by Organization Details LastModified Time None Recorded Advance Directives Directive None Recorded Payers Encounter Date Sequence Insurance Name Policy Number Policy Blair Covered Member ID Blair Member ID Guarantor Name 06/13/2024 1 [facility] (MEDICARE REPLACEMENT/A DVANTAGE - HMO) [id number] Beck Almeida [id number] Beck Almeida Notes Date Note Type Note Provider Name and Address Organization Details Recorded Time 06/13/2024 text/html The patient reports itching ears a month ago. He was placed on Cortisporin which was effective. In addition he has allergic rhinitis successfully managed with Atrovent Flonase and montelukast. Jake Peres MD [address] [place] [address], [place], [address], [facility] 06/13/2024 12:41:27
--- OUTSIDE RECORDS SUMMARY | 2024-11-27 15:36 | XMS_ITS | Encounter Summary ---
Author Organization [facility] Address [facility] [place] [address] Care Team Providers Care Block Feeder Name Role Phone Ludivina Loaiza MD Primary Care Provider [phone] Tor Burns MD Unavailable Unavailabl e Brian Cole MD Unavailable [phone] Christiano Ramesh MD Unavailable [phone] Dharmesh Roche MD Unavailable [phone] Edinson York APRN Unavailable [phone] Denis Cantrell MD Unavailable Pennie Garcia PA-C Unavailable + [phone] Encounter Details Date Type Department Care Team (Late st Contact Info) Description 01/22/2018 Abstract [facility] [address] [place] [address] Tor Burns MD Social History Tobacco Use Types Packs/Day Years Used Date Smoking Tobacco: Never Smokeless Tobacco: Never Sex and Gender Information Value Date Recorded Sex Assigned at Not on file Legal Sex Male 10:24 AM CDT Gender Identity Not on file Sexual Orientation Not on file Occupation Industry Job Start Date Job End Date disabled Not on file Not on file Not on file documented as of this encounter Plan of Treatment Upcoming Encounters Date Type Department Care Team (Late st Contact Info) Description 08/05/2025 12:45 PM CDT [facility] [address] [place] [address] Brian Cole MD [address] [place] [address] documented as of this encounter Visit Diagnoses Not on filedocumented in this encounter Care Teams Block Feeder Relationship Specialty Start Date End Date Ludivina Loaiza MD [address] [place] [address] PCP - General INTERNAL MEDICINE 01/24/18 Tor Burns MD [address] [place] [address] [place] Insurance Follow Up Representative CARDIOVASCULAR DISEASE 01/24/18 02/16/23 Brian Cole MD [address] [place] [address] EP Insurance Follow Up Representative CLINICAL CARDIAC ELECTROPHYSIOLOGY 03/25/22 Christiano Ramesh MD [address] [facility] [place] [address] Surgeon NEUROLOGICAL SURGERY 02/17/23 Dharmesh Roche MD [address] [place] [address] Consulting Physician INTERVENTIONAL CARDIOLOGY 02/20/23 Edinson York APRN [address] [facility] [address] [place], [place] [address] Nurse Practitioner NURSE PRACTITIONER 02/20/23 Denis Cantrell MD [address] [place] [address] Consulting Physician INTERNAL MEDICINE 07/28/23 Pennie Garcia PA-C [address] [place] [address] Referring Physician PHYSICIAN DAIRY FARMER 08/05/24 documented as of this encounter
--- OUTSIDE RECORDS SUMMARY | 2024-11-27 15:36 | XMS_ITS | Encounter Summary ---
Author Organization [facility] Address [address] [place] [address] Care Team Providers Care Wood Crew Supervisor Name Role Phone Ludivina Loaiza MD Primary Care Provider [phone] Brian Cole MD Unavailable [phone] Christiano Ramesh MD Unavailable [phone] Dharmesh Roche MD Unavailable [phone] Edinson York APRN Unavailable [phone] Denis Cantrell MD Unavailable Pennie Garcia PA-C Unavailable + [phone] Encounter Details Date Type Department Care Team (Late st Contact Info) Description 04/20/2023 Hospital Orders Only [facility] Anesthesia [address] [place] [address] Melissa Wallis RN Anesthesia Record Procedure Summary Procedure Name Responsible Anesthesiologist Anesthesia Start Time Anesthesia Stop Time XA AFLUTTER ABLATION Trip Chacon MD 04/25/23 0710 04/25/23 1046 Events Date Time Event Comment 04/25/2023 0652 0652 AN Anesthesia Prepped 0710 An Start Patient ID and consent checked and patient reassessed. 0710 An Start Data 0716 Preoxygenation 0723 An Induction The patient was reevaluated immediately before moderate or deep sedation use and before anesthesia induction. 0728 An Intubation 0745 Anesthesia Ready 0805 Quick Note Give 12,000 uni ts heprain start drip at 2000 units/hr 0831 Quick Note Act 293 give 40 00 units of heparin, increase rate to 2200 units/hr 0855 Quick Note Act 329 give 40 00 units of heparin, increase rate to 2600 units /hr 0920 Quick Note Act 391 0941 Quick Note Act 347, give 1 000 units of heparin 1003 Quick Note Act 353 1026 Quick Note Act 173 1029 An Extubation 1029 Face Mask Applied 1039 an stop data 1046 Post Anesthetic Care Handoff I completed my handoff to the receiving nurse during which we: 1. Identified the patient 2. Identified the responsible provider 3. Reviewed the pertinent medical history 4. Discussed the surgical course 5. Reviewed intra-op anesthesia management and issues during anesthesia 6. Set expectations for post-procedure period 7. Allowed opportunity for questions and acknowledgement of understanding. 1046 An Stop Meds * Agents No agents on file. * Blood No blood administrations on file. Lines, Drains, and Airways Type Details Placement Removal Peripheral IV Placement Date: 04/15 11/07; Placement Time: 06; Placed Outside of This Facility?: No; Size: 18 G; Orientation: Left; Location: Antecubital; Site Prep: Alcohol; Local Anesthetic: None; Inserted By: renetta rn; Insertion attempts: 1; Ultrasound-guided Placement?: No; Patient Tolerance: Tolerated well; Removal Date: 04/26/23; Removal Time: 0907; Removal Reason: Patient Discharged 04/25/23 06 by Cristina Singh RN 04/26/23 09 by Shruthi Dow RN ETT Placement Date: 04/15 11/07; Placement Time: 07; Mask Ventilate: Medium; Size (mm) : 7.5; Endotracheal: Oral, Stylet used; Blade Type: MAC 4; Placement Method: Video Laryngoscope (see comments); View Grade: 1; Viewable Anatomy: Epiglottis, Arytenoid, Vocal cords; Insertion Attempts: 1; Placement Verified By: Auscultation, Capnography, Chest Rise; Placed By: EMERITA; Removal Date: 04/25/23; Removal Time: 1029; Removal Person: PROFESSOR OF SPANISH; Removal Reason: End of Case 04/25/23727 by Suzy Torres CRNA 04/25/23 102 by Suzy Torres CRNA Peripheral IV Placement Date: 04/15 11/07; Placement Time: 0730 (created via procedure documentation); Size: 18 G; Orientation: Right; Location: Hand; Site Prep: Chlorhexidine; Local Anesthetic: None; Insertion attempts: 1; Ultrasound-guided Placement?: No; Patient Tolerance: Tolerated well; Removal Date: 04/26/23; Removal Time: 09; Removal Reason: Patient Discharged 04/25/23 0730 by Suzy Torres, PROFESSOR OF SPANISH 04/26/23 0908 by Shruthi Dow RN Arterial Line Placement Date: 04/15 11/07; Placement Time: 743 (created via procedure documentation); Orientation: Right; Location: Radial; Site Prep: Chlorhexidine; Local Anesthetic: None; Insertion Attempts: 1; Patient Tolerance: Tolerated well; Removal Date: 04/25/23; Removal Time: 1215; Removal Reason: Therapy Completed 04/25/23 07 by Suzy Torres, PROF[employer]OR [employer]ISH 04/25/23 121 by Steffanie Toscano RN documented in this encounter Social History Tobacco Use Types Packs/Day Years [...] Description 08/05/2025 12:45 PM CDT [facility] [address] [place] [address] Brian Cole MD [address] [place] [address] documented as of this encounter Visit Diagnoses Not on filedocumented in this encounter Care Teams Wood Crew Supervisor Relationship Specialty Start Date End Date Ludivina Loaiza MD [address] [place] [address] PCP - General INTERNAL MEDICINE 01/24/18 Brian Cole MD [address] [place] [address] EP Contractor Field Hauling CLINICAL CARDIAC ELECTROPHYSIOLOGY 03/25/22 Christiano Ramesh MD [address] [place] [address] Surgeon NEUROLOGICAL SURGERY 02/17/23 Dharmesh Roche MD [address] [place] [address] Consulting Physician INTERVENTIONAL CARDIOLOGY 02/20/23 Edinson York APRN [address] [facility] [address] [place] [address] Nurse Practitioner NURSE PRACTITIONER 02/20/23 Denis Cantrell MD [address] [place] [address] Consulting Physician INTERNAL MEDICINE 07/28/23 Pennie Garcia PA-C [address] [place] [address] Referring Physician PHYSICIAN COMMUNITY SPECIALIST 08/05/24 documented as of this encounter
--- OUTSIDE RECORDS SUMMARY | 2024-11-27 15:36 | XMS_ITS | Clinical Summary ---
Author Organization [facility] Address [address] [place] [address] Care Team Providers Care Assistant Property Manager Name Role Phone Ludivina Loaiza MD Primary Care Provider [phone] Christiano Ramesh MD Unavailable [phone] Nadira Valle RN Unavailable Dawson Hidalgo MD Unavailable [phone] Allergies No known active allergies Medications lovastatin (MEVACOR) 10 mg tablet 1 tablet (10 mg total) daily 06/26/20 18 Active glimepiride (AMARYL) 1 mg tabletIndicati ons:type 2 diabetes mellitus 1 tablet (1 mg total) daily Takes 1/2 tab daily 09/02/20 18 Active triamterene-hy droCHLOROthiaz maximo (triamterene-h ydroCHLOROthia zide) 37.5-25 mg per tablet/capsule Take 1 tablet/capsul e by mouth daily Active baclofen (LIORESAL) 10 mg tablet 1 tablet (10 mg total) 3 (three) times a day as needed 12/29/19 23 Active gabapentin (NEURONTIN) 100 mg capsule Take 1 capsule (100 mg total) by mouth 3 (three) times a day 270 capsule 02/21/20 23 Active fluticasone propionate (FLONASE) 50 mcg/actuation nasal spray Administer 1 spray into affected nostril(s) daily Active albuterol HFA (PROVENTIL HFA,VENTOLIN HFA,PROAIR HFA) 90 mcg/actuation inhaler Inhale 1 puff every 6 (six) hours as needed for shortness of breath 08/14/20 23 Active ipratropium (ATROVENT) 42 mcg (0.06 %) nasal spray USE 2 SPRAYS IN BOTH NOSTRILS 3 TIMES DAILY 07/25/20 23 Active HYDROcodone-ac etaminophen (NORCO) 5-325 mg per tabletIndicati ons:Pain Take 1-2 tablets by mouth every 4 (four) hours as needed for pain 30 tablet 12/22/19 24 Active ciprofloxacin (Cipro) 250 mg tabletIndicati ons:Prostate cancer (HCC) 500 mg the night before the procedure then 250 mg twice a day for 4 days 10 tablet 09/08/20 24 Active tamsulosin (FLOMAX) 0.4 mg extended release capsuleIndicat ions:Prostate cancer (HCC) TAKE 1 CAPSULE BY MOUTH EVERY DAY 90 capsule 10/31/19 25 Active tamsulosin (Flomax) 0.4 mg extended release capsuleIndicat ions:Prostate cancer (HCC) 0.4 mg the night before the procedure, then 0.4 mg nightly for 9 days. 10 capsule 10/10/20 24 025 Discontinued(Du plicate order) tamsulosin (FLOMAX) 0.4 mg extended release capsuleIndicat ions:Prostate cancer (HCC) Take 1 capsule (0.4 mg total) by mouth daily 30 capsule 2 10/29/19 25 025 Discontinued Active Problems Problem Noted Date Diagnosed Date Herniated nucleus pulposus, L3-4 left 02/17/2023 intermission coordinator current use of anticoagulant 3 Degenerative lumbar spinal stenosis 01/16/2023 Encounter for long-term use of opiate analgesic 06/24/2020 Insomnia secondary to chronic pain 06/19/2020 Thoracic spine pain 06/09/2020 Lumbar radiculopathy 06/09/2020 Acute right-sided thoracic back pain 05/20/2020 Thoracic radiculopathy 05/20/2020 Right-sided chest wall pain 05/20/2020 Low back pain radiating to r ight lower extremity-L4/L5 distribution 09/03/2018 DDD (degenerative disc disease), lumbar-severe L 4-5 level 09/03/2018 Encounters Date Type Department Care Team Description 11/01/2024 Telephone [facility] Advanced Medicine Radiation Oncology [address] [place] [address] Janice Stewart RN 10/30/2024 Telephone [facility] Advanced Medicine Radiation Oncology [address] [facility] [place] [address] Janice Stewart RN 10/29/2024 5:45 PM IT QUALITY ASSURANCE ANALYST Lab [facility] Advanced [facility] [address] [place] [address] Prostate cancer (HCC) 10/29/2024 12:44 PM IT QUALITY ASSURANCE ANALYST - 10/29/2024 11:59 PM IT QUALITY ASSURANCE ANALYST Hospital Encounter [facility] Advanced Medicine Radiation Oncology [address] [place] [id number] Dawson Alcaraz MD Discharge Disposition: Discharge to home or self care 10/29/2024 Orders Only [facility] Advanced Medicine Radiation Oncology [address] [place] [id number] Dawson Alcaraz MD Prostate cancer (HCC) (Primary Dx) 10/29/2024 Documentation [facility] Advanced Medicine Radiation Oncology [address] [place] [address] [place] [address] Janice Stewart RN 10/29/2024 OTV [facility] Advanced Medicine Radiation Oncology [address] [place] [address] Jonathan Medina MD 10/29/2024 Orders Only RAD ONC TREATMENTS Miscellaneous, Not In File 10/29/2024 Completion of Therapy [facility] Advanced [facility] Radiation Oncology [address] [place] [id number] Dawson Alcaraz MD 10/24/2024 Orders Only [facility] Radiation Oncology [address] [place] [address] Dawson Alcaraz MD Prostate cancer (HCC) (Primary Dx) 10/24/2024 Orders Only [facility] [address] [facility] [place] [address] Dawson Alcaraz MD Prostate cancer (HCC) (Primary Dx); Pathological fracture in neoplastic disease, other specified site, initial encounter for fracture 10/24/2024 Orders Only [facility] Advanced Medicine Radiation Oncology [address] [place] [address] Dawson Alcaraz MD Prostate cancer (HCC) (Primary Dx); Pathological fracture in neoplastic disease, other specified site, initial encounter for fracture 10/23/2024 Telephone [facility] Advanced Medicine Radiation Oncology [address] [place] [address] Janice Stewart RN 10/23/2024 Telephone [facility] Advanced Medicine Radiation Oncology [address] [place] [phone] Janice Stewart RN 10/23/2024 Orders Only [facility] Advanced Medicine Radiation Oncology [facility] [place] [address] Dawson Alcaraz MD Prostate cancer (HCC) (Primary Dx) 10/22/2024 1:29 PM IT QUALITY ASSURANCE ANALYST - 10/22/2024 11:59 PM IT QUALITY ASSURANCE ANALYST Hospital Encounter [facility] Advanced Medicine Radiation Oncology [facility] [place] [address] Dawson Alcaraz MD Discharge Disposition: Discharge to home or self care 10/22/2024 1:20 PM IT QUALITY ASSURANCE ANALYST Lab [facility] ([facility]) [address] [place] [phone] Prostate cancer (HCC) 10/22/2024 OTV [facility] Advanced Medicine Radiation Oncology [address] [place] [address] Dawson Alcaraz MD 10/22/2024 Orders Only RAD ONC TREATMENTS Miscellaneous, Not In File 10/21/2024 Telephone [facility] Advanced Medicine Radiation Oncology [address] [place] [address] Janice Stewart RN 10/21/2024 Telephone [facility] Advanced Medicine Radiation Oncology [address] [place] [address] Janice Stewart RN 10/21/2024 Telephone [facility] Advanced [facility] Radiation Oncology [address] [place] [address] Janice Stewart RN 10/21/2024 Orders Only [facility] Advanced [facility] Radiation Oncology [facility] [place] [address] Dawson Alcaraz MD Prostate cancer (HCC) (Primary Dx) 10/21/2024 Telephone [facility] Advanced [facility] Radiation Oncology [facility] [place] [address] Janice Stewart RN 10/17/2024 1:10 PM IT QUALITY ASSURANCE ANALYST - 10/17/2024 11:59 PM IT QUALITY ASSURANCE ANALYST Hospital Encounter [facility] Advanced Medicine Radiation Oncology [facility] [place] [address] Dawson Alcaraz MD Discharge Disposition: Discharge to home or self care 10/17/2024 11:00 AM IT QUALITY ASSURANCE ANALYST - 10/17/2024 11:59 PM IT QUALITY ASSURANCE ANALYST Hospital Encounter [address] [address] Prostate cancer (HCC); Pathological fracture in neoplastic disease, other specified site, initial encounter for fracture Discharge Disposition: Discharge to home or self care 10/17/2024 Orders Only RAD ONC TREATMENTS Miscellaneous, Not In File 10/10/2024 12:56 PM IT QUALITY ASSURANCE ANALYST - 10/10/2024 11:59 PM IT QUALITY ASSURANCE ANALYST Hospital Encounter [facility] Rad[facility] [address] [facility] [place] [address] Dawson Alcaraz MD Discharge Disposition: Discharge to home or self care 10/10/2024 Telephone [facility] [address] [facility] [place] [address] Jay Segovia, DENIZ 10/10/2024 Orders Only [facility] Rad[facility] [address] [facility] [place] [address] Jay Segovia, RN Prostate cancer (HCC) 10/10/2024 Orders Only RAD ONC TREATMENTS Miscellaneous, Not In File 10/03/2024 12:49 PM IT QUALITY ASSURANCE ANALYST - 10/03/2024 11:59 PM IT QUALITY ASSURANCE ANALYST Hospital Encounter [facility] [address] [facility] [place] [address] Dawson Alcaraz MD Discharge Disposition: Discharge to home or self care 10/03/2024 Documentation [facility] [address] [place] [address] Janice Stewart RN 10/03/2024 Orders Only RAD ONC TREATMENTS Miscellaneous, Not In File 09/25/2024 Telephone [facility] [address] [facility] [place] [address] Janice Stewart RN 09/23/2024 Telephone [facility] [address] [facility] [place] [address] Janice Stewart RN 09/23/2024 Telephone [facility] [address] [facility] [place] [address] Janice Stewart RN 09/18/2024 Telephone [facility] [address] [facility] [place] [address] Janice Stewart RN 09/10/2024 1:09 PM IT QUALITY ASSURANCE ANALYST - 09/10/2024 11:59 PM IT QUALITY ASSURANCE ANALYST Hospital Encounter [facility] [address] [facility] [place] [address] Dawson Alcaraz MD Discharge Disposition: Discharge to home or self care 09/10/2024 1:00 PM IT QUALITY ASSURANCE ANALYST - 09/10/2024 11:59 PM IT QUALITY ASSURANCE ANALYST Hospital Encounter [facility] [address] [facility] [place] [address] Dawson Alcaraz MD Discharge Disposition: Discharge to home or self care 09/09/2024 12:42 PM IT QUALITY ASSURANCE ANALYST - 09/09/2024 11:59 PM IT QUALITY ASSURANCE ANALYST Hospital Encounter [facility] [address] [facility] [place] [address] Dawson Alcaraz MD Prostate cancer (HCC) Discharge Disposition: Discharge to home or self care 09/09/2024 Documentation [facility] [address] [facility] [place] [address] Linda Franklin, DENIZ 09/09/2024 Orders Only [facility] [address] [facility] [place] [address] Linda Franklin, DENIZ 09/06/2024 Telephone [facility] [address] [facility] [place] [address] Janice Stewart RN 09/02/2024 Telephone [facility] [address] [facility] [place] [address] Janice Stewart RN 09/02/2024 Orders Only [facility] Advanced Medicine Radiation Oncology [address] [facility] [place] [address] Dawson Alcaraz MD Prostate cancer (HCC) (Primary Dx); Pathological fracture in neoplastic disease, other specified site, initial encounter for fracture from Last 3 Months Surgical History Surgery Date Site/Laterality Comments CT GUIDED TRANSFORAMINAL EPI DURAL INJECTION LUMBAR SACRAL FIRST LEVEL 01/30/2023 N/A HERNIA REPAIR with mesh LUMBAR DISC SURGERY discectomy x 4 COLONOSCOPY MOHS SURGERY CARDIAC ELECTROPHYSIOLOGY ST UDY AND ABLATION Medical History Medical History Date Comments Hypertension pt states he has hx of HTN, treated by PCP Low back pain Covid-19 10/2020 & 02/2022 Arrhythmia afib PONV (postoperative nausea and vomiting) Delayed emergence from general anesthesia History of kidney stones Type 2 diabetes mellitus (HCC) Chronic pain disorder back pain Basal cell carcinoma (BCC) x 2-3 mohs procedures Benign enlargement of prostate Environmental allergies Social History Tobacco Use Types Packs/Day Years Used Date Smoking Tobacco: Never Smokeless Tobacco: Never Tobacco Cessation:Counseling Given: Not Answered Social Connection and Isolat ion Panel [NHANES] Answer Date Recorded In a typical week, how many times do you talk on the phone with family, friends, or neighbors? More than three times a week 12/21/2023 How often do you get togethe r with friends or relatives? More than three times a week 12/21/2023 How often do you attend [facility] or confucianism services? More than 4 times per year 12/21/2023 Do you belong to any clubs o r organizations such as religious groups, unions, fraternal or athletic groups, or school groups? No 12/21/2023 How often do you attend meet ings of the clubs or organizations you belong to? Never 12/21/2023 Are you , , di vorced, , never , or living with a partner? 12/21/2023 AUDIT-C Answer Date Recorded Q1: How often do you have a drink containing alc ohol? Monthly or less 07/19/2024 Q2: How many drinks containi ng alcohol do you have on a typical day when you are drinking? 1 or 2 07/19/2024 Q3: How often do you have si x or more drinks on one occasion? Never 07/19/2024 Overall Financial Resource Strain (CARDIA) Answe r Date Recorded How hard is it for you to pa y for the very basics like food, housing, medical care, and heating? Not very hard 12/21/2023 Hunger Vital Sign Answer Date Recorded Within the past 12 months, y ou worried that your food would run out before you got the money to buy more. Never true 12/21/19 24 Within the past 12 months, t he food you bought just didn't last and you didn't have money to get more. Never true 12/21/2023 PRAPARE - Transportation Answer Date Re corded In the past 12 months, has l ack of transportation kept you from medical appointments or from getting medications? No 04/2024 In the past 12 months, has l ack of transportation kept you from meetings, work, or from getting things needed for daily living? No 12/21/2023 Housing Stability Vital Sign Answer Jose e Recorded In the last 12 months, was t here a time when you were not able to pay the mortgage or rent on time? No 12/21/2023 In the last 12 months, how many places have you lived? 1 12/21/2023 In the last 12 months, was t here a time when you did not have a steady place to sleep or slept in a alf (including now)? No 12/21/2023 Personal Safety Answer Date Recorded Have you ever been in or are you currently in a harmful physical or emotional relationship or is someone making you feel afraid or unsafe? Denies 12/22/2023 Sex and Gender Information Value Date Recorded Sex Assigned at Not on file Legal Sex Male 12:37 AM IT QUALITY ASSURANCE ANALYST Gender Identity Not on file Sexual Orientation Not on file Obstetrics History Last Filed Vital Signs Vital Sign Reading Time Taken Comments Blood Pressure 137/80 10/29/2024 2:12 PM IT QUALITY ASSURANCE ANALYST Pulse 73 09/09/2024 3:00 PM IT QUALITY ASSURANCE ANALYST Temperature 36.3 C (97.4 F) 10/29/2024 2:12 PM IT QUALITY ASSURANCE ANALYST Respiratory Rate 16 09/09/2024 3:00 PM IT QUALITY ASSURANCE ANALYST Oxygen Saturation 96% 09/09/2024 3:00 PM IT QUALITY ASSURANCE ANALYST Inhaled Oxygen Concentration - - Weight 95.2 kg (209 lb 12.8 oz) 10/29/2024 2:12 PM IT QUALITY ASSURANCE ANALYST Height 180.3 cm (5' 11 ) 08/03/2024 6:51 AM CDT Body Mass Index 29.26 08/03/2024 6:51 AM CDT Plan of Treatment Health Maintenance Due Date Last Done Comments Colon Cancer Screening-Colonoscopy 1960 Depression Screening 1960 Hepatitis C Screening 1960 Hepatitis B Screening 02/10/1976 Zoster Vaccine (1 of 2) 1977 Pneumococcal vaccine 65+ (2 of 2 - PPSV23 or PCV20) 12/11/2017 10/16/2017, 04/06/2016 Well Visit 65+ 2023 Influenza Vaccine (#1) 2024 9, 08/02/2018, 08/01/2017, Additional history exists DTaP/Tdap/Td Vaccine (2 - Td or Tdap) 12/08/2024 12/08/2014 Fall Risk Assessment 07/19/2025 07/19/2024, 12/22/19 24 Prostate Cancer Screening-PSA 10/29/2026 10/29/2024, 08/26/2024 Goals Goal Patient Goal Type Associated Problems Recent Progress Patient-Stated? Author [facility] Jenelle Vora, RN Note: Patient will establish a comfort-function goal and identify the pain level that will allow the patient to perform desired activities and achieve an acceptable quality of life. Medical Devices Implanted Type Area Balancer Scale Device Identifier Shelf Expiration Date Model / Serial / Lot Hernia Mesh Left: Pelvis Procedures Procedure Name Priority Date/Time Associated Diagnosis Comments PSA, TOTAL AND FREE Routine 10/29/2024 3 :04 PM IT QUALITY ASSURANCE ANALYST Prostate cancer (HCC) TOTAL TESTOSTERONE Routine 10/29/2024 3: 04 PM IT QUALITY ASSURANCE ANALYST Prostate cancer (HCC) RAD ONC ARIA SESSION SUMMARY 10/29/2024 2:02 PM IT QUALITY ASSURANCE ANALYST RAD ONC ARIA SESSION SUMMARY 10/22/2024 2:37 PM IT QUALITY ASSURANCE ANALYST URINALYSIS AND REFLEX TO MICROSCOPIC AND CULTURE Routine 10/22/2024 12:57 PM IT QUALITY ASSURANCE ANALYST Prostate cancer (HCC) RAD ONC ARIA SESSION SUMMARY 10/17/2024 2:35 PM IT QUALITY ASSURANCE ANALYST DEXA APPENDICULAR BONE DENSITY Schedule Routine, Read Routine (OP Routine) 10/17/2024 11:25 AM IT QUALITY ASSURANCE ANALYST Prostate cancer (HCC) Pathological fracture in neoplastic disease, other specified site, initial encounter for fracture RAD ONC ARIA SESSION SUMMARY 10/10/2024 2:21 PM IT QUALITY ASSURANCE ANALYST RAD ONC ARIA SESSION SUMMARY 10/03/2024 1:55 PM IT QUALITY ASSURANCE ANALYST from Last 3 Months Results * PSA, total and free (10/29/2024 3:04 PM IT QUALITY ASSURANCE ANALYST) PSA-free 0.2 ng/mL [facility] PSA-Total 1.5 <=4.5 ng/mL [facility] PSA-Free/Total Ratio See Footnote [facility] Comment: Ratio not calculated because clinical usefulness is not defined except in range of total PSA 4.0-10.0 ng/mL. ADDITIONAL INFORMATION The testing method is an electrochemiluminescence assay manufactured by [employer] and performed on the Modular or Nancy system. Values obtained with different assay methods or kits may be different and cannot be used interchangeably. Test results cannot be interpreted as absolute evidence for the presence or absence of malignant disease. Test Performed by: [facility] [place] [address] Ethnoarchaeologist: Marisol Varela Ph.D.; CLIA# [id number] Blood 10/29/2024 3:04 PM IT QUALITY ASSURANCE ANALYST 10/29/2024 4:48 PM IT QUALITY ASSURANCE ANALYST Dawson Alcaraz MD LAB BLOOD ORDERABLES Final Result [facility] Department [place] [address] [facility] * (ABNORMAL) Total testosterone (10/29/2024 3:04 PM IT QUALITY ASSURANCE ANALYST) Testosterone <5.0(L) 193.0 - 740.0 ng/dL Blood 10/29/2024 3:04 PM IT QUALITY ASSURANCE ANALYST 10/29/2024 4:24 PM IT QUALITY ASSURANCE ANALYST us Dawson Alcaraz MD LAB BLOOD ORDERABLES Final Result Performing Organization Address City/[facility] Co de Phone Number [facility] Department [place] [address] * RAD ONC ARIA SESSION SUMMARY (10/29/2024 2:02 PM IT QUALITY ASSURANCE ANALYST) Course Name C1_Prostat ARIA Course Plan Date 09/10/2024 2:39 PM ARIA Elapsed Days 26 ARIA Treatment Start Date 10/03/2024 ARIA Treatment Site [id number] ARIA Dose Given To Date (cGy) 5,000 ARIA Session Dosage Given (cGy) 1,000 ARIA Plan ID [id number] ARIA Fractions Treated 1 ARIA Prescribed Dose Per Fraction (cGy) 1,000 ARIA Prescribed Total Dose (cGy) 1,000 ARIA 10/29/2024 2:02 PM IT QUALITY ASSURANCE ANALYST us Not In File Miscellaneous RADIATION ONCOLOGY ORD ERABLES Final Result ARIA * RAD ONC ARIA SESSION SUMMARY (10/22/2024 2:37 PM IT QUALITY ASSURANCE ANALYST) Course Name C1_Prostat e ARIA Course Plan Date 09/10/2024 2:39 PM ARIA Elapsed Days 19 ARIA Treatment Start Date 10/03/2024 ARIA Treatment Site [id number] ARIA Dose Given To Date (cGy) 4,000 ARIA Session Dosage Given (cGy) 1,000 ARIA Plan ID [id number] ARIA Fractions Treated 1 ARIA Prescribed Dose Per Fraction (cGy) 1,000 ARIA Prescribed Total Dose (cGy) 2,000 ARIA 10/22/2024 2:37 PM IT QUALITY ASSURANCE ANALYST us Not In File Miscellaneous RADIATION ONCOLOGY ORD ERABLES Final Result ARIA * Urinalysis reflex to microscopic and culture Urine (10/22/2024 12:57 PM IT QUALITY ASSURANCE ANALYST) Color, ur Straw Yellow Clarity, ur Clear Clear [facility] Specific gravity, ur 1.020 1.003 - 1.030 [facility] pH, urine 7.0 [facility] Comment: Interpretive Data U rine pH is affected by diet, medications, systemic acid-base disturbances, and renal tubular function. pH may affect urinary stone formation. For example, urine pH below 6.0 may help reduce the tendency for calcium phosphate stones and pH greater than 6.0 may reduce the tendency for uric acid stone formation. Source: [facility] dscovered Current Interpretive Data was last revised on 2017 Protein, ur ql Negative Negative [facility] Glucose, ur ql Negative Negative [facility] Ketones, ur Negative Negative [facility] Bilirubin, ur Negative Negative [facility] Blood, ur Negative Negative [facility] Urobilinogen, ur <2.0 <2.0 mg/dL [facility] Nitrite, ur Negative Negative [facility] Leukocyte esterase, ur Negative Negative [facility] UA reflex comment Reflex conditions for microscopic UA and culture not met. [facility] Urine 10/22/2024 12:5 7 PM IT QUALITY ASSURANCE ANALYST 10/22/2024 1:07 PM IT QUALITY ASSURANCE ANALYST us Dawson Alcaraz MD LAB MICROBIOLOGY - NERAL ORDERABLES Final Result [facility] Department [place] [address] * RAD ONC ARIA SESSION SUMMARY (10/17/2024 2:35 PM IT QUALITY ASSURANCE ANALYST) Course Name C1_Prostat e_2023 ARIA Course Plan Date 09/10/2024 2:39 PM ARIA Elapsed Days 14 ARIA Treatment Start Date 10/03/2024 ARIA Treatment Site [id number] ARIA Dose Given To Date (cGy) 3,000 ARIA Session Dosage Given (cGy) 1,000 ARIA Plan ID [id number] ARIA Fractions Treated 1 ARIA Prescribed Dose Per Fraction (cGy) 1,000 ARIA Prescribed Total Dose (cGy) 3,000 ARIA 10/17/2024 2:35 PM IT QUALITY ASSURANCE ANALYST us Not In File Miscellaneous RADIATION ONCOLOGY ORD ERABLES Final Result ARIA * Dexa Bone Density (10/17/2024 11:25 AM IT QUALITY ASSURANCE ANALYST) Anatomical Region Laterality Modality Wrist N/A Other 10/17/2024 4:35 PM IT QUALITY ASSURANCE ANALYST Narrative 10/17/2024 4:36 PM IT QUALITY ASSURANCE ANALYST EXAM DESCRIPTION: DEXA AXIAL FOREARM (PERIPHERAL) REASON FOR STUDY: 64 y/o year old M with given history of: Prostate cancer, high risk, staging Screening. Balancer Scale/Model: [employer] Interactive SL (S/N 02466) CLINICAL INFORMATION: Current height: 71 inches Maximum height: 71.5 inches Weight: 204 pounds Risk factors: Cancer COMPARISON: None available FINDINGS: AP LUMBAR SPINE L1-L4: Total BMD is 1.151 g/cm2 T-score is 0.9 LEFT HIP: Total BMD is 0.947 g/cm2 T-score is 0.0 Femoral neck BMD is 0.858 g/cm2 T-score is 0.1 FRAX: FRAX not reported due to T-scores of hip, femoral neck and/or spine being at or above -1.0 (Normal). IMPRESSION: Normal bone mass. REFERENCE: Bone mineral density: T-Score: Normal (T-score above or = -1.0) Low bone mass (T-score between -1.0 and -2.5) replaces the previously used term osteopenia Osteoporosis (T-score = or below -2.5) Z-Score: Within the expected range for age (Z-score above -2.0) Below the expected range for age (Z-score is -2.0 or below) Please see below follow up recommendations. Medical evaluation for secondary causes of low bone mineral density may be appropriate. FRAX is a World Health Organization validated fracture risk assessment tool that calculates a person's 10 year probability of a major osteoporosis related fracture and hip fracture. According to the National Osteoporosis Foundation guidelines, postmenopausal women and men age 50 or older with low bone mass and a 10 year probability of a major osteoporosis related fracture = or greater than 20% or a 10 year probability of a hip fracture = or greater than 3% should be considered for pharmacological treatment for the prevention of osteoporosis. For further information, including treatment recommendations, please refer to the 2019 ISCD Official Positions (http://www.iscd.org) and the NOF's Clinician's Guide to Prevention and Treatment of Osteoporosis (http://www.nof.org/professionals/clinical-guidelines) THIS IS AN ELECTRONICALLY VERIFIED FINAL REPORT 10/17/2024 4:36 PM - Electronically signed by Preston Zuleta M.D. MF: ZEKE Report ID: [id number] Reading Location: [address] Note Preston Zuleta MD - 10/17/2024 EXAM DESCRIPTION: DEXA AXIAL FOREARM (PERIPHERAL) REASON FOR STUDY: 64 y/o year old M with given history of: Prostate cancer, high risk, staging Screening. Balancer Scale/Model: [facility] (S/N [id number]) CLINICAL INFORMATION: Current height: 71 inches Maximum height: 71.5 inches Weight: 204 pounds Risk factors: Cancer COMPARISON: None available FINDINGS: AP LUMBAR SPINE L1-L4: Total BMD is 1.151 g/cm2 T-score is 0.9 LEFT HIP: Total BMD is 0.947 g/cm2 T-score is 0.0 Femoral neck BMD is 0.858 g/cm2 T-score is 0.1 FRAX: FRAX not reported due to T-scores of hip, femoral neck and/or spine beingat or above -1.0 (Normal). IMPRESSION: Normal bone mass. REFERENCE: Bone mineral density: T-Score: Normal (T-score above or = -1.0) Low bone mass (T-score between -1.0 and -2.5) replaces thepreviously used term osteopenia Osteoporosis (T-score = or below -2.5) Z-Score: Within the expected range for age (Z-score above -2.0) Below the expected range for age (Z-score is -2.0 or below) Please see below follow up recommendations. Medical evaluation forsecondary causes of low bone mineral density may be appropriate. FRAX is a World Health Organization validated fracture risk assessmenttool that calculates a person's 10 year probability of a major osteoporosisrelated fracture and hip fracture. According to the National OsteoporosisFoundation guidelines, postmenopausal women and men age 50 or older with low bonemass and a 10 year probability of a major osteoporosis related fracture = or greater than 20% or a 10 year probability of a hip fracture = or greaterthan 3% should be considered for pharmacological treatment for the preventionof osteoporosis. For further information, including treatment recommendations, please referto the 2019 ISCD Official Positions (http://www.iscd.org) and the NOF's Clinician's Guide to Prevention and Treatment of Osteoporosis (http://www.nof.org/professionals/clinical-guidelines) THIS IS AN ELECTRONICALLY VERIFIED FINAL REPORT 10/17/2024 4:36 PM - Electronically signed by Preston Zuleta M.D. MF: ZEKE Report ID: [id number] Reading Location: [id number] us Dawson Alcaraz MD IM DXA PROCEDURES Fi nal Result * RAD ONC ARIA SESSION SUMMARY (10/10/2024 2:21 PM IT QUALITY ASSURANCE ANALYST) [facility] Course Name C1_[email or web address] _2023 ARIA Course Plan Date 09/10/2024 2:39 PM ARIA Elapsed Days 7 ARIA Treatment Start Date 10/03/2024 ARIA Treatment Site [id number] ARIA Dose Given To Date (cGy) 2,000 ARIA Session Dosage Given (cGy) 1,000 ARIA Plan ID [id number] 204 ARIA Fractions Treated 1 ARIA Prescribed Dose Per Fraction (cGy) 1,000 ARIA Prescribed Total Dose (cGy) 4,000 ARIA 10/10/2024 2:21 PM IT QUALITY ASSURANCE ANALYST us Not In File Miscellaneous RADIATION ONCOLOGY ORD ERABLES Final Result ARIA * RAD ONC ARIA SESSION SUMMARY (10/03/2024 1:55 PM IT QUALITY ASSURANCE ANALYST) Course Name [email or web address] ARIA Course Plan Date 09/10/2024 2:39 PM ARIA Elapsed Days 0 ARIA Treatment Start Date 10/03/2024 ARIA Treatment Site [id number] ARIA Dose Given To Date (cGy) 1,000 ARIA Session Dosage Given (cGy) 1,000 ARIA Plan ID [id number] 103 ARIA Fractions Treated 1 ARIA Prescribed Dose Per Fraction (cGy) 1,000 ARIA Prescribed Total Dose (cGy) 5,000 ARIA 10/03/2024 1:55 PM IT QUALITY ASSURANCE ANALYST us Not In File Miscellaneous RADIATION ONCOLOGY ORD ERABLES Final Result ANTONIO from Last 3 Months Insurance MEDICARE TNA [facility] TNA [facility] MEDICARE SOLUTIONS MEDICARE SOLUTIONS [place] [address] MEDICARE SOLUTIONS MEDICARE [employer] MEDICARE SOLUTIONS Care Teams Assistant Property Manager Relationship Specialty Start Date End Date Ludivina Loaiza MD [address] [place] [address] PCP - General 12/05/16 Christiano Ramesh MD [id number] [facility] [address] [place] [address] Consulting Physician Neurosurgery 03/02/23 Nadira Valle RN Case Manager 12/22/23 Dawson Alcaraz MD [address] [facility] [address] [place] [address] Radiation Oncologist Radiation Oncology 07/16/24
--- OUTSIDE RECORDS SUMMARY | 2024-11-27 15:36 | XMS_ITS | Referral Summary ---
Author Organization [facility] Address [address] [place] [address] Care Team Providers Care Civil Engineering Project Manager Name Role Phone Ludivina Loaiza MD Primary Care Provider [phone] Christiano Ramesh MD Unavailable [phone] Nadira Valle RN Unavailable Dawson Hidalgo MD Unavailable Encounters Date Type Department Care Team Description 11/01/2024 Telephone [facility] Radiation Oncology [address] [facility] [place] [address] Janice Stewart, RN 10/30/2024 Telephone [facility] Radiation Oncology [address] [facility] [place] [address] Janice Stewart RN 10/29/2024 Orders Only [facility] Radiation Oncology [address] [facility] [place] [address] Dawson Alcaraz MD Prostate cancer (HCC) (Primary Dx) 10/29/2024 Documentation [facility] Radiation Oncology [address] [facility] [place] [address] Janice Stewart, RN 10/29/2024 5:45 PM FURNACE COOLER Lab [facility] ([facility]) [address] [place] [address] Prostate cancer (HCC) 10/29/2024 OTV [facility] Radiation Oncology [address] [place] [address] Jonathan Medina MD 10/29/2024 Orders Only RAD ONC TREATMENTS Miscellaneous, Not In File 10/29/2024 Completion of Therapy [facility] Radiation Oncology [address] [place] [address] Dawson Alcaraz MD 10/29/2024 12:44 PM FURNACE COOLER - 10/29/2024 11:59 PM FURNACE COOLER Hospital Encounter [facility] Radiation Oncology [address] [place] [address] Dawson Alcarza MD Discharge Disposition: Discharge to home or self care 10/24/2024 Orders Only [facility] Radiation Oncology [address] [place] [address] Dawson Alcaraz MD Prostate cancer (HCC) (Primary Dx) 10/24/2024 Orders Only [facility] Radiation Oncology [address] [place] [address] Dawson Alcaraz MD Prostate cancer (HCC) (Primary Dx); Pathological fracture in neoplastic disease, other specified site, initial encounter for fracture 10/24/2024 Orders Only [facility] Radiation Oncology [address] [place] [address] Dawson Alcaraz MD Prostate cancer (HCC) (Primary Dx); Pathological fracture in neoplastic disease, other specified site, initial encounter for fracture 10/23/2024 Telephone [facility] Radiation Oncology [address] [place] [address] Janice Stewart RN 10/23/2024 Telephone [facility] Radiation Oncology [address] [facility] [place] [address] Janice Stewart, RN 10/23/2024 Orders Only [facility] Radiation Oncology [address] [facility] [place] [address] Dawson Alcaraz MD Prostate cancer (HCC) (Primary Dx) 10/22/2024 OTV [facility] Radiation Oncology [address] [facility] [place] [address] Dawson Alcaraz MD 10/22/2024 Orders Only RAD ONC TREATMENTS Miscellaneous, Not In File 10/22/2024 1:20 PM FURNACE COOLER Lab [facility] ([facility]) [address] [place] [address] Prostate cancer (HCC) 10/22/2024 1:29 PM FURNACE COOLER - 10/22/2024 11:59 PM FURNACE COOLER Hospital Encounter [facility] Radiation Oncology [address] [place] [address] [place] [address] Dawson Alcaraz MD Discharge Disposition: Discharge to home or self care 10/21/2024 Telephone [facility] Radiation Oncology [address] [facility] [place] [address] Janice Stewart, RN 10/21/2024 Telephone [facility] Radiation Oncology [address] [place] [address] [place] [address] Janice Stewart, RN 10/21/2024 Telephone [facility] Radiation Oncology Critical access hospital1 [facility] [place] [address] Janice Stewart RN 10/21/2024 Orders Only [facility] Radiation Oncology Critical access hospital1 [facility] [place] [address] Dawson Alcaraz MD Prostate cancer (HCC) (Primary Dx) 10/21/2024 Telephone [facility] Radiation Oncology [address] [facility] [place] [address] Janice Stewart RN 10/17/2024 Orders Only RAD ONC TREATMENTS Miscellaneous, Not In File 10/17/2024 1:10 PM FURNACE COOLER - 10/17/2024 11:59 PM FURNACE COOLER Hospital Encounter [facility] Radiation Oncology [address] [facility] [place] [address] Dawson Alcaraz MD Discharge Disposition: Discharge to home or self care 10/17/2024 11:00 AM FURNACE COOLER - 10/17/2024 11:59 PM FURNACE COOLER Hospital Encounter [address] [address] Prostate cancer (HCC); Pathological fracture in neoplastic disease, other specified site, initial encounter for fracture Discharge Disposition: Discharge to home or self care 10/10/2024 Telephone [facility] Radiation Oncology [address] [facility] [place] [address] Jay Segovia, DENIZ 10/10/2024 Orders Only [facility] Radiation Oncology [address] [facility] [place] [address] Jay Segovia, RN Prostate cancer (HCC) 10/10/2024 Orders Only RAD ONC TREATMENTS Miscellaneous, Not In File 10/10/2024 12:56 PM FURNACE COOLER - 10/10/2024 11:59 PM FURNACE COOLER Hospital Encounter [facility] Radiation Oncology [address] [facility] [place] [address] Dawson Alcaraz MD Discharge Disposition: Discharge to home or self care 10/03/2024 Documentation [facility] Radiation Oncology [address] [facility] [place] [address] Janice Stewart RN 10/03/2024 Orders Only RAD ONC TREATMENTS Miscellaneous, Not In File 10/03/2024 12:49 PM FURNACE COOLER - 10/03/2024 11:59 PM FURNACE COOLER Hospital Encounter [facility] Radiation Oncology [address] [place] [address] [place] [address] Dawson Alcaraz MD Discharge Disposition: Discharge to home or self care 09/25/2024 [facility] Radiation Oncology [address] [place] [address] [place] [address] Janice Stewart RN 09/23/2024 [facility] Radiation Oncology [address] [place] [address] Janice Stewart RN 09/23/2024 [facility] Radiation Oncology [address] [place] [address] Janice Stewart RN 09/18/2024 [facility] Radiation Oncology [address] [place] [address] Janice Stewart RN 09/10/2024 1:09 PM FURNACE COOLER - 09/10/2024 11:59 PM FURNACE COOLER Hospital Encounter [facility] Radiation Oncology [address] [place] [address] Dawson Alcaraz MD Discharge Disposition: Discharge to home or self care 09/10/2024 1:00 PM FURNACE COOLER - 09/10/2024 11:59 PM FURNACE COOLER Hospital Encounter [facility] Radiation Oncology [address] [place] [address] Dawson Alcaraz MD Discharge Disposition: Discharge to home or self care 09/09/2024 Documentation [facility] Radiation Oncology [address] [place] [address] [place] [address] Linda Franklin RN 09/09/2024 Orders Only [facility] Radiation Oncology Critical access hospital1 [place] [address] Linda Franklin RN 09/09/2024 12:42 PM FURNACE COOLER - 09/09/2024 11:59 PM FURNACE COOLER Hospital Encounter [facility] Radiation Oncology [address] [place] [address] Dawson Alcaraz MD Prostate cancer (HCC) Discharge Disposition: Discharge to home or self care 09/06/2024 Telephone [facility] Radiation Oncology [address] [place] [address] Janice Stewart RN 09/02/2024 Telephone [facility] Radiation Oncology [address] [place] [address] Janice Stewart RN 09/02/2024 Orders Only [facility] Radiation Oncology [address] [place] [address] Dawson Alcaraz MD Prostate cancer (HCC) (Primary Dx); Pathological fracture in neoplastic disease, other specified site, initial encounter for fracture from Last 3 Months Allergies No known active allergies Medications lovastatin (MEVACOR) 10 mg tablet 1 tablet (10 mg total) daily 06/26/20 Active glimepiride (AMARYL) 1 mg tabletIndicati ons:type [...] Date Herniated nucleus pulposus, L3-4 left 02/17/2023 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 More than 4 times per year 12/21/2023 Do you belong to any clubs o r organizations such as roman catholic groups, unions, fraternal or athletic groups, or [...] place to sleep or slept in a usp (including now)? No 12/21/2023 Personal Safety Answer Date Recorded Have you ever been in or are you currently in a harmful physical or emotional relationship or is someone making you feel afraid or unsafe? Denies 12/22/2023 Sex and Gender Information Value Date Recorded Sex Assigned at Not on file Legal Sex Male 12:37 AM FURNACE COOLER Gender Identity Not on file Sexual Orientation Not on file Last Filed Vital Signs Vital Sign Reading Time Taken Comments Blood Pressure 137/80 10/29/2024 2:12 PM FURNACE COOLER Pulse 73 09/09/2024 3:00 PM FURNACE COOLER Temperature 36.3 C (97.4 F) 10/29/2024 2:12 PM FURNACE COOLER Respiratory Rate 16 09/09/2024 3:00 PM FURNACE COOLER Oxygen Saturation 96% 09/09/2024 3:00 PM FURNACE COOLER Inhaled Oxygen Concentration - - Weight 95.2 kg (209 lb 12.8 oz) 10/29/2024 2:12 PM FURNACE COOLER Height 180.3 cm (5' 11 ) 08/03/2024 6:51 AM CDT Body Mass Index 29.26 08/03/2024 6:51 AM CDT Plan of Treatment Not on file Goals Goal Patient Goal Type Associated Problems Recent Progress Patient-Stated? Author [facility] No Jenelle Truong, RN Note: Patient will establish a comfort-function goal and identify the pain level that will allow the patient to perform desired activities and achieve an acceptable quality of life. Medical Devices Implanted Type Area Web Art Director Device Identifier Shelf Expiration Date Model / Serial / Lot Hernia Mesh Left: Pelvis Procedures Procedure Name Priority Date/Time Associated Diagnosis Comments PSA, TOTAL AND FREE Routine 10/29/2024 3 :04 PM FURNACE COOLER Prostate cancer (HCC) TOTAL TESTOSTERONE Routine 10/29/2024 3: 04 PM FURNACE COOLER Prostate cancer (HCC) RAD ONC ARIA SESSION SUMMARY 10/29/2024 2:02 PM FURNACE COOLER RAD ONC ARIA SESSION SUMMARY 10/22/2024 2:37 PM FURNACE COOLER URINALYSIS AND REFLEX TO MICROSCOPIC AND CULTURE Routine 10/22/2024 12:57 PM FURNACE COOLER Prostate cancer (HCC) RAD ONC ARIA SESSION SUMMARY 10/17/2024 2:35 PM FURNACE COOLER DEXA APPENDICULAR BONE DENSITY Schedule Routine, Read Routine (OP Routine) 10/17/2024 11:25 AM FURNACE COOLER Prostate cancer (HCC) Pathological fracture in neoplastic disease, other specified site, initial encounter for fracture RAD ONC ARIA SESSION SUMMARY 10/10/2024 2:21 PM FURNACE COOLER RAD ONC ARIA SESSION SUMMARY 10/03/2024 1:55 PM FURNACE COOLER from Last 3 Months Results * PSA, total and free (10/29/2024 3:04 PM FURNACE COOLER) PSA-free 0.2 ng/mL [facility] PSA-Total 1.5 <=4.5 ng/mL [facility] PSA-Free/Total Ratio See Footnote [facility] Comment: Ratio not calculated because clinical usefulness [...] absence of malignant disease. Test Performed by: [facility] [address] [place] [address] Sewage Treatment Plant Operator: Marisol Varela Ph.D.; CLIA# [id number] Blood 10/29/2024 3:04 PM FURNACE COOLER 10/29/2024 4:48 PM FURNACE COOLER Dawson Alcaraz MD LAB BLOOD ORDERABLES Final Result Performing Organization Address City/[facility]/ZIP Co de Phone Number [facility] [place] [address] [facility] * (ABNORMAL) Total testosterone (10/29/2024 3:04 PM FURNACE COOLER) Pathologist [facility] Testosterone <5.0(L) 193.0 - 740.0 ng/dL Blood 10/29/2024 3:04 PM FURNACE COOLER 10/29/2024 4:24 PM FURNACE COOLER Dawson Alcaraz MD LAB BLOOD ORDERABLES Final Result Performing Organization Address City/[facility] Co de Phone Number [facility] [place] [address] * RAD ONC ARIA SESSION SUMMARY (10/29/2024 2:02 PM FURNACE COOLER) Course Name C1_Prostat e_2023 ARIA Course Plan [...] Dose (cGy) 1,000 ARIA 10/29/2024 2:02 PM FURNACE COOLER us Not In File Miscellaneous RADIATION ONCOLOGY ORD ERABLES Final Result ANTONIO * RAD ONC ARIA SESSION SUMMARY (10/22/2024 2:37 PM FURNACE COOLER) Course Name C1_Prostat e_2023 ARIA Course Plan [...] Dose (cGy) 2,000 ARIA 10/22/2024 2:37 PM FURNACE COOLER us Not In File Miscellaneous RADIATION ONCOLOGY ORD ERABLES Final Result Performing Organization Address City/[facility] Co de Phone Number ANTONIO * Urinalysis reflex to microscopic and culture Urine (10/22/2024 12:57 PM FURNACE COOLER) Color, ur Straw Yellow Clarity, ur Clear Clear [facility] Specific gravity, ur 1.020 1.003 - 1.030 [facility] pH, urine 7.0 [facility] Comment: Interpretive Data U rine pH is affected by diet, medications, systemic acid-base disturbances, and renal tubular function. pH may affect urinary stone formation. For example, urine pH below 6.0 may help reduce the tendency for calcium phosphate stones and pH greater than 6.0 may reduce the tendency for uric acid stone formation. Source: [employer] Current Interpretive Data was last revised on 2017 Protein, ur ql Negative Negative [facility] Glucose, ur ql Negative Negative [facility] Ketones, ur Negative Negative [facility] Bilirubin, ur Negative Negative [facility] Blood, ur Negative Negative [facility] Urobilinogen, ur <2.0 <2.0 mg/dL [facility] Nitrite, ur Negative Negative [facility] Leukocyte esterase, ur Negative Negative [facility] UA reflex comment Reflex conditions for microscopic UA and culture not met. [facility] Urine 10/22/2024 12:5 7 PM FURNACE COOLER 10/22/2024 1:07 PM FURNACE COOLER us Dawson Alcaraz MD LAB MICROBIOLOGY - NERAL ORDERABLES Final Result Performing Organization Address [facility] Co de Phone Number [facility] [place] [address] * RAD ONC ARIA SESSION SUMMARY (10/17/2024 2:35 PM FURNACE COOLER) Course Name C1_Prostat e_2023 ARIA Course Plan [...] Dose (cGy) 3,000 ARIA 10/17/2024 2:35 PM FURNACE COOLER us Not In File Miscellaneous RADIATION ONCOLOGY ORD ERABLES Final Result Performing Organization Address [facility] Co de Phone Number ARIA * Dexa Bone Density (10/17/2024 11:25 AM FURNACE COOLER) Anatomical Region Laterality Modality Wrist N/A Other 10/17/2024 4:35 PM FURNACE COOLER Narrative 10/17/2024 4:36 PM FURNACE COOLER EXAM DESCRIPTION: DEXA AXIAL FOREARM (PERIPHERAL) REASON FOR STUDY: 64 y/o year old M with given history of: Prostate cancer, high risk, staging Screening. Web Art Director/Model: [employer] ([id number]/N [id number]) CLINICAL INFORMATION: Current height: 71 inches Maximum [...] Preston Zuleta M.D. MF: ZEKE Report ID: [id number] Reading Location: [address] Note Preston Zuleta MD - 10/17/2024 EXAM DESCRIPTION: DEXA AXIAL FOREARM (PERIPHERAL) REASON FOR STUDY: 64 y/o year old M with given history of: Prostate cancer, high risk, staging Screening. Web Art Director/Model: [employer] (S/N [id number]) CLINICAL INFORMATION: Current height: 71 inches Maximum [...] Preston Zuleta M.D. MF: ZEKE Report ID: [id number] Reading Location: [place] [address] us Dawson Alcaraz MD IMG DXA PROCEDURES Fi nal Result * RAD ONC ARIA SESSION SUMMARY (10/10/2024 2:21 PM FURNACE COOLER) Course Name C1_Prostat ARIA Course Plan Date 09/10/2024 2:39 PM ARIA Elapsed Days 7 ARIA Treatment Start Date 10/03/2024 ARIA Treatment Site [id number] ARIA Dose Given To Date (cGy) 2,000 ARIA Session Dosage Given (cGy) 1,000 ARIA Plan ID [id number] ARIA Fractions Treated 1 ARIA Prescribed Dose Per Fraction (cGy) 1,000 ARIA Prescribed Total Dose (cGy) 4,000 ARIA 10/10/2024 2:21 PM FURNACE COOLER us Not In File Miscellaneous RADIATION ONCOLOGY ORD ERABLES Final Result ARIA * RAD ONC ARIA SESSION SUMMARY (10/03/2024 1:55 PM FURNACE COOLER) Course Name C1_Prostat ARIA Course Plan Date 09/10/2024 2:39 PM ARIA Elapsed Days 0 ARIA Treatment Start Date 10/03/2024 ARIA Treatment Site [id number] ARIA Dose Given To Date (cGy) 1,000 ARIA Session Dosage Given (cGy) 1,000 ARIA Plan ID [id number] ARIA Fractions Treated 1 ARIA Prescribed Dose Per Fraction (cGy) 1,000 ARIA Prescribed Total Dose (cGy) 5,000 ARIA 10/03/2024 1:55 PM FURNACE COOLER us Not In File Miscellaneous RADIATION ONCOLOGY ORD ERABLES Final Result ARIA from Last 3 Months Insurance MEDICARE [facility] MEDICARE [employer]UTIONS MEDICARE SOLUTIONS MEDICARE [employer] MEDICARE [employer] MEDICARE SOLUTIONS MEDICARE SOLUTIONS Care Teams Civil Engineering Project Manager Relationship Specialty Start Date End Date Ludivina Loaiza MD [address] [place] [address] PCP - General 12/05/16 Christiano Ramesh MD [address] [facility] [address] [place] [address] Consulting Physician Neurosurgery 03/02/23 Nadira Valle, slip cover estimator 12/22/23 Dawson Alcaraz MD [address] [facility] [address] [place] [address] Radiation Oncologist Radiation Oncology 07/16/24
[2024-11-27 15:47] LABS: Basophils Absolute Auto 0.06 K/mm3 (0.00-0.10); Basophils Percent Auto 0.8 % (0.0-1.0); Eosinophils Absolute Auto 0.18 K/mm3 (0.02-0.50); Eosinophils Percent Auto 2.4 % (1.0-6.0); Hematocrit 40.8 % (37.0-46.0); Hemoglobin 13.8 g/dL (12.4-15.3); Immature Granulocyte Absolute 0.04 K/mm3 (0.00-0.00); Immature Granulocyte Percent A 0.5 % (0.0-0.0); Lymphocytes Absolute Auto 1.15 K/mm3 (1.10-4.50); Lymphocytes Percent Auto 15.5 % (18.0-42.0); Mean Corpuscular HGB Conc 33.8 g/dL (32-36); Mean Corpuscular Hemoglobin 29.9 pg (27.0-31.0); Mean Corpuscular Volume 88.5 fL (78.0-102.0); Mean Platelet Volume 9.5 fl (8.7-11.0); Monocytes Absolute Auto 0.84 K/mm3 (0.10-0.90); Monocytes Percent Auto 11.3 % (2.0-11.0); Neutrophils Absolute Auto 5.14 K/mm3 (1.70-7.20); Neutrophils Percent Auto 69.5 % (50.0-70.0); Platelet Count Result 327 K/mm3 (150-420); Red Blood Count 4.61 M/mm3 (4.70-6.10); Red Cell Distribution Width 13.5 % (11.6-14.4); White Blood Count 7.4 K/mm3 (4.8-10.8)
[2024-11-27 16:02] LABS: Alanine Aminotransferase 28 U/L (16-63); Albumin Level 3.8 g/dL (3.4-5.0); Alkaline Phosphatase 77 U/L (46-116); Anion Gap 8 mmol/L (4-12); Aspartate Amino Transferase 14 U/L (15-37); Bilirubin,Total 0.4 mg/dL (0.00-1.00); Blood Urea Nitrogen 19 mg/dL (7-18); Calcium 9.6 mg/dL (8.5-10.1); Carbon Dioxide 31 mmol/L (21-32); Chloride 104 mmol/L (98-108); Estimated Glomerular Filt Rate > 60; Glucose 87 mg/dL (70-99); Osmolality Calculated 297 mOsm/kg (285-295); Potassium 4.1 mmol/L (3.5-5.1); Sodium 143 mmol/L (136-145); Total Protein 7.3 g/dL (6.4-8.2)
== END 2024-11-27 15:32 | disposition home or self-care (01) ==
LOC: CHSLAB 15:34
PROVIDERS: PCP Internal Medicine; Visit Provider Internal Medicine
DX: J06.9 Acute upper respiratory infection, unspecified (principal)
CPT/HCPCS: 36415; 71046; 80053; 85025

== ENCOUNTER 2024-12-27 11:00 | Outpatient (CLI) | payer MEDICARE, SELFPAY ==
[2024-12-27 11:10] LABS: Hematocrit 40.2 % (37.0-46.0); Hemoglobin 13.2 g/dL (12.4-15.3); Mean Corpuscular HGB Conc 32.8 g/dL (32-36); Mean Corpuscular Hemoglobin 30.1 pg (27.0-31.0); Mean Corpuscular Volume 91.6 fL (78.0-102.0); Mean Platelet Volume 9.5 fl (8.7-11.0); Platelet Count Result 287 K/mm3 (150-420); Red Blood Count 4.39 M/mm3 (4.70-6.10); Red Cell Distribution Width 12.9 % (11.6-14.4)
--- OUTSIDE RECORDS SUMMARY | 2024-12-27 11:47 | XMS_ITS | Continuity of Care Document ---
Author Organization [employer] [facility] Address [address] [address] [place] [address] Phone Care Team Providers Care Block Sorter Name Role Phone Jaya Florentino PA-C Unavailable [...] 12 Lead; W/intrpt Offic/outpt E m [facility] Advance Directives Directive Yes / No Effective Date File Name No Information Encounters Encounter Description Practice Location Reason(s) For Visit Diagnoses Date Provider Providers Copied on Encounter [id number], [address] [address], [place], [place], [id number], tel:[phone] No Information [address] [place]. [address] [place], [place], [id number] , . tel:[phone] Offic/outpt E m [facility], [address] [address], [place], [id number], tel:[phone] 1st Care Swelling (chief complaint) Edema, unspecifiedChest pain, unspecified type 9 Florentino Jaya. [address] [place] [address], [id number] , [place]. tel: [phone] Family History Family Member Type Diagnosis Age At Onset No Information Payers Payer name Insurance type Covered democrat ID Ching lopez(s) [facility] [id number] Social History Type Description Quantity Date Captured Comments Sex Male Smoking Status No Information Chief Complaint And Reason For Visit No Information Reason For Referral Reason For Referral No Information Plan Of Treatment Date Type Action Status Future Order: Radiology Order XR Chest 2 View ([id number]), Sent on: Sent History Of Present Illness Encounter Date Complaint History Of Prese nt Illness Swelling (comments) Patient pres ents the clinic today with recent chest pain, bilateral lower extremity swelling, shortness of breath.He arrived in [place] from the [place] [address], having traveled on a cruise ship and then most recently on an extended train ride from [place] to [facility].He states that his symptoms began after exiting [...]
--- OUTSIDE RECORDS SUMMARY | 2024-12-27 11:47 | XMS_ITS | Encounter Summary ---
Author Organization [facility] Address Replaced by [facility] [place] [address] Care Team Providers Care Perfect Bind Machine Operator Name Role Phone Ludivina Loaiza MD Primary Care Provider [phone] Tor Burns MD Unavailable Unavailabl e Brian Cole MD Unavailable [phone] Christiano Ramesh MD Unavailable [phone] Dharmesh Roche MD Unavailable [phone] Edinson York APRN Unavailable [phone] Denis Cantrell MD Unavailable Pennie Garcia PA-C Unavailable [phone] Encounter Details Date Type Department Care Team (Late st Contact Info) Description 02/14/2023 Hospital Orders Only [place] Manager Mobility Pre/Post [address] [place] [address] Brian Cole MD [address] [place], [place] [address] Social History Tobacco Use Types Packs/Day Years [...] Description 08/05/2025 12:45 PM CDT Office Visit [facility] el [address] [place] [id number] Brian Cole MD [address] [place] [address] documented as of this encounter Visit Diagnoses Not on filedocumented in this encounter Care Teams Perfect Bind Machine Operator Relationship Specialty Start Date End Date Ludivina Loaiza MD [address] [place] [address] PCP - General INTERNAL MEDICINE 01/24/18 Tor Burns MD [address] [place] [address] [employer] Geologist CARDIOVASCULAR DISEASE 01/24/18 02/16/23 Brian Cole MD [address] [place] [address] EP Petroleum Geologist CLINICAL CARDIAC ELECTROPHYSIOLOGY 03/25/22 Christiano Ramesh MD [address] [place], [place] [id number] Surgeon NEUROLOGICAL SURGERY 02/17/23 Dharmesh Roche MD [address] [place], [place] [id number] Consulting Physician INTERVENTIONAL CARDIOLOGY 02/20/23 Edinson York APRN [address] [facility] [place] [address] [address] Nurse Practitioner NURSE PRACTITIONER 02/20/23 Denis Cantrell MD [address] [id number] Consulting Physician INTERNAL MEDICINE 07/28/23 Pennie Garcia PA-C [address] [place], [place] [address] Referring Physician PHYSICIAN THERAPY COORDINATOR 08/05/24 documented as of this encounter
--- OUTSIDE RECORDS SUMMARY | 2024-12-27 11:47 | XMS_ITS | Continuity of Care Document ---
Author Organization [facility]. If a dditional information is needed, contact Health Information Management at [phone] Address [address] [place] [address] Phone Care Team Providers Care Operations Asst Name Role Phone Unavailable Unavailable Unavailable Unavailable Unavailable Unavailable Unavailable Unavailable Unavailable Problems Backache Onset:25-Oct-2023 Elayne BLANCO Allergies and Adverse Reactions No Known Drug Allergies(Tay rgy) Onset: 25-Oct-2023 Social History Smoking Status Tobacco smoking consumption unknown Recorded:
--- OUTSIDE RECORDS SUMMARY | 2024-12-27 11:47 | XMS_ITS | Clinical Summary ---
Author Organization [facility] Address [address] [place] [address] Care Team Providers Care Nuclear Plant Equipment Operator Name Role Phone Ludivina Loaiza MD Primary Care Provider [phone] Brian Cole MD Unavailable [phone] Christiano Ramesh MD Unavailable [phone] Dharmesh Roche MD Unavailable + [phone] Edinson York APRN Unavailable [phone] Denis Cantrell MD Unavailable Pennie Garcia PA-C Unavailable + [phone] Allergies No known active allergies Medications glimepiride [...] with other complications 08/22/2023 Paroxysmal atrial fibrillation ([facility] 03/28/2023 Typical atrial flutter ([facility] 023 Chronic venous insufficiency 02/17/2023 Chronic pain Dyslipidemia Essential hypertension Diabetes ([facility]) Chest pain Dyspnea Resolved Problems Problem Noted Date Diagnosed Date Resolved Date Pre-operative cardiovascular examination 02/17/2023 12/25/2023 Encounters Date Type Department Care Team Description 11/01/2024 [facility] [address] [place] [address] Brian Cole MD Question from [...] place to sleep or slept in a [place] health care facility (including now)? No 04/25/2023 Sex and Gender [...] 08/05/2025 12:45 PM CDT Office Visit [facility] [address] [place] [id number] Brian Cole MD [address] [place] [address] Health Maintenance Due Date Last Done Comments [...] patient's age to complete this topic Insurance [facility] Advance Directives * Full Code (Latest Code Status on File) Date Activated Date Inactivated Comments 04/25/2023 10:58 AM 04/26/2023 12:31 PM Care Teams Nuclear Plant Equipment Operator Relationship Specialty Start Date End Date Ludivina Loaiza MD [address] [place] [address] PCP - General INTERNAL MEDICINE 01/24/18 Brian Cole MD [address] [place] [address] EP Track Service Worker CLINICAL CARDIAC ELECTROPHYSIOLOGY 03/25/22 Christiano Ramesh MD 3 [facility]. [address] [place] [address] Surgeon NEUROLOGICAL SURGERY 02/17/23 Dharmesh Roche MD 3 [facility] [address] [place] [address] [phone] Consulting Physician INTERVENTIONAL CARDIOLOGY 02/20/23 Edinson York APRN [address] [phone] Nurse Practitioner NURSE PRACTITIONER 02/20/23 Denis Cantrell MD [address] [place] [address] [phone] Consulting Physician INTERNAL MEDICINE 07/28/23 Pennie Garcia PA-C [address] [place] [address] Referring Physician PHYSICIAN BENZENE WASHER 08/05/24
--- OUTSIDE RECORDS SUMMARY | 2024-12-27 11:47 | XMS_ITS | Data Portability ---
Author Organization [place] - [facility], Main Office Address [address] [place] [address] Care Team Providers Care Federal Agent Name Role Phone ANABELLA ISABEL Primary Care Provider ANABELLA ISABEL Referring Provider Assessment No assessment recorded. Plan of Treatment Reminders Order Date Submit Date Provider Last Modified By Organization Details Last Modified Time Details Appointments None recorded. Lab None recorded. Referral None recorded. Procedures None recorded. Surgeries None recorded. Imaging None recorded. Medication Orders mometasone 0.1 % topical cream 2023 024 [facility][id number], [address] [place], [address], 12:40:55 Patient TargetsNo targets recorded. Patient Instructions Encounter Date Encounter Id Patient Instructions Last Modified By Organization Details Last Modified Time 06/13/2024 [id number] An audiogram was also ordered the patient reports asymmetrical loss [email or web address] Not available 06/13/2024 12:41:11 Reason for Referral None Reported. Results Created Date Observation Date Name Description Value Unit Range Abnormal Flag Note LastModifiedBy Organization Detail LastModifiedTime 04/13/20 22 XR, knee No observ ation record ed. [id number] [facility] [place] [address], [place], [address], 12/15/2022 01:02:20 04/13/20 22 02/24/2022 XR, knee No observ ation record ed. [id number] [facility]) [address] [place], [address], 12/15/2022 01:02:20 04/13/20 22 02/24/2022 MRI, knee, w/o contr ast No observ ation record ed. [id number] Not Available 12/15/2022 01:02:20 09/02/20 22 XR, knee No observ ation record ed. [id number] [facility] [place] [address], [place], [address], 12/15/2022 01:02:20 Result Notes None recorded. Problems Name Problem SNOMED Code Status Onset Date Resolution Date Notes Provider Name and Address Organization Details Recorded Time Arthriti s 6461194 Active 2021 Not Available [facility] 3 00:59:55 Osteoart hritis 796638157 Active 2021 Not Available [facility] 3 00:59:56 Pain of right knee joint 51784507133 4100 Active 2021 Not Available [facility] 3 00:59:56 Paroxysm al atrial fibrilla tion 782334482 Completed 202306/11/2024 JENNY Perez, [facility] [employer] 4 12:45:17 Kidney stone 85534890 Completed 202306/11/2024 Renal stones. JENNY Perez, [place] [facility] [place] [facility] 17:17:10 COVID-19 133588158 Completed 202306/11/2024 Removal Reason: 2020, 2021. JENNY Perez, [place] - [facility] 17:20:10 Sensorin eural hearing loss 84073579 Active 2023 Paulette Garsia RN null, [facility] [employer] [facility] 12:37:25 Eczema of external auditory canal 94030088 Active 2023 Jake Peres MD [address] [place] [address], [phone] , [place] [facility] 12:40:33 Problem Notes None recorded. Procedures Surgical History Date Name Laterality Status Provider Name and Address Organization Details Recorded Time hernia repair completed Not Available [facility] 12/15/2022 00:58:09 Back Surgery completed Not Available [facility] 12/15/2022 00:58:09 Imaging Results Imaging Date Name Status LastModified by [facility] Details LastModified Time 09/02/2022 XR, knee completed [id number] [facility] [place] [address] [facility] [address], [place], [address], 12/15/2022 01:02:20 04/13/2022 XR, knee completed [id number] 026 [facility] [place] [address] [facility] [address], [place], [address], 12/15/2022 01:02:20 02/24/2022 XR, knee completed [id number] [facility]) [address] [place] [address], [address], 12/15/2022 01:02:20 02/24/2022 MRI, knee, w/o contrast completed [id number] Information not available 12/15/2022 01:02:20 Procedure [...] injection administe red by the provider active [facility]: [id number] Not Available Not Available [...] bromide 42 mcg (0.06 %) nasal spray [place] 2 sprays 3 times a day by intranasa l route. active Not Available Not Available No t Available fluticasone propionate 50 mcg/actuati on nasal spray,suspe nsion [place] 1 spray every day by intranasa l [...] Body mass index (BMI) Body height Body weight Provider Name and Address Organization Details Last Updated DateTime 04/13/2022 29.5 kg/m2 175.26 cm 72622.47 g Not Available Jess [facility] 12/15/2022 00:58:15 Date Recorded Body height Provider Name an d Address Organization Details Last Updated DateTime 05/25/2022 175.26 cm Not Available [facility] 3 00:58:15 Date Recorded Body height Provider Name an d Address Organization Details Last Updated DateTime 09/02/2022 175.26 cm Not Available [facility] 3 00:58:15 Date Recorded Body height Body mass index (BMI) Body weight Body temperature Provider Name and Address Organization Details Last Updated DateTime 06/13/2024 180.34 cm 28.7 kg/m2 70214.59 g 98.6 [degF] [facility] [place] [facility] [place] [facility] 06/13/2024 12:28:29 Social History Question Answer Notes LastModified by Organizat ion Details LastModified Time Tobacco Smoking Status Never Smoker Not Available [facility] 12/15/2022 00:57:20 What Is Your Level Of Alcohol Consumption? Occasional [id number] Information not available 12/15/2022 Sex: Unknown Functional Status None recorded. Mental Status None recorded. Family History Relationship Description Onset Age of this Age Resolved Age Notes LastModified by Organization Details LastModified Time Brother Heart disease [id number] Not available 12/15/2022 00:58:09 Brother Family history of stroke [id number] Not available 12/15/2022 00:58:09 Brother Diabetes mellitus [id number] Not available 12/15/2022 00:58:09 Notes:NO ENT Medical History Condition Response BLINDNESS N KIDNEY STONES N MRSA N CARPAL TUNNEL SYNDROME N LUNG DISEASE/DISORDER N HISTORY OF DRUG ABUSE N RADIATION / CHEMOTHERAPY N COPD N SPORTS INJURY N ANKLE PAIN N BLOOD DISEASES N SCHIZOPHRENIA N SHINGLES N SHOULDER PAIN N DEPRESSION (INCLUDING POST ) Y BOWEL PROBLEMS N STROKE/TIA N ULCERS N KNEE PAIN Y BENIGN PROSTATIC HYPERPLASIA N OBESITY N GERD/NAUSEA N ANEURYSM N URINARY/BLADDER/KIDNEY PROBLEMS N CORONARY ARTERY DISEASE (CAD) N ADDICTION CONCERNS N USE OF BLOOD THINNERS Y SKIN PROBLEMS N EMPHYSEMA N MUSCLE,JOINT OR BONE PROBLEMS N DVT N STOMACH ULCERS N BLOOD CLOTS N USE OF NSAIDS N CONCUSSION OR SPINAL TRAUMA N NEUROPATHY N AIDS/HIV N FRACTURES N HYPERTENSION Y ELBOW PAIN N TOURETTE'S N Metal allergy N ANXIETY DISORDER N BLOOD TRANSFUSION N ANEMIA/BLOOD DISORDER N BIPOLAR DISORDER N BRONCHITIS N OSTEOARTHRITIS N TUBERCULOSIS N FOOT PROBLEM N HEART VALVE DISORDERS N ALLERGIES/HAYFEVER N SOFT TISSUE INJURY N INFECTIOUS DISEASE N HEART ARRHYTHMIA N INSOMNIA N HIGH CHOLESTEROL / HYPERLIPIDEMIA Y RHEUMATOID ARTHRITIS N EDEMA N CHRONIC PAIN SYNDROME N CAROTID BLOCKAGE N BACK / NECK PROBLEMS Y HAVE YOU BEEN HOSPITALIZED OR SEEN IN [facility] ER IN THE PAST YEAR ? N BURSITIS N HERNIATED DISC N DIALYSIS N FIBROMYALGIA N OSTEOPOROSIS N ARTHRITIS N NO SIGNIFICANT PAST MEDICAL HISTORY N PERIPHERAL NEUROPATHY N DIABETES, TYPE Y ENT Y SEASONAL ALLERGIES Y HEARTBURN / REFLUX N HEPATITIS / LIVER DISEASE N GOUT N ALZHEIMER'S DISEASE N SLEEP DISORDER Y HERPES N HEADACHES/MIGRAINES N SEIZURES/EPILEPSY N VASCULAR DISEASE N Blood Disorder N HIP PAIN N DIZZINESS N HEAD TRAUMA OR INJURY N HEART DISEASE/HEART PROBLEMS Y MULTIPLE SCLEROSIS N CANCER: SPECIFY N CARDIAC ARRHYTHMIA N ANESTHESIA COMPLICATIONS N ATRIAL FIBRILLATION N AUTOIMMUNE DISEASE N Past Encounters Encounter ID Performer Location Encounter Start Date Encounter Closed Date Diagnosis/Indication Diagnosis SNOMED-CT Code Diagnosis ICD10 Code Diagnosis Note [id number] [facility] [place] [address] [place] [address] 04/13/2022 00:00:00 04/13/2022 12:41:49 [id number] [facility] [place] [address] [place] [address] 05/25/2022 00:00:00 05/25/2022 12:44:51 [id number] [facility] [place] [address] [place] [address] 09/02/2022 00:00:00 09/02/2022 16:12:17 [id number] Jake Peres MD [facility] [place] [address] [place] [address] 06/13/2024 12:10:58 06/14/2024 12:04:16 Eczema of external auditory canal 14778497 H60.549 Health Concerns Section Related Observation LastModified by Organization Detai ls LastModified Time None Recorded Concern Status LastModified by Organization Details LastModified Time None Recorded Advance Directives Directive None Recorded Payers Encounter Date Sequence Insurance Name Policy Number Policy Blair Covered Member ID Blair Member ID Guarantor Name 06/13/2024 1 [facility] (MEDICARE REPLACEMENT/A DVANTAGE - HMO) [id number] Beck Leonel Almeida [id number] Beck Almeida Notes Date Note Type Note Provider Name and Address Organization Details Recorded Time 06/13/2024 text/html The patient reports itching ears a month ago. He was placed on Cortisporin which was effective. In addition he has allergic rhinitis successfully managed with Atrovent Flonase and montelukast. Jake Peres MD [address] [place] [address], [place], [address], [facility] [employer] 06/13/2024 12:41:27
--- OUTSIDE RECORDS SUMMARY | 2024-12-27 11:48 | XMS_ITS | Encounter Summary ---
Author Organization [facility] Address [address] [place] [address] Care Team Providers Care Audiologist Name Role Phone Ludivina Loaiza MD Primary Care Provider + [phone] Christiano Ramesh MD Unavailable [phone] Nadira Valle RN Unavailable Dawson Hidalgo MD Unavailable Encounter Details Date Type Department Care Team (Late st Contact Info) Description 12/26/2024 Orders Only [facility] Radiation Oncology [address] [facility] Advanced Medicine [place], [place] [id number] Dawson Alcaraz MD [address] [facility] [address] [place] [address] Prostate cancer (HCC) (Primary Dx) Social History Tobacco Use Types Packs/Day Years Used Date Smoking Tobacco: Never Smokeless Tobacco: Never Social Connection and Isolat ion Panel [NHANES] Answer Date Recorded In a typical week, how many times do you talk on the phone with family, friends, or neighbors? More than three times a week 12/21/2023 How often do you get togethe r with friends or relatives? More than three times a week 12/21/2023 How often do you attend chur ch or catholic services? More than 4 times per year 12/21/2023 Do you belong to any clubs o r organizations such as denominational groups, unions, fraternal or athletic groups, or [...] place to sleep or slept in a detention (including now)? No 12/21/2023 Personal Safety Answer Date Recorded Have you ever been in or are you currently in a harmful physical or emotional relationship or is someone making you feel afraid or unsafe? 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 Author [facility] No Jenelle Truong RN Note: Patient will establish a comfort-function goal and identify the pain level that will allow the patient to perform desired activities and achieve an acceptable quality of life. documented as of this encounter Visit Diagnoses Diagnosis Prostate cancer (HCC)- Primary Malignant neoplasm of prostate documented in this encounter Care Teams Audiologist Relationship Specialty Start Date End Date Ludivina Loaiza MD [address] [place] [address] PCP - General 12/05/16 Christiano Ramesh MD [address] [facility] [address] [address] [place] [address] Consulting Physician Neurosurgery 03/02/23 Nadira Valle, qc tech 12/22/23 Dawson Alcaraz MD [address] [facility] [address] [place], [place] [phone] Radiation Oncologist Radiation Oncology 07/16/24 documented as of this encounter
--- OUTSIDE RECORDS SUMMARY | 2024-12-27 11:48 | XMS_ITS | Referral Summary ---
Author Organization [facility] Address [address] [place] [address] Care Team Providers Care Medical Lead Name Role Phone Ludivina Loaiza MD Primary Care Provider + [phone] Christiano Ramesh MD Unavailable [phone] Nadira Valle RN Unavailable Dawson Hidalgo MD Unavailable Encounters Date Type Department Care Team Description 12/26/2024 [address]ation [facility] Radiation Oncology [address] [facility] [place] [address] Janiec Stewart, RN 12/26/2024 Documentation [facility] Radiation Oncology [address] [facility] [place] [address] Janice Stewart, RN LVAD Equipment Documentation (error) 12/26/2024 Telephone [facility] Radiation Oncology [address] [facility] [place] [address] Janice Stewart, RN 12/26/2024 Orders Only [facility] Radiation Oncology [facility] [place] [address] Dawson Alcaraz MD Prostate cancer (HCC) (Primary Dx) 12/24/2024 Orders Only [facility] Radiation Oncology [address] [facility] [place] [address] Dawson Alcaraz MD 12/23/2024 Telephone [facility] Radiation Oncology [address] [facility] [place] [address] Janice Stewart RN 12/23/2024 Telephone [facility] Radiation Oncology [facility] [place] [address] Janice Stewart RN 11/01/2024 Telephone [facility] Radiation Oncology [address] [place] [address] [place] [address] Janice Stewart RN 10/30/2024 Telephone [facility] Radiation Oncology [address] [place] [address] Janice Stewart RN 10/29/2024 Orders Only [facility] Radiation Oncology [address] [place] [address] Dawson Alcaraz MD Prostate cancer (HCC) (Primary Dx) 10/29/2024 Documentation [facility] Radiation Oncology [address] [place] [address] Janice Stewart RN 10/29/2024 5:45 PM DIRECTOR OF PEOPLE Lab [facility] ([facility]) [address] [place] [phone] Prostate cancer (HCC) 10/29/2024 OTV [facility] Radiation Oncology [address] [place] [address] Jonathan Medina MD 10/29/2024 Orders Only RAD ONC TREATMENTS Miscellaneous, Not In File 10/29/2024 Completion of Therapy [facility] Radiation Oncology [address] [place] [address] Dawson Alcaraz MD 10/29/2024 12:44 PM DIRECTOR OF PEOPLE - 10/29/2024 11:59 PM DIRECTOR OF PEOPLE Hospital Encounter [facility] Radiation Oncology [address] [place] [address] Dawson Alcaraz MD Discharge Disposition: Discharge to home or self care 10/24/2024 Orders Only [facility] Radiation Oncology [address] [place] [address] Dawson Alcaraz MD Prostate cancer (HCC) (Primary Dx) 10/24/2024 Orders Only [facility] Radiation Oncology [address] [place] [address] Dawson Alcaraz MD Prostate cancer (HCC) (Primary Dx); Pathological fracture in neoplastic disease, other specified site, initial encounter for fracture 10/24/2024 Orders Only [facility] Radiation Oncology [address] [place] [address] Dawson Alcaraz MD Prostate cancer (HCC) (Primary Dx); Pathological fracture in neoplastic disease, other specified site, initial encounter for fracture 10/23/2024 Telephone [facility] Radiation Oncology [address] [place] [address] Janice Stewart RN 10/23/2024 Telephone [facility] Radiation Oncology [address] [place] [address] Janice Stewart RN 10/23/2024 Orders Only [facility] Radiation Oncology [address] [place] [address] Dawson Alacraz MD Prostate cancer (HCC) (Primary Dx) 10/22/2024 OTV [facility] Radiation Oncology [address] [facility] [place] [address] Dawson Alcaraz MD 10/22/2024 Orders Only RAD ONC TREATMENTS Miscellaneous, Not In File 10/22/2024 1:20 PM DIRECTOR OF PEOPLE [facility] ([facility]) [address] [place] [address] Prostate cancer (HCC) 10/22/2024 1:29 PM DIRECTOR OF PEOPLE - 10/22/2024 11:59 PM [facility] Radiation Oncology [address] [facility] [place] [address] Dawson Alcaraz MD Discharge Disposition: Discharge to home or self care 10/21/2024 [facility] Radiation Oncology [address] [facility] [place] [address] Janice Stewart RN 10/21/2024 [facility] Radiation Oncology [address] [facility] [place] [address] Janice Stewart RN 10/21/2024 [facility] Radiation Oncology [address] [facility] [place] [address] Janice Stewart RN 10/21/2024 Orders Only [facility] Radiation Oncology [address] [place] [address] Dawson Alcaraz MD Prostate cancer (HCC) (Primary Dx) 10/21/2024 [facility] Radiation Oncology [address] [facility] [place] [address] Janice Stewart RN 10/17/2024 Orders Only RAD ONC TREATMENTS Miscellaneous, Not In File 10/17/2024 1:10 PM DIRECTOR OF PEOPLE - 10/17/2024 11:59 PM DIRECTOR OF PEOPLE Hospital Encounter [facility] Radiation Oncology [address] [facility] [place] [address] Dawson Alcaraz MD Discharge Disposition: Discharge to home or self care 10/17/2024 11:00 AM DIRECTOR OF PEOPLE - 10/17/2024 11:59 PM DIRECTOR OF PEOPLE Hospital Encounter [facility] [address] [place] [address] Prostate cancer (HCC); Pathological fracture in neoplastic disease, other specified site, initial encounter for fracture Discharge Disposition: Discharge to home or self care 10/10/2024 Telephone [facility] Radiation Oncology [address] [place] [address] [place] [address] Jay Segovia, DENIZ 10/10/2024 Orders Only [facility] Radiation Oncology [address] [place] [address] Jay Segovia, DENIZ Prostate cancer (HCC) 10/10/2024 Orders Only RAD ONC TREATMENTS Miscellaneous, Not In File 10/10/2024 12:56 PM DIRECTOR OF PEOPLE - 10/10/2024 11:59 PM DIRECTOR OF PEOPLE Hospital Encounter [facility] Radiation Oncology [address] [place] [address] Dawson Alcaraz MD Discharge Disposition: Discharge to home or self care 10/03/2024 Documentation [facility] Radiation Oncology [address] [facility] [place] [address] Janice Stewart RN 10/03/2024 Orders Only RAD ONC TREATMENTS Miscellaneous, Not In File 10/03/2024 12:49 PM DIRECTOR OF PEOPLE - 10/03/2024 11:59 PM DIRECTOR OF PEOPLE Hospital Encounter [facility] Radiation Oncology [address] [facility] [place] [address] Dawson Alcaraz MD Discharge Disposition: Discharge to home or self care from Last 3 Months Allergies No known active allergies Medications lovastatin (MEVACOR) 10 mg tablet 1 tablet (10 mg total) daily 8 Active glimepiride (AMARYL) 1 mg tabletIndicatio ns:type 2 diabetes mellitus 1 tablet (1 mg total) daily Takes 1/2 tab daily 8 Active triamterene-hyd roCHLOROthiazid e (triamterene-hy droCHLOROthiazi de) 37.5-25 mg per tablet/capsule Take 1 tablet/capsule by mouth daily Active baclofen (LIORESAL) 10 mg tablet 1 tablet (10 mg total) 3 (three) times a day as needed 3 Active gabapentin (NEURONTIN) 100 mg capsule Take 1 capsule (100 mg total) by mouth 3 (three) times a day 270 capsule 3 Active fluticasone propionate (FLONASE) 50 mcg/actuation nasal spray Administer 1 spray into affected nostril(s) daily Active albuterol HFA (PROVENTIL HFA,VENTOLIN HFA,PROAIR HFA) 90 mcg/actuation inhaler Inhale 1 puff every 6 (six) hours as needed for shortness of breath 3 Active ipratropium (ATROVENT) 42 mcg (0.06 %) nasal spray USE 2 SPRAYS IN BOTH NOSTRILS 3 TIMES DAILY 3 Active HYDROcodone-peter taminophen (NORCO) 5-325 mg per tabletIndicatio ns:Pain Take 1-2 tablets by mouth every 4 (four) hours as needed for pain 30 tablet 4 Active ciprofloxacin (Cipro) 250 mg tabletIndicatio ns:Prostate cancer (HCC) 500 mg the night before the procedure then 250 mg twice a day for 4 days 10 tablet 4 Active tamsulosin (FLOMAX) 0.4 mg extended release capsuleIndicati ons:Prostate cancer (HCC) TAKE 1 CAPSULE BY MOUTH EVERY DAY 90 capsule 5 Active Active Problems Problem Noted Date Diagnosed Date Herniated nucleus pulposus, L3-4 left 02/17/2023 [facility] current use of anticoagulant 3 Degenerative lumbar [...] week 12/21/2023 How often do you attend [facility] or sabianism services? More than 4 times per year 12/21/2023 Do you belong to any clubs o r organizations such as rastafari groups, unions, fraternal or athletic groups, or [...] place to sleep or slept in a skilled nursing (including now)? No 12/21/2023 Personal Safety Answer Date Recorded Have you ever been in or are you currently in a harmful physical or emotional relationship or is someone making you feel afraid or unsafe? Denies 12/22/2023 Sex and Gender Information Value Date Recorded Sex Assigned at Not on file Legal Sex Male 12:37 AM DIRECTOR OF PEOPLE Gender Identity Not on file Sexual Orientation Not on file Last Filed Vital Signs Vital Sign Reading Time Taken Comments Blood Pressure 137/80 10/29/2024 2:12 PM DIRECTOR OF PEOPLE Pulse 73 09/09/2024 3:00 PM DIRECTOR OF PEOPLE Temperature 36.3 C (97.4 F) 10/29/2024 2:12 PM DIRECTOR OF PEOPLE Respiratory Rate 16 09/09/2024 3:00 PM DIRECTOR OF PEOPLE Oxygen Saturation 96% 09/09/2024 3:00 PM DIRECTOR OF PEOPLE Inhaled Oxygen Concentration - - Weight 95.2 kg (209 lb 12.8 oz) 10/29/2024 2:12 PM DIRECTOR OF PEOPLE Height 180.3 cm (5' 11 ) 08/03/2024 [...] of life. Medical Devices Implanted Type Area Cutting Torch Operator Device Identifier Shelf Expiration Date Model / Serial / Lot Hernia Mesh Left: Pelvis Procedures Procedure Name Priority Date/Time Associated Diagnosis Comments PSA, TOTAL AND FREE Routine 12/24/2024 1 1:11 AM CDT TOTAL TESTOSTERONE Routine 12/24/2024 11 :11 AM CDT PSA, TOTAL AND FREE Routine 10/29/2024 3 :04 PM DIRECTOR OF PEOPLE Prostate cancer (HCC) TOTAL TESTOSTERONE Routine 10/29/2024 3: 04 PM DIRECTOR OF PEOPLE Prostate cancer (HCC) RAD ONC ARIA SESSION SUMMARY 10/29/2024 2:02 PM DIRECTOR OF PEOPLE RAD ONC ARIA SESSION SUMMARY 10/22/2024 2:37 PM DIRECTOR OF PEOPLE URINALYSIS AND REFLEX TO MICROSCOPIC AND CULTURE Routine 10/22/2024 12:57 PM DIRECTOR OF PEOPLE Prostate cancer (HCC) RAD ONC ARIA SESSION SUMMARY 10/17/2024 2:35 PM DIRECTOR OF PEOPLE DEXA APPENDICULAR BONE DENSITY Schedule Routine, Read Routine (OP Routine) 10/17/2024 11:25 AM DIRECTOR OF PEOPLE Prostate cancer (HCC) Pathological fracture in neoplastic disease, other specified site, initial encounter for fracture RAD ONC ARIA SESSION SUMMARY 10/10/2024 2:21 PM DIRECTOR OF PEOPLE RAD ONC ARIA SESSION SUMMARY 10/03/2024 1:55 PM DIRECTOR OF PEOPLE from Last 3 Months Results * PSA, total and free (12/24/2024 11:11 AM CDT) PSA 0.1 < OR = 4.0 ng/mL [facility] PSA, free <0.1 ng/mL [facility] PSA, free UNABLE TO CALCULATE >25 % (calc) [facility] Comment: The free PSA level is below detectable limits. We are unable to calculate a % free PSA. PSA(ng/mL) Free PSA(%) Estimated(x) Probability of Cancer(as%) 0-2.5 (*) Approx. 1 2.6-4.0(1) 0-27(2) 24(3) 4.1-10(4) 0-10 56 11-15 28 16-20 20 21-25 16 >or =26 8 >10(+) N/A >50 References:(1)Triston et al.:Urology 60: 469-474 (2001) (2)Triston et al.:J.Urol 168: 922-925 (2001) Free PSA(%) Sensitivity(%) Specificity(%) < or = 25 85 19 < or = 30 93 9 (3)Catalona et al.:ZANA 277: 4274-9447 (1996) (4)Catalona et al.:ZANA 279: 8313-8714 (1997) (x)These estimates vary with age, ethnicity, family history and BRAD results. (*)The diagnostic usefulness of % Free PSA has not been established in patients with total PSA below 2.6 ng/mL (+)In men with PSA above 10 ng/mL, prostate cancer risk is determined by total PSA alone. The Total PSA value from this assay system is standardized against the equimolar PSA standard. The test result will be approximately 20% higher when compared to the WHO-standardized Total PSA (Siemens assay). Comparison of serial PSA results should be interpreted with this fact in mind. PSA was performed using the Yeyo Krebs Immunoassay method. Values obtained from different assay methods cannot be used interchangeably. PSA levels, regardless of value, should not be interpreted as absolute evidence of the presence or absence of disease. 12/24/2024 11:1 1 AM CDT 12/24/2024 11:12 AM CDT us Dawson Alcaraz MD LAB BLOOD ORDERABLES Final Result [facility] [address] [place] [address] * (ABNORMAL) Total testosterone (12/24/2024 11:11 AM CDT) Testosterone <10(L) 250 - 827 ng/dL [facility] Comment: In hypogonadal males, Testosterone, Total, LC/MS/MS, is the recommended assay due to the diminished accuracy of immunoassay at levels below 250 ng/dL. This test code (28352) must be collected in a red-top tube with no gel. 12/24/2024 11:1 1 AM CDT 12/24/2024 11:12 AM CDT us Dawson Alcaraz MD LAB BLOOD ORDERABLES Final Result [facility] [address] [place] [address] * PSA, total and free (10/29/2024 3:04 PM DIRECTOR OF PEOPLE) Pathologist [facility] PSA-free 0.2 ng/mL [place] ref Lab PSA-Total 1.5 <=4.5 ng/mL [facility] PSA-Free/Total Ratio See Footnote [facility] Comment: [...] absence of malignant disease. Test Performed by: [address] [address] Casket Trimmer: Marisol Varela Ph.D.; CLIA# [id number] Blood 10/29/2024 3:04 PM DIRECTOR OF PEOPLE 10/29/2024 4:48 PM DIRECTOR OF PEOPLE Dawson Alcaraz MD LAB BLOOD ORDERABLES Final Result [facility] [place] [address] [place] ref [facility] * (ABNORMAL) Total testosterone (10/29/2024 3:04 PM DIRECTOR OF PEOPLE) Testosterone <5.0(L) 193.0 - 740.0 ng/dL Blood 10/29/2024 3:04 PM DIRECTOR OF PEOPLE 10/29/2024 4:24 PM DIRECTOR OF PEOPLE Dawson Alcaraz MD LAB BLOOD ORDERABLES Final Result Performing Organization Address [facility] Co de Phone Number [facility] [place] [address] * RAD ONC ARIA SESSION SUMMARY (10/29/2024 2:02 PM DIRECTOR OF PEOPLE) Course Name C1_Prostat e_2023 ARIA Course Plan [...] Dose (cGy) 1,000 ARIA 10/29/2024 2:02 PM DIRECTOR OF PEOPLE us Not In File Miscellaneous RADIATION ONCOLOGY ORD ERABLES Final Result ARIA * RAD ONC ARIA SESSION SUMMARY (10/22/2024 2:37 PM DIRECTOR OF PEOPLE) Course Name C1_Prostat e_2023 ARIA Course Plan [...] Dose (cGy) 2,000 ARIA 10/22/2024 2:37 PM DIRECTOR OF PEOPLE us Not In File Miscellaneous RADIATION ONCOLOGY ORD ERABLES Final Result ARI[facility] * Urinalysis reflex to microscopic and culture Urine (10/22/2024 12:57 PM DIRECTOR OF PEOPLE) Color, ur Straw Yellow Clarity, ur Clear Clear [facility] Specific gravity, ur 1.020 1.003 - 1.030 [facility] pH, urine 7.0 [facility] Comment: Interpretive Data U rine pH is affected by diet, medications, systemic acid-base disturbances, and renal tubular function. pH may affect urinary stone formation. For example, urine pH below 6.0 may help reduce the tendency for calcium phosphate stones and pH greater than 6.0 may reduce the tendency for uric acid stone formation. Source: [facility] Current Interpretive Data was last revised on 2017 Protein, ur ql Negative Negative [facility] Glucose, ur ql Negative Negative [facility] Ketones, ur Negative Negative [facility] Bilirubin, ur Negative Negative [facility] Blood, ur Negative Negative [facility] Urobilinogen, ur <2.0 <2.0 mg/dL [facility] Nitrite, ur Negative Negative [facility] Leukocyte esterase, ur Negative Negative [facility] UA reflex comment Reflex conditions for microscopic UA and culture not met. [facility] Urine 10/22/2024 12:5 7 PM DIRECTOR OF PEOPLE 10/22/2024 1:07 PM DIRECTOR OF PEOPLE us Dawson Alcaraz MD LAB MICROBIOLOGY - NERAL ORDERABLES Final Result [facility] [place] [address] * RAD ONC ARIA SESSION SUMMARY (10/17/2024 2:35 PM DIRECTOR OF PEOPLE) Course Name C1_Prostat e_2023 ARIA Course Plan [...] Dose (cGy) 3,000 ARIA 10/17/2024 2:35 PM DIRECTOR OF PEOPLE us Not In File Miscellaneous RADIATION ONCOLOGY ORD ERABLES Final Result ARI[facility] * Dexa Bone Density (10/17/2024 11:25 AM DIRECTOR OF PEOPLE) Anatomical Region Laterality Modality Wrist N/A Other 10/17/2024 4:35 PM DIRECTOR OF PEOPLE Narrative 10/17/2024 4:36 PM DIRECTOR OF PEOPLE EXAM DESCRIPTION: DEXA AXIAL FOREARM (PERIPHERAL) REASON FOR STUDY: 64 y/o year old M with given history of: Prostate cancer, high risk, staging Screening. Cutting Torch Operator/Model: OpSource (S/N [id number]) CLINICAL INFORMATION: Current height: 71 inches Maximum [...] Preston Zuleta M.D. MF: ZEKE Report ID: [id number] Reading Location: [place] [address] Procedure Note Preston Zuleta MD - 10/17/2024 EXAM DESCRIPTION: DEXA AXIAL FOREARM (PERIPHERAL) REASON FOR STUDY: 64 y/o year old M with given history of: Prostate cancer, high risk, staging Screening. Cutting Torch Operator/Model: OpSource (S/N [id number]) CLINICAL INFORMATION: Current height: 71 inches Maximum [...] Preston Zuleta M.D. MF: ZEKE Report ID: [id number] Reading Location: [id number] Dawson CARTAGENA DXA PROCEDURES Fi nal Result * RAD ONC ARIA SESSION SUMMARY (10/10/2024 2:21 PM DIRECTOR OF PEOPLE) [facility] Course Name C1_Prostat ARIA Course Plan Date 09/10/2024 2:39 PM ARIA Elapsed Days 7 ARIA Treatment Start Date 10/03/2024 ARIA Treatment Site [id number] ARIA Dose Given To Date (cGy) 2,000 ARIA Session Dosage Given (cGy) 1,000 ARIA Plan ID [id number] ARIA Fractions Treated 1 ARIA Prescribed Dose Per Fraction (cGy) 1,000 ARIA Prescribed Total Dose (cGy) 4,000 ARIA 10/10/2024 2:21 PM DIRECTOR OF PEOPLE us Not In File Miscellaneous RADIATION ONCOLOGY ORD ERABLES Final Result [facility] * RAD ONC ARIA SESSION SUMMARY (10/03/2024 1:55 PM DIRECTOR OF PEOPLE) Course Name C1_Prostat e_2023 ARIA Course Plan [...] Dose (cGy) 5,000 ARIA 10/03/2024 1:55 PM DIRECTOR OF PEOPLE us Not In File Miscellaneous RADIATION ONCOLOGY ORD ERABLES Final Result ANTONIO from Last 3 Months Insurance MEDICARE [facility] Address: [address] [address] [place] [address] [facility] [employer] MEDICARE SOLUT[employer] MEDICARE [employer] MEDICARE [employer] MEDICARE [employer] MEDICARE [employer] Care Teams Medical Lead Relationship Specialty Start Date End Date Ludivina Loaiza MD [address] [place] [address] PCP - General 12/05/16 Christiano Ramesh MD [address] [facility] [address] [place] [address] Consulting Physician Neurosurgery 03/02/23 Nadira Valle RN Case Manager 12/22/23 Dawson Alcaraz MD [address] [facility] [address] [place] [address] Radiation Oncologist Radiation Oncology 07/16/24
--- OUTSIDE RECORDS SUMMARY | 2024-12-27 11:48 | XMS_ITS | Encounter Summary ---
Author Organization [facility] Healthcare Address [address] [place] [address] Care Team Providers Care Linoleum Installer Name Role Phone Ludivnia Loaiza MD Primary Care Provider + [phone] Christiano Ramesh MD Unavailable [phone] Nadira Valle RN Unavailable Dawson Hidalgo MD Unavailable Encounter Details Date Type Department Care Team (Late st Contact Info) Description 12/26/2024 Telephone [facility] Advanced Medicine Radiation Oncology [address] [facility] [place] [address] Janice Stewart RN Social History Tobacco Use Types Packs/Day Years [...] often do you attend chur ch or temple services? More than 4 times per year 12/21/2023 Do you belong to any clubs o r organizations such as christian groups, unions, fraternal or athletic groups, or [...] place to sleep or slept in a fdc (including now)? No 12/21/2023 Personal Safety Answer Date Recorded Have you ever been in or are you currently in a harmful physical or emotional relationship or is someone making you feel afraid or unsafe? 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 Nurse stated patient has f/u appointment on Monday. Patient verbalized understanding. documented in this encounter Plan of Treatment Not on [...] on filedocumented in this encounter Care Teams Linoleum Installer Relationship Specialty Start Date End Date Ludivina Loaiza MD [address] [place] [address] PCP - General 12/05/16 Christiano Ramesh MD [address] [facility] [address] [place] [address] Consulting Physician Neurosurgery 03/02/23 Nadira Valle, sanding machine operator 12/22/23 Dawson Alcaraz MD [address] [facility] [address] [place] [address] Radiation Oncologist Radiation Oncology 07/16/24 documented as of this encounter
--- OUTSIDE RECORDS SUMMARY | 2024-12-27 11:48 | XMS_ITS | Clinical Summary ---
Author Organization [facility] Address [address] [place] [address] Care Team Providers Care Oil Expeller Name Role Phone Ludivina Loaiza MD Primary Care Provider + [phone] Christiano Ramesh MD Unavailable [phone] Nadira Valle RN Unavailable Dawson Hidalgo MD Unavailable [phone] Allergies No known active allergies Medications lovastatin [...] Date Herniated nucleus pulposus, L3-4 left 02/17/2023 [facility] current use of anticoagulant 3 Degenerative lumbar [...] Type Department Care Team Description 12/26/2024 Documentation [facility] Radiation Oncology [facility] [place] [address] Janice Stewart RN 12/26/2024 Documentation [facility] Radiation Oncology [facility] [place] [address] Janice Stewart RN LVAD Equipment Documentation (error) 12/26/2024 Telephone [facility] Radiation Oncology [facility] [place] [address] Janice Stewart RN 12/26/2024 Orders Only [facility] Radiation Oncology [address] [facility] [place] [address] Dawson Alcaraz MD Prostate cancer (HCC) (Primary Dx) 12/24/2024 Orders Only [facility] Radiation Oncology [address] [place] [address] [place] [address] Dawson Alcaraz MD 12/23/2024 Telephone [facility] Radiation Oncology [address] [place] [address] [place] [address] Janice Stewart RN 12/23/2024 Telephone [facility] Radiation Oncology [address] [place] [address] [place] [address] Janice Stewart, RN 11/01/2024 Telephone [facility] Radiation Oncology [address] [place] [address] [place] [address] Janice Stewart, RN 10/30/2024 Telephone [facility] Radiation Oncology [address] [place] [address] [place] [address] Janice Stewart, RN 10/29/2024 5:45 PM BAND SINGER [facility] ([facility]) [address] [place] [phone] Prostate cancer (HCC) 10/29/2024 12:44 PM BAND SINGER - 10/29/2024 11:59 PM [facility] Advanced Medicine Radiation Oncology [address] [place] [address] [place] [address] Dawson Alcaraz MD Discharge Disposition: Discharge to home or self care 10/29/2024 Orders Only [facility] Radiation Oncology [address] [place] [address] Dawson Alcaraz MD Prostate cancer (HCC) (Primary Dx) 10/29/2024 Documentation [facility] Radiation Oncology [address] [place] [address] Janice Stewart RN 10/29/2024 [facility] Radiation Oncology [address] [place] [address] Jonathan Medina MD 10/29/2024 Orders Only RAD ONC TREATMENTS Miscellaneous, Not In File 10/29/2024 Completion of Therapy [facility] Radiation Oncology [address] [place] [address] Dawson Alcaraz MD 10/24/2024 Orders Only [facility] Radiation Oncology [address] [place] [address] Dawson Alcaraz MD Prostate cancer (HCC) (Primary Dx) 10/24/2024 Orders Only [facility] Radiation Oncology [facility] [place] [address] Dawson Alcaraz MD Prostate cancer (HCC) (Primary Dx); Pathological fracture in neoplastic disease, other specified site, initial encounter for fracture 10/24/2024 Orders Only [facility] Radiation Oncology [facility] [place] [address] Dawson Alcaraz MD Prostate cancer (HCC) (Primary Dx); Pathological fracture in neoplastic disease, other specified site, initial encounter for fracture 10/23/2024 Telephone [facility] Radiation Oncology [address] [place] [address] Janice Stewart RN 10/23/2024 Telephone [facility] Radiation Oncology [address] [facility] [place] [address] Janice Stewart, RN 10/23/2024 Orders Only [facility] Radiation Oncology [address] [facility] [place] [address] Dawson Alcaraz MD Prostate cancer (HCC) (Primary Dx) 10/22/2024 1:29 PM BAND SINGER - 10/22/2024 11:59 PM BAND SINGER Hospital Encounter [facility] Radiation Oncology [address] [place] [address] Dawson Alcaraz MD Discharge Disposition: Discharge to home or self care 10/22/2024 1:20 PM BAND SINGER Lab [facility] ([facility]) [address] [place] [address] Prostate cancer (HCC) 10/22/2024 [facility] Radiation Oncology [address] [place] [address] Dawson Alcaraz MD 10/22/2024 Orders Only RAD ONC TREATMENTS Miscellaneous, Not In File 10/21/2024 Telephone [facility] Radiation Oncology [address] [facility] [place] [address] Janice Stewart, RN 10/21/2024 Telephone [facility] Radiation Oncology [address] [facility] [place] [address] Janice Stewart, RN 10/21/2024 Telephone [facility] Radiation Oncology [address] [facility] [place] [address] Janice Stewart RN 10/21/2024 Orders Only [facility] Radiation Oncology [address] [place] [address] Dawson Alcaraz MD Prostate cancer (HCC) (Primary Dx) 10/21/2024 Telephone [facility] Radiation Oncology [address] [facility] [place] [address] Janice Stewart RN 10/17/2024 1:10 PM BAND SINGER - 10/17/2024 11:59 PM BAND SINGER Hospital Encounter [facility] Radiation Oncology [address] [place] [address] Dawson Alcaraz MD Discharge Disposition: Discharge to home or self care 10/17/2024 11:00 AM BAND SINGER - 10/17/2024 11:59 PM BAND SINGER Hospital Encounter [address] [address] Prostate cancer (HCC); Pathological fracture in neoplastic disease, other specified site, initial encounter for fracture Discharge Disposition: Discharge to home or self care 10/17/2024 Orders Only RAD ONC TREATMENTS Miscellaneous, Not In File 10/10/2024 12:56 PM BAND SINGER - 10/10/2024 11:59 PM BAND SINGER Hospital Encounter [facility] Radiation Oncology [facility] [place] [address] Dawson Alcaraz MD Discharge Disposition: Discharge to home or self care 10/10/2024 Telephone [facility] Radiation Oncology [address] [facility] [place] [address] Jay Segovia, DENIZ 10/10/2024 Orders Only [facility] Radiation Oncology [address] [place] [address] Jay Segovia, RN Prostate cancer (HCC) 10/10/2024 Orders Only RAD ONC TREATMENTS Miscellaneous, Not In File 10/03/2024 12:49 PM BAND SINGER - 10/03/2024 11:59 PM BAND SINGER Hospital Encounter [facility] Radiation Oncology [address] [place] [address] Dawson Alcaraz MD Discharge Disposition: Discharge to home or self care 10/03/2024 Documentation [facility] Radiation Oncology [address] [place] [address] Janice Stewart RN 10/03/2024 Orders Only RAD ONC TREATMENTS Miscellaneous, Not In File from Last 3 Months Surgical History Surgery [...] How often do you attend chur or mandaeism services? More than 4 times per year 12/21/2023 Do you belong to any clubs o r organizations such as sabianism groups, unions, fraternal or athletic groups, or [...] place to sleep or slept in a fpc (including now)? No 12/21/2023 Personal Safety Answer Date Recorded Have you ever been in or are you currently in a harmful physical or emotional relationship or is someone making you feel afraid or unsafe? Denies 12/22/2023 Sex and Gender Information Value Date Recorded Sex Assigned at Not on file Legal Sex Male 12:37 AM BAND SINGER Gender Identity Not on file Sexual Orientation Not on file Obstetrics History Last Filed Vital Signs Vital Sign Reading Time Taken Comments Blood Pressure 137/80 10/29/2024 2:12 PM BAND SINGER Pulse 73 09/09/2024 3:00 PM BAND SINGER Temperature 36.3 C (97.4 F) 10/29/2024 2:12 PM BAND SINGER Respiratory Rate 16 09/09/2024 3:00 PM BAND SINGER Oxygen Saturation 96% 09/09/2024 3:00 PM BAND SINGER Inhaled Oxygen Concentration - - Weight 95.2 kg (209 lb 12.8 oz) 10/29/2024 2:12 PM BAND SINGER Height 180.3 cm (5' 11 ) 08/03/2024 6:51 AM CDT Body Mass Index 29.26 08/03/2024 6:51 AM CDT Plan of Treatment Health Maintenance Due Date Last Done Comments Colon Cancer Screening-Colonoscopy 1960 Depression Screening 1960 Hepatitis C Screening 1960 Hepatitis B Screening 02/10/1976 Zoster Vaccine (1 of 2) 1977 Pneumococcal vaccine 65+ (2 of 2 - PPSV23) 12/11/2017 10/16/2017, 04/06/2016 Well Visit 65+ 2023 Influenza Vaccine (#1) 2024 9, 08/02/2018, 08/01/2017, Additional history exists DTaP/Tdap/Td Vaccine (2 - Td or Tdap) 12/08/2024 12/08/2014 Fall Risk Assessment 07/19/2025 07/19/2024, 12/22/19 24 Prostate Cancer Screening-PSA 12/24/2026, 10/29/2024, 08/26/2024 Goals Goal Patient Goal Type Associated Problems Recent Progress Patient-Stated? Author [facility] Jenelle Vora, RN Note: Patient will establish a comfort-function goal and identify the pain level that will allow the patient to perform desired activities and achieve an acceptable quality of life. Medical Devices Implanted Type Area Compilation Clerk Device Identifier Shelf Expiration Date Model / Serial / Lot Hernia Mesh Left: Pelvis Procedures Procedure Name Priority Date/Time Associated Diagnosis Comments PSA, TOTAL AND FREE Routine 12/24/2024 1 1:11 AM CDT TOTAL TESTOSTERONE Routine 12/24/2024 11 :11 AM CDT PSA, TOTAL AND FREE Routine 10/29/2024 3 :04 PM BAND SINGER Prostate cancer (HCC) TOTAL TESTOSTERONE Routine 10/29/2024 3: 04 PM BAND SINGER Prostate cancer (HCC) RAD ONC ARIA SESSION SUMMARY 10/29/2024 2:02 PM BAND SINGER RAD ONC ARIA SESSION SUMMARY 10/22/2024 2:37 PM BAND SINGER URINALYSIS AND REFLEX TO MICROSCOPIC AND CULTURE Routine 10/22/2024 12:57 PM BAND SINGER Prostate cancer (HCC) RAD ONC ARIA SESSION SUMMARY 10/17/2024 2:35 PM BAND SINGER DEXA APPENDICULAR BONE DENSITY Schedule Routine, Read Routine (OP Routine) 10/17/2024 11:25 AM BAND SINGER Prostate cancer (HCC) Pathological fracture in neoplastic disease, other specified site, initial encounter for fracture RAD ONC ARIA SESSION SUMMARY 10/10/2024 2:21 PM BAND SINGER RAD ONC ARIA SESSION SUMMARY 10/03/2024 1:55 PM BAND SINGER from Last 3 Months Results * PSA, total and free (12/24/2024 11:11 AM CDT) PSA 0.1 < OR = 4.0 ng/mL [facility] PSA, free <0.1 ng/mL [facility] PSA, free UNABLE TO CALCULATE >25 % (calc) [facility] Comment: The free PSA level is below detectable limits. We are unable to calculate a % free PSA. PSA(ng/mL) Free PSA(%) Estimated(x) Probability of Cancer(as%) 0-2.5 (*) Approx. 1 2.6-4.0(1) 0-27(2) 24(3) 4.1-10(4) 0-10 56 11-15 28 16-20 20 21-25 16 >or =26 8 >10(+) N/A >50 References:(1)Triston et al.:Urology 60: 469-474 (2002) (2)Triston et al.:J.Urol 168: 922-925 (2001) Free PSA(%) Sensitivity(%) Specificity(%) < or = 25 85 19 < or = 30 93 9 (3)Catalona et al.:ZANA 277: 3264-5651 (1996) (4)Catalona et al.:ZANA 279: 2811-4992 (1997) (x)These estimates vary with age, ethnicity, [...] mind. PSA was performed using the Yeyo Carlos Immunoassay method. Values obtained from different assay methods cannot be used interchangeably. PSA levels, regardless of value, should not be interpreted as absolute evidence of the presence or absence of disease. 12/24/2024 11:1 1 AM CDT 12/24/2024 11:12 AM CDT Dawson Alcaraz MD LAB BLOOD ORDERABLES Final Result [facility] [address] [place] [address] * (ABNORMAL) Total testosterone (12/24/2024 11:11 AM CDT) Testosterone <10(L) 250 - 827 ng/dL [facility] Comment: In hypogonadal males, Testosterone, Total, LC/MS/MS, is the recommended assay due to the diminished accuracy of immunoassay at levels below 250 ng/dL. This test code (64003) must be collected in a red-top tube with no gel. 12/24/2024 11:1 1 AM CDT 12/24/2024 11:12 AM CDT Dawson Alcaraz MD LAB BLOOD ORDERABLES Final Result [facility] [address] [place] [address] * PSA, total and free (10/29/2024 3:04 PM BAND SINGER) PSA-free 0.2 ng/mL [facility] PSA-Total 1.5 <=4.5 ng/mL [facility] PSA-Free/Total Ratio See Footnote [facility] Comment: Ratio not calculated because clinical usefulness is not defined except in range of total PSA 4.0-10.0 ng/mL. ADDITIONAL INFORMATION The testing method is an electrochemiluminescence assay manufactured by [employer] and performed on the Modular or Nancy system. Values obtained with different assay methods or kits may be different and cannot be used interchangeably. Test results cannot be interpreted as absolute evidence for the presence or absence of malignant disease. Test Performed by: [place] [address] Baseball Coach: Marisol Varela Ph.D.; CLIA# [id number] Blood 10/29/2024 3:04 PM BAND SINGER 10/29/2024 4:48 PM BAND SINGER Dawson Alcaraz MD LAB BLOOD ORDERABLES Final Result [facility] Department [place] [address] [facility] * (ABNORMAL) Total testosterone (10/29/2024 3:04 PM BAND SINGER) Testosterone <5.0(L) 193.0 - 740.0 ng/dL Blood 10/29/2024 3:04 PM BAND SINGER 10/29/2024 4:24 PM BAND SINGER Dawson Alcaraz MD LAB BLOOD ORDERABLES Final Result [facility] Department [place] [address] * RAD ONC ARIA SESSION SUMMARY (10/29/2024 2:02 PM BAND SINGER) Course Name C1_Prostat e ARIA Course Plan [...] Dose (cGy) 1,000 ARIA 10/29/2024 2:02 PM BAND SINGER us Not In File Miscellaneous RADIATION ONCOLOGY ORD ERABLES Final Result ARIA * RAD ONC ARIA SESSION SUMMARY (10/22/2024 2:37 PM BAND SINGER) Course Name C1_Prostat ARIA Course Plan Date 09/10/2024 2:39 PM ARIA Elapsed Days 19 ARIA Treatment Start Date 10/03/2024 ARIA Treatment Site [id number] ARIA Dose Given To Date (cGy) 4,000 ARIA Session Dosage Given (cGy) 1,000 ARIA Plan ID [id number] ARIA Fractions Treated 1 ARIA Prescribed Dose Per Fraction (cGy) 1,000 ARIA Prescribed Total Dose (cGy) 2,000 ARIA 10/22/2024 2:37 PM BAND SINGER us Not In File Miscellaneous RADIATION ONCOLOGY ORD ERABLES Final Result ARIA * Urinalysis reflex to microscopic and culture Urine (10/22/2024 12:57 PM BAND SINGER) Color, ur Straw Yellow Clarity, ur Clear Clear [facility] Specific gravity, ur 1.020 1.003 - 1.030 [facility] pH, urine 7.0 [facility] Comment: Interpretive Data U rine pH is affected by diet, medications, systemic acid-base disturbances, and renal tubular function. pH may affect urinary stone formation. For example, urine pH below 6.0 may help reduce the tendency for calcium phosphate stones and pH greater than 6.0 may reduce the tendency for uric acid stone formation. Source: [facility] [employer] Current Interpretive Data was last revised on 2017 Protein, ur ql Negative Negative [facility] Glucose, ur ql Negative Negative [facility] Ketones, ur Negative Negative [facility] Bilirubin, ur Negative Negative [facility] Blood, ur Negative Negative [facility] Urobilinogen, ur <2.0 <2.0 mg/dL [facility] Nitrite, ur Negative Negative [facility] Leukocyte esterase, ur Negative Negative [facility] UA reflex comment Reflex conditions for microscopic UA and culture not met. [facility] Urine 10/22/2024 12:5 7 PM BAND SINGER 10/22/2024 1:07 PM BAND SINGER Dawson Alcaraz MD LAB MICROBIOLOGY - NERAL ORDERABLES Final Result [facility] Department [place] [address] * RAD ONC ARIA SESSION SUMMARY (10/17/2024 2:35 PM BAND SINGER) Course Name C1_Prostat e_2023 ARIA Course Plan [...] Dose (cGy) 3,000 ARIA 10/17/2024 2:35 PM BAND SINGER us Not In File Miscellaneous RADIATION ONCOLOGY ORD ERABLES Final Result [facility] * Dexa Bone Density (10/17/2024 11:25 AM BAND SINGER) Anatomical Region Laterality Modality Wrist N/A Other 10/17/2024 4:35 PM BAND SINGER Narrative 10/17/2024 4:36 PM BAND SINGER EXAM DESCRIPTION: DEXA AXIAL FOREARM (PERIPHERAL) REASON FOR STUDY: 64 y/o year old M with given history of: Prostate cancer, high risk, staging Screening. Compilation Clerk/Model: [employer] SL (S/N [id number]) CLINICAL INFORMATION: Current height: 71 inches Maximum [...] Preston Zuleta M.D. MF: ZEKE Report ID: [id number] Reading Location: [id number] [facility] Note Preston Zuleta MD - 10/17/2024 EXAM DESCRIPTION: DEXA AXIAL FOREARM (PERIPHERAL) REASON FOR STUDY: 64 y/o year old M with given history of: Prostate cancer, high risk, staging Screening. Compilation Clerk/Model: [employer] (S/N [id number]) CLINICAL INFORMATION: Current height: 71 inches Maximum [...] 10/17/2024 4:36 PM - Electronically signed by Pretson Zuleta M.D. MF: ZEKE Report ID: [id number] Reading Location: [place] [address] [place] Dawson Alcaraz MD IM DXA PROCEDURES Fi nal Result * RAD ONC ARIA SESSION SUMMARY (10/10/2024 2:21 PM BAND SINGER) Course Name C1_Prostat e_2023 ARIA Course Plan [...] Dose (cGy) 4,000 ARIA 10/10/2024 2:21 PM BAND SINGER us Not In File Miscellaneous RADIATION ONCOLOGY ORD ERABLES Final Result [facility] * RAD ONC ARIA SESSION SUMMARY (10/03/2024 1:55 PM BAND SINGER) Course Name C1_Prostat e_2023 ARIA Course Plan [...] Dose (cGy) 5,000 ARIA 10/03/2024 1:55 PM BAND SINGER us Not In File Miscellaneous RADIATION ONCOLOGY ORD ERABLES Final Result [facility] from Last 3 Months Insurance [facility] [employer] MEDICARE [employer] MEDICARE [employer]ICARE [employer] MEDICARE [employer] MEDICARE SOLUTIONS Care Teams Oil Expeller Relationship Specialty Start Date End Date Ludivina Loaiza MD [address] [place], [place] [id number] PCP - General 12/05/16 Christiano Ramesh MD [address] [place] [address] Consulting Physician Neurosurgery 03/02/23 Nadira Valle, salesperson yard goods 12/22/23 Dawson Alcaraz MD [address] [facility] [address] [place] [address] Radiation Oncologist Radiation Oncology 07/16/24
--- OUTSIDE RECORDS SUMMARY | 2024-12-27 11:48 | XMS_ITS | Encounter Summary ---
Author Organization [facility] Healthcare Address [address] [place] [address] Care Team Providers Care Shortage Worker Name Role Phone Ludivina Loaiza MD Primary Care Provider + [phone] Christiano Ramesh MD Unavailable [phone] Nadira Valle RN Unavailable Dawson Hidalgo MD Unavailable [phone] Encounter Details Date Type Department Care Team (Late st Contact Info) Description 12/26/2024 Documentation [facility] Radiation Oncology [address] [facility] [place] [address] Janice Stewart RN Social History Tobacco Use [...] often do you attend chur ch or anglican services? 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 Nurse Nikki answered the phone and walked over to the lab. She stated the dairy and food laboratory assistant told her the PSA was drawn and is still pending. senior energy market coordinator was messaged that PSA is drawn and pending. Patient notified that no further lab work is needed at this time. documented in this encounter Plan of Treatment [...] on filedocumented in this encounter Care Teams Shortage Worker Relationship Specialty Start Date End Date Ludivina Loaiza MD [address] [place] [address] PCP - General 12/05/16 Christiano Ramesh MD [address] [place] [address] Consulting Physician Neurosurgery 03/02/23 Nadira Valle, bed placement coordinator 12/22/23 Dawson Alcaraz MD [address] [facility] [place] [address] [place] [address] Radiation Oncologist Radiation Oncology 07/16/24 documented as of this encounter
--- OUTSIDE RECORDS SUMMARY | 2024-12-27 11:48 | XMS_ITS | Encounter Summary ---
Author Organization [facility] Healthcare Address [address] [place] [address] Care Team Providers Care Sales Designer Name Role Phone Ludivina Loaiza MD Primary Care Provider + [phone] Christiano Ramesh MD Unavailable [phone] Nadira Valle RN Unavailable Dawson Hidalgo MD Unavailable [phone] Reason for Visit * Reason Onset Date Comments LVAD Equipment Documentation 12/26/2024 err or Encounter Details Date Type Department Care Team (Late st Contact Info) Description 12/26/2024 Documentation [facility] Radiation Oncology [address] [facility] [place] [address] Janice Stewart RN LVAD Equipment Documentation (error) Social History Tobacco Use Types Packs/Day Years [...] often do you attend chur ch or zoroastrian services? More than 4 times per year 12/21/2023 Do you belong to any clubs o r organizations such as scientology groups, unions, fraternal or athletic groups, or [...] place to sleep or slept in a care home (including now)? No 12/21/2023 Personal Safety Answer Date Recorded Have you ever been in or are you currently in a harmful physical or emotional relationship or is someone making you feel afraid or unsafe? 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 Gender Identity Not on file Sexual Orientation Not on file documented as of this encounter Nursing Notes * Janice Stewart RN - 12/26/2024 9:44 AM CDT error documented in this encounter Plan of Treatment [...] on filedocumented in this encounter Care Teams Sales Designer Relationship Specialty Start Date End Date Ludivina Loaiza MD [address] [place] [address] PCP - General 12/05/16 Christiano Ramesh MD [address] [facility] [address] [place] [address] Consulting Physician Neurosurgery 03/02/23 Nadira Valle, lead auditor 12/22/23 Dawson Alcaraz MD [address] [facility] [address] [place] [address] Radiation Oncologist Radiation Oncology 07/16/24 documented as of this encounter
--- OUTSIDE RECORDS SUMMARY | 2024-12-27 11:48 | XMS_ITS | Encounter Summary ---
Author Organization [facility] Address [address] [place] [address] Care Team Providers Care Cheese Factory Worker Name Role Phone Ludivina Loaiza MD Primary Care Provider [phone] Brian Cole MD Unavailable +[phone] Christiano Ramesh MD Unavailable [phone] Dharmesh Roche MD Unavailable +[phone] Edinson York APRN Unavailable [phone] Denis Cantrell MD Unavailable Pennie Garcia PA-C Unavailable [phone] Encounter Details Date Type Department Care Team (Late st Contact Info) Description 04/20/2023 Hospital Orders Only [facility] Anesthesia [address] [place] [address] Melissa Wallis RN Anesthesia Record Procedure Summary [...] Date: 04/25/23; Removal Time: 1029; Removal Person: USED CAR MAKE READY MECHANIC; Removal Reason: End of Case 04/25/23727 by [...] Patient Discharged 04/25/23 0730 by Suzy Torres, USED CAR MAKE READY MECHANIC 04/26/23 0908 by Shruthi Dow RN Arterial Line Placement Date: 04/15 11/07; Placement Time: 743 (created via procedure documentation); Orientation: Right; Location: Radial; Site Prep: Chlorhexidine; Local Anesthetic: None; Insertion Attempts: 1; Patient Tolerance: Tolerated well; Removal Date: 04/25/23; Removal Time: 1215; Removal Reason: Therapy Completed 04/25/23 07 by Suzy Torres, USED CAR MAKE READY MECHANIC 04/25/23 121 by Steffanie Toscano RN documented [...] Description 08/05/2025 12:45 PM CDT [facility] [address] [place] [address] Brian Cole MD [address] [place] [address] documented as of this encounter Visit Diagnoses Not on filedocumented in this encounter Care Teams Cheese Factory Worker Relationship Specialty Start Date End Date Ludivina Loaiza MD [address] [place] [address] PCP - General INTERNAL MEDICINE 01/24/18 Brian Cole MD [address] [place] [address] EP Cell Lead CLINICAL CARDIAC ELECTROPHYSIOLOGY 03/25/22 Christiano Ramesh MD 3 [facility]. [address] [place] [address] Surgeon NEUROLOGICAL SURGERY 02/17/23 Dharmesh Roche MD 3 [facility]. [address] [place], [place] [address] Consulting Physician INTERVENTIONAL CARDIOLOGY 02/20/23 Edinson York APRN [address] [phone] Nurse Practitioner NURSE PRACTITIONER 02/20/23 Denis Cantrell MD [address] [address] Consulting Physician INTERNAL MEDICINE 07/28/23 Pennie Garcia PA-C 9 [place], [place] [address] Referring Physician PHYSICIAN OUTPATIENT PHYSICAL THERAPIST ASSISTANT 08/05/24 documented as of this encounter
--- OUTSIDE RECORDS SUMMARY | 2024-12-27 11:48 | XMS_ITS | Encounter Summary ---
Author Organization [facility] Address [facility] [place] [address] Care Team Providers Care Dry Man Name Role Phone Ludivina Loaiza MD Primary Care Provider [phone] Tor Burns MD Unavailable Unavailabl e Brian Cole MD Unavailable + [phone] Christiano Ramesh MD Unavailable [phone] Dharmesh Roche MD Unavailable + [phone] Edinson York APRN Unavailable [phone] Denis Cantrell MD Unavailable Pennie Garcia PA-C Unavailable + [phone] Encounter Details Date Type Department Care Team (Late st Contact Info) Description 01/22/2018 Abstract [facility] [address] [place] [address] Tor Burns MD Social History Tobacco Use [...] Description 08/05/2025 12:45 PM CDT [facility] [address] [place] [address] Brian Cole MD [address] [place] [address] documented as of this encounter Visit Diagnoses Not on filedocumented in this encounter Care Teams Dry Man Relationship Specialty Start Date End Date Ludivina Loaiza MD [address] [place] [address] PCP - General INTERNAL MEDICINE 01/24/18 Tor Burns MD [address] [place] [address] [place] [employer] CARDIOVASCULAR DISEASE 01/24/18 02/16/23 Brian Cole MD [address] [place] [address] EP Die Tripper CLINICAL CARDIAC ELECTROPHYSIOLOGY 03/25/22 Christiano Ramesh MD 3 [facility]. [address] [place] [address] Surgeon NEUROLOGICAL SURGERY 02/17/23 Dharmesh Roche MD 3 [facility]. [address] [place] [address] Consulting Physician INTERVENTIONAL CARDIOLOGY 02/20/23 Edinson York APRN 9 [facility] [address] [place] [id number] Nurse Practitioner NURSE PRACTITIONER 02/20/23 Denis Cantrell MD [address] [id number] Consulting Physician INTERNAL MEDICINE 07/28/23 Pennie Garcia PA-C [address] [place] [address] Referring Physician PHYSICIAN BATTERY CONTAINER TESTER 08/05/24 documented as of this encounter
== END 2024-12-27 11:01 | disposition home or self-care (01) ==
LOC: CHSLAB 11:01
PROVIDERS: PCP Internal Medicine; Visit Provider Internal Medicine
DX: J06.9 Acute upper respiratory infection, unspecified (principal)
CPT/HCPCS: 36415; 85027

== ENCOUNTER 2025-02-21 12:40 | Outpatient (CLI) | payer MEDICARE, SELFPAY ==
--- NOTE | ~2025-02-21 | XR_ITS ---
EXAMINATION: XR chest 2V 02/21/2025 13:05 INDICATION: Cough 2 weeks PROCEDURE: 2 view chest COMPARISON: Comparison to multiple prior studies sequentially, with oldest reviewed study dated 12/28. FINDINGS: The lungs are clear. The cardiomediastinal silhouette is within normal limits. There are no pleural effusions. There is no pneumothorax suspected. IMPRESSION: 1: NO ACUTE CARDIOPULMONARY DISEASE. Reviewed, dictated and finalized at location A.
--- OUTSIDE RECORDS SUMMARY | 2025-02-21 12:44 | XMS_ITS | Continuity of Care Document ---
Author Organization [email or web address] [facility] Address [address] [address] [place] [address] Phone Care Team Providers Care Vaccine Key Customer Leader Name Role Phone Jaya Florentino PA-C Unavailable [...] 12 Lead; W/intrpt Offic/outpt E m [facility] Advance Directives Directive Yes / No Effective Date File Name No Information Encounters Encounter Description Practice Location Reason(s) For Visit Diagnoses Date Provider Providers Copied on Encounter [facility], [address] [address], [place], [place], [id number], tel:[phone] Care No Information [address] [place]. [address] [place], [place], [id number] , . tel:[phone] Offic/outpt E m [facility], [address] [address], [place], [id number], tel:[phone] 1st Care Swelling (chief complaint) Edema, unspecifiedChest pain, unspecified type 9 [facility]. [address] [place] [address], [id number] , [place]. tel: [phone] Family History Family Member Type Diagnosis Age At Onset No Information Payers Payer name Insurance type Covered alliance party ID Ching lopez(s) [facility] [id number] Social History Type Description Quantity Date Captured Comments Sex Male Smoking Status No Information Chief Complaint And Reason For Visit No Information Reason For Referral Reason For Referral No Information Plan Of Treatment Date Type Action Status Future Order: Radiology Order XR Chest 2 View ([id number]), Sent on: Sent History Of Present Illness Encounter Date Complaint History Of Prese nt Illness Swelling Swelling (comments) Patient ents the clinic today with recent chest pain, bilateral lower extremity swelling, shortness of breath.[place] [address], having traveled on a cruise ship and then most recently on an extended train ride from [place] to [facility].He states that his symptoms began after exiting [...]
--- OUTSIDE RECORDS SUMMARY | 2025-02-21 12:44 | XMS_ITS | Encounter Summary ---
Author Organization [facility] Address [facility]ly [facility] [place] [address] Care Team Providers Care Mixer Helper Name Role Phone Ludivina Loaiza MD Primary Care Provider [phone] Tor Burns MD Unavailable [phone] Brian Cole MD Unavailable [phone] Christiano Ramesh MD Unavailable [phone] Dharmesh Roche MD Unavailable [phone] Edinson York APRN Unavailable [phone] Denis Cantrell MD Unavailable Pennie Garcia PA-C Unavailable [phone] Encounter Details Date Type Department Care Team (Late st Contact Info) Description 01/22/2018 Abstract [facility] [address] [place] [address] Tor Burns MD [address] [place] [address] Social History Tobacco Use Types Packs/Day Years [...] Description 08/05/2025 12:45 PM CDT Office Visit [facility] [address] [place] [address] Brian Cole MD [address] [place] [address] documented as of this encounter Visit Diagnoses Not on filedocumented in this encounter Care Teams Mixer Helper Relationship Specialty Start Date End Date Ludivina Loaiza MD [address] [place] [address] PCP - General INTERNAL MEDICINE 01/24/18 Tor Burns MD [address] [place] [address] [facility] [employer] [facility] [employer] CARDIOVASCULAR DISEASE 01/24/18 02/16/23 Brian Cole MD [address] [place], [place] [address] [facility] [employer] CLINICAL CARDIAC ELECTROPHYSIOLOGY 03/25/22 Christiano Ramesh MD 3 [facility]. [address] [place] [address] Surgeon NEUROLOGICAL SURGERY 02/17/23 Dharmesh Roche MD 3 [facility]. [address] [place] [address] Consulting Physician INTERVENTIONAL CARDIOLOGY 02/20/23 Edinson York APRN 3 [facility]. [address] [place] [address] Nurse Practitioner NURSE PRACTITIONER 02/20/23 Denis Cantrell MD 3 [facility] [address] [place], [place] [address] Consulting Physician INTERNAL MEDICINE 07/28/23 Pennie Garcia PA-C [address] [place], [place] [address] Referring Physician PHYSICIAN FUNCTIONAL SKILLS TUTOR 08/05/24 documented as of this encounter
--- OUTSIDE RECORDS SUMMARY | 2025-02-21 12:44 | XMS_ITS | Continuity of Care Document ---
Author Organization [facility]. If a dditional information is needed, contact Health Information Management at [phone] Address [address] [place] [address] Phone Care Team Providers Care Lard Tub Washer Name Role Phone Unavailable Unavailable Unavailable Unavailable Unavailable Unavailable Unavailable Unavailable Unavailable Problems Backache Onset:25-Oct-2023 Elayne BLANCO Allergies and Adverse Reactions No Known Drug Allergies(Tay rgy) Onset: 25-Oct-2023 Social History Smoking Status Tobacco smoking consumption unknown Recorded:
--- OUTSIDE RECORDS SUMMARY | 2025-02-21 12:44 | XMS_ITS | Clinical Summary ---
Author Organization [facility] Address [address] [place] [address] Care Team Providers Care Market Maker Name Role Phone Ludivina Loaiza MD Primary Care Provider [phone] Brian Cole MD Unavailable [phone] Christiano Ramesh MD Unavailable [phone] Dharmesh Roche MD Unavailable [phone] Edinson York APRN Unavailable [phone] Denis Cantrell MD Unavailable Pennie Garcia PA-C Unavailable + [phone] Allergies No known active allergies Medications glimepiride [...] with other complications 08/22/2023 Paroxysmal atrial fibrillation ([facility]) 03/28/2023 Typical atrial flutter ([facility]) 023 Chronic venous insufficiency 02/17/2023 Chronic pain Dyslipidemia Essential hypertension Diabetes ([facility]) Chest pain Dyspnea Resolved Problems Problem Noted Date Diagnosed Date Resolved Date Pre-operative cardiovascular examination 02/17/2023 12/25/2023 Family History Medical History Relation Comments Coronary [...] place to sleep or slept in a penitentiary (including now)? No 04/25/2023 Sex and Gender [...] CDT Office Visit [facility] [address] [place] [address] Brian Cole MD [address] [place] [address] Health Maintenance Due Date Last Done Comments Colorectal Cancer Screening Colonoscopy (10 Years) 1960 Kidney Health Evaluation 1960 Hemoglobin A1C 1958 Lipid Panel 1958 Diabetes: Retinopathy Eye Exam 02/10/1976 Hepatitis C 02/10/1976 Pneumococcal Vaccine: 50+ Years (2 of 2 - PPSV23) 12/11/2017 10/16/2017, 04/06/2016 RSV Immunization or 60+ Years (1 - Risk 60-74 years 1-dose series) 2018 Zoster Vaccines (2 of 2) 08/07/2020 06/12/2020 Annual Medicare Wellness Visit 2023 COVID-19 Vaccine (3 - 2023-2 5 season) 2024 10/04/2021, 01/21/2021 DTaP, Tdap and Td Vaccines ( 2 - Td or Tdap) 12/08/2024 12/08/2014 Meningococcal B Vaccine Aged Out No l onger eligible based on patient's age to complete this topic Meningococcal Vaccine Aged Out No ricky momo eligible based on patient's age to complete this topic RSV Immunizations Under 20 Months Aged Out No longer eligible b ased on patient's age to complete this topic Insurance [facility] Advance Directives * Full Code (Latest Code Status on File) Date Activated Date Inactivated Comments 04/25/2023 10:58 AM 04/26/2023 12:31 PM Care Teams Market Maker Relationship Specialty Start Date End Date Ludivina Loaiza MD [address] [place] [address] PCP - General INTERNAL MEDICINE 01/24/18 Brian Cole MD [address] [place] [address] EP Hospice Rn CLINICAL CARDIAC ELECTROPHYSIOLOGY 03/25/22 Christiano Ramesh MD 3 [facility]. [address] [place], [place] [address] Surgeon NEUROLOGICAL SURGERY 02/17/23 Dharmesh Roche MD 3 [facility]. [address] [place], [place] [address] Consulting Physician INTERVENTIONAL CARDIOLOGY 02/20/23 Edinson York APRN 3 [facility]. [address] [place] [address] Nurse Practitioner NURSE PRACTITIONER 02/20/23 Denis Cantrell MD 3 [facility]. [address] [place] [address] Consulting Physician INTERNAL MEDICINE 07/28/23 Pennie Garcia PA-C [address] [place] [address] Referring Physician PHYSICIAN COMMUNICATION PROFESSOR 08/05/24
--- OUTSIDE RECORDS SUMMARY | 2025-02-21 12:44 | XMS_ITS | Clinical Summary ---
Author Organization [facility] Address [address] [place] [address] Care Team Providers Care Storage Facility Housekeeper Name Role Phone Ludivina Loaiza MD Primary Care Provider [phone] Christiano Ramesh MD Unavailable [phone] Nadira Valle RN Unavailable Unavailabl Dawson Servin MD Unavailable [phone] Allergies No known active allergies Medications lovastatin [...] Date Herniated nucleus pulposus, L3-4 left 02/17/2023 shelter current use of anticoagulant 3 Degenerative lumbar [...] Encounters Date Type Department Care Team Description 01/27/2025 Telephone [facility] Radiation Oncology [facility] [place] [address] Janice Stewart RN 01/27/2025 Telephone [facility] Radiation Oncology [address] [place] [address] Janice Stewart RN 12/30/2024 11:00 AM CDT Office Visit [facility] Radiation Oncology [address] [place] [address] Dawson Alcaraz MD Prostate cancer (HCC) [C61] (Primary Dx) 12/26/2024 Documentation [facility] Radiation Oncology [address] [facility] [place] [address] Janice Stewart RN 12/26/2024 Documentation [facility] Radiation Oncology [address] [facility] [place] [address] Janice Stewart RN LVAD Equipment Documentation (error) 12/26/2024 Telephone [facility] Radiation Oncology [address] [place] [address] [place] [address] Janice Stewart RN 12/26/2024 Orders Only [facility] Radiation Oncology [address] [place] [address] Dawson Alcaraz MD Prostate cancer (HCC) (Primary Dx) 12/24/2024 Orders Only [facility] Radiation Oncology [address] [facility] [place] [address] Dawson Alcaraz MD 12/23/2024 Telephone [facility] Radiation Oncology [address] [place] [address] Janice Stewart RN 12/23/2024 Telephone [facility] Radiation Oncology [address] [facility] [place] [address] Janice Stewart RN from Last 3 Months Surgical History Surgery [...] often do you attend chur ch or confucianist services? More than 4 times per year 12/21/2023 Do you belong to any clubs o r organizations such as rastafarian groups, unions, fraternal or athletic groups, or [...] place to sleep or slept in a senior living (including now)? No 12/21/2023 Personal Safety Answer Date Recorded Have you ever been in or are you currently in a harmful physical or emotional relationship or is someone making you feel afraid or unsafe? Denies 12/22/2023 Sex and Gender Information Value Date Recorded Sex Assigned at Not on file Legal Sex Male 12:37 AM MILK WAGON DRIVER Gender Identity Not on file Sexual Orientation Not on file Obstetrics History Last Filed Vital Signs Vital Sign Reading Time Taken Comments Blood Pressure 137/85 12/30/2024 11:42 AM CDT Pulse 73 09/09/2024 3:00 PM MILK WAGON DRIVER Temperature 36.3 C (97.4 F) 10/29/2024 2:12 PM MILK WAGON DRIVER Respiratory Rate 16 09/09/2024 3:00 PM MILK WAGON DRIVER Oxygen Saturation 96% 09/09/2024 3:00 PM MILK WAGON DRIVER Inhaled Oxygen Concentration - - Weight 94.8 kg (208 lb 14.4 oz) 025 11:42 AM CDT Height 180.3 cm (5' 11 ) 08/03/2024 6:51 AM CDT Body Mass Index 29.14 08/03/2024 6:51 AM CDT Plan of Treatment Health Maintenance Due Date Last Done Comments Colon Cancer Screening-Colonoscopy 1958 Depression Screening 1958 Hepatitis C Screening 1958 Hepatitis B Screening 02/10/1976 Zoster Vaccine (1 of 2) 1977 Pneumococcal vaccine 65+ (2 of 2 - PPSV23) 12/11/2017 10/16/2017, 04/06/2016 Well Visit 65+ 2023 DTaP/Tdap/Td Vaccine (2 - Td or Tdap) 12/08/2024 12/08/2014 Influenza Vaccine (Season Ended) 2025 08/06/2019, 08/02/2018, 08/01/2017, Additional history exists Fall Risk Assessment 07/19/2025 07/19/2024, 12/22/19 24 [...] of life. Medical Devices Implanted Type Area Asbestos Hazard Abatement Worker Device Identifier Shelf Expiration Date Model / Serial / Lot Hernia Mesh Left: Pelvis Procedures Procedure Name Priority Date/Time Associated Diagnosis Comments PSA, TOTAL AND FREE Routine 12/24/2024 1 1:11 AM CDT TOTAL TESTOSTERONE Routine 12/24/2024 11 :11 AM CDT from Last 3 Months Results * PSA, total and free (12/24/2024 11:11 AM CDT) PSA 0.1 < OR = 4.0 ng/mL [facility] PSA, free <0.1 ng/mL [facility] PSA, free UNABLE TO CALCULATE >25 % (calc) [facility] Comment: The free PSA level is below [...] 30 93 9 (3)Catalona et al.:ZANA 277: [id number] (1996) (4)Catalona et al.:ZANA 279: [id number] (1997) (x)These estimates vary with age, ethnicity, [...] MD LAB BLOOD ORDERABLES Final Result [facility] [address] [place] [address] * (ABNORMAL) Total testosterone (12/24/2024 11:11 AM CDT) Testosterone <10(L) 250 - 827 ng/dL [facility] Comment: In hypogonadal males, Testosterone, Total, LC/MS/MS, is the recommended assay due to the diminished accuracy of immunoassay at levels below 250 ng/dL. This test code (44695) must be collected in a red-top tube with no gel. 12/24/2024 11:1 1 AM CDT 12/24/2024 11:12 AM CDT Dawson Alcaraz MD LAB BLOOD ORDERABLES Final Result [facility] [address] [id number] from Last 3 Months Insurance MEDICARE [facility] MEDICARE ADVANTAGE [facility] MEDICARE ADVANTAGE [place] [address] [facility] MEDICARE ADVANTAGE [facility] MEDICARE ADVANTAGE Member Subscriber Plan / Payer (Ef fective 2018-Present) Name:Beck Almeida Relation to Subscriber:Self Name:Beck Almeida Payer ID:[id number] (NAIC) Type:[facility] MEDICARE Address: [address] [id number] [facility] MEDICARE ADVANTAGE Care Teams Storage Facility Housekeeper Relationship Specialty Start Date End Date Ludivina Loaiza MD [address] [place] [address] PCP - General 12/05/16 Christiano Ramesh MD [address] [facility] [address] [address] [place] [address] Consulting Physician Neurosurgery 03/02/23 Nadira Valle, field administrative assistant 12/22/23 Dawson Alcaraz MD [address] [facility] [address] [place] [address] Radiation Oncologist Radiation Oncology 07/16/24
--- OUTSIDE RECORDS SUMMARY | 2025-02-21 12:44 | XMS_ITS | Encounter Summary ---
Author Organization [facility] Address [facility] [place] [address] Care Team Providers Care Alarm Installation Technician Name Role Phone Ludivina Loaiza MD Primary Care Provider [phone] Tor Burns MD Unavailable [phone] Brian Cole MD Unavailable [phone] Christiano Ramesh MD Unavailable [phone] Dharmesh Roche MD Unavailable [phone] Edinson York APRN Unavailable [phone] Denis Cantrell MD Unavailable Pennie Garcia PA-C Unavailable [phone] Encounter Details Date Type Department Care Team (Late st Contact Info) Description 02/14/2023 Hospital Orders Only [facility] Bus Aide Pre/Post [address] [place] [address] Brian Cole MD [address] [place] [address] Social History Tobacco Use Types Packs/Day Years [...] Description 08/05/2025 12:45 PM CDT Office Visit [facility] [address] [place] [address] Brian Cole MD [address] [place] [address] documented as of this encounter Visit Diagnoses Not on filedocumented in this encounter Care Teams Alarm Installation Technician Relationship Specialty Start Date End Date Ludivina Loaiza MD [address] [place] [address] PCP - General INTERNAL MEDICINE 01/24/18 Tor Burns MD [address] [place] [address] [place] Hand Pleater CARDIOVASCULAR DISEASE 01/24/18 02/16/23 Brian Cole MD [address] [place] [address] EP Hand Pleater CLINICAL CARDIAC ELECTROPHYSIOLOGY 03/25/22 Christiano Ramesh MD 3 [facility] [address] [place] [id number] Surgeon NEUROLOGICAL SURGERY 02/17/23 Dharmesh Roche MD 3 [facility] [address] [place], [place] [address] Consulting Physician INTERVENTIONAL CARDIOLOGY 02/20/23 Edinson York APRN 3 [facility]. [address] [place] [address] Nurse Practitioner NURSE PRACTITIONER 02/20/23 Denis Cantrell MD 3 [facility]. [address] [place] [address] Consulting Physician INTERNAL MEDICINE 07/28/23 Pennie Garcia PA-C [address] [place] [address] Referring Physician PHYSICIAN SLOT HOST 08/05/24 documented as of this encounter
--- OUTSIDE RECORDS SUMMARY | 2025-02-21 12:44 | XMS_ITS | Data Portability ---
Author Organization [place] [facility] [employer], Main Office Address [address] [place] [address] Care Team Providers Care Regulatory Manager Name Role Phone ANABELLA ISABEL Primary Care Provider ANABELLA ISABEL Referring Provider Assessment No assessment recorded. Plan of Treatment Reminders Order Date Submit Date Provider Last Modified By Organization Details Last Modified Time Details Appointments None recorded. Lab None recorded. Referral None recorded. Procedures None recorded. Surgeries None recorded. Imaging None recorded. Medication Orders mometasone 0.1 % topical cream 2023 024 [facility] #[id number], [address] [place], [address], 12:40:55 Patient TargetsNo targets recorded. Patient Instructions Encounter Date Encounter Id Patient Instructions Last Modified By Organization Details Last Modified Time 06/13/2024 [id number] An audiogram was also ordered the patient reports asymmetrical loss [email or web address] Not available 06/13/2024 12:41:11 Reason for Referral None Reported. Results Created Date Observation Date Name Description Value Unit Range Abnormal Flag Note LastModifiedBy Organization Detail LastModifiedTime 04/13/20 22 XR, knee No observ ation record ed. [id number] [facility] [place] [address], [place], [address], 12/15/2022 01:02:20 04/13/20 22 02/24/2022 XR, knee No observ ation record ed. [id number] [facility]) [address] [place], [address], 12/15/2022 01:02:20 04/13/20 22 02/24/2022 MRI, knee, w/o contr ast No observ ation record ed. [id number] Not Available 12/15/2022 01:02:20 09/02/20 22 XR, knee No observ ation record ed. [id number] [facility] [place] [address], [place], [address], 12/15/2022 01:02:20 Result Notes None recorded. Problems Name Problem SNOMED Code Status Onset Date Resolution Date Notes Provider Name and Address Organization Details Recorded Time Arthriti s 4294510 Active 2021 Not Available [facility] 3 00:59:55 Osteoart hritis 246140478 Active 2021 Not Available [facility] 3 00:59:56 Pain of right knee joint 27041753957 4100 Active 2021 Not Available [facility] 3 00:59:56 Paroxysm al atrial fibrilla tion 318720723 Completed 202306/11/2024 JENNY Perez, [facility] [employer] [facility] 4 12:45:17 Kidney stone 22595780 Completed 202306/11/2024 Renal stones. JENNY Perez, [place] [employer] [facility] 17:17:10 COVID-19 873191327 Completed 202306/11/2024 Removal Reason: 2020, 2021. JENNY Perez, [place] [facility] 17:20:10 Sensorin eural hearing loss 05706514 Active 2023 Paulette Garsia RN null, [facility] [employer] [facility] 12:37:25 Eczema of external auditory canal 42104827 Active 2023 Jake Peres MD [address] [place] [address], [address] , [place] [facility] 12:40:33 Problem Notes None recorded. Procedures Surgical History Date Name Laterality Status Provider Name and Address Organization Details Recorded Time hernia repair completed Not Available [facility] 12/15/2022 00:58:09 Back Surgery completed Not Available [facility] 12/15/2022 00:58:09 Imaging Results Imaging Date Name Status LastModified by [facility] Details LastModified Time 09/02/2022 XR, knee completed [id number] [facility] [place] [address] [facility] [address], [place], [address], 12/15/2022 01:02:20 04/13/2022 XR, knee completed [id number] 026 [facility] [place] [address] [facility] [address], [place], [address], 12/15/2022 01:02:20 02/24/2022 XR, knee completed [id number] [facility]) [address] [place] [address], [address], 12/15/2022 01:02:20 02/24/2022 MRI, knee, w/o contrast completed [id number] Information not available 12/15/2022 01:02:20 Procedure [...] injection administe red by the provider active [facility]: 0003- 0494- 20 Not Available Not Available [...] bromide 42 mcg (0.06 %) nasal spray [place] 2 sprays 3 times a day by intranasa l route. active Not Available Not Available No t Available fluticasone propionate 50 mcg/actuati on nasal spray,suspe nsion [place] 1 spray every day by intranasa l [...] Updated DateTime 04/13/2022 29.5 kg/m2 175.26 cm 69321.47 g Not Available Jess [facility] 12/15/2022 00:58:15 Date Recorded Body height Provider Name an d Address Organization Details Last Updated DateTime 05/25/2022 175.26 cm Not Available [facility] 3 00:58:15 Date Recorded Body height Provider Name an d Address Organization Details Last Updated DateTime 09/02/2022 175.26 cm Not Available [facility] 3 00:58:15 Date Recorded Body height Body mass index (BMI) Body weight Body temperature Provider Name and Address Organization Details Last Updated DateTime 06/13/2024 180.34 cm 28.7 kg/m2 13176.59 g 98.6 [degF] [facility] [place] [facility] [place] [employer] [facility] 06/13/2024 12:28:29 Social History Question Answer Notes LastModified by Organizat ion Details LastModified Time Tobacco Smoking Status Never Smoker Not Available [facility] 12/15/2022 00:57:20 What Is Your Level Of Alcohol Consumption? Occasional [id number] Information not available 12/15/2022 Sex: Unknown Functional Status None recorded. Mental Status None recorded. Family History Relationship Description Onset Age of this Age Resolved Age Notes LastModified by Organization Details LastModified Time Brother Heart disease [id number] Not available 12/15/2022 00:58:09 Brother Family history of stroke [id number] Not available 12/15/2022 00:58:09 Brother Diabetes mellitus [id number] Not available 12/15/2022 00:58:09 Notes:NO ENT Medical [...] HAVE YOU BEEN HOSPITALIZED OR SEEN IN [facility] ER IN THE PAST YEAR ? [...] SNOMED-CT Code Diagnosis ICD10 Code Diagnosis Note [id number] Noe Fisher MD [facility] [place] [address] [facility] [address] [place] [address] 04/13/2022 00:00:00 04/13/2022 12:41:49 [id number] Noe Fisher MD [facility] [place] [address] [facility] [address] [place] [address] 05/25/2022 00:00:00 05/25/2022 12:44:51 [id number] Noe Fisher MD [facility] [place] [address] [facility] [address] [place] [address] 09/02/2022 00:00:00 09/02/2022 16:12:17 [id number] Jake Peres MD [facility] [place] [address] [place] [address] 06/13/2024 12:10:58 06/14/2024 12:04:16 Eczema of external auditory canal 52354463 H60.549 Health Concerns Section Related Observation LastModified by Organization Detai ls LastModified Time None Recorded Concern Status LastModified by Organization Details LastModified Time None Recorded Advance Directives Directive None Recorded Payers Encounter Date Sequence Insurance Name Policy Number Policy Blair Covered Member ID Blair Member ID Guarantor Name 06/13/2024 1 [facility] (MEDICARE REPLACEMENT/A DVANTAGE - HMO) [id number] Beck W Elle [id number] Beck Almeida Notes Date Note Type Note Provider Name and Address Organization Details Recorded Time 06/13/2024 text/html The patient reports itching ears a month ago. He was placed on Cortisporin which was effective. In addition he has allergic rhinitis successfully managed with Atrovent Flonase and montelukast. Jake Peres MD [address] [place] [address], [place], [address], [place] [facility] 06/13/2024 12:41:27
--- OUTSIDE RECORDS SUMMARY | 2025-02-21 12:44 | XMS_ITS | Encounter Summary ---
Author Organization [facility] Address [address] [place] [address] Care Team Providers Care Family Resource Management Specialist Name Role Phone Ludivina Loaiza MD Primary Care Provider [phone] Brian Cole MD Unavailable [phone] Christiano Ramesh MD Unavailable [phone] Dharmesh Roche MD Unavailable [phone] Edinson York APRN Unavailable [phone] Denis Cantrell MD Unavailable Pennie Garcia PA-C Unavailable [phone] Encounter Details Date Type Department Care Team (Late st Contact Info) Description 04/20/2023 Hospital Orders Only [facility] Anesthesia [address] [place] [address] Melissa Wallis RN Anesthesia Record Procedure Summary [...] Date: 04/25/23; Removal Time: 1029; Removal Person: VOCAL MUSIC INSTRUCTOR; Removal Reason: End of Case 04/25/23727 by [...] Patient Discharged 04/25/23 0730 by Suzy Torres, VOCAL MUSIC INSTRUCTOR 04/26/23 0908 by Shruthi Dow RN Arterial Line Placement Date: 04/15 11/07; Placement Time: 743 (created via procedure documentation); Orientation: Right; Location: Radial; Site Prep: Chlorhexidine; Local Anesthetic: None; Insertion Attempts: 1; Patient Tolerance: Tolerated well; Removal Date: 04/25/23; Removal Time: 1215; Removal Reason: Therapy Completed 04/25/23 07 by Suzy Torrse, VOCAL MUSIC INSTRUCTOR 04/25/23 121 by Steffanie Toscano RN documented [...] Description 08/05/2025 12:45 PM CDT [facility] [address] [place] [address] Brian Cole MD [address] [place] [address] documented as of this encounter Visit Diagnoses Not on filedocumented in this encounter Care Teams Family Resource Management Specialist Relationship Specialty Start Date End Date Ludivina Loaiza MD [address] [place] [address] PCP - General INTERNAL MEDICINE 01/24/18 Brian Cole MD [address] [place] [address] EP Physical Education Professor CLINICAL CARDIAC ELECTROPHYSIOLOGY 03/25/22 Christiano Ramesh MD 3 [facility]. [address] [place] [address] Surgeon NEUROLOGICAL SURGERY 02/17/23 Dharmesh Roche MD 3 [facility]. [address] [place] [address] Consulting Physician INTERVENTIONAL CARDIOLOGY 02/20/23 Edinson York APRN 3 [facility]. [address] [place], [place] [address] Nurse Practitioner NURSE PRACTITIONER 02/20/23 Denis Cantrell MD 3 [facility]. [address] [place], [place] [address] Consulting Physician INTERNAL MEDICINE 07/28/23 Pennie Garcia PA-C [address] [place] [address] Referring Physician PHYSICIAN GAS STATION OPERATOR 08/05/24 documented as of this encounter
--- OUTSIDE RECORDS SUMMARY | 2025-02-21 12:44 | XMS_ITS | Referral Summary ---
Author Organization [facility] Address [address] [place] [address] Care Team Providers Care Policy Writer Typist Name Role Phone Ludivina Loaiza MD Primary Care Provider [phone] Christiano Ramesh MD Unavailable [phone] Nadira Valle RN Unavailable Unavailabl Dawson Servin MD Unavailable Encounters Date Type Department Care Team Description 01/27/2025 Telephone [facility] Radiation Oncology [address] [facility] [place] [address] Janice Stewart, DENIZ 01/27/2025 Telephone [facility] Radiation Oncology [address] [facility] [place] [address] Janice Stewart RN 12/30/2024 11:00 AM CDT Office Visit [facility] Radiation Oncology [address] [facility] [place] [address] Dawson Alcaraz MD Prostate cancer (HCC) [C61] (Primary Dx) 12/26/2024 Documentation [facility] Radiation Oncology [address] [facility] [place] [address] Janice Stewart RN 12/26/2024 Documentation [facility] Radiation Oncology [address] [place] [address] Janice Stewart RN LVAD Equipment Documentation (error) 12/26/2024 Telephone [facility] Radiation Oncology [address] [facility] [place] [address] Janice Stewart RN 12/26/2024 Orders Only [facility] Radiation Oncology [address] [place] [address] Dawson Alcaraz MD Prostate cancer (HCC) (Primary Dx) 12/24/2024 Orders Only [facility] Radiation Oncology [address] [place] [address] Dawson Alcaraz MD 12/23/2024 Telephone [facility] Radiation Oncology [address] [place] [address] Janice Stewart RN 12/23/2024 Telephone [facility] Radiation Oncology [address] [place] [address] Janice Stewart RN from Last 3 Months Allergies No known [...] Date Herniated nucleus pulposus, L3-4 left 02/17/2023 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 More than 4 times per year 12/21/2023 Do you belong to any clubs o r organizations such as cheondoism groups, unions, fraternal or athletic groups, or [...] place to sleep or slept in a chcf (including now)? No 12/21/2023 Personal Safety Answer Date Recorded Have you ever been in or are you currently in a harmful physical or emotional relationship or is someone making you feel afraid or unsafe? Denies 12/22/2023 Sex and Gender Information Value Date Recorded Sex Assigned at Not on file Legal Sex Male 12:37 AM DRY ICE MAKER Gender Identity Not on file Sexual Orientation Not on file Last Filed Vital Signs Vital Sign Reading Time Taken Comments Blood Pressure 137/85 12/30/2024 11:42 AM CDT Pulse 73 09/09/2024 3:00 PM DRY ICE MAKER Temperature 36.3 C (97.4 F) 10/29/2024 2:12 PM DRY ICE MAKER Respiratory Rate 16 09/09/2024 3:00 PM DRY ICE MAKER Oxygen Saturation 96% 09/09/2024 3:00 PM DRY ICE MAKER Inhaled Oxygen Concentration - - Weight 94.8 [...] of life. Medical Devices Implanted Type Area Dobie Worker Device Identifier Shelf Expiration Date Model / Serial / Lot Hernia Mesh Left: Pelvis Procedures Procedure Name Priority Date/Time Associated Diagnosis Comments PSA, TOTAL AND FREE Routine 12/24/2024 1 1:11 AM CDT TOTAL TESTOSTERONE Routine 12/24/2024 11 :11 AM CDT from Last 3 Months Results * PSA, total and free (12/24/2024 11:11 AM CDT) PSA 0.1 < OR = 4.0 ng/mL [facility] PSA, free <0.1 ng/mL [facility] PSA, free UNABLE TO CALCULATE >25 % (calc) [employer] [place] Comment: The free PSA level is below [...] 30 93 9 (3)Catalona et al.:ZANA 277: 1946-2237 (1996) (4)Catalona et al.:ZANA 279: 7218-2486 (1997) (x)These estimates vary with age, ethnicity, [...] mind. PSA was performed using the Yeyo [place] Immunoassay method. Values obtained from different assay methods cannot be used interchangeably. PSA levels, regardless of value, should not be interpreted as absolute evidence of the presence or absence of disease. 12/24/2024 11:1 1 AM CDT 12/24/2024 11:12 AM CDT us Dawson Alcaraz MD LAB BLOOD ORDERABLES Final Result [facility] [address] [place] [address] * (ABNORMAL) Total testosterone (12/24/2024 11:11 AM CDT) Testosterone <10(L) 250 - 827 ng/dL [facility] Comment: In hypogonadal males, Testosterone, Total, LC/MS/MS, is the recommended assay due to the diminished accuracy of immunoassay at levels below 250 ng/dL. This test code (32247) must be collected in a red-top tube with no gel. 12/24/2024 11:1 1 AM CDT 12/24/2024 11:12 AM CDT us Dawson Alcaraz MD LAB BLOOD ORDERABLES Final Result [facility] [id number] [id number] from Last 3 [place] [address] [facility] MEDICARE ADVANTAGE [facility] MEDICARE ADVANTAGE MEDICARE RESEARCH [facility] MEDICARE ADVANTAGE [facility] MEDICARE Address: [address] [place] [phone] [facility] MEDICARE ADVANTAGE [facility] MEDICARE Address: [address] [address] [facility] MEDICARE ADVANTAGE [facility] Address: [address] [address] [place] [address] Care Teams Policy Writer Typist Relationship Specialty Start Date End Date Ludivina Loaiza MD [address] [place] [address] PCP - General 12/05/16 Christiano Ramesh MD [address] [facility] [address] [place] [address] Consulting Physician Neurosurgery 03/02/23 Nadira Valle, time clock repairer 12/22/23 Dawson Alcaraz MD [address] [facility] [address] [place] [address] Radiation Oncologist Radiation Oncology 07/16/24
[2025-02-21 13:04] LABS: Hematocrit 40.7 % (37.0-46.0); Hemoglobin 13.7 g/dL (12.4-15.3); Mean Corpuscular HGB Conc 33.7 g/dL (32-36); Mean Corpuscular Hemoglobin 29.8 pg (27.0-31.0); Mean Corpuscular Volume 88.5 fL (78.0-102.0); Mean Platelet Volume 9.9 fl (8.7-11.0); Platelet Count Result 252 K/mm3 (150-420); Red Cell Distribution Width 11.9 % (11.6-14.4); White Blood Count 6.7 K/mm3 (4.8-10.8)
[2025-02-21 13:43] LABS: Influenza A QL RT-PCR Negative (Negative); Influenza B QL RT-PCR Negative (Negative); RSV RNA, RT-PCR Negative (Negative); SARS-CoV-2 RNA PCR Negative (Negative); Strep Group A RT-PCR NOT DETECTED (Negative)
== END 2025-02-21 12:41 | disposition home or self-care (01) ==
LOC: CHSLAB 12:42
PROVIDERS: PCP Internal Medicine; Visit Provider Internal Medicine
DX: J06.9 Acute upper respiratory infection, unspecified (principal); R05.9 Cough, unspecified
CPT/HCPCS: 36415; 71046; 85027; 87637; 87651

== ENCOUNTER 2025-02-25 14:57 | Emergency (ER) | payer MEDICARE, SELFPAY ==
--- NOTE | ~2025-02-25 | CT_ITS ---
EXAMINATION: CTA chest PE protocol DATE: 02/25/2025 16:35 INDICATION: First breath, cough and chest pain. TECHNIQUE: Computed tomography (CT) pulmonary angiogram of the chest was performed with 100 mL Omnipa que-350 intravenous contrast. Additional 3D reconstructions utilizing coronal maximum intensity proje ction (MIP) were performed. Automated exposure control and iterative reconstruction technique were em ployed. The dose-length product was 387.06 mGy-cm. COMPARISON: Chest CT dated 03/17/2022 FINDINGS: No pulmonary embolism. Linear discoid atelectasis in the right lower lobe. A few unchanged small calc ite and noncalcified pulmonary nodules in the bilateral lower lobes the largest on the left measuring 6 x 4 mm which given interval stability are most consistent with old granulomatous disease. No pneum onia, pulmonary edema, pleural effusion or pneumothorax. Heart size is normal. No pericardial effusio n. Multiple calcified mediastinal lymph nodes consistent with old granulomatous disease. No pathologi chanelle enlarged thoracic lymphadenopathy. Mild to moderate thoracic spondylosis with chronic mild ante rior wedging at T7 and T8. IMPRESSION: 1. No pulmonary embolism or other acute cardiopulmonary disease. Reviewed, dictated and finalized at location A.
[2025-02-25 15:00] VITALS: BP 134/84; PULSE 100; RESP 20; TEMP 36.9; O2SAT 96; O2SAT 99
--- OUTSIDE RECORDS SUMMARY | 2025-02-25 15:00 | XMS_ITS | Encounter Summary ---
Author Organization [facility] Address [facility] [place] [address] Care Team Providers Care Payroll Benefits Administrator Name Role Phone Ludivina Loaiza MD Primary Care Provider [phone] Tor Burns MD Unavailable [phone] Brian Cole MD Unavailable [phone] Christiano Ramesh MD Unavailable [phone] Dharmesh Roche MD Unavailable [phone] Edinson York APRN Unavailable [phone] Denis Cantrell MD Unavailable Pennie Garcia PA-C Unavailable [phone] Encounter Details Date Type Department Care Team (Late st Contact Info) Description 02/14/2023 Hospital Orders Only [place] [employer] [facility] [address] [place] [address] Brian Cole MD [address] [place] [address] Social History Tobacco Use Types Packs/Day Years [...] Description 08/05/2025 12:45 PM CDT Office Visit [facility] [address] [place] [address] Brian Cole MD [address] [place] [address] documented as of this encounter Visit Diagnoses Not on filedocumented in this encounter Care Teams Payroll Benefits Administrator Relationship Specialty Start Date End Date Ludivina Loaiza MD [address] [place] [address] PCP - General INTERNAL MEDICINE 01/24/18 Tor Burns MD [address] [place] [address] [place] Drafter Tool Design CARDIOVASCULAR DISEASE 01/24/18 02/16/23 Brian Cole MD [address] [place] [address] EP Drafter Tool Design CLINICAL CARDIAC ELECTROPHYSIOLOGY 03/25/22 Christiano Ramesh MD [address] [facility] [address] [place] [id number] Surgeon NEUROLOGICAL SURGERY 02/17/23 Dharmesh Roche MD 3 [facility] [place], [place] [id number] Consulting Physician INTERVENTIONAL CARDIOLOGY 02/20/23 Edinson York APRN 3 [facility]. [address] [place] [address] Nurse Practitioner NURSE PRACTITIONER 02/20/23 Denis Cantrell MD 3 [facility]. [address] [place] [address] Consulting Physician INTERNAL MEDICINE 07/28/23 Pennie Garcia PA-C [address] [place] [address] Referring Physician PHYSICIAN ACCOUNTING OFFICE MANAGER 08/05/24 documented as of this encounter
--- OUTSIDE RECORDS SUMMARY | 2025-02-25 15:00 | XMS_ITS | Clinical Summary ---
Author Organization [facility] Address [address] [place] [address] Care Team Providers Care Library Page Name Role Phone Ludivina Loaiza MD Primary Care Provider [phone] Brian Cole MD Unavailable [phone] Christiano Ramesh MD Unavailable [phone] Dharmesh Roche MD Unavailable [phone] Edinson York APRN Unavailable [phone] Denis Cantrell MD Unavailable Pennie Garcia PA-C Unavailable [phone] Allergies No known active allergies Medications glimepiride [...] with other complications 08/22/2023 Paroxysmal atrial fibrillation ([facility]) 03/28/2023 Typical atrial flutter ([facility]) 023 Chronic venous insufficiency 02/17/2023 Chronic pain Dyslipidemia Essential hypertension Diabetes ([facility]) Chest pain Dyspnea Resolved Problems Problem [...] slept in a fdc (including now)? No 04/25/2023 Sex and Gender [...] 08/05/2025 12:45 PM CDT Office Visit [facility] eld [address] [place] [address] Brian Cole MD [address] [place] [address] Health Maintenance Due Date Last Done Comments [...] age to complete this topic Insurance [facility] Advance Directives * Full Code (Latest Code Status on File) Date Activated Date Inactivated Comments 04/25/2023 10:58 AM 04/26/2023 12:31 PM Care Teams Library Page Relationship Specialty Start Date End Date Ludivina Loaiza MD [address] [place] [address] PCP - General INTERNAL MEDICINE 01/24/18 Brian Cole MD [address] [place] [address] EP Hot Box Operator CLINICAL CARDIAC ELECTROPHYSIOLOGY 03/25/22 Christiano Ramesh MD 3 [facility] [place], [place] [address] Surgeon NEUROLOGICAL SURGERY 02/17/23 Dharmesh Roche MD 3 [facility] [place], [place] [phone] Consulting Physician INTERVENTIONAL CARDIOLOGY 02/20/23 Edinson York APRN 3 [facility]. [address] [place] [address] Nurse Practitioner NURSE PRACTITIONER 02/20/23 Denis Cantrell MD 3 [facility] [place] [address] Consulting Physician INTERNAL MEDICINE 07/28/23 Pennie Garcia PA-C [address] [place] [id number] Referring Physician PHYSICIAN ELECTROPHONIC ENGINEER 08/05/24
--- OUTSIDE RECORDS SUMMARY | 2025-02-25 15:01 | XMS_ITS | Referral Summary ---
Author Organization [facility] Address [address] [place] [address] Care Team Providers Care Dry Wall Installations Mechanic Name Role Phone Ludivina Loaiza MD Primary Care Provider [phone] Christiano Ramesh MD Unavailable [phone] Nadira Valle RN Unavailable Unavailabl Dawson Servin MD Unavailable Encounters Date Type Department Care Team Description 01/27/2025 Telephone [facility] Radiation Oncology [address] [facility] [place] [address] Janice Stewart, DENIZ 01/27/2025 Telephone [facility] Radiation Oncology [address] [facility] [place] [address] Janice Stewart RN 12/30/2024 11:00 AM CDT Office Visit [facility] Radiation Oncology [address] [facility] [place] [address] Dawson Alcaraz MD Prostate cancer (HCC) [C61] (Primary Dx) 12/26/2024 Documentation [facility] Radiation Oncology [address] [facility] [place] [address] Janice Stewart RN 12/26/2024 Documentation [facility] Radiation Oncology [address] [place] [address] Janice Stewart RN LVAD Equipment Documentation (error) 12/26/2024 Telephone [facility] Radiation Oncology [address] [facility] [place] [address] Janice Stewart RN 12/26/2024 Orders Only [facility] Radiation Oncology [address] [place] [address] Dawson Alcaraz MD Prostate cancer (HCC) (Primary Dx) 12/24/2024 Orders Only [facility] Radiation Oncology [address] [place] [address] Dawson Alcaraz MD 12/23/2024 Telephone [facility] Radiation Oncology [address] [place] [address] Janice Stewart RN 12/23/2024 Telephone [facility] Radiation Oncology [address] [place] [address] Janice Stewart RN from Last 3 Months [...] Date Herniated nucleus pulposus, L3-4 left 02/17/2023 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 More than 4 times per year 12/21/2023 Do you belong to any clubs o r organizations such as samaritan groups, unions, fraternal or athletic groups, or [...] place to sleep or slept in a half-way (including now)? No 12/21/2023 Personal Safety Answer Date Recorded Have you ever been in or are you currently in a harmful physical or emotional relationship or is someone making you feel afraid or unsafe? Denies 12/22/2023 Sex and Gender Information Value Date Recorded Sex Assigned at Not on file Legal Sex Male 12:37 AM LIQUID LOADER Gender Identity Not on file Sexual Orientation Not on file Last Filed Vital Signs Vital Sign Reading Time Taken Comments Blood Pressure 137/85 12/30/2024 11:42 AM CDT Pulse 73 09/09/2024 3:00 PM LIQUID LOADER Temperature 36.3 C (97.4 F) 10/29/2024 2:12 PM LIQUID LOADER Respiratory Rate 16 09/09/2024 3:00 PM LIQUID LOADER Oxygen Saturation 96% 09/09/2024 3:00 PM LIQUID LOADER Inhaled Oxygen Concentration - - Weight 94.8 [...] of life. Medical Devices Implanted Type Area Operational Intelligence Officer Device Identifier Shelf Expiration Date Model / Serial / Lot Hernia Mesh Left: Pelvis Procedures Procedure Name Priority Date/Time Associated Diagnosis Comments PSA, TOTAL AND FREE Routine 12/24/2024 1 1:11 AM CDT TOTAL TESTOSTERONE Routine 12/24/2024 11 :11 AM CDT from Last 3 Months Results * PSA, total and free (12/24/2024 11:11 AM CDT) PSA 0.1 < OR = 4.0 ng/mL [facility] PSA, free <0.1 ng/mL [facility] PSA, free UNABLE TO CALCULATE >25 % (calc) Care Team [facility] [place] Comment: The free PSA level is below [...] 30 93 9 (3)Catalona et al.:ZANA 277: 1536-1384 (1996) (4)Catalona et al.:ZANA 279: 2290-3334 (1997) (x)These estimates vary with age, ethnicity, [...] mind. PSA was performed using the Yeyo Hampton Immunoassay method. Values obtained from different assay methods cannot be used interchangeably. PSA levels, regardless of value, should not be interpreted as absolute evidence of the presence or absence of disease. 12/24/2024 11:1 1 AM CDT 12/24/2024 11:12 AM CDT us Dawson Alcaraz MD LAB BLOOD ORDERABLES Final Result [facility] [address] [place] [address] * (ABNORMAL) Total testosterone (12/24/2024 11:11 AM CDT) Testosterone <10(L) 250 - 827 ng/dL [facility] Comment: In hypogonadal males, Testosterone, Total, LC/MS/MS, is the recommended assay due to the diminished accuracy of immunoassay at levels below 250 ng/dL. This test code (58856) must be collected in a red-top tube with no gel. 12/24/2024 11:1 1 AM CDT 12/24/2024 11:12 AM CDT us Dawson Alcaraz MD LAB BLOOD ORDERABLES Final Result [facility] [address] [id number] from Last 3 Months Insurance [facility] MEDICARE ADVANTAGE [facility] MEDICARE ADVANTAGE MEDICARE RESEARCH [facility] MEDICARE ADVANTAGE [facility] MEDICARE Address: [address] [place] [phone] [facility] MEDICARE ADVANTAGE [facility] MEDICARE Address: [address] [address] [facility] MEDICARE ADVANTAGE [facility] MEDICARE Address: [address] [address] [place] [address] Care Teams Dry Wall Installations Mechanic Relationship Specialty Start Date End Date Ludivina Loaiza MD [address] [place] [address] PCP - General 12/05/16 Chrisitano Ramesh MD [address] [facility] [address] [place] [address] Consulting Physician Neurosurgery 03/02/23 Nadira Valle, opto mechanical engineer 12/22/23 Dawson Alcaraz MD [address] [facility] [address] [place] [address] Radiation Oncologist Radiation Oncology 07/16/24
--- OUTSIDE RECORDS SUMMARY | 2025-02-25 15:01 | XMS_ITS | Encounter Summary ---
Author Organization [facility] Address [address] [place] [address] Care Team Providers Care Self Propelled Hot Mix Roller Operator Name Role Phone Ludivina Loaiza MD Primary Care Provider [phone] Brian Cole MD Unavailable [phone] Christiano Ramesh MD Unavailable [phone] Dharmesh Roche MD Unavailable [phone] Edinson York APRN Unavailable [phone] Denis Cantrell MD Unavailable Pennie Garcia PA-C Unavailable [phone] Encounter Details Date Type Department Care Team (Late st Contact Info) Description 04/20/2023 Hospital Orders Only [facility] Anesthesia [address] [place] [address] Melissa Wallis RN Anesthesia Record Procedure Summary [...] Date: 04/25/23; Removal Time: 1029; Removal Person: BARBERING INSTRUCTOR; Removal Reason: End of Case 04/25/237[address] [...] Patient Discharged 04/25/23 0730 by Suzy Torres, BARBERING INSTRUCTOR 04/26/23 0908 by Shruthi Dow RN Arterial Line Placement Date: 04/15 11/07; Placement Time: 743 (created via procedure documentation); Orientation: Right; Location: Radial; Site Prep: Chlorhexidine; Local Anesthetic: None; Insertion Attempts: 1; Patient Tolerance: Tolerated well; Removal Date: 04/25/23; Removal Time: 1215; Removal Reason: Therapy Completed 04/25/23 07 by Suzy Torres, BARBERING INSTRUCTOR 04/25/23 121 by Steffanie Toscano RN [...] Description 08/05/2025 12:45 PM CDT [facility] [address] [place] [address] Brian Cole MD [address] [place] [address] documented as of this encounter Visit Diagnoses Not on filedocumented in this encounter Care Teams Self Propelled Hot Mix Roller Operator Relationship Specialty Start Date End Date Ludivina Loaiza MD [address] [place] [id number] PCP - General INTERNAL MEDICINE 01/24/18 Brian Cole MD [address] [place] [address] EP Planning Division Superintendent CLINICAL CARDIAC ELECTROPHYSIOLOGY 03/25/22 Christiano Ramesh MD [address] [facility]. [address] [place] [address] Surgeon NEUROLOGICAL SURGERY 02/17/23 Dharmesh Roche MD 3 [facility]. [address] [place] [address] Consulting Physician INTERVENTIONAL CARDIOLOGY 02/20/23 Edinson York APRN 3 [facility]. [address] [place], [place] [address] Nurse Practitioner NURSE PRACTITIONER 02/20/23 Denis Cantrell MD 3 [facility]. [address] [place], [place] [address] Consulting Physician INTERNAL MEDICINE 07/28/23 Pennie Garcia PA-C [address] [place] [address] Referring Physician PHYSICIAN REMEDY DEVELOPER 08/05/24 documented as of this encounter
--- OUTSIDE RECORDS SUMMARY | 2025-02-25 15:01 | XMS_ITS | Clinical Summary ---
Author Organization [facility] Address [address] [place] [address] Care Team Providers Care Meteorological Engineer Name Role Phone Ludivina Loaiza MD Primary Care Provider + [phone] Christiano Ramesh MD Unavailable [phone] Nadira Valle RN Unavailable Unavailabl Dawson Servin MD Unavailable Allergies No known active allergies Medications lovastatin [...] Type Department Care Team Description 01/27/2025 Telephone [facility] Radiation Oncology [facility] [place] [address] Janice Stewart RN 01/27/2025 Telephone [facility] Radiation Oncology [address] [place] [address] Janice Stewart RN 12/30/2024 11:00 AM CDT Office Visit [facility] Radiation Oncology [address] [place] [address] Dawson Alcaraz MD Prostate cancer (HCC) [C61] (Primary Dx) 12/26/2024 Documentation [facility] Radiation Oncology [address] [facility] for [place] [address] Janice Stewart RN 12/26/2024 Documentation [facility] Radiation Oncology [address] [facility] [place] [address] Janice Stewart RN LVAD Equipment Documentation (error) 12/26/2024 Telephone [facility] Radiation Oncology [address] [place] [address] [place] [address] Janice Stewart RN 12/26/2024 Orders Only [facility] Radiation Oncology [address] [place] [address] Dawson Alcaraz MD Prostate cancer (HCC) (Primary Dx) 12/24/2024 Orders Only [facility] Radiation Oncology [address] [facility] [place] [address] Dawson Alcaraz MD 12/23/2024 Telephone [facility] Radiation Oncology [address] [place] [address] Janice Stewart RN 12/23/2024 Telephone [facility] Radiation Oncology [address] [facility] [place] [address] Janice Stewart RN from Last 3 Months [...] often do you attend chur ch or protestant services? More than 4 times per year [...] on file Legal Sex Male 12:37 AM EMERGENCY MANAGEMENT DIRECTOR Gender Identity Not on file Sexual Orientation Not on file Obstetrics History Last Filed Vital Signs Vital Sign Reading Time Taken Comments Blood Pressure 137/85 12/30/2024 11:42 AM CDT Pulse 73 09/09/2024 3:00 PM EMERGENCY MANAGEMENT DIRECTOR Temperature 36.3 C (97.4 F) 10/29/2024 2:12 PM EMERGENCY MANAGEMENT DIRECTOR Respiratory Rate 16 09/09/2024 3:00 PM EMERGENCY MANAGEMENT DIRECTOR Oxygen Saturation 96% 09/09/2024 3:00 PM EMERGENCY MANAGEMENT DIRECTOR Inhaled Oxygen Concentration - - Weight 94.8 [...] Progress Patient-Stated? Author [facility] No Jneelle Truong, RN Note: Patient will establish a comfort-function goal and identify the pain level that will allow the patient to perform desired activities and achieve an acceptable quality of life. Medical Devices Implanted Type Area Manager Android Device Identifier Shelf Expiration Date Model / Serial / Lot Hernia Mesh Left: Pelvis Procedures Procedure Name Priority Date/Time Associated Diagnosis Comments PSA, TOTAL AND FREE Routine 12/24/2024 1 1:11 AM CDT TOTAL TESTOSTERONE Routine 12/24/2024 11 :11 AM CDT from Last 3 Months Results * PSA, total and free (12/24/2024 11:11 AM CDT) PSA 0.1 < OR = 4.0 ng/mL [facility] PSA, free <0.1 ng/mL [facility] PSA, free UNABLE TO CALCULATE >25 % (calc) [facility] [place] [facility] Comment: The free PSA level is below [...] 30 93 9 (3)Catalona et al.:ZANA 277: [id number] (1996) (4)Catalona et al.:ZANA 279: 8557-2926 (1997) (x)These estimates vary with age, ethnicity, [...] 1 AM CDT 12/24/2024 11:12 AM CDT Dawsno Alcaraz MD LAB BLOOD ORDERABLES Final Result [facility] [address] [place] [address] * (ABNORMAL) Total testosterone (12/24/2024 11:11 AM CDT) Testosterone <10(L) 250 - 827 ng/dL [facility] Comment: In hypogonadal males, Testosterone, Total, LC/MS/MS, is the recommended assay due to the diminished accuracy of immunoassay at levels below 250 ng/dL. This test code (71330) must be collected in a red-top tube with no gel. 12/24/2024 11:1 1 AM CDT 12/24/2024 11:12 AM CDT Dawson Alcaraz MD LAB BLOOD ORDERABLES Final Result [facility] [address] [address] [phone] from Last 3 Months Insurance MEDICARE [facility] MEDICARE ADVANTAGE [facility] MEDICARE ADVANTAGE [place] [address] [facility] MEDICARE ADVANTAGE [facility] MEDICARE ADVANTAGE [facility] MEDICARE Address: [address] [id number] [facility] MEDICARE ADVANTAGE [facility] MEDICARE Address: [address] [address] [place] [address] Care Teams Meteorological Engineer Relationship Specialty Start Date End Date Ludivina Loaiza MD [address] [place] [address] PCP - General 12/05/16 Christiano Ramesh MD [address] [facility] [address] [place] [address] Consulting Physician Neurosurgery 03/02/23 Nadira Valle, water softener installer 12/22/23 Dawson Alcaraz MD [address] [facility] [address] [place] [address] Radiation Oncologist Radiation Oncology 07/16/24
--- OUTSIDE RECORDS SUMMARY | 2025-02-25 15:01 | XMS_ITS | Continuity of Care Document ---
Author Organization [facility] Address [address] [address] [place] [address] Phone Care Team Providers Care Visual Training Aide Name Role Phone Jaya Florentino PA-C Unavailable [...] 12 Lead; W/intrpt Offic/outpt E m [facility] Advance Directives Directive Yes / No Effective Date File Name No Information Encounters Encounter Description Practice Location Reason(s) For Visit Diagnoses Date Provider Providers Copied on Encounter [facility], [address] [address], [place], [place], [id number], tel:[phone] No Information [address] [place]. [address] [place], [place], [id number] , . tel:[phone] Offic/outpt E m [facility], [address] [address], [id number], tel:[phone] 1st Care Swelling (chief complaint) Edema, unspecifiedChest pain, unspecified type [facility] [address] [place] [address], [id number] , [place]. tel: [phone] Family History Family Member Type Diagnosis Age At Onset No Information Payers Payer name Insurance type Covered constitution party ID Ching lopez(s) [facility] [id number] Social History Type Description Quantity Date Captured Comments Sex Male Smoking Status No Information Chief Complaint And Reason For Visit No Information Reason For Referral Reason For Referral No Information Plan Of Treatment Date Type Action Status Future Order: Radiology Order XR Chest 2 View ([id number]), Sent on: Sent History Of Present Illness Encounter Date Complaint History Of Prese nt Illness Swelling Swelling (comments) Patient ents the clinic today with recent chest pain, bilateral lower extremity swelling, shortness of breath.He arrived in [place] from the [place] [address], having traveled on a cruise ship and then most recently on an extended train ride from [place] to [facility].He states that his symptoms began after [...]
--- OUTSIDE RECORDS SUMMARY | 2025-02-25 15:01 | XMS_ITS | Encounter Summary ---
Author Organization [facility] Address [facility] [place] [address] Care Team Providers Care Plunket Nurse Name Role Phone Ludivina Loaiza MD Primary Care Provider [phone] Tor Burns MD Unavailable [phone] Brian Cole MD Unavailable [phone] Christiano Ramesh MD Unavailable [phone] Dharmesh Roche MD Unavailable [phone] Edinson York APRN Unavailable [phone] Denis Cantrell MD Unavailable Pennie Garcia PA-C Unavailable [phone] Encounter Details Date Type Department Care Team (Late st Contact Info) Description 01/22/2018 Abstract [facility] [address] [place] [address] Tor Burns MD [address] [place] [address] Social History Tobacco Use Types Packs/Day Years [...] Description 08/05/2025 12:45 PM CDT Office Visit [facility] [address] [place] [address] Brian Cole MD [address] [place] [address] documented as of this encounter Visit Diagnoses Not on filedocumented in this encounter Care Teams Plunket Nurse Relationship Specialty Start Date End Date Ludivina Loaiza MD [address] [place] [address] PCP - General INTERNAL MEDICINE 01/24/18 Tor Burns MD [address] [place] [address] [facility] Physician CARDIOVASCULAR DISEASE 01/24/18 02/16/23 Brian Cole MD [address] [place], [place] [address] EP Sanipractic Physician CLINICAL CARDIAC ELECTROPHYSIOLOGY 03/25/22 Christiano Ramesh MD 3 [facility]. [address] [place] [address] Surgeon NEUROLOGICAL SURGERY 02/17/23 Dharmesh Roche MD [facility] [address] [place] [address] Consulting Physician INTERVENTIONAL CARDIOLOGY 02/20/23 Edinson York APRN 3 [facility]. [address] [place] [address] Nurse Practitioner NURSE PRACTITIONER 02/20/23 Denis Cantrell MD 3 [facility] [address] [place], [place] [address] Consulting Physician INTERNAL MEDICINE 07/28/23 Pennie Garcia PA-C [address] [place], [place] [address] Referring Physician PHYSICIAN FAMILY ASSISTANT 08/05/24 documented as of this encounter
--- NOTE | 2025-02-25 15:04 | ED_ITS ---
HPI - SOB/Dyspnea General Chief Complaint: Shortness of Breath/Dyspnea Stated Complaint: uri Time Seen by Provider: 02/25/25 15:04 Source: patient and family Mode of arrival: ambulatory Limitations: no limitations History of Present Illness HPI Narrative: Patient is a 65-year-old female with cough and congestion for the past 2 weeks. He has seen a primary doctor and they give him antibiotics and steroids and albuterol inhaler. He is here with continued shortness of breath and unresolved symptoms. He also has a left calf tenderness that has shown to be irritated yesterday and today. Patient is on AFib treatment with Xarelto. MD elicited complaint: shortness of breath Pertinent past history: other ( AFib with Xarelto, hypertension, hyperlipidemia) Onset (ago): week(s) (2) Context: recent illness and other ( patient has unresolved cough with chest congestion for the past 2 weeks after medication trials and was sent to the ER for evaluation.) Timing: constant Severity: moderate Exacerbating factors: nothing Relieving factors: nothing Known history of: other ( AFib with Xarelto, hyperlipidemia, hypertension) Associated symptoms: pain with inspiration, cough and chest congestion Treatment prior to arrival: other ( antibiotics, steroids) Related Data Home oxygen amount: none Home Medications ?Medication ?Instructions ?Recorded ?Confirmed ?Last Taken ?Type finasteride 5 mg tablet 5 mg PO DAILY 09/16/20 03/15/22 08/23/21 History glimepiride 1 mg tablet 1 mg PO QAM 09/16/20 03/15/22 08/23/21 History lovastatin 20 mg tablet,extended 20 mg PO HS 09/16/20 03/15/22 08/23/21 History release 24 hr Saccharomyces boulardii 250 mg 250 mg PO BID 05/24/21 03/15/22 08/23/21 History capsule (Daily Probiotic (S. boulardii)) triamterene 37.5 1 tablet PO DAILY 08/20/21 03/15/22 08/23/21 History mg-hydrochlorothiazide 25 mg tablet albuterol sulfate 90 mcg/actuation 2 puff inhalation PRN PRN 03/15/22 03/15/22 Unknown History aerosol inhaler Shortness Of Breath Allergies Allergy/AdvReac Type Severity Reaction Status Date / Time No Known Allergies Allergy Verified 02/25/25 15:06 Review of Systems 2 Review of Systems: All systems reviewed & are unremarkable except as noted in HPI and below Constitutional: Constitutional: Reports no additional constitutional complaints Eyes: Eyes: Reports no additional eye complaints ENT: Reports system reviewed and no additional complaints, except as documented Cardiovascular: Cardiovascular: Reports no additional cardiovascular complaints Respiratory: Respiratory: Reports no additional respiratory complaints Gastrointestinal: Gastrointestinal: Reports no additional gastrointestinal complaints Genitourinary: Genitourinary: Reports no additional male genitourinary complaints Musculoskeletal: Musculoskeletal: Reports no additional musculoskeletal complaints Integumentary/Breasts: Skin/Breast: Reports system reviewed and no additional complaints, except as docu Neurologic: Reports system reviewed and no additional complaints, except as documented Psychiatric: Psychiatric: Reports no additional psychiatric complaints Endocrine: Endocrine: Reports no additional endocrine complaints Hematologic/Lymphatic: Hematologic/Lymphatic: Reports no additional hematologic/lymphatic complaints Allergic/Immunologic: Allergic/Immunologic: Reports no additional allergic/immunologic complaints PMFSH Past Medical History Medical History Diarrhea Surgical History Surgical History History of hernia repair LIH hernia repair with mesh 08/24/21 History of lumbar surgery Family History Family History Sibling Acute myocardial infarction Sibling Acute myocardial infarction Social History Social History Smoking status: Never smoker Second hand tobacco smoke exposure: Yes Alcohol intake: never Alcohol use details: 1/MONTH Substance use: never Substance use type: does not use Living arrangements: with family Occupation/Education: retired Gender identity (if verbalized by the patient): Male Spiritual care concerns: No Exam 2 Const: General: healthy appearing Nutritional Appearance: well nourished Orientation/consciousness: patient oriented x3 Limitations: no limitations HENMT: Head: normal to inspection Ears: external ears normal F peter/Nose/Sinus: Normal external nose present Eyes: Conjunctivae: conjunctivae normal Pupils: Equal, round and reactive pupils present EOM: EOMs intact bilaterally Neck: Neck: normal visual inspection Chest: Chest palpation & inspection: normal inspection of the chest Resp: Effort & Inspection: normal respiratory effort, labored, no retractions, not tachypneic and no use of accessory muscles Auscultation: clear to auscultation bilaterally, no crackles and rhonchi ( right lower lobe) Cardio: Rate: regular rate Rhythm: regular rhythm Heart sounds: no murmurs GI: Inspection: non-distended GI Palp: Yes Soft to palpation, No Tenderness to palpation present (GI), No Guarding due to palpation present (GI), No Rigid due to palpation, No Hernia present, No Palpable mass present and No Rebound tenderness present Auscultation: normal bowel sounds : General: Yes bladder normal to palpation Back/Spine/Pelvis: Back: no CVA tenderness Skin: General skin exam: normal color Rashes: no rashes Wounds: no wounds Neuro: General: patient oriented x3 Cranial nerves: Yes Nystagmus not present Speech: normal speech Extrem: General: normal to inspection Psych: Mental Status: mental status grossly normal Affect: normal affect Attitude: cooperative Course Vital Signs Vital signs: Vital Signs Temperature 36.9 C 02/25/25 15:00 Pulse Rate 100 02/25/25 15:00 Respiratory Rate 20 02/25/25 15:00 Blood Pressure 134/84 02/25/25 15:00 Pulse Oximetry 96 02/25/25 15:00 Oxygen Delivery Room Air 02/25/25 15:00 Temperature 36.9 C 02/25/25 15:00 Pulse Rate 100 02/25/25 15:00 Respiratory Rate 20 02/25/25 15:00 Blood Pressure 134/84 02/25/25 15:00 Pulse Oximetry 99 02/25/25 15:00 Oxygen Delivery Room Air 02/25/25 15:00 MDM - SOB/Dyspnea MDM Narrative Medical decision making narrative: patient is a 65-year-old male with unresolving cough and congestion after trying antibiotics and steroids. Will do a further workup and treatment plan. She is on Xarelto however the consideration for PE is still possible but less likely. We will do the CTA of the chest which will define the lung tissue as well. Patient had a workup as an outpatient with labs and chest x-ray and antibiotics twice with steroids and albuterol. He has failed outpatient therapy at this exact time. Per the chart, patient was on azithromycin. He was also on steroids. Lab Data Attestation: I reviewed the patient's lab results. 02/25/25 15:40 02/25/25 15:40 Labs: Lab Results 02/25/25 Range/Units 15:40 WBC 8.8 (4.8-10.8) K/mm3 RBC 4.72 (4.70-6.10) M/mm3 Hgb 14.0 (12.4-15.3) g/dL Hct 40.9 (37.0-46.0) % MCV 86.7 (78.0-102.0) fL MCH 29.7 (27.0-31.0) pg MCHC 34.2 (32-36) g/dL RDW 11.8 (11.6-14.4) % Plt Count 269 (150-420) K/mm3 MPV 9.8 (8.7-11.0) fl Immature Gran % (Auto) 0.6 H (0.0-0.0) % Neut % (Auto) 75.8 H (50.0-70.0) % Lymph % (Auto) 15.9 L (18.0-42.0) % [place] % (Auto) 6.4 (2.0-11.0) % Eos % (Auto) 1.0 (1.0-6.0) % Baso % (Auto) 0.3 (0.0-1.0) % Lymph # (Auto) 1.40 (1.10-4.50) K/mm3 [place] # (Auto) 0.56 (0.10-0.90) K/mm3 Eos # (Auto) 0.09 (0.02-0.50) K/mm3 Baso # (Auto) 0.03 (0.00-0.10) K/mm3 Abs Immat Gran (auto) 0.05 H (0.00-0.00) K/mm3 Absolute Neuts (auto) 6.67 (1.70-7.20) K/mm3 Absolute Nucleated RBC 0.00 (0.00-0.00) K/mm3 Nucleated RBC % 0.0 (0-0.0) % PT 11.2 (9.50-12.1) Seconds INR 1.0 APTT 27.6 (23.9-30.70) Sec Sodium 136 L (137-145) mmol/L Potassium 3.5 (3.4-5.0) mmol/L Chloride 107 (98-107) mmol/L Carbon Dioxide 22 (22-30) mmol/L Anion Gap 7 (4-12) mmol/L BUN 23 H (9-20) mg/dL Creatinine 0.90 (0.7-1.3) mg/dL Estim Creat Clear Calc 74 ml/min Estimated GFR > 60 (59 - ) Glucose 138 H (65-110) mg/dL Calculated Osmolality 287 (285-295) mOsm/kg Lactic Acid 1.6 (0.4-2.0) mmol/L Calcium 8.9 (8.4-10.2) mg/dL Total Bilirubin 0.6 (0.2-1.3) mg/dL AST 26 (17-59) U/L ALT 45 (6-50) U/L Alkaline Phosphatase 62 (38-126) U/L Troponin I < 0.012 (0.000-0.034) ng/mL NT-Pro-B Natriuret Pep 88 (19.9-100) pg/mL Total Protein 6.3 (6.3-8.2) g/dL Albumin 3.8 (3.5-5.1) g/dL Imaging Data Attestation: I personally reviewed and interpreted this imaging study as follows: Radiologist's impression: CTA of the chest is negative for acute process ECG Data EKG #1: Attestation: I personally reviewed and interpreted this ECG as follows: ECG completion date: 02/25/25 ECG completion time: 16:13 EKG Interpretation: normal rate, sinus rhythm, no ectopy, no ST changes, normal QRS, normal QT and left axis Discharge Plan Discharge Clinical Impression: Acute bronchitis Qualifiers: Bronchitis organism: other organism Qualified Code(s): J20.8 - Acute bronchitis due to other specified organisms Patient Disposition: Home Condition: Stable Instructions: Acute Bronchitis (ED) Patient Language: Hebrew Prescriptions: New amoxicillin-pot clavulanate [Augmentin] 500-125 mg tablet 1 tablet PO BID 10 Days Qty: 20 0RF prednisone 20 mg tablet 40 mg PO DAILY 3 Days Qty: 6 0RF No Action albuterol sulfate 90 mcg/actuation HFA aerosol inhaler 2 puff INHALATION PRN PRN (Reason: Shortness Of Breath) carvedilol [Coreg] 3.125 mg Tablet 3.125 mg PO Q12HR Qty: 30 0RF Xarelto 10 mg Tablet 20 mg PO DAILY@1700 Qty: 30 0RF lovastatin 20 mg tablet extended release 24 hr 20 mg PO HS glimepiride 1 mg tablet 1 mg PO QAM Rx Instructions: administer with breakfast finasteride 5 mg tablet 5 mg PO DAILY Saccharomyces boulardii [Daily Probiotic (S. boulardii)] 250 mg capsule 250 mg PO BID triamterene-hydrochlorothiazid 37.5-25 mg tablet 1 tablet PO DAILY hydrocodone-acetaminophen 10-325 mg tablet 1 tablet PO Q4-6H PRN (Reason: pain) Qty: 20 0RF Follow-up/Referrals: Ludivina Loaiza MD [Primary Care Provider] - Time of Disposition: 17:12
--- NOTE | 2025-02-25 15:22 | ECG_ITS ---
Test Date: 2025-02-25 15:44:18 Measurements Intervals [place] Rate: 69 P: 55 MI: 161 QRS: -13 QRSD: 103 T: 30 QT: 376 QTc: 405 Interpretive Statements SINUS RHYTHM INCOMPLETE RIGHT BUNDLE BRANCH BLOCK Compared to ECG 10/14/2024 22:28:44 NO SIGNIFICANT CHANGES Electronically Signed On 02-26-2025 11:40:33 CDT by Harleen West M.D.
[2025-02-25 15:46] LABS: Basophils Absolute Auto 0.03 K/mm3 (0.00-0.10); Basophils Percent Auto 0.3 % (0.0-1.0); Eosinophils Absolute Auto 0.09 K/mm3 (0.02-0.50); Hematocrit 40.9 % (37.0-46.0); Immature Granulocyte Absolute 0.05 K/mm3 (0.00-0.00); Immature Granulocyte Percent A 0.6 % (0.0-0.0); Lymphocytes Percent Auto 15.9 % (18.0-42.0); Mean Corpuscular HGB Conc 34.2 g/dL (32-36); Mean Corpuscular Hemoglobin 29.7 pg (27.0-31.0); Mean Corpuscular Volume 86.7 fL (78.0-102.0); Mean Platelet Volume 9.8 fl (8.7-11.0); Monocytes Absolute Auto 0.56 K/mm3 (0.10-0.90); Monocytes Percent Auto 6.4 % (2.0-11.0); Neutrophils Absolute Auto 6.67 K/mm3 (1.70-7.20); Neutrophils Percent Auto 75.8 % (50.0-70.0); Platelet Count Result 269 K/mm3 (150-420); Red Blood Count 4.72 M/mm3 (4.70-6.10); Red Cell Distribution Width 11.8 % (11.6-14.4); White Blood Count 8.8 K/mm3 (4.8-10.8)
--- OUTSIDE RECORDS SUMMARY | 2025-02-25 15:48 | XMS_ITS | Encounter Summary ---
Author Organization [facility] Address Formerly [facility] [place] [address] Care Team Providers Care Residential Caregiver Name Role Phone Ludivina Loaiza MD Primary Care Provider [phone] Tor Burns MD Unavailable [phone] Brian Cole MD Unavailable [phone] Christiano Ramesh MD Unavailable [phone] Dharmesh Roche MD Unavailable [phone] Edinson York APRN Unavailable [phone] Denis Cantrell MD Unavailable Pennie Garcia PA-C Unavailable [phone] Encounter Details Date Type Department Care Team (Late st Contact Info) Description 02/14/2023 Hospital Orders Only [place] Principal Database Developer Pre/Post [address] [place] [address] Brian Cole MD [address] [place] [address] Social History Tobacco Use Types Packs/Day Years [...] Description 08/05/2025 12:45 PM CDT Office Visit [facility] [address] [place] [phone] Brian Cole MD [address] [place] [address] documented as of this encounter Visit Diagnoses Not on filedocumented in this encounter Care Teams Residential Caregiver Relationship Specialty Start Date End Date Ludivina Loaiza MD [address] [place] [address] PCP - General INTERNAL MEDICINE 01/24/18 Tor Burns MD [address] [place] [phone] Andrews Base Manager CARDIOVASCULAR DISEASE 01/24/18 02/16/23 Brian Cole MD [address] [place] [address] EP Base Manager CLINICAL CARDIAC ELECTROPHYSIOLOGY 03/25/22 Christiano Ramesh MD [address] [facility] [place] [address] [id number] Surgeon NEUROLOGICAL SURGERY 02/17/23 Dharmesh Roche MD [address] [facility] [place], [place] [phone] Consulting Physician INTERVENTIONAL CARDIOLOGY 02/20/23 Edinson York APRN [address] [facility]. [address] [place] [address] Nurse Practitioner NURSE PRACTITIONER 02/20/23 Denis Cantrell MD [address] [facility] [place] [address] Consulting Physician INTERNAL MEDICINE 07/28/23 Pennie Garcia PA-C [address] [place] [address] Referring Physician PHYSICIAN ENTERPRISE SYSTEMS ENGINEER 08/05/24 documented as of this encounter
--- OUTSIDE RECORDS SUMMARY | 2025-02-25 15:48 | XMS_ITS | Clinical Summary ---
Author Organization [facility] Address [address] [place] [address] Care Team Providers Care Mill Hand Name Role Phone Ludivina Loaiza MD Primary Care Provider [phone] Brian Cole MD Unavailable [phone] Christiano Ramesh MD Unavailable [phone] Dharmesh Roche MD Unavailable [phone] Edinson York APRN Unavailable [phone] Denis Cantrell MD Unavailable Pennie Garcia PA-C Unavailable [phone] Allergies No known active allergies Medications glimepiride [...] complications 08/22/2023 Paroxysmal atrial fibrillation ([facility]) 03/28/2023 Typical atrial flutter ([facility]) 023 Chronic venous insufficiency 02/17/2023 Chronic pain Dyslipidemia Essential hypertension Diabetes ([facility]) Chest pain Dyspnea Resolved Problems Problem Noted [...] in a senior living (including now)? No 04/25/2023 Sex and Gender [...] 08/05/2025 12:45 PM CDT Office Visit [facility] [address] [place] [phone] Brian Cole MD [address] [place] [address] Health Maintenance Due Date Last Done Comments [...] patient's age to complete this topic Insurance [facility] Advance Directives * Full Code (Latest Code Status on File) Date Activated Date Inactivated Comments 04/25/2023 10:58 AM 04/26/2023 12:31 PM Care Teams Mill Hand Relationship Specialty Start Date End Date Ludivina Loaiza MD [address] [place] [address] PCP - General INTERNAL MEDICINE 01/24/18 Brian Cole MD [address] [place] [address] EP Corporate Strategy Analyst CLINICAL CARDIAC ELECTROPHYSIOLOGY 03/25/22 Christiano Ramesh MD [address] [facility] [place], [place] [address] Surgeon NEUROLOGICAL SURGERY 02/17/23 Dharmesh Roche MD [address] [facility] [place], [place] [phone] Consulting Physician INTERVENTIONAL CARDIOLOGY 02/20/23 Edinson York APRN [address] [facility]. [address] [place] [address] Nurse Practitioner NURSE PRACTITIONER 02/20/23 Denis Cantrell MD [address] [facility]. [address] [place] [phone] Consulting Physician INTERNAL MEDICINE 07/28/23 Pennie Garcia PA-C [address] [place] [id number] Referring Physician PHYSICIAN INDEPENDENT LIVING ADVISOR 08/05/24
--- OUTSIDE RECORDS SUMMARY | 2025-02-25 15:48 | XMS_ITS | Data Portability ---
Author Organization [place] [facility] [employer], Main Office Address [address] [place] [address] Care Team Providers Care Gill Box Fixer Name Role Phone ANABELLA ISABEL Primary Care Provider ANABELLA ISABEL Referring Provider Assessment No assessment recorded. Plan of Treatment Reminders Order Date Submit Date Provider Last Modified By Organization Details Last Modified Time Details Appointments None recorded. Lab None recorded. Referral None recorded. Procedures None recorded. Surgeries None recorded. Imaging None recorded. Medication Orders mometasone 0.1 % topical cream 2023 024 [facility] #[id number], [address] [place], [address], 12:40:55 Patient TargetsNo targets recorded. Patient Instructions Encounter Date Encounter Id Patient Instructions Last Modified By Organization Details Last Modified Time 06/13/2024 [id number] An audiogram was also ordered the patient reports asymmetrical loss [email or web address] Not available 06/13/2024 12:41:11 Reason for Referral None Reported. Results Created Date Observation Date Name Description Value Unit Range Abnormal Flag Note LastModifiedBy Organization Detail LastModifiedTime 04/13/20 22 XR, knee No observ ation record ed. [id number] [facility] [place] [address], [place], [address], 12/15/2022 01:02:20 04/13/20 22 02/24/2022 XR, knee No observ ation record ed. [id number] [facility]) [address] [place], [address], 12/15/2022 01:02:20 04/13/20 22 02/24/2022 MRI, knee, w/o contr ast No observ ation record ed. [id number] Not Available 12/15/2022 01:02:20 09/02/20 22 XR, knee No observ ation record ed. [id number] [facility] [place] [address], [place], [address], 12/15/2022 01:02:20 Result Notes None recorded. Problems Name Problem SNOMED Code Status Onset Date Resolution Date Notes Provider Name and Address Organization Details Recorded Time Arthriti s 4996745 Active 2021 Not Available [facility] 3 00:59:55 Osteoart hritis 202948926 Active 2021 Not Available [facility] 3 00:59:56 Pain of right knee joint 45790635907 4100 Active 2021 Not Available [facility] 3 00:59:56 Paroxysm al atrial fibrilla tion 955010612 Completed 202306/11/2024 JENNY Perez, [facility] [employer] [facility] 4 12:45:17 Kidney stone 54757792 Completed 202306/11/2024 Renal stones. JENNY Perez, [place] [facility] [place] [facility] [employer] [facility] 17:17:10 COVID-19 236875110 Completed 202306/11/2024 Removal Reason: 2020, 2021. JENNY Perez, [place] [facility] [employer] 17:20:10 Sensorin eural hearing loss 86459232 Active 2023 Paulette Garsia RN null, [facility] [employer] [facility] 12:37:25 Eczema of external auditory canal 18961489 Active 2023 Jake Peres MD [address] [place] [address], [address] , [place] [facility] [place] [facility] 12:40:33 Problem Notes None recorded. Procedures Surgical History Date Name Laterality Status Provider Name and Address Organization Details Recorded Time hernia repair completed Not Available [facility] 12/15/2022 00:58:09 Back Surgery completed Not Available [facility] 12/15/2022 00:58:09 Imaging Results Imaging Date Name Status LastModified by Organ atformerly [facility] Details LastModified Time 09/02/2022 XR, knee completed [id number] 30 026 [facility] [place] [address] [facility] [address], [place], [address], 12/15/2022 01:02:20 04/13/2022 XR, knee completed [id number] 30 026 [facility] [place] [address] [facility] [address], [place], [address], 12/15/2022 01:02:20 02/24/2022 XR, knee completed [id number] 30 026 [facility]) [address] [place] [address], [address], 12/15/2022 01:02:20 02/24/2022 MRI, knee, w/o contrast completed [id number] Information not available 12/15/2022 01:02:20 Procedure [...] the provider active [facility]: [phone] Not Available Not Available [...] bromide 42 mcg (0.06 %) nasal spray [place] 2 sprays 3 times a day by intranasa l route. active Not Available Not Available No t Available fluticasone propionate 50 mcg/actuati on nasal spray,suspe nsion [place] 1 spray every day by intranasa l [...] Updated DateTime 04/13/2022 29.5 kg/m2 175.26 cm 65423.47 g Not Available [facility] 12/15/2022 00:58:15 Date Recorded Body height Provider Name an d Address Organization Details Last Updated DateTime 05/25/2022 175.26 cm Not Available [facility] 3 00:58:15 Date Recorded Body height Provider Name an d Address Organization Details Last Updated DateTime 09/02/2022 175.26 cm Not Available [facility] 3 00:58:15 Date Recorded Body height Body mass index (BMI) Body weight Body temperature Provider Name and Address Organization Details Last Updated DateTime 06/13/2024 180.34 cm 28.7 kg/m2 83091.59 g 98.6 [degF] JENNY Perez [place] [facility] [place] [employer] [facility] 06/13/2024 12:28:29 Social History None recorded. Functional Status Question Answer Note LastModified by Organizat ion Details LastModified Time What is your level of alcohol consumption? Occasional [id number] Information not available 12/15/2022 Mental Status None recorded. Family History Relationship Description Onset Age of this Age Resolved Age Notes LastModified by Organization Details LastModified Time Brother Heart disease [id number] Not available 12/15/2022 00:58:09 Brother Family history of stroke [id number] Not available 12/15/2022 00:58:09 Brother Diabetes mellitus [id number] Not available 12/15/2022 00:58:09 Notes:NO ENT Medical [...] HAVE YOU BEEN HOSPITALIZED OR SEEN IN [facility] IN THE PAST YEAR ? N BURSITIS [...] SNOMED-CT Code Diagnosis ICD10 Code Diagnosis Note [id number] Noe Fisher MD [facility] [place] [address] [facility] [address] [place] [address] 04/13/2022 00:00:00 04/13/2022 12:41:49 [id number] Noe Fisher MD [facility] [place] [address] [place] [address] 05/25/2022 00:00:00 05/25/2022 12:44:51 [id number] Noe Fisher MD [facility] [place] [address] [place] [address] 09/02/2022 00:00:00 09/02/2022 16:12:17 [id number] Jake Peres MD [facility] [place] [address] [place] [address] 06/13/2024 12:10:58 06/14/2024 12:04:16 Eczema of external auditory canal 28717078 H60.549 Health Concerns Section Related Observation LastModified by Organization Detai ls LastModified Time None Recorded Concern Status LastModified by Organization Details LastModified Time None Recorded Advance Directives Directive None Recorded Payers Encounter Date Sequence Insurance Name Policy Number Policy Blair Covered Member ID Blair Member ID Guarantor Name 06/13/2024 1 [facility] (MEDICARE REPLACEMENT/A DVANTAGE - HMO) [id number] Beck Almeida [id number] Beck Almeida Notes Date Note Type Note Provider Name and Address Organization Details Recorded Time 06/13/2024 text/html The patient reports itching ears a month ago. He was placed on Cortisporin which was effective. In addition he has allergic rhinitis successfully managed with Atrovent Flonase and montelukast. Jake Peres MD [address] [place] [address], [place] [address], [place], [address], [facility] [employer] 06/13/2024 12:41:27
--- OUTSIDE RECORDS SUMMARY | 2025-02-25 15:48 | XMS_ITS | Continuity of Care Document ---
Author Organization [facility] Address [address] [address] [place] [address] Phone Care Team Providers Care Creative Arts Therapist Name Role Phone Jaya Florentino PA-C Unavailable [...] Type Effective Dates (start - stop) Clini kigna Status Comments No Known Problems Procedures Procedure Date EKG 12 Lead; W/intrpt Offic/outpt E m [facility] Advance Directives Directive Yes / No Effective Date File Name No Information Encounters Encounter Description Practice Location Reason(s) For Visit Diagnoses Date Provider Providers Copied on Encounter [facility], [address] [address], [place], [place], [id number], tel:[phone] No Information 9 [place]. [address] [place], [place], [id number] , . tel:[phone] Offic/outpt E m [facility], [address] [address], [place], [address], tel:[phone] 1st Care Swelling (chief complaint) Edema, unspecifiedChest pain, unspecified type 9 Florentino Jaya. [address] [place] [address], [id number] , [place]. tel: [phone] Family History Family Member Type Diagnosis Age At Onset No Information Payers Payer name Insurance type Covered libertarian ID Ching lopez(s) [facility] [id number] Social History Type Description Quantity Date Captured Comments Sex Male Smoking Status No Information Chief Complaint And Reason For Visit No Information Reason For Referral Reason For Referral No Information Plan Of Treatment Date Type Action Status Future Order: Radiology Order XR Chest 2 View ([id number]), Sent on: Sent History Of Present Illness Encounter Date Complaint History Of Prese nt Illness Swelling (comments) Patient pres ents the clinic today with recent chest pain, bilateral lower extremity swelling, shortness of breath.[place] [address], having traveled on a cruise ship and then most recently on an extended train ride from [place] to [facility].He states that his symptoms began [...]
--- OUTSIDE RECORDS SUMMARY | 2025-02-25 15:49 | XMS_ITS | Clinical Summary ---
Author Organization [facility] Address [address] [place] [address] Care Team Providers Care Advertiser Name Role Phone Ludivina Loaiza MD Primary Care Provider + [phone] Christiano Ramesh MD Unavailable [phone] Nadira Valle RN Unavailable Unavailabl Dawson Servin [...] Date Herniated nucleus pulposus, L3-4 left 02/17/2023 [facility] current use of anticoagulant 3 Degenerative lumbar [...] Type Department Care Team Description 01/27/2025 Telephone [facility] Radiation Oncology [facility] [place] [address] Janice Stewart RN 01/27/2025 Telephone [facility] Radiation Oncology [address] [place] [address] Janice Stewart RN 12/30/2024 11:00 AM CDT Office Visit [facility] Radiation Oncology [address] [place] [address] Dawson Alcaraz MD Prostate cancer (HCC) [C61] (Primary Dx) 12/26/2024 Documentation [facility] Radiation Oncology [address] [facility] [place] [address] Janice Stewart RN 12/26/2024 Documentation [facility] Radiation Oncology [address] [facility] [place] [address] Janice Stewart RN LVAD Equipment Documentation (error) 12/26/2024 Telephone [facility] Radiation Oncology [address] [place] [address] [place] [address] Janice Stewart RN 12/26/2024 Orders Only [facility] Radiation Oncology [address] [place] [address] Dawson Alcaraz MD Prostate cancer (HCC) (Primary Dx) 12/24/2024 Orders Only [facility] Radiation Oncology [address] [facility] [place] [address] Dawson Alcaraz MD 12/23/2024 Telephone [facility] Radiation Oncology [address] [place] [address] Janice Stewart RN 12/23/2024 Telephone [facility] Radiation Oncology [address] [facility] [place] [address] Janice Stewart RN from Last 3 Months [...] often do you attend chur ch or mormonism services? More than 4 times per year 12/21/2023 Do you belong to any clubs o r organizations such as scientologist groups, unions, fraternal or athletic groups, or [...] place to sleep or slept in a jail (including now)? No 12/21/2023 Personal Safety Answer Date Recorded Have you ever been in or are you currently in a harmful physical or emotional relationship or is someone making you feel afraid or unsafe? Denies 12/22/2023 Sex and Gender Information Value Date Recorded Sex Assigned at Not on file Legal Sex Male 12:37 AM AGRONOMY SUPERVISOR Gender Identity Not on file Sexual Orientation Not on file Obstetrics History Last Filed Vital Signs Vital Sign Reading Time Taken Comments Blood Pressure 137/85 12/30/2024 11:42 AM CDT Pulse 73 09/09/2024 3:00 PM AGRONOMY SUPERVISOR Temperature 36.3 C (97.4 F) 10/29/2024 2:12 PM AGRONOMY SUPERVISOR Respiratory Rate 16 09/09/2024 3:00 PM AGRONOMY SUPERVISOR Oxygen Saturation 96% 09/09/2024 3:00 PM AGRONOMY SUPERVISOR Inhaled Oxygen Concentration - - Weight 94.8 [...] of life. Medical Devices Implanted Type Area Room Server Device Identifier Shelf Expiration Date Model / Serial / Lot Hernia Mesh Left: Pelvis Procedures Procedure Name Priority Date/Time Associated Diagnosis Comments PSA, TOTAL AND FREE Routine 12/24/2024 1 1:11 AM CDT TOTAL TESTOSTERONE Routine 12/24/2024 11 :11 AM CDT from Last 3 Months Results * PSA, total and free (12/24/2024 11:11 AM CDT) PSA 0.1 < OR = 4.0 ng/mL [facility] PSA, free <0.1 ng/mL [facility] PSA, free UNABLE TO CALCULATE >25 % (calc) [facility] [place] Comment: The free PSA level is below [...] 30 93 9 (3)Catalona et al.:ZANA 277: 2325-6267 (1996) (4)Catalona et al.:ZANA 279: 6853-1568 (1997) (x)These estimates vary with age, ethnicity, [...] MD LAB BLOOD ORDERABLES Final Result [facility] [address] [place] [address] * (ABNORMAL) Total testosterone (12/24/2024 11:11 AM CDT) Testosterone <10(L) 250 - 827 ng/dL [facility] Comment: In hypogonadal males, Testosterone, Total, LC/MS/MS, is the recommended assay due to the diminished accuracy of immunoassay at levels below 250 ng/dL. This test code (12877) must be collected in a red-top tube with no gel. 12/24/2024 11:1 1 AM CDT 12/24/2024 11:12 AM CDT Dawson Alcaraz MD LAB BLOOD ORDERABLES Final Result [facility] [address] [phone] from Last 3 Months Insurance MEDICARE [facility] MEDICARE ADVANTAGE [facility] MEDICARE ADVANTAGE [place] [address] [facility] MEDICARE ADVANTAGE [facility] MEDICARE ADVANTAGE Member Subscriber Plan / Payer (Ef fective 2018-Present) Name:Beck Almeida Relation to Subscriber:Self Name:Beck Almeida Payer ID:[id number] (NAIC) Type:[facility] MEDIC[facility] Address: [address] [id number] [facility] MEDICARE ADVANTAGE Care Teams Advertiser Relationship Specialty Start Date End Date Ludivina Loaiza MD [address] [place] [address] PCP - General 12/05/16 Christiano Ramesh MD [address] [facility] [address] [place] [address] Consulting Physician Neurosurgery 03/02/23 Nadira Valle, warp hanger 12/22/23 Dawson Alcaraz MD [address] [facility] [address] [place] [address] Radiation Oncologist Radiation Oncology 07/16/24
--- OUTSIDE RECORDS SUMMARY | 2025-02-25 15:49 | XMS_ITS | Continuity of Care Document ---
Author Organization [facility]. If a dditional information is needed, contact Health Information Management at [phone] Address [address] [place] [address] Phone Care Team Providers Care Manufacturing Engineering Professor Name Role Phone Unavailable Unavailable Unavailable Unavailable Unavailable Unavailable Unavailable Unavailable Unavailable Problems Backache Onset:25-Oct-2023 Elayne BLANCO Allergies and Adverse Reactions No Known Drug Allergies(Tay rgy) Onset: 25-Oct-2023 Social History Smoking Status Tobacco smoking consumption unknown Recorded:
--- OUTSIDE RECORDS SUMMARY | 2025-02-25 15:49 | XMS_ITS | Referral Summary ---
Author Organization [facility] Address [address] [place] [address] Care Team Providers Care Local Announcer Name Role Phone Ludivina Loaiza MD Primary Care Provider + [phone] Christiano Ramesh MD Unavailable [phone] Nadira Valle RN Unavailable Unavailabl Dawson Servin MD Unavailable Encounters Date Type Department Care Team Description 01/27/2025 Telephone [facility] Radiation Oncology [address] [facility] [place] [address] Janice Stewart, DENIZ 01/27/2025 Telephone [facility] Radiation Oncology [address] [facility] [place] [address] Janice Stewart RN 12/30/2024 11:00 AM CDT Office Visit [facility] Radiation Oncology [address] [facility] [place] [address] Dawson Alcaraz MD Prostate cancer (HCC) [C61] (Primary Dx) 12/26/2024 Documentation [facility] Radiation Oncology [address] [facility] [place] [address] Janice Stewart RN 12/26/2024 Documentation [facility] Radiation Oncology [address] [place] [address] Janice Stewart RN LVAD Equipment Documentation (error) 12/26/2024 Telephone [facility] Radiation Oncology [address] [facility] [place] [address] Janice Stewart RN 12/26/2024 Orders Only [facility] Radiation Oncology [address] [place] [address] Dawson Alcaraz MD Prostate cancer (HCC) (Primary Dx) 12/24/2024 Orders Only [facility] Radiation Oncology [address] [place] [address] Dawson Alcaraz MD 12/23/2024 Telephone [facility] Radiation Oncology [address] [place] [address] Janice Stewart RN 12/23/2024 Telephone [facility] Radiation Oncology [address] [place] [address] Janice Stewart RN from Last 3 Months [...] Date Herniated nucleus pulposus, L3-4 left 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 More than 4 times per year 12/21/2023 Do you belong to any clubs o r organizations such as restorationist groups, unions, fraternal or athletic groups, or [...] place to sleep or slept in a group home (including now)? No 12/21/2023 Personal Safety Answer Date Recorded Have you ever been in or are you currently in a harmful physical or emotional relationship or is someone making you feel afraid or unsafe? Denies 12/22/2023 Sex and Gender Information Value Date Recorded Sex Assigned at Not on file Legal Sex Male 12:37 AM SOFTWARE ENGINEER ADVISOR Gender Identity Not on file Sexual Orientation Not on file Last Filed Vital Signs Vital Sign Reading Time Taken Comments Blood Pressure 137/85 12/30/2024 11:42 AM CDT Pulse 73 09/09/2024 3:00 PM SOFTWARE ENGINEER ADVISOR Temperature 36.3 C (97.4 F) 10/29/2024 2:12 PM SOFTWARE ENGINEER ADVISOR Respiratory Rate 16 09/09/2024 3:00 PM SOFTWARE ENGINEER ADVISOR Oxygen Saturation 96% 09/09/2024 3:00 PM SOFTWARE ENGINEER ADVISOR Inhaled Oxygen Concentration - - Weight 94.8 [...] of life. Medical Devices Implanted Type Area Production Floater Device Identifier Shelf Expiration Date Model / Serial / Lot Hernia Mesh Left: Pelvis Procedures Procedure Name Priority Date/Time Associated Diagnosis Comments PSA, TOTAL AND FREE Routine 12/24/2024 1 1:11 AM CDT TOTAL TESTOSTERONE Routine 12/24/2024 11 :11 AM CDT from Last 3 Months Results * PSA, total and free (12/24/2024 11:11 AM CDT) PSA 0.1 < OR = 4.0 ng/mL [employer] PSA, free <0.1 ng/mL [employer] [facility] PSA, free UNABLE TO CALCULATE >25 % (calc) [facility] [place] Comment: The free PSA level is below [...] 30 93 9 (3)Catalona et al.:ZANA 277: 5740-6029 (1996) (4)Catalona et al.:ZANA 279: 2415-7202 (1997) (x)These estimates vary with age, ethnicity, [...] mind. PSA was performed using the Yeyo Mcgrath Immunoassay method. Values obtained from different assay methods cannot be used interchangeably. PSA levels, regardless of value, should not be interpreted as absolute evidence of the presence or absence of disease. 12/24/2024 11:1 1 AM CDT 12/24/2024 11:12 AM CDT us Dawson Alcaraz MD LAB BLOOD ORDERABLES Final Result [facility] [address] [place] [address] * (ABNORMAL) Total testosterone (12/24/2024 11:11 AM CDT) Testosterone <10(L) 250 - 827 ng/dL [facility] Comment: In hypogonadal males, Testosterone, Total, LC/MS/MS, is the recommended assay due to the diminished accuracy of immunoassay at levels below 250 ng/dL. This test code (76759) must be collected in a red-top tube with no gel. 12/24/2024 11:1 1 AM CDT 12/24/2024 11:12 AM CDT us Dawson Alcaraz MD LAB BLOOD ORDERABLES Final Result [facility] [address] [phone] from Last 3 [place] [address] [facility] MEDICARE ADVANTAGE [facility] MEDICARE ADVANTAGE MEDICARE [facility] MEDICARE ADVANTAGE [facility] MEDICARE ADVANTAGE [facility] MEDICARE ADVANTAGE Care Teams Local Announcer Relationship Specialty Start Date End Date Ludivina Loaiza MD [address] [place] [address] PCP - General 12/05/16 Christiano Ramesh MD [address] [facility] [place] [address] Consulting Physician Neurosurgery 03/02/23 Nadira Valle, process treater 12/22/23 Dawson Alcaraz MD [address] [facility] [address] [place] [address] Radiation Oncologist Radiation Oncology 07/16/24
--- OUTSIDE RECORDS SUMMARY | 2025-02-25 15:49 | XMS_ITS | Encounter Summary ---
Author Organization [facility] Address [address] [place] [address] Care Team Providers Care Scrub Nurse Name Role Phone Ludivina Loaiza MD Primary Care Provider [phone] Brian Cole MD Unavailable [phone] Christiano Ramesh MD Unavailable [phone] Dharmesh Roche MD Unavailable [phone] Edinson York APRN Unavailable [phone] Denis Cantrell MD Unavailable Pennie Garcia PA-C Unavailable [phone] Encounter Details Date Type Department Care Team (Late st Contact Info) Description 04/20/2023 Hospital Orders Only [facility] Anesthesia [address] [place] [address] Melissa Wallis RN Anesthesia Record Procedure Summary [...] Date: 04/25/23; Removal Time: 1029; Removal Person: SWING TENDER; Removal Reason: End of Case 04/25/23727 by [...] Patient Discharged 04/25/23 0730 by Suzy Torres, SWING TENDER 04/26/23 0908 by Shruthi Dow RN Arterial Line Placement Date: 04/15 11/07; Placement Time: 743 (created via procedure documentation); Orientation: Right; Location: Radial; Site Prep: Chlorhexidine; Local Anesthetic: None; Insertion Attempts: 1; Patient Tolerance: Tolerated well; Removal Date: 04/25/23; Removal Time: 1215; Removal Reason: Therapy Completed 04/25/23 07 by Suzy Torres, SWING TENDER 04/25/23 121 by Steffanie Toscano RN documented [...] Description 08/05/2025 12:45 PM CDT [facility] [address] [place] [address] Brian Cole MD [address] [place] [address] documented as of this encounter Visit Diagnoses Not on filedocumented in this encounter Care Teams Scrub Nurse Relationship Specialty Start Date End Date Ludivina Loaiza MD [address] [place] [address] PCP - General INTERNAL MEDICINE 01/24/18 Brian Cole MD [address] [place] [address] EP Coil Winder CLINICAL CARDIAC ELECTROPHYSIOLOGY 03/25/22 Christiano Ramesh MD 3 [facility]. [address] [place] [address] Surgeon NEUROLOGICAL SURGERY 02/17/23 Dharmesh Roche MD 3 [facility]. [address] [place] [address] Consulting Physician INTERVENTIONAL CARDIOLOGY 02/20/23 Edinson York APRN 3 [facility]. [address] [place], [place] [address] Nurse Practitioner NURSE PRACTITIONER 02/20/23 Denis Cantrell MD 3 [facility]. [address] [place], [place] [address] Consulting Physician INTERNAL MEDICINE 07/28/23 Pennie Garcia PA-C [address] [place] [address] Referring Physician PHYSICIAN POST GRADUATE INTERNSHIP 08/05/24 documented as of this encounter
--- OUTSIDE RECORDS SUMMARY | 2025-02-25 15:49 | XMS_ITS | Encounter Summary ---
Author Organization [facility] Address [facility] [place] [address] Care Team Providers Care Reimbursement Director Name Role Phone Ludivina Loaiza MD Primary Care Provider [phone] Tor Burns MD Unavailable [phone] Brian Cole MD Unavailable [phone] Christiano Ramesh MD Unavailable [phone] Dharmesh Roche MD Unavailable [phone] Edinson oYrk APRN Unavailable [phone] Denis Cantrell MD Unavailable Pennie Garcia PA-C Unavailable [phone] Encounter Details Date Type Department Care Team (Late st Contact Info) Description 01/22/2018 Abstract [facility] [address] [place] [address] Tor Burns MD [address] [place] [address] Social History Tobacco Use Types Packs/Day Years [...] Description 08/05/2025 12:45 PM CDT Office Visit [facility] [address] [place] [address] Brian Cole MD [address] [place] [address] documented as of this encounter Visit Diagnoses Not on filedocumented in this encounter Care Teams Reimbursement Director Relationship Specialty Start Date End Date Ludivina Loaiza MD [address] [place] [address] PCP - General INTERNAL MEDICINE 01/24/18 Tor Burns MD [address] [place] [address] [place] Bar And Filler Assembler CARDIOVASCULAR DISEASE 01/24/18 02/16/23 Brian Cole MD [address] [place], [place] [address] EP Bar And Filler Assembler CLINICAL CARDIAC ELECTROPHYSIOLOGY 03/25/22 Christiano Ramesh MD 3 [facility]. [address] [place] [address] Surgeon NEUROLOGICAL SURGERY 02/17/23 Dharmesh Roche MD [address] [facility] [place] [address] Consulting Physician INTERVENTIONAL CARDIOLOGY 02/20/23 Edinson York APRN 3 [facility]. [address] [place] [address] Nurse Practitioner NURSE PRACTITIONER 02/20/23 Denis Cantrell MD 3 [facility] [address] [place], [place] [address] Consulting Physician INTERNAL MEDICINE 07/28/23 Pennie Garcia PA-C [address] [place], [place] [address] Referring Physician PHYSICIAN COMMERCIAL ACCOUNTANT 08/05/24 documented as of this encounter
[2025-02-25 16:01] LABS: Partial Thromboplastin Time 27.6 Sec (23.9-30.70); Prothrombin Time 11.2 Seconds (9.50-12.1)
[2025-02-25 16:05] LABS: Lactic Acid Reflex 1.6 mmol/L (0.4-2.0)
[2025-02-25 16:08] LABS: Alanine Aminotransferase 45 U/L (6-50); Albumin Level 3.8 g/dL (3.5-5.1); Alkaline Phosphatase 62 U/L (38-126); Anion Gap 7 mmol/L (4-12); Aspartate Amino Transferase 26 U/L (17-59); Bilirubin,Total 0.6 mg/dL (0.2-1.3); Blood Urea Nitrogen 23 mg/dL (9-20); Calcium 8.9 mg/dL (8.4-10.2); Carbon Dioxide 22 mmol/L (22-30); Chloride 107 mmol/L (98-107); Estimated CRCL calculation 74 ml/min; Estimated Glomerular Filt Rate > 60; Glucose 138 mg/dL (65-110); Osmolality Calculated 287 mOsm/kg (285-295); Potassium 3.5 mmol/L (3.4-5.0); Sodium 136 mmol/L (137-145); Total Protein 6.3 g/dL (6.3-8.2)
[2025-02-25 16:17] LABS: NT Pro B Type Natriuretic Pept 88 pg/mL (19.9-100)
[2025-02-25 16:20] LABS: Troponin I < 0.012 ng/mL (0.000-0.034)
[2025-02-25 17:20] VITALS: BP 129/78; PULSE 66; RESP 16; TEMP 36.6; O2SAT 99
--- NOTE | 2025-02-27 12:40 | PC.NURSE ---
PRELIMINARY CULTURE REPORT; NO GROWTH TO DATE.
== END 2025-02-25 17:20 | disposition home or self-care (01) ==
PROVIDERS: Emergency Provider Emergency Medicine; PCP Internal Medicine
DX: J20.8 Acute bronchitis due to other specified organisms (principal); I48.91 Unspecified atrial fibrillation; I10 Essential (primary) hypertension; E78.5 Hyperlipidemia, unspecified; Z79.01 Long term (current) use of anticoagulants
CPT/HCPCS: 36415; 71275; 80053; 83605; 83880; 84484; 85025; 85610; 85730; 87040; 93005; 99284; Q9967

== ENCOUNTER 2025-06-19 11:55 | Outpatient (CLI) | payer MEDICARE, SELFPAY ==
--- NOTE | ~2025-06-19 | CT_ITS ---
EXAMINATION: CT abdomen pelvis w con DATE: 06/19/2025 12:40 INDICATION: Chronic diarrhea. Abdomen pain. TECHNIQUE: Computed tomography (CT) of the abdomen and pelvis was performed with 100 cc Omnipaque 350 intravenous contrast. The dose-length product was 614.31 mGy-cm. Automated exposure control and iterative reconstruction technique were employed. COMPARISON: CT dated 03/17/2022. FINDINGS: Fatty infiltration of the liver. Lung bases unremarkable. No significant pleural or pericardial effusion. Heart size normal. Mild atherosclerosis of the aorta without aneurysm. No lymphadenopathy. There are cystic masses involving the renal hilum bilaterally which may represent parapelvic cyst and/or extrarenal pelvis. There is a 4 mm nonobstructing left renal stone. The liver, spleen, pancreas, adrenal glands are unremarkable. Gallbladder is present. Nonobstructive bowel gas pattern. No focal bowel abnormalities are seen. No abnormal pelvic masses or fluid collections. Moderate-severe lumbar spondylosis. No acute osseous abnormality. IMPRESSION: 1. No acute abdominal abnormality. 2: Nonobstructing left nephrolithiasis. Reviewed, dictated and finalized at location O.
--- NOTE | ~2025-06-19 | US_ITS ---
US thyroid INDICATION: Hypothyroidism TECHNIQUE: Real-time sonographic images of the thyroid gland were obtained. COMPARISON: No prior studies for comparison. FINDINGS: The right thyroid lobe measures 4 x 1.5 x 1.3 cm. The left thyroid lobe measures 4 x 2.2 x 2 cm. In the left lobe there is a hypoechoic solid mass which is wider than tall with smooth margins and no internal echogenic foci measuring 1.7 x 1.5 x 5 cm, TR 4. In the right lobe there is a 4 mm oval solid hypoechoic wider than tall smoothly marginated mass, TR 4. IMPRESSION: 1. Suspicious left thyroid mass measuring 1.7 cm, TR 4. Ultrasound-guided fine- needle aspiration biopsy recommended. Reviewed, dictated and finalized at location O. IMPRESSION: 1. Suspicious left thyroid mass measuring 1.7 cm, TR 4. Ultrasound-guided fine -needle aspiration biopsy recommended.
[2025-06-19 12:18] LABS: Estimated Glomerular Filt Rate > 60
--- OUTSIDE RECORDS SUMMARY | 2025-06-19 12:23 | XMS_ITS | Encounter Summary ---
Author Organization [facility] Address [facility] [place] [address] Care Team Providers Care Property Worker Name Role Phone Ludivina Loaiza MD Primary Care Provider [phone] Tor Burns MD Unavailable [phone] Brian Cole MD Unavailable [phone] Christiano Ramesh MD Unavailable [phone] Dharmesh Roche MD Unavailable [phone] Edinson York APRN Unavailable [phone] Denis Cantrell MD Unavailable Pennie Garcia PA-C Unavailable [phone] Encounter Details Date Type Department Care Team (Late st Contact Info) Description 02/14/2023 Hospital Orders Only [place] Procurement Clerk Pre/Post [address] [place] [address] Brian Cole MD [address] [place] [address] Social History Tobacco Use Types Packs/Day Years [...] Description 08/05/2025 12:45 PM CDT Office Visit [facility] [address] [place] [address] Brian Cole MD [address] [place] [address] documented as of this encounter Visit Diagnoses Not on filedocumented in this encounter Care Teams Property Worker Relationship Specialty Start Date End Date Ludivina Loaiza MD [address] [place] [address] PCP - General INTERNAL MEDICINE 01/24/18 Tor Burns MD [address] [place] [address] [place] Safety Scientist CARDIOVASCULAR DISEASE 01/24/18 02/16/23 Brian Cole MD [address] [place] [address] EP Safety Scientist CLINICAL CARDIAC ELECTROPHYSIOLOGY 03/25/22 Christiano Ramesh MD [address] [facility] [address] [place] [id number] Surgeon NEUROLOGICAL SURGERY 02/17/23 Dharmesh Roche MD 3 [facility] [address] [place], [place] [id number] Consulting Physician INTERVENTIONAL CARDIOLOGY 02/20/23 Edinson York APRN 3 [facility]. [address] [place] [address] Nurse Practitioner NURSE PRACTITIONER 02/20/23 Denis Cantrell MD 3 [facility]. [address] [place] [address] Consulting Physician INTERNAL MEDICINE 07/28/23 Pennie Garcia PA-C [address] [place] [address] Referring Physician PHYSICIAN SUPERINTENDENT CEMETERY 08/05/24 documented as of this encounter
--- OUTSIDE RECORDS SUMMARY | 2025-06-19 12:23 | XMS_ITS | Clinical Summary ---
Author Organization [facility] Address [address] [place] [address] Care Team Providers Care Diet Supervisor Name Role Phone Ludivina Loaiza MD Primary Care Provider [phone] Brian Cole MD Unavailable [phone] Christiano Ramesh MD Unavailable [phone] Dharmesh Roche MD Unavailable + [phone] Edinson York APRN Unavailable [phone] Denis Cantrell MD Unavailable Pennie Garcia PA-C Unavailable + [phone] Allergies No known active allergies Medications glimepiride [...] with other complications 08/22/2023 Paroxysmal atrial fibrillation ([facility]) 03/28/2023 Typical atrial flutter ([facility]) 023 Chronic venous insufficiency 02/17/2023 Chronic pain Dyslipidemia Essential hypertension Diabetes ([facility]) Chest pain Dyspnea Resolved Problems Problem Noted [...] place to sleep or slept in a longterm (including now)? No 04/25/2023 Sex and Gender [...] 1:26 PM CDT Height 180.3 cm (5' 11) 08/05/2024 1:26 PM CDT Body Mass Index 28.84 08/05/2024 1:26 PM CDT Plan of Treatment Upcoming Encounters Date Type Department Care Team (Late st Contact Info) Description 08/05/2025 12:45 PM CDT Office Visit [facility] eld [address] [place] [id number] Biran Cole MD [address] [place] [address] Health Maintenance Due Date Last Done Comments [...] patient's age to complete this topic Insurance [facility] Advance Directives * Full Code (Latest Code Status on File) Date Activated Date Inactivated Comments 04/25/2023 10:58 AM 04/26/2023 12:31 PM Care Teams Diet Supervisor Relationship Specialty Start Date End Date Ludivina Loaiza MD [address] [place] [address] PCP - General INTERNAL MEDICINE 01/24/18 Brian Cole MD [address] [place] [address] EP Regional Driver CLINICAL CARDIAC ELECTROPHYSIOLOGY 03/25/22 Christiano Ramesh MD [address] [facility] [place], [place] [address] Surgeon NEUROLOGICAL SURGERY 02/17/23 Dharmesh Roche MD [address] [facility] [place], [place] [phone] Consulting Physician INTERVENTIONAL CARDIOLOGY 02/20/23 Edinson York APRN [address] [facility] [place] [address] Nurse Practitioner NURSE PRACTITIONER 02/20/23 Denis Cantrell MD [address] [facility] [place] [id number] Consulting Physician INTERNAL MEDICINE 07/28/23 Pennie Garcia PA-C [address] [place] [address] [phone] Referring Physician PHYSICIAN MANAGER OF CASE MANAGEMENT 08/05/24
--- OUTSIDE RECORDS SUMMARY | 2025-06-19 12:24 | XMS_ITS | Encounter Summary ---
Author Organization [facility] Address [address] [place] [address] Care Team Providers Care Supply Teacher Name Role Phone Ludivina Loaiza MD Primary Care Provider [phone] Brian Cole MD Unavailable [phone] Christiano Ramesh MD Unavailable [phone] Dharemsh Roche MD Unavailable + [phone] Edinson York APRN Unavailable [phone] Denis Cantrell MD Unavailable Pennie Garcia PA-C Unavailable [phone] Encounter Details Date Type Department Care Team (Late st Contact Info) Description 04/20/2023 Hospital Orders Only [facility] Anesthesia [address] [place] [address] Melissa Wallis RN Anesthesia Record Procedure Summary [...] Reason: Patient Discharged 04/25/23 06 by Cristina Snigh RN 04/26/23 09 by Shruthi Dow RN [...] Date: 04/25/23; Removal Time: 1029; Removal Person: SECURITY DISPATCHER; Removal Reason: End of Case 04/25/23727 by [...] Patient Discharged 04/25/23 0730 by Suzy Torres, SECURITY DISPATCHER 04/26/23 0908 by Shruthi Dow RN Arterial Line Placement Date: 04/15 11/07; Placement Time: 743 (created via procedure documentation); Orientation: Right; Location: Radial; Site Prep: Chlorhexidine; Local Anesthetic: None; Insertion Attempts: 1; Patient Tolerance: Tolerated well; Removal Date: 04/25/23; Removal Time: 1215; Removal Reason: Therapy Completed 04/25/23 07 by Suzy Torres, SECURITY DISPATCHER 04/25/23 121 by Steffanie Toscano RN documented [...] Description 08/05/2025 12:45 PM CDT [facility] Visit [facility] [address] [place] [address] Brian Cole MD [address] [place] [address] documented as of this encounter Visit Diagnoses Not on filedocumented in this encounter Care Teams Supply Teacher Relationship Specialty Start Date End Date Ludivina Loaiza MD [address] [place] [phone] PCP - General INTERNAL MEDICINE 01/24/18 Brian Cole MD [address] [place] [address] EP Insole Reinforcer CLINICAL CARDIAC ELECTROPHYSIOLOGY 03/25/22 Christiano Ramesh MD [address] [facility]. [address] [place] [address] Surgeon NEUROLOGICAL SURGERY 02/17/23 Dharmesh Roche MD [address] [facility]. [address] [place] [address] Consulting Physician INTERVENTIONAL CARDIOLOGY 02/20/23 Edinson York APRN [address] [facility] [place], [place] [address] Nurse Practitioner NURSE PRACTITIONER 02/20/23 Denis Cantrell MD [address] [facility] [place], [place] [address] Consulting Physician INTERNAL MEDICINE 07/28/23 Pennie Garcia PA-C [address] [place] [phone] Referring Physician PHYSICIAN PUBLIC INFORMATION COORDINATOR 08/05/24 documented as of this encounter
--- OUTSIDE RECORDS SUMMARY | 2025-06-19 12:24 | XMS_ITS | Clinical Summary ---
Author Organization [facility] Address [address] [place] [address] Care Team Providers Care Machine Maintenance Servicer Name Role Phone Ludivina Loaiza MD Primary Care Provider [phone] Christiano Ramesh MD Unavailable [phone] Nadira Valle RN Unavailable Unavailabl Dawson Servin [...] MOUTH EVERY DAY 90 capsule 5 Active diazePAM (VALIUM) 2 mg tabletIndicatio ns:anxiety Take 1 tablet (2 mg total) by mouth as needed for anxiety for up to 2 doses 2 tablet 5 Active Active Problems Problem Noted Date Diagnosed Date Herniated nucleus pulposus, L3-4 left 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 [place] [address] Janice Stewart RN 04/16/2025 2:20 PM CDT - 04/16/2025 11:59 PM CDT Hospital Encounter [facility] [address] [place] [address] Prostate cancer (HCC) Discharge Disposition: Discharge to home or self care 04/16/2025 2:14 PM CDT - 04/16/2025 11:59 PM CDT Hospital Encounter [address] [address] Prostate cancer (HCC) Discharge Disposition: Discharge to home or self care 04/16/2025 Telephone [facility] Radiation Oncology [address] [place] [address] [place] [address] Janice Stewart RN 04/16/2025 Orders Only [facility] Radiation Oncology [address] [place] [id number] Dawson Alcaraz MD Prostate cancer (HCC) (Primary Dx); Pathological fracture in neoplastic disease, other specified site, initial encounter for fracture 04/16/2025 Telephone [facility] Radiation Oncology [address] [place] [address] Janice Stewart RN 04/16/2025 Telephone [facility] Radiation Oncology [address] [place] [address] Janice Stewart RN 04/16/2025 [facility] Radiation Oncology [address] [place] [address] Janice Stewart RN 04/15/2025 Documentation [facility] Radiation Oncology [address] [place] [address] Janice Stewart RN 04/10/2025 Orders Only [facility] Radiation Oncology [address] [facility] [place] [address] Dawson Alcaraz MD Prostate cancer (HCC) (Primary Dx) 04/07/2025 11:00 AM CDT Office Visit [facility] Radiation Oncology [address] [facility] [place] [address] Dawson Alcaraz MD Prostate cancer (HCC) [C61] (Primary Dx) 04/07/2025 Telephone [facility] Radiation Oncology [address] [facility] [place] [address] Janice Stewart RN 04/07/2025 Orders Only [facility] Radiation Oncology [address] [facility] [place] [address] Dawson Alcaraz MD Prostate cancer (HCC) (Primary Dx) 04/02/2025 2:31 PM CDT - 04/02/2025 11:59 PM CDT Hospital Encounter [facility] [address] [place] [address] Prostate cancer (HCC) Discharge Disposition: Discharge to home or self care 03/31/2025 Orders Only [facility] Radiation Oncology [address] [facility] [place] [address] Dawson Alcaraz MD from Last 3 Months Surgical History Surgery [...] of kidney stones Type 2 diabetes mellitus Chronic pain disorder back pain Basal cell carcinoma (BCC) x 2-3 mohs procedures Benign enlargement of prostate Environmental allergies Social History Tobacco Use Types Packs/Day Years Used Date Smoking Tobacco: Never Smokeless Tobacco: Never Tobacco Cessation:Counseling Given: Not Answered Social Connection and Isolation Panel Answer Date Recorded In a typical week, how many times do you talk on the phone with family, friends, or neighbors? More than three times a week 12/21/2023 How often do you get togethe r with friends or relatives? More than three times a week 12/21/2023 How often do you attend [facility] or baptism services? 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 Oxygen Saturation 97% 04/07/2025 11:10 AM CDT Inhaled Oxygen Concentration - - Weight 94 kg (207 lb 3.2 oz) 04/07/2025 11:10 AM CDT Height 180.3 cm (5' 11) 08/03/2024 6:51 AM CDT Body Mass Index 28.9 08/03/2024 6:51 AM CDT Plan of Treatment Health Maintenance Due Date Last Done Comments Colon Cancer Screening-Colonoscopy 1960 Depression Screening 1960 Hepatitis C Screening 1960 Hepatitis B Screening 02/10/1976 Zoster Vaccine (1 of 2) 1977 Pneumococcal vaccine 65+ (2 of 2 - PPSV23, PCV20, or PCV21) 12/11/2017 10/16/2017, 04/06/2016 Well Visit 65+ 2023 DTaP/Tdap/Td Vaccine (2 - Td or Tdap) 12/08/2024 12/08/2014 Influenza Vaccine (#1) 2025 9, 08/02/2018, 08/01/2017, Additional history exists Fall Risk Assessment 07/19/2025 07/19/2024, 12/22/19 24 Prostate Cancer Screening-PSA 03/31/2027, 12/24/2024, 10/29/2024, Additional history exists Goals Goal Patient Goal Type Associated Problems Recent Progress Patient-Stated? Author [facility] No Jenelle Truong RN Note: Patient will establish a comfort-function goal and identify the pain level that will allow the patient to perform desired activities and achieve an acceptable quality of life. Medical Devices Implanted Type Area Research And Development Scientist Device Identifier Shelf Expiration Date Model / Serial / Lot Hernia Mesh Left: Pelvis Procedures Procedure Name Priority Date/Time Associated Diagnosis Comments MRI LUMBAR SPINE W WO CONTRAST Schedule Routine, Read Routine (OP Routine) 04/16/2025 3:44 PM CDT Prostate cancer (HCC) MRI SACRUM COCCYX W WO CONTRAST Schedule Routine, Read Routine (OP Routine) 04/16/2025 3:37 PM CDT Prostate cancer (HCC) US SOFT TISSUE NECK Schedule Routine, Read Routine (OP Routine) 04/02/2025 2:55 PM CDT Prostate cancer (HCC) PSA, TOTAL AND FREE Routine 03/31/2025 2 :00 PM CDT TOTAL TESTOSTERONE Routine 03/31/2025 2: 00 PM CDT from Last 3 Months Results * MRI Lumbar Spine W WO Contrast (04/16/2025 3:44 PM CDT) Anatomical Region Laterality Modality Spine N/A Magnetic Resonan ce 04/17/2025 6:54 AM CDT Narrative 04/17/2025 8:26 AM CDT EXAM DESCRIPTION: MRI LUMBAR SPINE W WO CONTRAST REASON FOR STUDY: Lumbar radiculopathy, increased fracture risk, Low back pain with neuropathy to feet Chronic Back pain x 15 years from fall, pain has changed since prostate cancer diagnosis with pain/tingling/numbness/burning to BLE, R>L, HX prostate CA diagnosis 2022, hormone therapy, chemo and radiation TECHNIQUE: Sagittal and Axial imaging includes T1, T1 post gadolinium, T2, and STIR sequences. CONTRAST TYPE/DOSE: 19mL of GADOTERATE MEGLUMINE 0.5 MMOL/ML INTRAVENOUS SOLUTION (SO) injected via intravenous COMPARISON: Lumbar spine MRI dated 11/08/2023, 12/30/2022 and 06/17/2020. FINDINGS: SEGMENTATION: 5 otm-kfh-qzlzehj lumbar type vertebral bodies. ALIGNMENT: Mild retrolisthesis of L4 on L5 and L5 on S1. VERTEBRAE: No acute compression fracture in the lumbar spine. Scattered Schmorl's nodes are again seen. Multilevel endplate degenerative changes and marginal spur formation. The L4, L5 and imaged upper sacrum relative T1 bright bone marrow signal could reflect postradiation changes in the proper clinical scenario. The L4-L5 opposing endplate enhancement is likely degenerative in nature. In the L4 vertebral body right posterior superior corner 8 mm STIR hyperintense mildly enhancing signal (series 7, image 5 is nonspecific and could be additional degenerative change, attention on follow-up to exclude metastases. DISC HEIGHT: Multilevel disc desiccation and height loss. HARDWARE: The right L4-L5 susceptibility signal as noted previously. CORD/CAUDA: Conus medullaris terminates at L1-L2. LOWER THORACIC: Incompletely imaged. No high-grade spinal canal stenosis. INDIVIDUAL DISC LEVELS: L1-L2: No significant disc bulge, spinal canal or neural foraminal narrowing. There is bilateral facet arthropathy. L2-L3: Minor disc bulge with thickened ligamentum flavum and facet arthropathy. Trace facet joint effusion. No significant spinal canal or neural foraminal narrowing. L3-L4: Surgical level. Previous left laminotomy. Disc bulge with marginal spur formation. The central/left subarticular signal alteration as seen previously and could be combination of postoperative change and portion of a cranially extruded disc. Remaining thickened ligamentum flavum and facet arthropathy. Flattening of the ventral thecal sac. Gbhl-wwqqkyc-hcpd-right lateral recess effacement. Moderate to severe left and moderate right neural foraminal narrowing. L4-L5: Disc bulge with marginal spur formation. Thickened ligamentum flavum and facet arthropathy. No significant spinal canal stenosis. Fskeq-zdynhsu-giat-left lateral recess narrowing. Moderate to severe neural foraminal narrowing. L5-S1: Disc bulge with marginal spur formation. Superimposed left neural foraminal disc protrusion. Bilateral facet arthropathy. No significant spinal canal stenosis. Moderate to severe left and no significant right neural foraminal narrowing. VISUALIZED UPPER ABDOMEN: Rounded T2 hyperintense foci in the kidneys on both sides are incompletely characterized on this MRI and could reflect cyst. IMPRESSION: 1. Lumbar disc degeneration ranging up to severe with thickened ligamentum flavum and facet arthropathy as seen on the previous MRI dated 11/08/2023. There is no high-grade spinal canal stenosis. 2. Postoperative changes at L3-L4. 3. Neural foraminal stenosis ranging from moderate to severe and additional findings as above. 4. The L4 vertebral body small rounded STIR hyperintense signal is nonspecific and could be degenerative in nature. Please correlate with laboratory data and attention on follow-up if there is concern for metastases. THIS IS AN ELECTRONICALLY VERIFIED FINAL REPORT 04/17/2025 8:26 AM - Electronically signed by Jeovany West D.O. AP: AP Report ID: [id number] Reading Location: [id number] Procedure Note Jeovany West, DO - 04/17/2025 EXAM DESCRIPTION: MRI LUMBAR SPINE W WO CONTRAST REASON FOR STUDY: Lumbar radiculopathy, increased fracture risk, Lowback pain with neuropathy to feet Chronic Back pain x 15 years from fall, pain has changed since prostatecancer diagnosis with pain/tingling/numbness/burning to BLE, R>L, HX prostate CA diagnosis 2022, hormone therapy, chemo and radiation TECHNIQUE: Sagittal and Axial imaging includes T1, T1 post gadolinium, T2,and STIR sequences. CONTRAST TYPE/DOSE: 19mL of GADOTERATE MEGLUMINE 0.5 MMOL/ML INTRAVENOUS SOLUTION (SO) injected via intravenous COMPARISON: Lumbar spine MRI dated 11/08/2023, 12/30/2022 and06/17/2020. FINDINGS: SEGMENTATION: 5 rhb-fjq-nrczzdc lumbar type vertebral bodies. ALIGNMENT: Mild retrolisthesis of L4 on L5 and L5 on S1. VERTEBRAE: No acute compression fracture in the lumbar spine. Scattered Schmorl's nodes are again seen. Multilevel endplate degenerative changesand marginal spur formation. The L4, L5 and imaged upper sacrum relative T1 bright bone marrow signal could reflect postradiation changes in theproper clinical scenario. The L4-L5 opposing endplate enhancement is likely degenerative in nature. In the L4 vertebral body right posterior superior corner 8 mm STIR hyperintense mildly enhancing signal (series 7, image 5is nonspecific and could be additional degenerative change, attention on follow-up to exclude metastases. DISC HEIGHT: Multilevel disc desiccation and height loss. HARDWARE: The right L4-L5 susceptibility signal as noted previously. CORD/CAUDA: Conus medullaris terminates at L1-L2. LOWER THORACIC: Incompletely imaged. No high-grade spinal canalstenosis. INDIVIDUAL DISC LEVELS: L1-L2: No significant disc bulge, spinal canal or neural foraminalnarrowing. There is bilateral facet arthropathy. L2-L3: Minor disc bulge with thickened ligamentum flavum and facet arthropathy. Trace facet joint effusion. No significant spinal canal or neural foraminal narrowing. L3-L4: Surgical level. Previous left laminotomy. Disc bulge withmarginal spur formation. The central/left subarticular signal alteration as seen previously and could be combination of postoperative change and portion ofa cranially extruded disc. Remaining thickened ligamentum flavum and facet arthropathy. Flattening of the ventral thecal sac.Ivqq-hbfkijz-bkfg-right lateral recess effacement. Moderate to severe left and moderate rightneural foraminal narrowing. L4-L5: Disc bulge with marginal spur formation. Thickened ligamentumflavum and facet arthropathy. No significant spinal canal stenosis. Rxvbt-myksbvy-foxf-left lateral recess narrowing. Moderate to severeneural foraminal narrowing. L5-S1: Disc bulge with marginal spur formation. Superimposed left neural foraminal disc protrusion. Bilateral facet arthropathy. No significant spinal canal stenosis. Moderate to severe left and no significant right neural foraminal narrowing. VISUALIZED UPPER ABDOMEN: Rounded T2 hyperintense foci in the kidneys on both sides are incompletely characterized on this MRI and could reflectcyst. IMPRESSION: 1. Lumbar disc degeneration ranging up to severe with thickenedligamentum flavum and facet arthropathy as seen on the previous MRI dated 11/08/2023. There is no high-grade spinal canal stenosis. 2. Postoperative changes at L3-L4. 3. Neural foraminal stenosis ranging from moderate to severe andadditional findings as above. 4. The L4 vertebral body small rounded STIR hyperintense signal is nonspecific and could be degenerative in nature. Please correlate with laboratory data and attention on follow-up if there is concern formetastases. THIS IS AN ELECTRONICALLY VERIFIED FINAL REPORT 04/17/2025 8:26 AM - Electronically signed by Jeovany West D.O. AP: AP Report ID: [id number] Reading Location: [id number] Dawson Alcaraz MD IM MRI PROCEDURES Fi nal Result * MRI Sacrum Coccyx W WO Contrast (04/16/2025 3:37 PM CDT) Anatomical Region Laterality Modality Pelvis N/A Magnetic Resonan ce 04/16/2025 7:53 PM CDT Narrative 04/16/2025 8:02 PM CDT EXAM DESCRIPTION: MRI SACRUM COCCYX W WO CONTRAST REASON FOR STUDY: back pain with neuropathy to feet Chronic Back pain x 15 years from fall, pain has changed since prostate cancer diagnosis with pain/tingling/numbness/burning to BLE, R>L, HX prostate CA diagnosis 2022, hormone therapy, chemo and radiation TECHNIQUE: Multiplanar, multisequence MRI of the sacrum was performed before and after intravenous contrast. CONTRAST TYPE/DOSE: 19mL of GADOTERATE MEGLUMINE 0.5 MMOL/ML INTRAVENOUS SOLUTION (SO) injected via intravenous COMPARISON: Comparison PET-CT 06/25/2024. Comparison CT abdomen and pelvis 03/17/2022. FINDINGS: Fatty marrow replacement is present throughout the visualized portion of the pelvis and at L4-L5 due to prior radiation therapy. Multilevel lumbar spondylosis is present with severe disc height loss at L4-L5, small posteriorly directed disc osteophyte complex at L4-L5, right L4-L5 facet metallic artifact, facet arthrosis at the remaining visualized facet joints, multilevel foraminal stenosis and mild enhancing degenerative endplate marrow edema at L4-L5. Mild right piriformis muscle edema is present. Sacral nerve roots are normal in appearance without abnormal enhancement or soft tissue mass. Mild posterior subcutaneous edema is present. Mild bilateral sacroiliac arthrosis. IMPRESSION: 1. No fracture, osteonecrosis or aggressive marrow replacing lesion. 2. Mild bilateral sacroiliac arthrosis. 3. Lumbar spondylosis, better evaluated on lumbar spine MRI from the same date. 4. Normal appearance of the sacral nerves without evidence of enhancement, enlargement or nerve sheath tumor. 5. Mild nonspecific right piriformis muscle edema. THIS IS AN ELECTRONICALLY VERIFIED FINAL REPORT 04/16/2025 8:02 PM - Electronically signed by Richard Deng M.D. TH: TH Report ID: [id number] Reading Location: [id number] Procedure Note Richard Deng MD - 04/16/2025 EXAM DESCRIPTION: MRI SACRUM COCCYX W WO CONTRAST REASON FOR STUDY: back pain with neuropathy to feet Chronic Back pain x 15 years from fall, pain has changed since prostatecancer diagnosis with pain/tingling/numbness/burning to BLE, R>L, HX prostate CA diagnosis 2022, hormone therapy, chemo and radiation TECHNIQUE: Multiplanar, multisequence MRI of the sacrum was performedbefore and after intravenous contrast. CONTRAST TYPE/DOSE: 19mL of GADOTERATE MEGLUMINE 0.5 MMOL/ML INTRAVENOUS SOLUTION (SO) injected via intravenous COMPARISON: Comparison PET-CT 06/25/2024. Comparison CT abdomen andpelvis 03/17/2022. FINDINGS: Fatty marrow replacement is present throughout the visualized portion ofthe pelvis and at L4-L5 due to prior radiation therapy. Multilevel lumbar spondylosis is present with severe disc height loss at L4-L5, small posteriorly directed disc osteophyte complex at L4-L5, right L4-L5 facet metallic artifact, facet arthrosis at the remaining visualized facet joints, multilevel foraminal stenosis and mild enhancingdegenerative endplate marrow edema at L4-L5. Mild right piriformis muscle edema is present. Sacral nerve roots arenormal in appearance without abnormal enhancement or soft tissue mass. Mild posterior subcutaneous edema is present. Mild bilateral sacroiliac arthrosis. IMPRESSION: 1. No fracture, osteonecrosis or aggressive marrow replacing lesion. 2. Mild bilateral sacroiliac arthrosis. 3. Lumbar spondylosis, better evaluated on lumbar spine MRI from thesame date. 4. Normal appearance of the sacral nerves without evidence ofenhancement, enlargement or nerve sheath tumor. 5. Mild nonspecific right piriformis muscle edema. THIS IS AN ELECTRONICALLY VERIFIED FINAL REPORT 04/16/2025 8:02 PM - Electronically signed by Richard Deng M.D. TH: TH Report ID: [id number] Reading Location: [id number] us Dawson Alcaraz MD IMG MRI PROCEDURES Fi nal Result * US Soft Tissue Neck (04/02/2025 2:55 PM CDT) Anatomical Region Laterality Modality Head and Neck N/A Ultrasound 04/16/2025 7:13 AM CDT Narrative 04/16/2025 7:14 AM CDT EXAM DESCRIPTION: US SOFT TISSUE NECK REASON FOR STUDY: Palpable lump for 2 years. TECHNIQUE: A Dynamic assessment was performed of the localized site designated by the patient by the brim pouncer machine operator, with selected grayscale and color Doppler images acquired and recorded in PACS. COMPARISON: None available FINDINGS: SKIN AND SUBCUTANEOUS TISSUES: Solid focus identified in region of concern measuring 1.4 x 1.3 x 0.6 cm. No increased color Doppler flow or focal fluid component. This has a band like echogenic texture and may represent a lipoma. Please correlate clinically. DEEP SOFT TISSUES/MUSCLES: No masses. No fluid collections. No edema. OTHER: No other significant finding. IMPRESSION: 1.4 cm solid focus in region of concern may represent a lipoma. THIS IS AN ELECTRONICALLY VERIFIED FINAL REPORT 04/16/2025 7:14 AM - Electronically signed by Tor Sommer M.D. RB: LINA Report ID: [id number] Reading Location: [id number] Procedure Note Tor Sommer MD - 04/16/2025 EXAM DESCRIPTION: US SOFT TISSUE NECK REASON FOR STUDY: Palpable lump for 2 years. TECHNIQUE: A Dynamic assessment was performed of the localized site designated by the patient by the brim pouncer machine operator, with selected grayscale and color Doppler images acquired and recorded in PACS. COMPARISON: None available FINDINGS: SKIN AND SUBCUTANEOUS TISSUES: Solid focus identified in region of concern measuring 1.4 x 1.3 x 0.6 cm.No increased color Doppler flow or focal fluid component. This has a bandlike echogenic texture and may represent a lipoma. Please correlateclinically. DEEP SOFT TISSUES/MUSCLES: No masses. No fluid collections. No edema. OTHER: No other significant finding. IMPRESSION: 1.4 cm solid focus in region of concern may represent a lipoma. THIS IS AN ELECTRONICALLY VERIFIED FINAL REPORT 04/16/2025 7:14 AM - Electronically signed by Tor Sommer M.D. RB: LINA Report ID: [id number] Reading Location: [place] [address] us [facility] Donald Alcaraz MD IM US PROCEDURES Fin al Result * PSA, total and free (03/31/2025 2:00 PM CDT) PSA 0.1 < OR = 4.0 ng/mL [facility] PSA, free <0.1 ng/mL [facility] PSA, free UNABLE TO CALCULATE >25 % (calc) [facility] Comment: The free PSA level is below detectable limits. We are unable to calculate a % free PSA. PSA(ng/mL) Free PSA(%) Estimated(x) Probability of Cancer(as%) 0-2.5 (*) Approx. 1 2.6-4.0(1) 0-27(2) 24(3) 4.1-10(4) 0-10 56 11-15 28 16-20 20 21-25 16 >or =26 8 >10(+) N/A >50 References:(1)Triston et al.:Urology 60: 469-474 (2002) (2)Triston et al.:J.Urol 168: 922-925 (2002) Free PSA(%) Sensitivity(%) Specificity(%) < or = 25 85 19 < or = 30 93 9 (3)Catalona et al.:ZANA 277: 3937-5062 (1996) (4)Catalona et al.:ZANA 279: 8045-2013 (1997) (x)These estimates vary with age, ethnicity, [...] of the presence or absence of disease. 03/31/2025 2:00 PM CDT 03/31/2025 2:00 PM CDT Dawson Alcaraz MD LAB BLOOD ORDERABLES Final Result [facility] [address] [place] [address] * (ABNORMAL) Total testosterone (03/31/2025 2:00 PM CDT) Testosterone <10(L) 250 - 827 ng/dL [facility] Comment: In hypogonadal males, Testosterone, Total, LC/MS/MS, is the recommended assay due to the diminished accuracy of immunoassay at levels below 250 ng/dL. This test code (61593) must be collected in a red-top tube with no gel. 03/31/2025 2:00 PM CDT 03/31/2025 2:00 PM CDT Dawson Alcaraz MD LAB BLOOD ORDERABLES Final Result [facility] [id number] [address] [id number] from Last 3 Months Insurance MEDICARE [facility] MEDICARE ADVANTAGE [facility] MEDICARE ADVANTAGE MEDICARE [facility] MEDICARE ADVANTAGE [facility] MEDICARE ADVANTAGE Member Subscriber Plan / Payer (Ef fective 2018-Present) Name:Beck Almeida Relation to Subscriber:Self Name:Beck Almeida Payer ID:[id number] (NAIC) Type:[facility] MEDICARE Address: [place] [phone] MEDICARE ADVANTAGE Care Teams Machine Maintenance Servicer Relationship Specialty Start Date End Date Ludivina Loaiza MD [address] [place] [address] PCP - General 12/05/16 Christiano Ramesh MD [address] [place] [address] Consulting Physician Neurosurgery 03/02/23 Nadira Valle, ore sampler 12/22/23 Dawson Alcaraz MD [address] [facility] [address] [place] [address] Radiation Oncologist Radiation Oncology 07/16/24
--- OUTSIDE RECORDS SUMMARY | 2025-06-19 12:24 | XMS_ITS | Encounter Summary ---
Author Organization [facility] Address [facility] [place] [address] Care Team Providers Care Apartment Property Manager Name Role Phone Ludivina Loaiza MD Primary Care Provider [phone] Tor Burns MD Unavailable [phone] Brian Cole MD Unavailable + [phone] Christiano Ramesh MD Unavailable [phone] Dharmesh Roche MD Unavailable [phone] Edinson York APRN Unavailable [phone] Denis Cantrell MD Unavailable Pennie Garcia PA-C Unavailable [phone] Encounter Details Date Type Department Care Team (Late st Contact Info) Description 01/22/2018 Abstract [facility] [address] [place] [address] Tor Burns MD [address] [place] [address] Social History Tobacco Use Types Packs/Day Years [...] Description 08/05/2025 12:45 PM CDT Office Visit [facility] eld [address] [place] [address] Brian Cole MD [address] [place] [address] documented as of this encounter Visit Diagnoses Not on filedocumented in this encounter Care Teams Apartment Property Manager Relationship Specialty Start Date End Date Ludivina Loaiza MD [address] [place] [phone] PCP - General INTERNAL MEDICINE 01/24/18 Tor Burns MD [address] [place] [address] [place] [employer] CARDIOVASCULAR DISEASE 01/24/18 02/16/23 Brian Cole MD [address] [place], [place] [address] [employer] CLINICAL CARDIAC ELECTROPHYSIOLOGY 03/25/22 Christiano Ramesh MD [address] [facility] [place] [address] Surgeon NEUROLOGICAL SURGERY 02/17/23 Dharmesh Roche MD [address] [facility] [place] [address] Consulting Physician INTERVENTIONAL CARDIOLOGY 02/20/23 Edinson York APRN [address] [facility] [place] [address] Nurse Practitioner NURSE PRACTITIONER 02/20/23 Denis Cantrell MD 3 [facility] [address] [place], [place] [address] Consulting Physician INTERNAL MEDICINE 07/28/23 Pennie Garcia PA-C [address] [place], [place] [address] Referring Physician PHYSICIAN HAT LACER 08/05/24 documented as of this encounter
== END 2025-06-19 11:56 | disposition home or self-care (01) ==
LOC: CHSIMG 11:57
PROVIDERS: PCP Internal Medicine; Visit Provider Internal Medicine
DX: K52.9 Noninfective gastroenteritis and colitis, unspecified (principal); R10.9 Unspecified abdominal pain; E03.9 Hypothyroidism, unspecified; N20.0 Calculus of kidney; E04.1 Nontoxic single thyroid nodule
CPT/HCPCS: 74177; 76536; Q9967

== ENCOUNTER 2025-06-26 16:34 | Emergency (ER) | payer MEDICARE, SELFPAY ==
--- OUTSIDE RECORDS SUMMARY | 2019-05-27 04:33 | XMS_ITS | Continuity of Care Document ---
Author Organization [facility] Address [address] [address] [place] [address] Phone Care Team Providers Care Tools Administrator Name Role Phone Jaya Florentino PA-C Unavailable Unavailable Allergies, Adverse Reactions, Alerts Substance Reaction Status Criticality No Known Allergies Active No Inform ation Medications Medication Instructions Dosage Effective Dates (start - stop) Status Comments glimepiride 1 mg tablet take 0.5 tablet by oral route every day 0.5 MG - Active lovastatin 20 mg tablet take 1 tablet by oral route every day with the evening meal 20 MG - Active triamterene 37.5 mg-hydrochlorothiazi de 25 mg tablet take 1 tablet by oral route every day 1.00 tablet - Active finasteride 5 mg tablet take 1 tablet by oral route every day 5 MG - Active Problems Condition Type Effective Dates (start - stop) Clini [facility] Status Comments No Known Problems Procedures Procedure Date EKG 12 Lead; W/intrpt Offic/outpt E m [facility] Advance Directives Directive Yes / No Effective Date File Name No Information Encounters Encounter Description Practice Location Reason(s) For Visit Diagnoses Date Provider Providers Copied on Encounter [facility], [address] [address], [place], [place], [id number], tel:[phone] No Information 9 [place]. [address] [place], [place], [id number] , . tel:[phone] Offic/outpt E m [facility], [address] [address], [place], [id number], tel:[phone] 1st Care Swelling (chief complaint) Edema, unspecifiedChest pain, unspecified type [facility] [address] [place] [address], [id number] , [place]. tel: [phone] Family History Family Member Type Diagnosis Age At Onset No Information Payers Payer name Insurance type Covered alliance party ID Ching lopez(s) [facility] [id number] Social History Type Description Quantity Date Captured Comments Sex Male Smoking Status No Information Chief Complaint And Reason For Visit No Information Reason For Referral Reason For Referral No Information Plan Of Treatment Date Type Action Status Future Order: Radiology Order XR Chest 2 View ([id number]), Sent on: Sent History Of Present Illness Encounter Date Complaint History Of Prese nt Illness Swelling Swelling (comments) Patient ents the clinic today with recent chest pain, bilateral lower extremity swelling, shortness of breath.[place] in [place] [address], having traveled on a cruise ship and then most recently on an extended train ride from [place] to [facility].He states that his symptoms began after exiting the train. Functional Status Date Functional Assessmen t No Information Instructions Date Instruction Additional Infor mation Follow-up for new or worsening symptoms Related to Chest pain, unspecified type Rest, elevate, avoid salty foodsReturn precautions reviewed Related to Edema, unspecified Assessments Type Assessment Date No Information Patient Care Teams Name Effective Dates (start - stop) Status Members No Information
--- OUTSIDE RECORDS SUMMARY | 2019-05-27 04:33 | XMS_ITS | Continuity of Care Document ---
Author Organization [facility] Address [address] [address] [place] [address] Phone Care Team Providers Care Canal Boat Captain Name Role Phone Jaya Florentino PA-C Unavailable [...] 12 Lead; W/intrpt Offic/outpt E m [facility] Advance Directives Directive Yes / No Effective Date File Name No Information Encounters Encounter Description Practice Location Reason(s) For Visit Diagnoses Date Provider Providers Copied on Encounter [address], [address] [address], [place], [place], [id number], tel:[phone] No Information 9 [place]. [address] [place], [place], [id number] , . tel:[phone] Offic/outpt E m [facility], [address] [address], [place], [address], tel:[phone] 1st Care Swelling (chief complaint) Edema, unspecifiedChest pain, unspecified type 9 Florentino Jaya. [address] [place] [address], [id number] , [place]. tel: [phone] Family History Family Member Type Diagnosis Age At Onset No Information Payers Payer name Insurance type Covered democrat ID Ching lopez(s) [facility] [id number] Social History Type Description Quantity Date Captured Comments Sex Male Smoking Status No Information Chief Complaint And Reason For Visit No Information Reason For Referral Reason For Referral No Information Plan Of Treatment Date Type Action Status Future Order: Radiology Order XR Chest 2 View ([id number]), Sent on: Sent History Of Present Illness Encounter Date Complaint History Of Prese nt Illness Swelling (comments) Patient pres ents the clinic today with recent chest pain, bilateral lower extremity swelling, shortness of breath.[place] [address], having traveled on a cruise ship and then most recently on an extended train ride from [place] to [facility].He states that his symptoms began after exiting the train. Swelling Functional Status Date Functional Assessmen t No Information Instructions Date Instruction Additional Infor mation Follow-up for new or worsening symptoms Related to Chest pain, unspecified type Rest, elevate, avoid salty foodsReturn precautions reviewed Related to Edema, unspecified Assessments Type Assessment Date No Information Patient Care Teams Name Effective Dates (start - stop) Status Members No Information
[2025-06-26 16:35] VITALS: BP 143/90; PULSE 97; RESP 18; TEMP 36.8; O2SAT 99
--- NOTE | 2025-06-26 16:48 | ED.SKABFB ---
HPI - Skin/Abscess/Foreign Bdy General Chief complaint: Skin/Abscess/Foreign Body Stated complaint: painful rash Time Seen by Provider: 06/26/25 16:48 Source: patient Mode of arrival: ambulatory Limitations: no limitations History of Present Illness HPI narrative: This is a 65-year-old male that presents with a rash in the a axillary region and his groin region has been worked up by his primary and pull over machine operator but wanted to present with some trying to get some relief with this burning sensation the rash that he has is no fever chills no drainage the rash area no nausea vomiting no shortness of breadth no audible wheezing. complaint: rash Onset (ago): month(s) Location: genitals Related Data Home Medications ?Medication ?Instructions ?Recorded ?Confirmed ?Last Taken ?Type finasteride 5 mg tablet 5 mg PO DAILY 09/16/20 03/15/22 08/23/21 History glimepiride 1 mg tablet 1 mg PO QAM 09/16/20 03/15/22 08/23/21 History lovastatin 20 mg tablet,extended 20 mg PO HS 09/16/20 03/15/22 08/23/21 History release 24 hr Saccharomyces boulardii 250 mg 250 mg PO BID 05/24/21 03/15/22 08/23/21 History capsule (Daily Probiotic (S. boulardii)) triamterene 37.5 1 tablet PO DAILY 08/20/21 03/15/22 08/23/21 History mg-hydrochlorothiazide 25 mg tablet albuterol sulfate 90 mcg/actuation 2 puff inhalation PRN PRN 03/15/22 03/15/22 Unknown History aerosol inhaler Shortness Of Breath Allergies Allergy/AdvReac Type Severity Reaction Status Date / Time No Known Allergies Allergy Verified 06/26/25 16:35 Review of Systems Review of Systems: All systems reviewed & are unremarkable except as noted in HPI and below PMFSH Past Medical History Medical History Diarrhea Surgical History Surgical History History of hernia repair LIH hernia repair with mesh 08/24/21 History of lumbar surgery Family History Family History Sibling Acute myocardial infarction Sibling Acute myocardial infarction Social History Social History Smoking status: Never smoker Second hand tobacco smoke exposure: Yes Alcohol intake: never Alcohol use details: 1/MONTH Substance use: never Substance use type: does not use Living arrangements: with family Occupation/Education: retired Gender identity (if verbalized by the patient): Male Spiritual care concerns: No Exam Const: General: healthy appearing Nutritional Appearance: well nourished Orientation/consciousness: patient oriented x3 Limitations: no limitations HENMT: Head: normal to inspection Neck: Neck: normal visual inspection and no lymphadenopathy Chest: Chest palpation & inspection: normal inspection of the chest Resp: Effort & Inspection: normal respiratory effort Auscultation: clear to auscultation bilaterally Cardio: Rate: regular rate Rhythm: regular rhythm GI: Auscultation: normal bowel sounds : General: Yes bladder normal to palpation Back/Spine/Pelvis: Back: no CVA tenderness Skin: Wounds: wounds noted Other: Erythematous rash axilla and groin region Neuro: General: patient oriented x3 and moves all extremities Course Course Emergency Course: will send medication to his local pharmacy and advised patient to follow-up with his pull over machine operator. Vital Signs Vital signs: Vital Signs Temperature 36.8 C 06/26/25 16:35 Pulse Rate 97 06/26/25 16:35 Respiratory Rate 18 06/26/25 16:35 Blood Pressure 143/90 H 06/26/25 16:35 Pulse Oximetry 99 06/26/25 16:35 Oxygen Delivery Room Air 06/26/25 16:35 Temperature 36.8 C 06/26/25 16:35 Pulse Rate 97 06/26/25 16:35 Respiratory Rate 18 06/26/25 16:35 Blood Pressure 143/90 H 06/26/25 16:35 Pulse Oximetry 99 06/26/25 16:35 Oxygen Delivery Room Air 06/26/25 16:35 Critical Care Time Critical Care Time Critical Care Time: No Discharge Plan Discharge Clinical Impression: Rash Patient Disposition: Home Condition: Stable Instructions: Antibiotic Form, Skin Yeast Infection (ED) Additional Instructions: advised patient to take medication as prescribed and to follow with a pull over machine operator for further evaluation and treatment. Patient Language: Turkish Prescriptions: New methylprednisolone [Medrol (Usama)] 4 mg tablets,dose pack See Rx Instructions .ROUTE .COMPLEX Qty: 21 0RF Rx Instructions: for 6 days clindamycin HCl [Cleocin HCl] 300 mg capsule 300 mg PO Q6H 10 Days Qty: 40 0RF triamcinolone acetonide 0.1 % ointment 1 applic topical TID 7 Days Qty: 15 0RF No Action albuterol sulfate 90 mcg/actuation HFA aerosol inhaler 2 puff INHALATION PRN PRN (Reason: Shortness Of Breath) carvedilol [Coreg] 3.125 mg Tablet 3.125 mg PO Q12HR Qty: 30 0RF Xarelto 10 mg Tablet 20 mg PO DAILY@1700 Qty: 30 0RF amoxicillin-pot clavulanate [Augmentin] 500-125 mg tablet 1 tablet PO BID 10 Days Qty: 20 0RF prednisone 20 mg tablet 40 mg PO DAILY 3 Days Qty: 6 0RF lovastatin 20 mg tablet extended release 24 hr 20 mg PO HS glimepiride 1 mg tablet 1 mg PO QAM Rx Instructions: administer with breakfast finasteride 5 mg tablet 5 mg PO DAILY Saccharomyces boulardii [Daily Probiotic (S. boulardii)] 250 mg capsule 250 mg PO BID triamterene-hydrochlorothiazid 37.5-25 mg tablet 1 tablet PO DAILY hydrocodone-acetaminophen 10-325 mg tablet 1 tablet PO Q4-6H PRN (Reason: pain) Qty: 20 0RF Follow-up/Referrals: Ludivina Loaiza MD [Primary Care Provider, Internal Medicine] Time of Disposition: 16:53
--- OUTSIDE RECORDS SUMMARY | 2025-06-26 16:55 | XMS_ITS | Encounter Summary ---
Author Organization [facility] Healthcare Address [address] [place] [address] Care Team Providers Care Regional Manager Name Role Phone Ludivina Loaiza MD Primary Care Provider [phone] Christiano Ramesh MD Unavailable [phone] Nadira Valle RN Unavailable Unavailabl Dawson Servin MD Unavailable Encounter Details Date Type Department Care Team (Late st Contact Info) Description 06/25/2025 Documentation [facility] Radiation Oncology [address] [facility] [place] [address] Janice Stewart RN Social History Tobacco Use Types Packs/Day Years Used Date Smoking Tobacco: Never Smokeless Tobacco: Never Social Connection and Isolation Panel Answer Date Recorded In a typical week, how many times do you talk on the phone with family, friends, or neighbors? More than three times a week 12/21/2023 How often do you get togethe r with friends or relatives? More than three times a week 12/21/2023 How often do you attend chur ch or methodist services? More than 4 times per year 12/21/2023 Do you belong to any clubs o r organizations such as judaism groups, unions, fraternal or athletic groups, or [...] place to sleep or slept in a custodial (including now)? No 12/21/2023 Personal Safety Answer Date Recorded Have you ever been in or are you currently in a harmful physical or emotional relationship or is someone making you feel afraid or unsafe? Denies 12/22/2023 Sex and Gender Information Value Date Recorded Sex Assigned at Not on file Legal Sex Male 12:37 AM [employer] Gender Identity Not on file Sexual Orientation Not on file documented as of this encounter Nursing Notes * Janice Stewart RN - 06/25/2025 1:38 PM CDT Nurse called [facility] for reads on CT and Ultrasound. Radiology stated that they have not been read yet. They stated the radiologists were finishing images from 06/17/25 and to try back in a few days. documented in this encounter Plan of Treatment [...] on filedocumented in this encounter Care Teams Regional Manager Relationship Specialty Start Date End Date Ludivina Loaiza MD [address] [place] [address] PCP - General 12/05/16 Christiano Ramesh MD [address] [place] [address] Consulting Physician Neurosurgery 03/02/23 Nadira Valle, flight information expediter 12/22/23 Dawson Alcaraz MD [address] [facility] [address] [place] [id number] Radiation Oncologist Radiation Oncology 07/16/24 documented as of this encounter
--- OUTSIDE RECORDS SUMMARY | 2025-06-26 16:55 | XMS_ITS | Encounter Summary ---
Author Organization [facility] Address [facility] [place] [address] Care Team Providers Care Block Mason Name Role Phone Ludivina Loaiza MD Primary Care Provider [phone] Tor Burns MD Unavailable [phone] Brian Cole MD Unavailable [phone] Christiano Ramesh MD Unavailable [phone] Dharmesh Roche MD Unavailable [phone] Edinson York APRN Unavailable [phone] Denis Cantrell MD Unavailable Pennie Garcia PA-C Unavailable [phone] Encounter Details Date Type Department Care Team (Late st Contact Info) Description 01/22/2018 Abstract [facility] [address] [place] [address] Tor Burns MD [address] [place] [address] Social History Tobacco Use Types Packs/Day Years [...] Description 08/05/2025 12:45 PM CDT Office Visit [facility] eld [address] [place] [address] Brian Cole MD [address] [place] [address] documented as of this encounter Visit Diagnoses Not on filedocumented in this encounter Care Teams Block Mason Relationship Specialty Start Date End Date Ludivina Loaiza MD [address] [place] [address] PCP - General INTERNAL MEDICINE 01/24/18 Tor Burns MD [address] [place] [address] [place] [employer] CARDIOVASCULAR DISEASE 01/24/18 02/16/23 Brian Cole MD [address] [place], [place] [address] [employer] CLINICAL CARDIAC ELECTROPHYSIOLOGY 03/25/22 Christiano Ramesh MD [address] [facility] [place] [address] Surgeon NEUROLOGICAL SURGERY 02/17/23 Dharmesh Roche MD [address] [facility] [address] [place] [address] Consulting Physician INTERVENTIONAL CARDIOLOGY 02/20/23 Edinson York APRN [address] [facility] [place] [address] Nurse Practitioner NURSE PRACTITIONER 02/20/23 Denis Cantrell MD [address] [facility] [address] [place], [place] [address] Consulting Physician INTERNAL MEDICINE 07/28/23 Pennie Garcia PA-C [address] [place], [place] [address] Referring Physician PHYSICIAN DOUGHMAKER 08/05/24 documented as of this encounter
--- OUTSIDE RECORDS SUMMARY | 2025-06-26 16:55 | XMS_ITS | Clinical Summary ---
Author Organization [facility] Address [address] [place] [address] Care Team Providers Care Coronary Care Unit Nurse Name Role Phone Ludivina Loaiza MD Primary Care Provider Christiano Ramesh MD Unavailable [phone] Nadira Valle RN Unavailable Unavailabl Dawson Servin [...] Date Herniated nucleus pulposus, L3-4 left 02/17/2023 long-term current use of anticoagulant 3 Degenerative lumbar [...] Encounters Date Type Department Care Team Description 06/25/2025 Documentation [facility] Radiation Oncology [address] [facility] [place] [address] Janice Stewart RN 06/23/2025 Orders Only [facility] Radiation Oncology [address] [facility] [place] [address] Dawson Alcaraz MD 06/19/2025 2:32 PM CDT - 06/19/2025 11:59 PM CDT Hospital Encounter [facility] ([facility]) [address] [place] [address] Diagnosis unknown Discharge Disposition: Discharge to home or self care 06/19/2025 2:28 PM CDT - 06/19/2025 11:59 PM CDT Hospital Encounter [facility] ([facility]) [address] [place] [address] Discharge Disposition: Discharge to home or self care 06/19/2025 Telephone [facility] Radiation Oncology [address] [place] [address] [place] [address] Janice Stewart RN 06/19/2025 Documentation [facility] Radiation Oncology [address] [place] [address] for [place] [address] Janice Stewart RN 05/19/2025 Telephone [facility] Radiation Oncology [address] [place] [address] for [place] [address] Janice Stewart RN 04/17/2025 Telephone [facility] Radiation Oncology [address] [facility] [place] [address] Janice Stewart RN 04/17/2025 Telephone [facility] Radiation Oncology [address] [facility] [place] [address] Janice Stewart RN 04/16/2025 2:20 PM CDT - 04/16/2025 11:59 PM CDT Hospital Encounter [address] [address] Prostate cancer (HCC) Discharge Disposition: Discharge to home or self care 04/16/2025 2:14 PM CDT - 04/16/2025 11:59 PM CDT Hospital Encounter [address] [address] Prostate cancer (HCC) Discharge Disposition: Discharge to home or self care 04/16/2025 Telephone [facility] Radiation Oncology [address] [facility] [place] [address] Janice Stewart RN 04/16/2025 Orders Only [facility] Radiation Oncology [address] [facility] [place] [address] Dawson Alcaraz MD Prostate cancer (HCC) (Primary Dx); Pathological fracture in neoplastic disease, other specified site, initial encounter for fracture 04/16/2025 Telephone [facility] Radiation Oncology [address] [facility] [place] [address] Janice Stewart RN 04/16/2025 Telephone [facility] Medicine Radiation Oncology [address] [facility] [place] [address] Janice Stewart RN 04/16/2025 Telephone [facility] Radiation Oncology [address] [place] [address] Janice Stewart RN 04/15/2025 Documentation [facility] Radiation Oncology [address] [place] [address] Janice Stewart RN 04/10/2025 Orders Only [facility] Radiation Oncology [address] [facility] [place] [address] Dawson Alcaraz MD Prostate cancer (HCC) (Primary Dx) 04/07/2025 11:00 AM CDT Office Visit [facility] Radiation Oncology [address] [facility] [place] [address] Dawson Alcaraz MD Prostate cancer (HCC) [C61] (Primary Dx) 04/07/2025 Telephone [facility] Radiation Oncology [facility] [place] [address] Janice Stewart RN 04/07/2025 Orders Only [facility] Radiation Oncology [address] [place] [address] Dawson Alcaraz MD Prostate cancer (HCC) (Primary Dx) 04/02/2025 2:31 PM CDT - 04/02/2025 11:59 PM CDT Hospital Encounter [facility] [address] [place] [address] Prostate cancer (HCC) Discharge Disposition: Discharge to home or self care 03/31/2025 Orders Only [facility] Radiation Oncology [address] [place] [address] Dawson Alcaraz MD from Last 3 Months [...] often do you attend chur ch or synagogue services? More than 4 times per year 12/21/2023 Do you belong to any clubs o r organizations such as sabianist groups, unions, fraternal or athletic groups, or [...] place to sleep or slept in a halfway (including now)? No 12/21/2023 Personal Safety Answer Date Recorded Have you ever been in or are you currently in a harmful physical or emotional relationship or is someone making you feel afraid or unsafe? Denies 12/22/2023 Sex and Gender Information Value Date Recorded Sex Assigned at Not on file Legal Sex Male 12:37 AM MATERIAL WORKER Gender Identity Not on file Sexual Orientation Not on file Obstetrics History Last Filed Vital Signs Vital Sign Reading Time Taken Comments Blood Pressure 140/88 04/07/2025 11:10 AM CDT Pulse 88 04/07/2025 11:10 AM CDT Temperature 36.6 C (97.9 F) 04/07/2025 11:10 AM CDT Respiratory Rate 16 09/09/2024 3:00 PM MATERIAL WORKER Oxygen Saturation 97% 04/07/2025 11:10 AM CDT [...] Tdap) 12/08/2024 12/08/2014 Influenza Vaccine (#1) 2025 , 08/06/2019, 08/02/2018, Additional history exists Fall Risk Assessment 07/19/2025 07/19/2024, 12/22/19 24 Prostate Cancer Screening-PSA 06/23/2027, 03/31/2025, 12/24/2024, Additional history exists Goals Goal Patient Goal Type Associated Problems Recent Progress Patient-Stated? Author [facility] Jenelle Vora, RN Note: Patient will establish a comfort-function goal and identify the pain level that will allow the patient to perform desired activities and achieve an acceptable quality of life. Medical Devices Implanted Type Area Fire Prevention Captain Device Identifier Shelf Expiration Date Model / Serial / Lot Hernia Mesh Left: Pelvis Procedures Procedure Name Priority Date/Time Associated Diagnosis Comments PSA, TOTAL AND FREE Routine 06/23/2025 2 :16 PM CDT TOTAL TESTOSTERONE Routine 06/23/2025 2: 16 PM CDT COPY(IES) SENT TO: Routine 06/23/2025 2: [address] BODY OUTSIDE REFERENCE Routine 06/19/2025 2:32 PM CDT Diagnosis unknown CT BODY OUTSIDE REFERENCE Routine 06/19/2025 2:28 PM CDT MRI LUMBAR SPINE W WO CONTRAST Schedule [...] CDT from Last 3 Months Results * COPY(IES) SENT TO: (06/23/2025 2:16 PM CDT) COPY(IES) SENT TO: [facility] Comment: [place] [address] [place] [address] 06/23/2025 2:16 PM CDT 06/23/2025 2:18 PM CDT Dawson Alcaraz MD LAB BLOOD ORDERABLES Final Result [facility] * PSA, total and free (06/23/2025 2:16 PM CDT) Pathologist [facility] PSA 0.1 < OR = 4.0 ng/mL [facility] Ladarius Solares PSA, free <0.1 ng/mL [facility] Gueydan PSA, free UNABLE TO CALCULATE >25 % (calc) [facility] Lad[facility] Solares Comment: The free PSA level is [...] 30 93 9 (3)Catalona et al.:ZANA 277: 1752-5522 (1996) (4)Catalona et al.:ZANA 279: 9253-3795 (1997) (x)These estimates vary with age, ethnicity, [...] mind. PSA was performed using the Yeyo Grassflat Immunoassay method. Values obtained from different assay methods cannot be used interchangeably. PSA levels, regardless of value, should not be interpreted as absolute evidence of the presence or absence of disease. 06/23/2025 2:16 PM CDT 06/23/2025 2:18 PM CDT Dawson Alcaraz MD LAB BLOOD ORDERABLES Final Result Performing Organization Address [facility] de Phone Number [employer] [address] [place] [address] * (ABNORMAL) Total testosterone (06/23/2025 2:16 PM CDT) Testosterone <10(L) 250 - 827 ng/dL [facility] Comment: In hypogonadal males, Testosterone, Total, LC/MS/MS, is the recommended assay due to the diminished accuracy of immunoassay at levels below 250 ng/dL. This test code (93182) must be collected in a red-top tube with no gel. 06/23/2025 2:16 PM CDT 06/23/2025 2:18 PM CDT Dawson Alcaraz MD LAB BLOOD ORDERABLES Final Result Performing Organization Address [facility] de Phone Number [email or web address] [address] [place] [address] * CT Body Outside Reference (06/19/2025 2:32 PM CDT) Impressions RAD_PACS_[facility] - 06/19/2025 2:32 PM CDT These images are for Reference purposes only and have not been reviewed by [facility]iology. There will be no report generated by a [facility] Radiologist. Narrative [facility] - 06/19/2025 2:32 PM CDT EXAMINATION: Images For Reference Purposes Only Dawson Alcaraz MD IMG CT PROCEDURES Fin al Result Performing Organization Address [facility] Co de Phone Number [facility] * CT Body Outside Reference (06/19/2025 2:28 PM CDT) Impressions [facility]_PACS[facility] - 06/19/2025 2:28 PM CDT These images are for Reference purposes only and have not been reviewed by [facility]. There will be no report generated by a [facility] Radiologist. Narrative [facility] - 06/19/2025 2:28 PM CDT EXAMINATION: Images For Reference Purposes Only us Dawson Alcaraz MD IMG CT PROCEDURES Fin al Result [facility] * MRI Lumbar Spine W WO Contrast [...] 11/08/2023, 12/30/2022 and 06/17/2020. FINDINGS: SEGMENTATION: 5 tdb-eaf-ppjesko lumbar type vertebral bodies. ALIGNMENT: Mild retrolisthesis [...] arthropathy. Flattening of the ventral thecal sac. Sxvg-rnhunpf-gnjf-right lateral recess effacement. Moderate to severe left and moderate right neural foraminal narrowing. L4-L5: Disc bulge with marginal spur formation. Thickened ligamentum flavum and facet arthropathy. No significant spinal canal stenosis. Naccm-ngremcf-jpel-left lateral recess narrowing. Moderate to severe neural [...] Electronically signed by Jeovany West D.O. AP: DANTE Report ID: [id number] Reading Location: [id number] Procedure Note Jeovany West, DO - 04/17/2025 [...] dated 11/08/2023, 12/30/2022 and06/17/2020. FINDINGS: SEGMENTATION: 5 vpc-lfd-upbsrqz lumbar type vertebral bodies. ALIGNMENT: Mild retrolisthesis [...] facet arthropathy. Flattening of the ventral thecal sac.Pumd-vnaosoa-xlzm-right lateral recess effacement. Moderate to severe left and moderate rightneural foraminal narrowing. L4-L5: Disc bulge with marginal spur formation. Thickened ligamentumflavum and facet arthropathy. No significant spinal canal stenosis. Rajdv-vsiydhx-hytd-left lateral recess narrowing. Moderate to severeneural foraminal [...] Jeovany West D.O. AP: AP Report ID: [id number] Reading Location: [id number] us Dawson Alcaraz MD [facility] MRI PROCEDURES Fi nal Result * MRI [...] Richard Deng M.D. TH: TH Report ID: [id number] Reading Location: [id number] Procedure Note Richard Deng MD - 04/16/2025 [...] Electronically signed by Richard Deng M.D. TH: Report ID: [id number] Reading Location: [id number] us Dawson Alcaraz MD IMG MRI PROCEDURES [...] site designated by the patient by the funeral car driver, with selected grayscale and color Doppler images [...] Electronically signed by Tor Sommer M.D. RB: RB Report ID: [id number] Reading Location: [id number] Procedure Note Tor Sommer MD - 04/16/2025 EXAM DESCRIPTION: US SOFT TISSUE NECK REASON FOR STUDY: Palpable lump for 2 years. TECHNIQUE: A Dynamic assessment was performed of the localized site designated by the patient by the funeral car driver, with selected grayscale and color Doppler images [...] Electronically signed by Tor Sommer M.D. RB: RB Report ID: [id number] Reading Location: [id number] Dawson Alcaraz MD [facility] US PROCEDURES Fin al Result * PSA, total and free (03/31/2025 2:00 PM CDT) PSA 0.1 < OR = 4.0 ng/mL [facility] Ladarius Solares PSA, free <0.1 ng/mL [facility] Ladarius Solares PSA, free UNABLE TO CALCULATE >25 % (calc) [facility] Comment: The free PSA level is below detectable limits. We are unable to calculate a % free PSA. PSA(ng/mL) Free PSA(%) Estimated(x) Probability of Cancer(as%) 0-2.5 (*) Approx. 1 2.6-4.0(1) 0-27(2) 24(3) 4.1-10(4) 0-10 56 11-15 28 16-20 20 21-25 16 >or =26 8 >10(+) N/A >50 References:(1)Triston et al.:Urology 60: 469-474 (2001) (2)Viridianaona et al.:J.Urol 168: 922-925 (2001) Free PSA(%) Sensitivity(%) Specificity(%) < or = 25 85 19 < or = 30 93 9 (3)Catalona et al.:ZANA 277: 5651-1851 (1996) (4)Catalona et al.:ZANA 279: 9285-7130 (1997) (x)These estimates vary with age, ethnicity, [...] mind. PSA was performed using the Yeyo Grassflat Immunoassay method. Values obtained from different assay methods cannot be used interchangeably. PSA levels, regardless of value, should not be interpreted as absolute evidence of the presence or absence of disease. 03/31/2025 2:00 PM CDT 03/31/2025 2:00 PM CDT Dawson Alcaraz MD LAB BLOOD ORDERABLES Final Result Performing Organization Address City/[facility]/ZIP Co de Phone Number [facility] [address] [facility] [place] [address] * (ABNORMAL) Total testosterone (03/31/2025 2:00 PM CDT) Testosterone <10(L) 250 - 827 ng/dL [facility] Comment: In hypogonadal males, Testosterone, Total, LC/MS/MS, is the recommended assay due to the diminished accuracy of immunoassay at levels below 250 ng/dL. This test code (07457) must be collected in a red-top tube with no gel. 03/31/2025 2:00 PM CDT 03/31/2025 2:00 PM CDT Dawson Alcaraz MD LAB BLOOD ORDERABLES Final Result Performing Organization Address [facility] Co de Phone Number [email or web address] [address] [place] [address] from Last 3 Months Insurance [facility] MEDICARE ADVANTAGE [facility] MEDICARE ADVANTAGE MEDICARE RESEARCH [facility] MEDICARE ADVANTAGE [facility] MEDICARE ADVANTAGE [facility] MEDICARE ADVANTAGE Care Teams Coronary Care Unit Nurse Relationship Specialty Start Date End Date Ludivina Loaiza MD [address] [place] [address] PCP - General 12/05/16 Christiano Ramesh MD [address] [place] [address] Consulting Physician Neurosurgery 03/02/23 Nadira Valle, financial accounting analyst 12/22/23 Dawson Alcaraz MD [address] [facility] [address] [place] [address] Radiation Oncologist Radiation Oncology 07/16/24
--- OUTSIDE RECORDS SUMMARY | 2025-06-26 16:55 | XMS_ITS | Clinical Summary ---
Author Organization [facility] Address [address] [place] [address] Care Team Providers Care Groover And Striper Operator Name Role Phone Ludivina Loaiza MD Primary Care Provider [phone] Brian Cole MD Unavailable [phone] Christiano Ramesh MD Unavailable [phone] Dharmesh Roche MD Unavailable [phone] Edinson York APRN Unavailable [phone] Denis Cantrell MD Unavailable Pennie Garcia PA-C Unavailable [phone] Allergies No known active allergies Medications glimepiride [...] with other complications 08/22/2023 Paroxysmal atrial fibrillation ([facility]) 03/28/2023 Typical atrial flutter ([facility]) 023 Chronic venous insufficiency 02/17/2023 Chronic pain Dyslipidemia Essential hypertension Diabetes ([facility]) Chest pain Dyspnea Resolved Problems Problem Noted [...] place to sleep or slept in a snf (including now)? No 04/25/2023 Sex and Gender [...] 08/05/2025 12:45 PM CDT Office Visit [facility] [address] [place] [address] Brian Cole MD [address] [place] [address] Health Maintenance Due Date Last Done Comments [...] 08/07/2020 06/12/2020 Annual Medicare Wellness Visit 2023 DTaP, Tdap and Td Vaccines ( 2 - Td or Tdap) 12/08/2024 12/08/2014 COVID-19 Vaccine (3 - 2024-2 6 season) 2025 10/04/2021, 01/21/2021 Meningococcal B Vaccine Aged Out No l onger eligible based on patient's age to complete this topic Meningococcal Vaccine Aged Out No ricky momo eligible based on patient's age to complete this topic RSV Immunizations Under 20 Months Aged Out No longer eligible b ased on patient's age to complete this topic Insurance [facility] Advance Directives * Full Code (Latest Code Status on File) Date Activated Date Inactivated Comments 04/25/2023 10:58 AM 04/26/2023 12:31 PM Care Teams Groover And Striper Operator Relationship Specialty Start Date End Date Ludivina Loaiza MD [address] [place] [address] PCP - General INTERNAL MEDICINE 01/24/18 Brian Cole MD [address] [place] [address] EP Cable Driller CLINICAL CARDIAC ELECTROPHYSIOLOGY 03/25/22 Christiano Ramesh MD [address] [facility]. [address] [place], [place] [address] Surgeon NEUROLOGICAL SURGERY 02/17/23 Dharmesh Roche MD [address] [facility]. [address] [place], [place] [id number] Consulting Physician INTERVENTIONAL CARDIOLOGY 02/20/23 Edinson York APRN [address] [facility] [place] [address] Nurse Practitioner NURSE PRACTITIONER 02/20/23 Denis Cantrell MD [address] [facility] [place] [id number] Consulting Physician INTERNAL MEDICINE 07/28/23 Pennie Garcia PA-C [address] [place] [address] 687111 Referring Physician PHYSICIAN HUMAN SERVICE COORDINATOR 08/05/24
--- OUTSIDE RECORDS SUMMARY | 2025-06-26 16:55 | XMS_ITS | Encounter Summary ---
Author Organization [facility] Address [facility] [place] [address] Care Team Providers Care Lisw Name Role Phone Ludivina Loaiza MD Primary Care Provider [phone] Tor Burns MD Unavailable [phone] Brian Cole MD Unavailable [phone] Christiano Ramesh MD Unavailable [phone] Dharmesh Roche MD Unavailable [phone] Edinson York APRN Unavailable [phone] Denis Cantrell MD Unavailable Pennie Garcia PA-C Unavailable [phone] Encounter Details Date Type Department Care Team (Late st Contact Info) Description 02/14/2023 Hospital Orders Only [place] [employer] Supervisor Pre/Post [address] [place] [address] Brian Cole MD [address] [place] [address] Social History Tobacco Use Types Packs/Day Years [...] Description 08/05/2025 12:45 PM CDT Office Visit [facility] [address] [place] [phone] Brian Cole MD [address] [place] [address] documented as of this encounter Visit Diagnoses Not on filedocumented in this encounter Care Teams Lisw Relationship Specialty Start Date End Date Ludivina Loaiza MD [address] [place] [address] PCP - General INTERNAL MEDICINE 01/24/18 Tor Burns MD [address] [place] [address] [place] Lie Detector Operator CARDIOVASCULAR DISEASE 01/24/18 02/16/23 Brian Cole MD [address] [place] [address] EP Lie Detector Operator CLINICAL CARDIAC ELECTROPHYSIOLOGY 03/25/22 Christiano Ramesh MD [address] [facility] [place] [address] [id number] Surgeon NEUROLOGICAL SURGERY 02/17/23 Dharmesh Roche MD [address] [facility] [address] [place], [place] [id number] Consulting Physician INTERVENTIONAL CARDIOLOGY 02/20/23 Edinson York APRN 3 [facility]. [address] [place] [address] Nurse Practitioner NURSE PRACTITIONER 02/20/23 Denis Cantrell MD 3 [facility]. [address] [place] [address] Consulting Physician INTERNAL MEDICINE 07/28/23 Pennie Garcia PA-C [address] [place] [address] Referring Physician PHYSICIAN MALT HOUSE SUPERVISOR 08/05/24 documented as of this encounter
--- OUTSIDE RECORDS SUMMARY | 2025-06-26 16:55 | XMS_ITS | Encounter Summary ---
Author Organization [facility] Address [address] [place] [address] Care Team Providers Care Accreditation Manager Name Role Phone Ludivina Loaiza MD Primary Care Provider [phone] Brian Cole MD Unavailable [phone] Christiano Ramesh MD Unavailable [phone] Dharmesh Roche MD Unavailable [phone] Edinson York APRN Unavailable [phone] Denis Cantrell MD Unavailable Pennie Garcia PA-C Unavailable [phone] Encounter Details Date Type Department Care Team (Late st Contact Info) Description 04/20/2023 Hospital Orders Only [facility] Anesthesia [address] [place] [address] Melissa Wallis RN Anesthesia Record Procedure Summary [...] Date: 04/25/23; Removal Time: 1029; Removal Person: ORACLE SQL DEVELOPER; Removal Reason: End of Case 04/25/23727 by [...] Patient Discharged 04/25/23 0730 by Suzy Torres, ORACLE SQL DEVELOPER 04/26/23 0908 by Shruthi Dow RN Arterial Line Placement Date: 04/15 11/07; Placement Time: 743 (created via procedure documentation); Orientation: Right; Location: Radial; Site Prep: Chlorhexidine; Local Anesthetic: None; Insertion Attempts: 1; Patient Tolerance: Tolerated well; Removal Date: 04/25/23; Removal Time: 1215; Removal Reason: Therapy Completed 04/25/23 07 by Suzy Torres, ORACLE SQL DEVELOPER 04/25/23 121 by Steffanie Toscano RN documented [...] Description 08/05/2025 12:45 PM CDT [facility] [address] [place] [address] Brian Cole MD [address] [place] [address] documented as of this encounter Visit Diagnoses Not on filedocumented in this encounter Care Teams Accreditation Manager Relationship Specialty Start Date End Date Ludivina Loaiza MD [address] [place] [id number] PCP - General INTERNAL MEDICINE 01/24/18 Brian Cole MD [address] [place] [address] EP Mill Dresser CLINICAL CARDIAC ELECTROPHYSIOLOGY 03/25/22 Christiano Ramesh MD 3 [facility]. [address] [place] [address] Surgeon NEUROLOGICAL SURGERY 02/17/23 Dharmesh Roche MD 3 [facility]. [address] [place] [address] Consulting Physician INTERVENTIONAL CARDIOLOGY 02/20/23 Edinson York APRN 3 [facility]. [address] [place], [place] [address] Nurse Practitioner NURSE PRACTITIONER 02/20/23 Denis Cantrell MD 3 [facility]. [address] [place], [place] [address] Consulting Physician INTERNAL MEDICINE 07/28/23 Pennie Garcia PA-C [address] [place] [address] Referring Physician PHYSICIAN PLAN COORDINATOR 08/05/24 documented as of this encounter
== END 2025-06-26 17:00 | disposition home or self-care (01) ==
LOC: CHSED 16:54
PROVIDERS: Emergency Provider Emergency Medicine; PCP Internal Medicine
DX: R21 Rash and other nonspecific skin eruption (principal)
CPT/HCPCS: 99283

== ENCOUNTER 2025-07-02 15:18 | Outpatient (CLI) | payer MEDICARE, SELFPAY ==
--- OUTSIDE RECORDS SUMMARY | 2019-05-27 04:33 | XMS_ITS | Continuity of Care Document ---
Author Organization [facility] Address [address] [address] [place] [address] Phone Care Team Providers Care Curb Builder Name Role Phone Jaya Florentino PA-C Unavailable [...] 12 Lead; W/intrpt Offic/outpt E m [facility] Advance Directives Directive Yes / No Effective Date File Name No Information Encounters Encounter Description Practice Location Reason(s) For Visit Diagnoses Date Provider Providers Copied on Encounter [facility], [address] [address], [place], [place], [id number], tel:[phone] No Information 9 [place]. [address] [place], [place], [id number] , . tel:[phone] Offic/outpt E m [facility], [address] [address], [place], [address], tel:[phone] 1st Care Swelling (chief complaint) Edema, unspecifiedChest pain, unspecified type [facility]. [address] [place] [address], [id number] , [place]. tel: [phone] Family History Family Member Type Diagnosis Age At Onset No Information Payers Payer name Insurance type Covered democrat ID Ching lopez(s) [facility] [id number] Social History Type Description Quantity Date Captured Comments Sex Male Smoking Status No Information Chief Complaint And Reason For Visit No Information Reason For Referral Reason For Referral No Information Plan Of Treatment Date Type Action Status Future Order: Radiology Order XR Chest 2 View ([id number]), Sent on: Sent History Of Present Illness Encounter Date Complaint History Of Prese nt Illness Swelling Swelling (comments) Patient ents the clinic today with recent chest pain, bilateral lower extremity swelling, shortness of breath.He arrived in [place] from the [place] [address], having traveled on a cruise ship and then most recently on an extended train ride from [place] to [facility].He states that his symptoms began after [...]
[2025-07-02 15:31] LABS: Hematocrit 43.0 % (37.0-46.0); Hemoglobin 14.7 g/dL (12.4-15.3); Mean Corpuscular HGB Conc 34.2 g/dL (32-36); Mean Corpuscular Hemoglobin 30.7 pg (27.0-31.0); Mean Corpuscular Volume 89.8 fL (78.0-102.0); Platelet Count Result 325 K/mm3 (150-420); Red Blood Count 4.79 M/mm3 (4.70-6.10); White Blood Count 9.8 K/mm3 (4.8-10.8)
[2025-07-02 15:32] LABS: Add Urine Microscopic? NO; Appearance Urine Clear (Clear); Glucose Urine UA Negative (Negative); Leukocyte Esterase Ur Negative (Negative); Nitrate Urine Negative (Negative); Specific Grav Ur 1.015 (1.010-1.020)
[2025-07-02 16:02] LABS: Alanine Aminotransferase 26 U/L (6-50); Albumin Level 4.4 g/dL (3.5-5.1); Alkaline Phosphatase 70 U/L (38-126); Amylase 60 U/L (30-110); Anion Gap 10 mmol/L (4-12); Aspartate Amino Transferase 24 U/L (17-59); Bilirubin,Total 0.6 mg/dL (0.2-1.3); Blood Urea Nitrogen 25 mg/dL (9-20); Calcium 10.0 mg/dL (8.4-10.2); Carbon Dioxide 31 mmol/L (22-30); Chloride 98 mmol/L (98-107); Estimated Glomerular Filt Rate > 60; Glucose 119 mg/dL (65-110); Lipase 115 U/L (23-300); Osmolality Calculated 293 mOsm/kg (285-295); Potassium 4.3 mmol/L (3.4-5.0); Sodium 139 mmol/L (137-145); Total Protein 7.4 g/dL (6.3-8.2)
--- OUTSIDE RECORDS SUMMARY | 2025-07-02 16:03 | XMS_ITS | Encounter Summary ---
Author Organization [facility] Address [address] [place] [address] Care Team Providers Care Sap Director Name Role Phone Ludivina Loaiza MD Primary Care Provider [phone] Brian Cole MD Unavailable [phone] Christiano Ramesh MD Unavailable [phone] Dharmesh Roche MD Unavailable + [phone] Edinson York APRN Unavailable [phone] Denis Cantrell MD Unavailable Pennie Garcia PA-C Unavailable [phone] Encounter Details Date Type Department Care Team (Late st Contact Info) Description 04/20/2023 Hospital Orders Only [facility] Anesthesia [address] [place] [address] Melissa Wallis RN Anesthesia Record Procedure Summary [...] Date: 04/25/23; Removal Time: 1029; Removal Person: ALODIZE MACHINE HELPER; Removal Reason: End of Case 04/25/23727 by [...] Patient Discharged 04/25/23 0730 by Suzy Torres, ALODIZE MACHINE HELPER 04/26/23 0908 by Shruthi Dow RN Arterial Line Placement Date: 04/15 11/07; Placement Time: 743 (created via procedure documentation); Orientation: Right; Location: Radial; Site Prep: Chlorhexidine; Local Anesthetic: None; Insertion Attempts: 1; Patient Tolerance: Tolerated well; Removal Date: 04/25/23; Removal Time: 1215; Removal Reason: Therapy Completed 04/25/23 07 by Suzy Torres, ALODIZE MACHINE HELPER 04/25/23 121 by Steffanie Toscano RN documented [...] Description 08/05/2025 12:45 PM CDT [facility] [address] [place] [address] Brian Cole MD [address] [place] [address] documented as of this encounter Visit Diagnoses Not on filedocumented in this encounter Care Teams Sap Director Relationship Specialty Start Date End Date Ludivina Loaiza MD [address] [place] [phone] PCP - General INTERNAL MEDICINE 01/24/18 Brian Cole MD [address] [place] [address] EP Electric Lift Truck Driver CLINICAL CARDIAC ELECTROPHYSIOLOGY 03/25/22 Christiano Ramesh MD 3 [facility]. [address] [place] [address] Surgeon NEUROLOGICAL SURGERY 02/17/23 Dharmesh Roche MD 3 [facility]. [address] [place] [address] Consulting Physician INTERVENTIONAL CARDIOLOGY 02/20/23 Edinson York APRN 3 [facility]. [address] [place], [place] [address] Nurse Practitioner NURSE PRACTITIONER 02/20/23 Denis Cantrell MD 3 [facility]. [address] [place], [place] [address] Consulting Physician INTERNAL MEDICINE 07/28/23 Pennie Garcia PA-C [address] [place] [address] Referring Physician PHYSICIAN LOAN COUNSELOR 08/05/24 documented as of this encounter
--- OUTSIDE RECORDS SUMMARY | 2025-07-02 16:03 | XMS_ITS | Encounter Summary ---
Author Organization [facility] [place] Address Critical access hospital[address] [place] [address] Care Team Providers Care Mud Jack Nozzleman Name Role Phone Ludivina Loaiza MD Primary Care Provider [phone] Tor Burns MD Unavailable [phone] Brian Cole MD Unavailable + [phone] Christiano Ramesh MD Unavailable [phone] Dharmesh Roche MD Unavailable + [phone] Edinson York APRN Unavailable [phone] Denis Cantrell MD Unavailable Pennie Garcia PA-C Unavailable [phone] Encounter Details Date Type Department Care Team (Late st Contact Info) Description 01/22/2018 Abstract [facility] [address] [place] [address] Tor Burns MD [address] [place] [address] Social History Tobacco Use Types Packs/Day Years [...] Description 08/05/2025 12:45 PM CDT Office Visit [facility] eld [address] [place] [address] Brian Cole MD [address] [place] [address] documented as of this encounter Visit Diagnoses Not on filedocumented in this encounter Care Teams Mud Jack Nozzleman Relationship Specialty Start Date End Date Ludivina Loaiza MD [address] [place] [address] PCP - General INTERNAL MEDICINE 01/24/18 Tor Burns MD [address] [place] [address] [place] Rn Birthing CARDIOVASCULAR DISEASE 01/24/18 02/16/23 Brian Cole MD [address] [place], [place] [address] EP Rn Birthing CLINICAL CARDIAC ELECTROPHYSIOLOGY 03/25/22 Christiano Ramesh MD 3 [facility]. [address] [place] [address] Surgeon NEUROLOGICAL SURGERY 02/17/23 Dharmesh Roche MD [facility] [address] [place] [address] Consulting Physician INTERVENTIONAL CARDIOLOGY 02/20/23 Edinson York APRN 3 [facility]. [address] [place] [address] Nurse Practitioner NURSE PRACTITIONER 02/20/23 Denis Cantrell MD 3 [facility] [address] [place], [place] [address] Consulting Physician INTERNAL MEDICINE 07/28/23 Pennie Garcia PA-C [address] [place], [place] [address] Referring Physician PHYSICIAN PUNCH OPERATOR 08/05/24 documented as of this encounter
--- OUTSIDE RECORDS SUMMARY | 2025-07-02 16:03 | XMS_ITS | Clinical Summary ---
Author Organization [facility] Address [address] [place] [address] Care Team Providers Care Denture Finisher Name Role Phone Ludivina Loaiza MD Primary Care Provider + [phone] Christiano Ramesh MD Unavailable [phone] Nadira Valle RN Unavailable Unavailabl Dawson Servin [...] Herniated nucleus pulposus, L3-4 left 02/17/2023 terminal makeup operator current use of anticoagulant 3 Degenerative [...] Encounters Date Type Department Care Team Description 06/30/2025 11:00 AM CDT Office Visit [facility] Radiation Oncology [address] [place] [address] Dawson Alcaraz MD Prostate cancer (HCC) (Primary Dx) 06/25/2025 Documentation [facility] Radiation Oncology [address] [place] [address] Janice Stewart RN 06/23/2025 Orders Only [facility] Radiation Oncology [address] [facility] [place] [address] Dawson Alcaraz MD 06/19/2025 2:32 PM CDT - 06/19/2025 11:59 PM CDT Hospital Encounter [facility] ([facility] [address] [place] [address] Diagnosis unknown Discharge Disposition: Discharge to home or self care 06/19/2025 2:28 PM CDT - 06/19/2025 11:59 PM CDT Hospital Encounter [facility] ([facility]) [address] [place] [address] Discharge Disposition: Discharge to home or self care 06/19/2025 Telephone [facility] Radiation Oncology [address] [facility] [place] [address] Janice Stewart RN 06/19/2025 Documentation [facility] Radiation Oncology [address] [facility] [place] [address] Janice Stewart, RN 05/19/2025 Telephone [facility] Radiation Oncology [address] [facility] [place] [address] Janice Stewart RN 04/17/2025 Telephone [facility] Radiation Oncology [address] [facility] [place] [address] Janice Stewart RN 04/17/2025 Telephone [facility] Radiation Oncology [address] [facility] [place] [address] Janice Stewart RN 04/16/2025 2:20 PM CDT - 04/16/2025 11:59 PM CDT Hospital Encounter [address] [place] [address] Prostate cancer (HCC) Discharge Disposition: Discharge to home or self care 04/16/2025 2:14 PM CDT - 04/16/2025 11:59 PM CDT Hospital Encounter [facility] [address] [place] [address] Prostate cancer (HCC) Discharge Disposition: Discharge to home or self care 04/16/2025 Telephone [facility] Radiation Oncology [address] [facility] [place] [address] Janice Stewart RN 04/16/2025 Orders Only [facility] Radiation Oncology [address] [facility] [place] [address] Dawson Alcaraz MD Prostate cancer (HCC) (Primary Dx); Pathological fracture in neoplastic disease, other specified site, initial encounter for fracture 04/16/2025 Telephone [facility] Radiation Oncology [address] [facility] [place] [address] Janice Stewart RN 04/16/2025 Telephone [facility] Radiation Oncology [address] [facility] [place] [address] Janice Stewart RN 04/16/2025 Telephone [facility] Radiation Oncology [address] [facility] [place] [address] Janice Stewart RN 04/15/2025 Documentation [facility] Radiation Oncology [address] [facility] [place] [address] Janice Stewart RN 04/10/2025 Orders Only [facility] Radiation Oncology [address] [facility] [place] [address] Dawson Alcaraz MD Prostate cancer (HCC) (Primary Dx) 04/07/2025 11:00 AM CDT Office Visit [facility] Radiation Oncology [address] [facility] [place] [address] Dawson Alcaraz MD Prostate cancer (HCC) [C61] (Primary Dx) 04/07/2025 Telephone [facility] Radiation Oncology [address] [facility] [place] [address] Janice Stewart RN 04/07/2025 Orders Only [facility] Radiation Oncology [address] [facility] [place] [address] Dawson Alcaraz MD Prostate cancer (HCC) (Primary Dx) 04/02/2025 2:31 PM CDT - 04/02/2025 11:59 PM CDT Hospital Encounter [facility] [address] [place] [address] Prostate cancer (HCC) Discharge Disposition: Discharge to home or self care from Last 3 Months Surgical History Surgery [...] 12/21/2023 How often do you attend [employer]ur [employer] or holiness services? More than 4 times per year 12/21/2023 Do you belong to any clubs o r organizations such as holiness groups, unions, fraternal or athletic groups, or [...] place to sleep or slept in a fci (including now)? No 12/21/2023 Personal Safety Answer Date Recorded Have you ever been in or are you currently in a harmful physical or emotional relationship or is someone making you feel afraid or unsafe? Denies 12/22/2023 Sex and Gender Information Value Date Recorded Sex Assigned at Not on file Legal Sex Male 12:37 AM WEDGER Gender Identity Not on file Sexual Orientation Not on file Obstetrics History Last Filed Vital Signs Vital Sign Reading Time Taken Comments Blood Pressure 151/84 06/30/2025 11:07 AM CDT Pulse 76 06/30/2025 11:07 AM CDT Temperature 36.6 C (97.9 F) 04/07/2025 11:10 AM CDT Respiratory Rate 16 09/09/2024 3:00 PM WEDGER Oxygen Saturation 100% 06/30/2025 11: 07 AM CDT Inhaled Oxygen Concentration - - Weight 93.8 kg (206 lb 14.4 oz) 025 11:07 AM CDT Height 180.3 cm (5' 11) 06/30/2025 11: 07 AM CDT Body Mass Index 28.86 06/30/2025 11:07 AM CDT Plan of Treatment Health Maintenance Due Date Last Done Comments Colon Cancer Screening-Colonoscopy 1960 Depression Screening 1960 Hepatitis C Screening 1960 Hepatitis B Screening 02/10/1976 Pneumococcal vaccine 65+ (2 of 2 - PPSV23, PCV20, or PCV21) 12/11/2017 10/16/2017, 04/06/2016 Zoster Vaccine (2 of 2) 08/07/2020 06/12/2020 Well Visit 65+ 2023 DTaP/Tdap/Td Vaccine (2 - Td or Tdap) 12/08/2024 12/08/2014 Influenza Vaccine (#1) 2025 , 07/30/2020, 07/16/2020, Additional history exists Fall Risk Assessment 07/19/2025 [...] of life. Medical Devices Implanted Type Area Welder Apprentice Combination Device Identifier Shelf Expiration Date Model / [...] 04/02/2025 2:55 PM CDT Prostate cancer (HCC) from Last 3 Months Results * COPY(IES) SENT TO: (06/23/2025 2:16 PM CDT) COPY(IES) SENT TO: [facility] Comment: [place] [address] [place] [address] 06/23/2025 2:16 PM CDT 06/23/2025 2:18 PM CDT us Dawson Alcaraz MD LAB BLOOD ORDERABLES Final Result [facility] * PSA, total and free (06/23/2025 2:16 PM CDT) PSA 0.1 < OR = 4.0 ng/mL [facility] PSA, free <0.1 ng/mL [facility] PSA, free UNABLE TO CALCULATE >25 % (calc) [facility] Comment: The free PSA level [...] 30 93 9 (3)Catalona et al.:ZANA 277: 6167-2576 (1996) (4)Catalona et al.:ZANA 279: 4591-1073 (1997) (x)These estimates vary with age, ethnicity, [...] BLOOD ORDERABLES Final Result Performing Organization Address [facility] Co de Phone Number [facility] [address] [place] [address] * (ABNORMAL) Total testosterone (06/23/2025 2:16 PM CDT) Testosterone <10(L) 250 - 827 ng/dL [facility] Comment: In hypogonadal males, Testosterone, Total, LC/MS/MS, is the recommended assay due to the diminished accuracy of immunoassay at levels below 250 ng/dL. This test code (72668) must be collected in a red-top tube with no gel. 06/23/2025 2:16 PM CDT 06/23/2025 2:18 PM CDT Dawson Alcaraz MD LAB BLOOD ORDERABLES Final Result Performing Organization Address [facility] Co de Phone Number [facility] [address] [place] [address] * CT Body Outside Reference (06/19/2025 2:32 PM CDT) Impressions [facility]_PACS[facility] - 06/19/2025 2:32 PM CDT These images are for Reference purposes only and have not been reviewed by [facility]. There will be no report generated by a [facility] Radiologist. Narrative [facility] - 06/19/2025 2:32 PM CDT EXAMINATION: Images For Reference Purposes Only Dawson Alcaraz MD IMG CT PROCEDURES Fin al Result Performing Organization Address [facility] Co de Phone Number [facility] * CT Body Outside Reference (06/19/2025 2:28 PM CDT) Impressions [facility] - 06/19/2025 2:28 PM CDT These images are for Reference purposes only and have not been reviewed by [facility]. There will be no report generated by a [facility] Radiologist. Narrative [facility] - 06/19/2025 2:28 PM [...] 11/08/2023, 12/30/2022 and 06/17/2020. FINDINGS: SEGMENTATION: 5 cmf-lyj-glbliys lumbar type vertebral bodies. ALIGNMENT: Mild retrolisthesis [...] arthropathy. Flattening of the ventral thecal sac. Jvjb-yvqdglh-qedi-right lateral recess effacement. Moderate to severe left and moderate right neural foraminal narrowing. L4-L5: Disc bulge with marginal spur formation. Thickened ligamentum flavum and facet arthropathy. No significant spinal canal stenosis. Hsjbx-jwybxps-kkwd-left lateral recess narrowing. Moderate to severe neural [...] Jeovany West D.O. AP: AP Report ID: [id number] Reading Location: [id number] Procedure Note Jeovany West, DO - 04/17/2025 [...] dated 11/08/2023, 12/30/2022 and06/17/2020. FINDINGS: SEGMENTATION: 5 qig-gbp-twjttlm lumbar type vertebral bodies. ALIGNMENT: Mild retrolisthesis [...] facet arthropathy. Flattening of the ventral thecal sac.Ijye-jhjlkea-wczq-right lateral recess effacement. Moderate to severe left and moderate rightneural foraminal narrowing. L4-L5: Disc bulge with marginal spur formation. Thickened ligamentumflavum and facet arthropathy. No significant spinal canal stenosis. Vocwa-srzkaod-hoim-left lateral recess narrowing. Moderate to severeneural foraminal [...] Jeovany West D.O. AP: AP Report ID: [id number] Reading Location: [id number] Dawson Alcaraz MD [facility] MRI PROCEDURES Fi nal Result * MRI [...] by Richard Deng M.D. TH: Report ID: [id number] Reading Location: [id number] Procedure Note Richard Deng MD - 04/16/2025 [...] Richard Deng M.D. TH: TH Report ID: [id number] Reading Location: [id number] Dawson Alcaraz MD IM MRI PROCEDURES Fi nal Result * US Soft Tissue Neck (04/02/2025 2:55 PM CDT) Anatomical Region Laterality Modality Head and Neck N/A Ultrasound 04/16/2025 7:13 AM CDT Narrative 04/16/2025 7:14 AM CDT EXAM DESCRIPTION: US SOFT TISSUE NECK REASON FOR STUDY: Palpable lump for 2 years. TECHNIQUE: A Dynamic assessment was performed of the localized site designated by the patient by the plisse machine operator, with selected grayscale and color [...] Tor Sommer M.D. RB: RB Report ID: [id number] Reading Location: [place] [address] Procedure Note Tor Sommer MD - 04/16/2025 EXAM DESCRIPTION: US SOFT TISSUE NECK REASON FOR STUDY: Palpable lump for 2 years. TECHNIQUE: A Dynamic assessment was performed of the localized site designated by the patient by the plisse machine operator, with selected grayscale and color [...] Tor Sommer M.D. RB: RB Report ID: [id number] Reading Location: [id number] us Dawson Alcaraz MD [facility] US PROCEDURES Fin al Result from Last 3 Months Insurance MEDICARE [facility] Address: [address] [address] [place] [address] [facility] MEDICARE ADVANTAGE [facility] ADVANTAGE MEDICARE [facility] MEDICARE ADVANTAGE [facility] MEDIC[facility] ADVANTAGE Member Subscriber Plan / Payer (Ef fective 2018-Present) Name:Beck Almeida Relation to Subscriber:Self Name:Beck Almeida Payer ID:[id number] (NAIC) Type:[facility] MEDICARE Address: [place] [id number] [facility] MEDICARE ADVANTAGE Care Teams Denture Finisher Relationship Specialty Start Date End Date Ludivina Loaiza MD [address] [place] [address] PCP - General 12/05/16 Christiano Ramesh MD [address] [place] [address] Consulting Physician Neurosurgery 03/02/23 Nadira Valle, manager application development 12/22/23 Dawson Alcaraz MD [address] [facility] [address] [place] [address] Radiation Oncologist Radiation Oncology 07/16/24
--- OUTSIDE RECORDS SUMMARY | 2025-07-02 16:03 | XMS_ITS | Encounter Summary ---
Author Organization [facility] Address [facility] [place] [address] Care Team Providers Care Inspection Clerk Name Role Phone Ludivina Loaiza MD Primary Care Provider [phone] Tor Burns MD Unavailable [phone] Brian Cole MD Unavailable [phone] Christiano Ramesh MD Unavailable [phone] Dharmesh Roche MD Unavailable [phone] Edinson York APRN Unavailable [phone] Denis Cantrell MD Unavailable Pennie Garcia PA-C Unavailable [phone] Encounter Details Date Type Department Care Team (Late st Contact Info) Description 02/14/2023 Hospital Orders Only [facility] Pre[facility]Post [address] [place] [address] Brian Cole MD [address] [place] [address] Social History Tobacco Use Types Packs/Day Years [...] Description 08/05/2025 12:45 PM CDT Office Visit [facility] [address] [place] [address] Brian Cole MD [address] [place] [address] documented as of this encounter Visit Diagnoses Not on filedocumented in this encounter Care Teams Inspection Clerk Relationship Specialty Start Date End Date Ludivina Loaiza MD [address] [place] [address] PCP - General INTERNAL MEDICINE 01/24/18 Tor Burns MD [address] [place] [address] Enterprise Choir Singer CARDIOVASCULAR DISEASE 01/24/18 02/16/23 Brian Cole MD [address] [place] [address] EP Choir Singer CLINICAL CARDIAC ELECTROPHYSIOLOGY 03/25/22 Christiano Ramesh MD [address] [facility] [address] [place] [id number] Surgeon NEUROLOGICAL SURGERY 02/17/23 Dharmesh Roche MD [address] [facility] [address] [place], [place] [address] Consulting Physician INTERVENTIONAL CARDIOLOGY 02/20/23 Edinson York APRN 3 [facility]. [address] [place] [address] Nurse Practitioner NURSE PRACTITIONER 02/20/23 Denis Cantrell MD 3 [facility]. [address] [place] [address] Consulting Physician INTERNAL MEDICINE 07/28/23 Pennie Garcia PA-C [address] [place] [address] Referring Physician PHYSICIAN HEAD OF DATA 08/05/24 documented as of this encounter
--- OUTSIDE RECORDS SUMMARY | 2025-07-02 16:03 | XMS_ITS | Clinical Summary ---
Author Organization [facility] Address [address] [place] [address] Care Team Providers Care Smoking Tobacco Packing Machine Hand Name Role Phone Ludivina Loaiza MD Primary Care Provider [phone] Brian Cole MD Unavailable [phone] Christiano Ramesh MD Unavailable [phone] Dharmesh Roche MD Unavailable [phone] Edinson York APRN Unavailable [phone] Denis Cantrell MD Unavailable Pennie Garcia PA-C Unavailable [phone] Allergies No known active allergies Medications glimepiride [...] with other complications 08/22/2023 Paroxysmal atrial fibrillation ([facility]) 03/28/2023 Typical atrial flutter ([facility]) 023 Chronic venous insufficiency 02/17/2023 Chronic pain Dyslipidemia Essential hypertension Diabetes ([facility]) Chest pain Dyspnea Resolved Problems Problem [...] to sleep or slept in a senior care (including now)? No 04/25/2023 Sex and Gender [...] 08/05/2025 12:45 PM CDT Office Visit [facility] eld [address] [place] [address] Brian Cole MD [address] [place] [address] Health Maintenance Due Date Last Done Comments [...] patient's age to complete this topic Insurance [employer] Advance Directives * Full Code (Latest Code Status on File) Date Activated Date Inactivated Comments 04/25/2023 10:58 AM 04/26/2023 12:31 PM Care Teams Smoking Tobacco Packing Machine Hand Relationship Specialty Start Date End Date Ludivina Loaiza MD [address] [place] [address] PCP - General INTERNAL MEDICINE 01/24/18 Brian Cole MD [address] [place] [address] EP Head Of Housekeeping CLINICAL CARDIAC ELECTROPHYSIOLOGY 03/25/22 Christiano Ramesh MD 3 [facility]. [address] [place], [place] [address] Surgeon NEUROLOGICAL SURGERY 02/17/23 Dharmesh Roche MD 3 [facility]. [address] [place], [place] [address] Consulting Physician INTERVENTIONAL CARDIOLOGY 02/20/23 Edinson York APRN 3 [facility]. [address] [place] [address] Nurse Practitioner NURSE PRACTITIONER 02/20/23 Denis Cantrell MD 3 [facility]. [address] [place] [id number] Consulting Physician INTERNAL MEDICINE 07/28/23 Pennie Garcia PA-C [address] [place] [address] Referring Physician PHYSICIAN PRECISION AIRCRAFT STRUCTURE ASSEMBLER 08/05/24
== END 2025-07-02 15:19 | disposition home or self-care (01) ==
LOC: CHSLAB 15:19
PROVIDERS: PCP Internal Medicine; Visit Provider Nurse Practitioner Family
DX: R19.7 Diarrhea, unspecified (principal); R10.9 Unspecified abdominal pain
CPT/HCPCS: 36415; 80053; 81003; 82150; 83690; 85027; 87086; 87493

== ENCOUNTER 2025-07-03 13:45 | Outpatient (CLI) | payer MEDICARE, SELFPAY ==
--- OUTSIDE RECORDS SUMMARY | 2025-07-03 13:49 | XMS_ITS | Encounter Summary ---
Author Organization [facility] Address [address] [place] [address] Care Team Providers Care Doweler Name Role Phone Ludivina Loaiza MD Primary Care Provider [phone] Brian Cole MD Unavailable [phone] Christiano Ramesh MD Unavailable [phone] Dharmesh Roche MD Unavailable +[phone] Edinson York APRN Unavailable +[phone] Denis Cantrell MD Unavailable Pennie Garcia PA-C Unavailable [phone] Encounter Details Date Type Department Care Team (Late st Contact Info) Description 04/20/2023 Hospital Orders Only [facility] Anesthesia [address] [place] [address] Melissa Wallis RN Anesthesia Record Procedure Summary [...] Date: 04/25/23; Removal Time: 1029; Removal Person: COMMODITY MERCHANT; Removal Reason: End of Case 04/25/23727 by [...] Patient Discharged 04/25/23 0730 by Suzy Torres, COMMODITY MERCHANT 04/26/23 0908 by Shruthi Dow RN Arterial Line Placement Date: 04/15 11/07; Placement Time: 743 (created via procedure documentation); Orientation: Right; Location: Radial; Site Prep: Chlorhexidine; Local Anesthetic: None; Insertion Attempts: 1; Patient Tolerance: Tolerated well; Removal Date: 04/25/23; Removal Time: 1215; Removal Reason: Therapy Completed 04/25/23 07 by Suzy Torres, COMMODITY MERCHANT 04/25/23 121 by Steffanie Toscano RN documented [...] Description 08/05/2025 12:45 PM CDT [facility] [address] [place] [address] Brian Cole MD [address] [place] [address] documented as of this encounter Visit Diagnoses Not on filedocumented in this encounter Care Teams Doweler Relationship Specialty Start Date End Date Ludivina Loaiza MD [address] [place] [phone] PCP - General INTERNAL MEDICINE 01/24/18 Brian Cole MD [address] [place] [address] EP Chief Physical Therapist CLINICAL CARDIAC ELECTROPHYSIOLOGY 03/25/22 Christiano Ramesh MD [facility]. [address] [place] [address] Surgeon NEUROLOGICAL SURGERY 02/17/23 Dharmesh Roche MD [facility]. [address] [place] [address] Consulting Physician INTERVENTIONAL CARDIOLOGY 02/20/23 Edinson York APRN [facility]. [address] [place], [place] [address] Nurse Practitioner NURSE PRACTITIONER 02/20/23 Denis Cantrell MD [address] [facility]. [address] [place], [place] [address] Consulting Physician INTERNAL MEDICINE 07/28/23 Pennie Garcia PA-C [address] [place] [address] Referring Physician PHYSICIAN DORMITORY SUPERVISOR 08/05/24 documented as of this encounter
--- OUTSIDE RECORDS SUMMARY | 2025-07-03 13:49 | XMS_ITS | Clinical Summary ---
Author Organization [facility] Address [address] [place] [address] Care Team Providers Care Acid Loader Name Role Phone Ludivina Loaiza MD Primary Care Provider [phone] Brian Cole MD Unavailable [phone] Christiano Ramesh MD Unavailable [phone] Dharmesh Roche MD Unavailable + [phone] Edinson York APRN Unavailable [phone] Denis Cantrell MD Unavailable Pennie Garcia PA-C Unavailable + [phone] Allergies No known active allergies Medications glimepiride [...] with other complications 08/22/2023 Paroxysmal atrial fibrillation ([facility]) 03/28/2023 Typical atrial flutter ([facility]) 023 Chronic venous insufficiency 02/17/2023 Chronic pain Dyslipidemia Essential hypertension Diabetes ([facility]) Chest pain Dyspnea Resolved Problems Problem Noted [...] slept in a usp (including now)? No 04/25/2023 Sex and Gender [...] 08/05/2025 12:45 PM CDT Office Visit [facility] [address] [place] [address] Brian Cole MD [address] [place] [address] Health Maintenance Due Date Last Done Comments [...] patient's age to complete this topic Insurance [facility] Advance Directives * Full Code (Latest Code Status on File) Date Activated Date Inactivated Comments 04/25/2023 10:58 AM 04/26/2023 12:31 PM Care Teams Acid Loader Relationship Specialty Start Date End Date Ludivina Loaiza MD [address] [place] [address] PCP - General INTERNAL MEDICINE 01/24/18 Brian Cole MD [address] [place] [address] EP Angledozer Operator CLINICAL CARDIAC ELECTROPHYSIOLOGY 03/25/22 Christiano Ramesh MD [address] [facility] [place], [place] [address] Surgeon NEUROLOGICAL SURGERY 02/17/23 Dharmesh Roche MD [address] [facility] [place], [place] [address] Consulting Physician INTERVENTIONAL CARDIOLOGY 02/20/23 Edinson York APRN [address] [facility] [place] [address] Nurse Practitioner NURSE PRACTITIONER 02/20/23 Denis Cantrell MD [address] [facility] [place] [address] Consulting Physician INTERNAL MEDICINE 07/28/23 Pennie Garcia PA-C [address] [place] [address] Referring Physician PHYSICIAN LINOLEUM FLOOR INSTALLER 08/05/24
--- OUTSIDE RECORDS SUMMARY | 2025-07-03 13:49 | XMS_ITS | Clinical Summary ---
Author Organization [facility] Address [address] [place] [address] Care Team Providers Care Weight Caller Name Role Phone Ludivina Loaiza MD Primary Care Provider + [phone] Christiano Ramesh MD Unavailable [phone] Nadira Valle RN Unavailable Unavailabl Dawson Servin [...] Description 06/30/2025 11:00 AM CDT Office Visit [facility] Radiation Oncology [address] [place] [address] Dawson Alcaraz MD Prostate cancer (HCC) (Primary Dx) 06/25/2025 Documentation [facility] Radiation Oncology [address] [place] [address] Janice Stewart RN 06/23/[address] [facility] Radiation Oncology [address] [facility] [place] [address] Dawson Alcaraz MD 06/19/2025 2:32 PM CDT - 06/19/2025 11:59 PM CDT Hospital Encounter [facility] ([facility]) [address] [place] [address] Diagnosis unknown Discharge Disposition: Discharge to home or self care 06/19/2025 2:28 PM CDT - 06/19/2025 11:59 PM CDT Hospital Encounter [facility] ([facility]) [address] [place] [address] Discharge Disposition: Discharge to home or self care 06/19/[address] [facility] Radiation Oncology [address] [facility] [place] [address] Janice Stewart RN 06/19/[address] [facility] Radiation Oncology [address] [facility] [place] [address] Janice Stewart, RN 05/19/[address] [facility] Radiation Oncology [address] [facility] [place] [address] Janice Stewart RN 04/17/[address] [facility] Radiation Oncology [address] [facility] [place] [address] Janice Stewart RN 04/17/[address] [facility] Radiation Oncology [address] [facility] [place] [address] Janice Stewart RN 04/16/2025 2:20 PM CDT - 04/16/2025 11:59 PM CDT Hospital Encounter [address] [place] [address] Prostate cancer (HCC) Discharge Disposition: Discharge to home or self care 04/16/2025 2:14 PM CDT - 04/16/2025 11:59 PM CDT Hospital Encounter [facility] [address] [place] [address] Prostate cancer (HCC) Discharge Disposition: Discharge to home or self care 04/16/[address] [facility] Radiation Oncology [address] [facility] [place] [address] Janice Stewart RN 04/16/2025 Orders Only [facility] Radiation Oncology [address] [facility] [place] [address] Dawson Alcaraz MD Prostate cancer (HCC) (Primary Dx); Pathological fracture in neoplastic disease, other specified site, initial encounter for fracture 04/16/2025 Telephone [facility] Radiation On[facility] [address] [facility] [place] [address] Janice Stewart RN 04/16/[address] [facility] Radiation Oncology [address] [facility] [place] [address] Janice Stewart RN 04/16/2025 Telephone [facility] Radiation Oncology [address] [facility] [place] [address] Janice Stewart RN 04/15/[address] [facility] Radiation Oncology [address] [facility] [place] [address] Janice Stewart RN 04/10/[address] [facility] Radiation Oncology [address] [facility] [place] [address] Dawson Alcaraz MD Prostate cancer (HCC) (Primary Dx) 04/07/2025 11:00 AM CDT Office Visit [facility] Radiation Oncology [address] [facility] [place] [address] Dawson Alcaraz MD Prostate cancer (HCC) [C61] (Primary Dx) 04/07/[address] [facility] Radiation Oncology [address] [facility] [place] [address] Janice Stewart RN 04/07/[address] [facility] Radiation Oncology [address] [facility] [place] [address] Dawson Alcaraz MD Prostate cancer (HCC) (Primary Dx) 04/02/2025 2:31 PM CDT - 04/02/2025 11:59 PM CDT Hospital Encounter [facility] [address] [place] [address] Prostate cancer (HCC) Discharge Disposition: Discharge to [...] 12/21/2023 How often do you attend chur Talasim or jain services? More than 4 times per year [...] place to sleep or slept in a long term (including now)? No 12/21/2023 Personal Safety Answer Date Recorded Have you ever been in or are you currently in a harmful physical or emotional relationship or is someone making you feel afraid or unsafe? Denies 12/22/2023 Sex and Gender Information Value Date Recorded Sex Assigned at Not on file Legal Sex Male 12:37 AM MANAGEMENT REP Gender Identity Not on file Sexual Orientation Not on file Obstetrics History Last Filed Vital Signs Vital Sign Reading Time Taken Comments Blood Pressure 151/84 06/30/2025 11:07 AM CDT Pulse 76 06/30/2025 11:07 AM CDT Temperature 36.6 C (97.9 F) 04/07/2025 11:10 AM CDT Respiratory Rate 16 09/09/2024 3:00 PM MANAGEMENT REP Oxygen Saturation 100% 06/30/2025 11: 07 AM [...] of life. Medical Devices Implanted Type Area Territory Sales Executive Device Identifier Shelf Expiration Date Model / [...] PM CDT) COPY(IES) SENT TO: [facility] Comment: [place] [address] [place] [address] 06/23/2025 2:16 PM CDT 06/23/2025 2:18 PM CDT us Dawson Alcaraz MD LAB BLOOD ORDERABLES Final Result [facility] * PSA, total and free (06/23/2025 2:16 PM CDT) PSA 0.1 < OR = 4.0 ng/mL [employer] PSA, free <0.1 ng/mL [employer] PSA, free UNABLE TO CALCULATE >25 % (calc) [employer] Comment: The free PSA level [...] 30 93 9 (3)Catalona et al.:ZANA 277: 2981-7088 (1996) (4)Catalona et al.:ZANA 279: 8137-9516 (1997) (x)These estimates vary with age, ethnicity, [...] BLOOD ORDERABLES Final Result Performing Organization Address [facility] Co de Phone Number [facility] [address] [place] [address] * (ABNORMAL) Total testosterone (06/23/2025 2:16 PM CDT) Testosterone <10(L) 250 - 827 ng/dL [facility] Comment: In hypogonadal males, Testosterone, Total, LC/MS/MS, is the recommended assay due to the diminished accuracy of immunoassay at levels below 250 ng/dL. This test code (89814) must be collected in a red-top tube with no gel. 06/23/2025 2:16 PM CDT 06/23/2025 2:18 PM CDT Dawson Alcaraz MD LAB BLOOD ORDERABLES Final Result Performing Organization Address [facility] Co de Phone Number [facility] [address] [place] [address] * CT Body Outside Reference (06/19/2025 2:32 PM CDT) Impressions [facility]_PACS_[facility] - 06/19/2025 2:32 PM CDT These images are for Reference purposes only and have not been reviewed by [facility] Radiology. There will be no report generated by a [facility] Radiologist. Narrative [facility]_PACS_[facility] - 06/19/2025 2:32 PM CDT EXAMINATION: Images For Reference Purposes Only Dawson Alcaraz MD IMG CT PROCEDURES Fin al Result Performing Organization Address [facility] Co de Phone Number [facility] * CT Body Outside Reference (06/19/2025 2:28 PM CDT) Impressions [facility] - 06/19/2025 2:28 PM CDT These images are for Reference purposes only and have not been reviewed by [facility] Radiology. There will be no report generated by a [facility] Radiologist. Narrative [facility]_PACS[facility] - 06/19/2025 [...] 11/08/2023, 12/30/2022 and 06/17/2020. FINDINGS: SEGMENTATION: 5 jzf-knp-owfdlpt lumbar type vertebral bodies. ALIGNMENT: Mild retrolisthesis [...] arthropathy. Flattening of the ventral thecal sac. Tdis-yznyrfg-elqw-right lateral recess effacement. Moderate to severe left and moderate right neural foraminal narrowing. L4-L5: Disc bulge with marginal spur formation. Thickened ligamentum flavum and facet arthropathy. No significant spinal canal stenosis. Pybtk-sictdzb-panz-left lateral recess narrowing. Moderate to severe neural [...] Jeovany West D.O. AP: AP Report ID: [id number] Reading Location: [id number] Procedure Note Jeovany West, DO - 04/17/2025 [...] dated 11/08/2023, 12/30/2022 and06/17/2020. FINDINGS: SEGMENTATION: 5 dde-hyz-pvxdyyb lumbar type vertebral bodies. ALIGNMENT: Mild retrolisthesis [...] facet arthropathy. Flattening of the ventral thecal sac.Drzy-ahvposv-lznl-right lateral recess effacement. Moderate to severe left and moderate rightneural foraminal narrowing. L4-L5: Disc bulge with marginal spur formation. Thickened ligamentumflavum and facet arthropathy. No significant spinal canal stenosis. Xmmdz-vxkfvyl-irjn-left lateral recess narrowing. Moderate to severeneural foraminal [...] Jeovany West D.O. AP: AP Report ID: [id number] Reading Location: [id number] Dawson Alcaraz MD [facility] MRI PROCEDURES Fi nal Result * MRI [...] by Richard Deng M.D. TH: Report ID: [id number] Reading Location: [id number] Procedure Note Richard Deng MD - 04/16/2025 [...] Richard Deng M.D. TH: TH Report ID: [id number] Reading Location: [id number] Dawson Alcaraz MD IM MRI PROCEDURES Fi [...] site designated by the patient by the concrete finishing machine operator, with selected grayscale and color [...] Tor Sommer M.D. RB: RB Report ID: [id number] Reading Location: [place] [address] Procedure Note Tor Sommer MD - 04/16/2025 EXAM DESCRIPTION: US SOFT TISSUE NECK REASON FOR STUDY: Palpable lump for 2 years. TECHNIQUE: A Dynamic assessment was performed of the localized site designated by the patient by the concrete finishing machine operator, with selected grayscale and color [...] Tor Sommer M.D. RB: RB Report ID: [id number] Reading Location: [id number] Dawson Alcaraz MD [facility] US PROCEDURES Fin al Result from Last 3 Months Insurance MEDICARE [facility] Address: [address] [address] [place] [address] [facility] MEDICARE ADVANTAGE [facility] MEDICARE ADVANTAGE MEDICARE [facility] MEDICARE ADVANTAGE [facility] MEDICARE ADVANTAGE Member Subscriber Plan / Payer (Ef fective 2018-Present) Name:Beck Almeida Relation to Subscriber:Self Name:Beck Almeida Payer ID:[id number] (NAIC) Type:[facility] MEDIC[facility] Address: [place] [phone] [facility] MEDICARE ADVANTAGE Care Teams Weight Caller Relationship Specialty Start Date End Date Ludivina Loaiza MD [address] [place] [address] PCP - General 12/05/16 Christiano Ramesh MD [address] [place] [address] Consulting Physician Neurosurgery 03/02/23 Nadira Valle, day haul or farm charter bus driver 12/22/23 Dawson Alcaraz MD [address] [facility] [address] [place] [address] Radiation Oncologist Radiation Oncology 07/16/24
--- OUTSIDE RECORDS SUMMARY | 2025-07-03 13:49 | XMS_ITS | Encounter Summary ---
Author Organization [facility] Address [facility] [place] [address] Care Team Providers Care Manager Summer Name Role Phone Ludivina Loaiza MD Primary Care Provider [phone] Tor [place] MD Unavailable [phone] Brian Cole MD Unavailable [phone] Christiano Ramesh MD Unavailable [phone] Dharmesh Roche MD Unavailable [phone] Edinson York APRN Unavailable [phone] Denis Cantrell MD Unavailable Pennie Garcia PA-C Unavailable [phone] Encounter Details Date Type Department Care Team (Late st Contact Info) Description 02/14/2023 Hospital Orders Only [facility] Pre/Post [address] [place] [address] Brian Cole MD [address] [place] [address] Social History Tobacco Use Types Packs/Day Years [...] Description 08/05/2025 12:45 PM CDT Office Visit [facility] [address] [place] [address] Brian Cole MD [address] [place] [address] documented as of this encounter Visit Diagnoses Not on filedocumented in this encounter Care Teams Manager Summer Relationship Specialty Start Date End Date Ludivina Loaiza MD [address] [place] [address] PCP - General INTERNAL MEDICINE 01/24/18 Tor Burns MD [address] [place] [address] [place] Fish Trapper CARDIOVASCULAR DISEASE 01/24/18 02/16/23 Brian Cole MD [address] [place] [address] EP Fish Trapper CLINICAL CARDIAC ELECTROPHYSIOLOGY 03/25/22 Christiano Ramesh MD [address] [facility] [address] [place] [id number] Surgeon NEUROLOGICAL SURGERY 02/17/23 Dharmesh Roche MD [address] [facility] [address] [place], [place] [id number] Consulting Physician INTERVENTIONAL CARDIOLOGY 02/20/23 Edinson York APRN 3 [facility]. [address] [place] [address] Nurse Practitioner NURSE PRACTITIONER 02/20/23 Denis Cantrell MD 3 [facility]. [address] [place] [address] Consulting Physician INTERNAL MEDICINE 07/28/23 Pennie Gacria PA-C [address] [place] [address] Referring Physician PHYSICIAN LOG RAFT WORKER 08/05/24 documented as of this encounter
--- OUTSIDE RECORDS SUMMARY | 2025-07-03 13:49 | XMS_ITS | Encounter Summary ---
Author Organization [facility] Address [facility] [place] [address] Care Team Providers Care Docent Coordinator Name Role Phone Ludivina Loaiza MD Primary Care Provider [phone] Tor [place] MD Unavailable [phone] Brian Cole MD Unavailable + [phone] Christiano Ramesh MD Unavailable [phone] Dharmesh Roche MD Unavailable [phone] Edinson York APRN Unavailable [phone] Denis Cantrell MD Unavailable Pennie Garcia PA-C Unavailable [phone] Encounter Details Date Type Department Care Team (Late st Contact Info) Description 01/22/2018 Abstract [facility] [address] [place] [address] Tor Burns MD [address] [place] [address] Social History Tobacco Use Types Packs/Day Years [...] Description 08/05/2025 12:45 PM CDT Office Visit [facility] eld [address] [place] [address] Brian Cole MD [address] [place] [address] documented as of this encounter Visit Diagnoses Not on filedocumented in this encounter Care Teams Docent Coordinator Relationship Specialty Start Date End Date Ludivina Loaiza MD [address] [place] [address] PCP - General INTERNAL MEDICINE 01/24/18 Tor [place] MD [address] [place] [address] [place] Weather Stripper CARDIOVASCULAR DISEASE 01/24/18 02/16/23 Brian Cole MD [address] [place], [place] [address] EP Weather Stripper CLINICAL CARDIAC ELECTROPHYSIOLOGY 03/25/22 Christiano Ramesh MD 3 [facility]. [address] [place] [address] Surgeon NEUROLOGICAL SURGERY 02/17/23 Dharmesh Roche MD [address] [facility] [address] [place] [address] Consulting Physician INTERVENTIONAL CARDIOLOGY 02/20/23 Edinson York APRN 3 [facility]. [address] [place] [address] Nurse Practitioner NURSE PRACTITIONER 02/20/23 Denis Cantrell MD 3 [facility] [address] [place], [place] [address] Consulting Physician INTERNAL MEDICINE 07/28/23 Pennie Garcia PA-C [address] [place], [place] [address] Referring Physician PHYSICIAN RADIOGRAPHER 08/05/24 documented as of this encounter
[2025-07-03 14:42] LABS: Toxigenic C. Diff NEGATIVE (NEGATIVE)
== END 2025-07-03 13:46 | disposition home or self-care (01) ==
LOC: CHSLAB 13:47
PROVIDERS: PCP Internal Medicine; Visit Provider Nurse Practitioner Family
DX: R10.9 Unspecified abdominal pain (principal); R19.7 Diarrhea, unspecified
CPT/HCPCS: 82272; 87493

== ENCOUNTER 2025-07-07 16:12 | Outpatient (CLI) | payer MEDICARE, SELFPAY ==
--- OUTSIDE RECORDS SUMMARY | 2019-05-27 04:33 | XMS_ITS | Continuity of Care Document ---
Author Organization [facility] Address [address] [address] [place] [address] Phone Care Team Providers Care Principal Systems Architect Name Role Phone Jaya Florentino PA-C Unavailable [...] 12 Lead; W/intrpt Offic/outpt E m [facility] Advance Directives Directive Yes / No Effective Date File Name No Information Encounters Encounter Description Practice Location Reason(s) For Visit Diagnoses Date Provider Providers Copied on Encounter [facility], [address] [address], [place], [place], [id number], tel:[phone] No Information 9 [place]. [address] [place], [place], [id number] , . tel:[phone] Offic/outpt E m [facility], [address] [address], [place], [id number], tel:[phone] 1st Care Swelling (chief complaint) Edema, unspecifiedChest pain, unspecified type 9 Florentino Jaya. [address] [place] [address], [id number] , [place]. tel: [phone] Family History Family Member Type Diagnosis Age At Onset No Information Payers Payer name Insurance type Covered constitution party ID Ching lopez(s) [facility] [id number] Social History Type Description Quantity Date Captured Comments Sex Male Smoking Status No Information Chief Complaint And Reason For Visit No Information Reason For Referral Reason For Referral No Information Plan Of Treatment Date Type Action Status Future Order: Radiology Order XR Chest 2 View ([id number]), Sent on: Sent History Of Present Illness Encounter Date Complaint History Of Prese nt Illness Swelling (comments) Patient pres ents the clinic today with recent chest pain, bilateral lower extremity swelling, shortness of breath.He arrived in [place] [address], having traveled on a cruise ship and then most recently on an extended train ride from [place] to [facility].He states that his symptoms began after exiting [...]
--- OUTSIDE RECORDS SUMMARY | 2025-07-07 16:17 | XMS_ITS | Encounter Summary ---
Author Organization [facility] Address [address] [place] [address] Phone Care Team Providers Care Car Jockey Name Role Phone Ludivina Loaiza MD Primary Care Provider [phone] Christiano Ramesh MD Unavailable [phone] Nadira Valle RN Unavailable Unavailabl Dawson Servin MD Unavailable Encounter Details Date Type Department Care Team (Late st Contact Info) Description 07/07/2025 Telephone [facility] Medicine Surgery [address] [facility] Floor [address] [place] [address] Trip Faust MD [address] [place] [address] Social History Tobacco Use Types Packs/Day Years [...] often do you attend chur ch or yarsani services? More than 4 times per year [...] place to sleep or slept in a prison (including now)? No 12/21/2023 Personal Safety Answer Date Recorded Have you ever been in or are you currently in a harmful physical or emotional relationship or is someone making you feel afraid or unsafe? 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
--- OUTSIDE RECORDS SUMMARY | 2025-07-07 16:17 | XMS_ITS | Encounter Summary ---
Author Organization [facility] Address [facility] [place] [address] Care Team Providers Care Detailer Pharmaceuticals Name Role Phone Ludivina Loaiza MD Primary Care Provider [phone] Tor Burns MD Unavailable [phone] Brian Cole MD Unavailable + [phone] Christiano Ramesh MD Unavailable [phone] Dharmesh Roche MD Unavailable + [phone] Edinson York APRN Unavailable [phone] Denis Cantrell MD Unavailable Pennie Garcia PA-C Unavailable [phone] Encounter Details Date Type Department Care Team (Late st Contact Info) Description 01/22/2018 Abstract [facility] [address] [place] [address] Tor Burns MD [address] [place] [address] Social History Tobacco Use Types Packs/Day Years [...] Description 08/05/2025 12:45 PM CDT Office Visit [facility] [address] [place] [address] Brian Cole MD [address] [place] [address] documented as of this encounter Visit Diagnoses Not on filedocumented in this encounter Care Teams Detailer Pharmaceuticals Relationship Specialty Start Date End Date Ludivina Loaiza MD [address] [place] [address] PCP - General INTERNAL MEDICINE 01/24/18 Tor Burns MD [address] [place] [address] Dennis Nursing Scheduler CARDIOVASCULAR DISEASE 01/24/18 02/16/23 Brian Cole MD [address] [place], [place] [address]241 EP Nursing Scheduler CLINICAL CARDIAC ELECTROPHYSIOLOGY 03/25/22 Christiano Ramesh MD [address] [facility] [place] [address] Surgeon NEUROLOGICAL SURGERY 02/17/23 Dharmesh Roche MD [facility] [place] [address] Consulting Physician INTERVENTIONAL CARDIOLOGY 02/20/23 Edinson York APRN [address] [facility]. [address] [place] [address] Nurse Practitioner NURSE PRACTITIONER 02/20/23 Denis Cantrell MD 3 [facility] [address] [place], [place] [address] Consulting Physician INTERNAL MEDICINE 07/28/23 Pennie Garcia PA-C [address] [place], [place] [address] Referring Physician PHYSICIAN DYEING MACHINE BACK TENDER 08/05/24 documented as of this encounter
--- OUTSIDE RECORDS SUMMARY | 2025-07-07 16:17 | XMS_ITS | Clinical Summary ---
Author Organization [facility] Address [address] [place] [address] Care Team Providers Care Customer Success Associate Name Role Phone Ludivina Loaiza MD Primary Care Provider [phone] Brian Cole MD Unavailable [phone] Christiano Ramesh MD Unavailable [phone] Dharmesh Roche MD Unavailable + [phone] Edinson York APRN Unavailable [phone] Denis Cantrell MD Unavailable Pennie Garcia PA-C Unavailable + [phone] Allergies No known active allergies Medications glimepiride [...] with other complications 08/22/2023 Paroxysmal atrial fibrillation ([facility]) 03/28/2023 Typical atrial flutter ([facility]) 023 Chronic venous insufficiency 02/17/2023 Chronic pain Dyslipidemia Essential hypertension Diabetes ([facility]) Chest pain Dyspnea Resolved Problems Problem [...] slept in a fpc (including now)? No 04/25/2023 Sex and Gender [...] [facility] el[facility] [address] [place] [address] Brian Cole MD [address] [place] [address] Health Maintenance Due Date Last Done Comments [...] patient's age to complete this topic Insurance [facility] Advance Directives * Full Code (Latest Code Status on File) Date Activated Date Inactivated Comments 04/25/2023 10:58 AM 04/26/2023 12:31 PM Care Teams Customer Success Associate Relationship Specialty Start Date End Date Ludivina Loaiza MD [address] [place] [address] PCP - General INTERNAL MEDICINE 01/24/18 Brian Cole MD [address] [place] [address] EP Loan Interviewer Mortgage CLINICAL CARDIAC ELECTROPHYSIOLOGY 03/25/22 Christiano Ramesh MD 3 [facility]. [address] [place], [place] [address] Surgeon NEUROLOGICAL SURGERY 02/17/23 Dharmesh Roche MD 3 [facility]. [address] [place], [place] [address] Consulting Physician INTERVENTIONAL CARDIOLOGY 02/20/23 Edinson York APRN 3 [facility]. [address] [place] [address] Nurse Practitioner NURSE PRACTITIONER 02/20/23 Denis Cantrell MD 3 [facility]. [address] [place] [address] Consulting Physician INTERNAL MEDICINE 07/28/23 Pennie Garcia PA-C [address] [place] [address] Referring Physician PHYSICIAN INVERTER AND CLIPPER 08/05/24
--- OUTSIDE RECORDS SUMMARY | 2025-07-07 16:17 | XMS_ITS | Clinical Summary ---
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 3 Degenerative lumbar [...] Encounters Date Type Department Care Team Description 07/07/2025 Telephone [facility] Medicine Surgery [address] [place] [address] Floor 8 [place] [address] Trip Faust MD 07/04/2025 [facility] [address] [place] [address] Floor 5 [place] [address] Trip Faust MD Right thyroid nodule (Primary Dx) 07/04/2025 Documentation [facility] Radiation Oncology [address] [facility] [place] [address] Farnaz Ortega RN 06/30/2025 11:00 AM CDT Office Visit [facility] Radiation Oncology [address] [facility] [place] [address] Dawson Alcaraz MD Prostate cancer (HCC) (Primary Dx) 06/25/2025 Documentation [facility] Radiation Oncology [address] [facility] [place] [address] Janice Stewart RN 06/23/2025 Orders Only [facility] Radiation Oncology [address] [facility] [place] [address] Dawson Alcaraz MD 06/19/2025 2:32 PM CDT - 06/19/2025 11:59 PM CDT Hospital Encounter [facility] ([facility]) [address] [place] [address] Diagnosis unknown Discharge Disposition: Discharge to home or self care 06/19/2025 2:28 PM CDT - 06/19/2025 11:59 PM CDT Hospital Encounter [facility]) [address] [place] [address] Discharge Disposition: Discharge to home or self care 06/19/2025 Telephone [facility] Radiation Oncology [address] [facility] [place] [address] Janice Stewart RN 06/19/2025 Documentation [facility] Radiation Oncology [address] [facility] [place] [address] Janice Stewart RN 05/19/2025 Telephone [facility] Radiation Oncology [address] [facility] [place] [address] Janice Stewart RN 04/17/2025 Telephone [facility] Radiation Oncology [address] [facility] [place] [address] Janice Stewart RN 04/17/2025 Telephone [facility] Radiation Oncology [address] [place] [address] Janice Stewart RN 04/16/2025 2:20 PM CDT - 04/16/2025 11:59 PM CDT Hospital Encounter [facility] [address] [place] [address] Prostate cancer (HCC) Discharge Disposition: Discharge to home or self care 04/16/2025 2:14 PM CDT - 04/16/2025 11:59 PM CDT Hospital Encounter [facility] [address] [place] [address] Prostate cancer (HCC) Discharge Disposition: Discharge to home or self care 04/16/2025 [facility] Radiation Oncology [address] [place] [address] Janice Stewart RN 04/16/2025 Orders Only [facility] Radiation Oncology [facility] [place] [address] Dawson Alcaraz MD Prostate cancer (HCC) (Primary Dx); Pathological fracture in neoplastic disease, other specified site, initial encounter for fracture 04/16/2025 Telephone [facility] Radiation Oncology [address] [facility] [place] [address] Janice Stewart RN 04/16/2025 [facility] Radiation Oncology [address] [place] [address] Janice Stewart RN 04/16/2025 Telephone [facility] Radiation Oncology [address] [place] [address] Janice Stewart RN 04/15/2025 Documentation [facility] Radiation Oncology [address] [facility] [place] [address] Janice Stewart RN 04/10/2025 Orders Only [facility] Radiation Oncology [address] [place] [address] Dawson Alcaraz MD Prostate cancer (HCC) (Primary Dx) 04/07/2025 11:00 AM CDT Office Visit [facility] Radiation Oncology [address] [place] [address] Dawson Alcaraz MD Prostate cancer (HCC) [C61] (Primary Dx) 04/07/2025 Telephone [facility] Radiation Oncology [address] [place] [address] Janice Stewart RN 04/07/2025 Orders Only [facility] Radiation Oncology [facility] [place] [address] Dawson Alcaraz MD Prostate cancer (HCC) (Primary Dx) from Last 3 Months Surgical History Surgery [...] often do you attend chur ch or jehovah's witness services? 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 Author [facility] No eJnelle Truong, DENIZ Note: Patient will establish a comfort-function goal and identify the pain level that will allow the patient to perform desired activities and achieve an acceptable quality of life. Medical Devices Implanted Type Area Apprentice Architect Device Identifier Shelf Expiration Date Model / [...] 04/16/2025 3:37 PM CDT Prostate cancer (HCC) from Last 3 Months Results * COPY(IES) SENT TO: (06/23/2025 2:16 PM CDT) COPY(IES) SENT TO: [facility] Comment: [address] [phone] 06/23/2025 2:16 PM CDT 06/23/2025 2:18 PM CDT Dawson Alcaraz MD LAB BLOOD ORDERABLES Final Result [facility] * PSA, total and free (06/23/2025 2:16 PM CDT) PSA 0.1 < OR = 4.0 ng/mL [facility] PSA, free <0.1 ng/mL [facility] PSA, free UNABLE TO CALCULATE >25 % (calc) [facility] [place] Comment: The free PSA level is below [...] 30 93 9 (3)Catalona et al.:ZANA 277: 3560-1342 (1996) (4)Catalona et al.:ZANA 279: 7638-0841 (1997) (x)These estimates vary with age, ethnicity, [...] mind. PSA was performed using the Yeyo Van Orin Immunoassay method. Values obtained from different assay methods cannot be used interchangeably. PSA levels, regardless of value, should not be interpreted as absolute evidence of the presence or absence of disease. 06/23/2025 2:16 PM CDT 06/23/2025 2:18 PM CDT Dawson Alcaraz MD LAB BLOOD ORDERABLES Final Result Performing Organization Address [facility] Co de Phone Number [facility] [address] [place] [address] * (ABNORMAL) Total testosterone (06/23/2025 2:16 PM CDT) Testosterone <10(L) 250 - 827 ng/dL [facility] Comment: In hypogonadal males, Testosterone, Total, LC/MS/MS, is the recommended assay due to the diminished accuracy of immunoassay at levels below 250 ng/dL. This test code (81484) must be collected in a red-top tube with no gel. 06/23/2025 2:16 PM CDT 06/23/2025 2:18 PM CDT Dawson Alcaraz MD LAB BLOOD ORDERABLES Final Result Performing Organization Address [facility] de Phone Number [facility] [facility] [address] [place] [address] * CT Body Outside Reference (06/19/2025 2:32 PM CDT) Impressions [facility] - 06/19/2025 2:32 PM CDT These images are for Reference purposes only and have not been reviewed by [facility] Radiology. There will be no report generated by a [facility] Radiologist. Narrative [facility] - 06/19/2025 2:32 PM CDT EXAMINATION: Images For Reference Purposes Only Dawson Alcaraz MD IMG CT PROCEDURES Fin al Result Performing Organization Address [facility] Co de Phone Number [facility] * CT Body Outside Reference (06/19/2025 2:28 PM CDT) Impressions [facility] - 06/19/2025 2:28 PM CDT These images are for Reference purposes only and have not been reviewed by [facility] Radiology. There will be no report generated by a [facility] Radiologist. Narrative [facility] - 06/19/2025 2:28 PM [...] 11/08/2023, 12/30/2022 and 06/17/2020. FINDINGS: SEGMENTATION: 5 fmh-djv-gvcdpia lumbar type vertebral bodies. ALIGNMENT: Mild retrolisthesis [...] arthropathy. Flattening of the ventral thecal sac. Whip-dmakqvo-jzbd-right lateral recess effacement. Moderate to severe left and moderate right neural foraminal narrowing. L4-L5: Disc bulge with marginal spur formation. Thickened ligamentum flavum and facet arthropathy. No significant spinal canal stenosis. Uetvx-sfaaxue-reva-left lateral recess narrowing. Moderate to severe neural [...] Jeovany West D.O. AP: AP Report ID: [id number] Reading Location: [id number] Procedure Note Jeovany West, DO - 04/17/2025 [...] dated 11/08/2023, 12/30/2022 and06/17/2020. FINDINGS: SEGMENTATION: 5 qxe-ecu-hczzzpl lumbar type vertebral bodies. ALIGNMENT: Mild retrolisthesis [...] facet arthropathy. Flattening of the ventral thecal sac.Hxnm-tyyfgza-suhb-right lateral recess effacement. Moderate to severe left and moderate rightneural foraminal narrowing. L4-L5: Disc bulge with marginal spur formation. Thickened ligamentumflavum and facet arthropathy. No significant spinal canal stenosis. Xedsf-htijrzx-lmab-left lateral recess narrowing. Moderate to severeneural foraminal [...] Jeovany West D.O. AP: AP Report ID: [id number] Reading Location: [id number] Dawson Alcaraz MD Keanu MRI PROCEDURES Fi nal Result * MRI [...] Richard Deng M.D. TH: TH Report ID: [id number] Reading Location: [id number] Procedure Note Richard Deng MD - 04/16/2025 [...] Richard Deng M.D. TH: TH Report ID: [id number] Reading Location: [id number] Dawson Alcaraz MD IM MRI PROCEDURES Fi nal Result from Last 3 Months Insurance MEDICARE [facility] MEDICARE ADVANTAGE [facility] MEDICARE ADVANTAGE [place] [id number] MEDICARE [facility] MEDICARE ADVANTAGE [facility] MEDICARE ADVANTAGE [facility] MEDICARE ADVANTAGE Care Teams Loan Manager Relationship Specialty Start Date End Date Ludivina Loaiza MD [address] [place] [address] PCP - General 12/05/16 Christiano Ramesh MD [address] [place] [address] Consulting Physician Neurosurgery 03/02/23 Nadira Valle, arson investigator 12/22/23 Dawson Alcaraz MD [address] [facility] [address] [place] [address] Radiation Oncologist Radiation Oncology 07/16/24
--- OUTSIDE RECORDS SUMMARY | 2025-07-07 16:17 | XMS_ITS | Encounter Summary ---
Author Organization [facility] Address [address] [place] [address] Care Team Providers Care Travel Journalist Name Role Phone Ludivina Loaiza MD Primary Care Provider [phone] Brian Cole MD Unavailable [phone] Christiano Ramesh MD Unavailable [phone] Dharmesh Roche MD Unavailable + [phone] Edinson York APRN Unavailable [phone] Denis Cantrell MD Unavailable Pennie Garcia PA-C Unavailable [phone] Encounter Details Date Type Department Care Team (Late st Contact Info) Description 04/20/2023 Hospital Orders Only [facility] Anesthesia [address] [place] [address] Melissa Wallis RN Anesthesia Record Procedure Summary [...] Date: 04/25/23; Removal Time: 1029; Removal Person: ACCESS DEVELOPER; Removal Reason: End of Case 04/25/23727 [...] Patient Discharged 04/25/23 0730 by Suzy Torres, ACCESS DEVELOPER 04/26/23 0908 by Shruthi Dow RN Arterial Line Placement Date: 04/15 11/07; Placement Time: 743 (created via procedure documentation); Orientation: Right; Location: Radial; Site Prep: Chlorhexidine; Local Anesthetic: None; Insertion Attempts: 1; Patient Tolerance: Tolerated well; Removal Date: 04/25/23; Removal Time: 1215; Removal Reason: Therapy Completed 04/25/23 07 by Suzy Torres, ACCESS DEVELOPER 04/25/23 121 by Steffanie Toscano RN [...] Description 08/05/2025 12:45 PM CDT [facility] [address] [place] [address] Brian Cole MD [address] [place] [address] documented as of this encounter Visit Diagnoses Not on filedocumented in this encounter Care Teams Travel Journalist Relationship Specialty Start Date End Date Ludivina Loaiza MD [address] [place] [address] PCP - General INTERNAL MEDICINE 01/24/18 Brian Cole MD [address] [place] [address] EP Sustainability Project Manager CLINICAL CARDIAC ELECTROPHYSIOLOGY 03/25/22 Christiano Ramesh MD 3 [facility]. [address] [place] [address] Surgeon NEUROLOGICAL SURGERY 02/17/23 Dharmesh Roche MD 3 [facility]. [address] [place] [address] Consulting Physician INTERVENTIONAL CARDIOLOGY 02/20/23 Edinson York APRN 3 [facility]. [address] [place], [place] [address] Nurse Practitioner NURSE PRACTITIONER 02/20/23 Denis Cantrell MD 3 [facility]. [address] [place], [place] [address] Consulting Physician INTERNAL MEDICINE 07/28/23 Pennie Garcia PA-C [address] [place] [address] Referring Physician PHYSICIAN MULTI MISSION HELICOPTER AIRCREWMAN 08/05/24 documented as of this encounter
--- OUTSIDE RECORDS SUMMARY | 2025-07-07 16:17 | XMS_ITS | Encounter Summary ---
Author Organization [facility] Address [facility] [place] [address] Care Team Providers Care Costume Rental Clerk Name Role Phone Ludivina Loaiza MD Primary Care Provider [phone] Tor Burns MD Unavailable [phone] Brian Cole MD Unavailable [phone] Christiano Ramesh MD Unavailable [phone] Dharmesh Roche MD Unavailable [phone] Edinson York APRN Unavailable [phone] Denis Cantrell MD Unavailable Pennie Garcia PA-C Unavailable [phone] Encounter Details Date Type Department Care Team (Late st Contact Info) Description 02/14/2023 Hospital Orders Only [facility] R[facility] Pre/Post [address] [place] [address] Brian Cole MD [address] [place] [address] Social History Tobacco Use Types Packs/Day Years [...] Description 08/05/2025 12:45 PM CDT Office Visit [facility] [address] [place] [address] Brian Cole MD [address] [place] [address] documented as of this encounter Visit Diagnoses Not on filedocumented in this encounter Care Teams Costume Rental Clerk Relationship Specialty Start Date End Date Ludivina Loaiza MD [address] [place] [address] PCP - General INTERNAL MEDICINE 01/24/18 Tor Burns MD [address] [place] [address] [place] [facility] Information Clerk CARDIOVASCULAR DISEASE 01/24/18 02/16/23 Brian Cole MD [address] [place] [address] EP Health Information Clerk CLINICAL CARDIAC ELECTROPHYSIOLOGY 03/25/22 Christiano Ramesh MD [facility] [address] [place] [id number] Surgeon NEUROLOGICAL SURGERY 02/17/23 Dharmesh Roche MD [facility] [address] [place], [place] [phone] Consulting Physician INTERVENTIONAL CARDIOLOGY 02/20/23 Edinson York APRN 3 [facility]. [address] [place] [address] Nurse Practitioner NURSE PRACTITIONER 02/20/23 Denis Cantrell MD 3 [facility]. [address] [place] [address] Consulting Physician INTERNAL MEDICINE 07/28/23 Pennie Garcia PA-C [address] [place] [address] Referring Physician PHYSICIAN DEMAND PLANNING MANAGER 08/05/24 documented as of this encounter
== END 2025-07-07 16:13 | disposition home or self-care (01) ==
LOC: CHSLAB 16:14
PROVIDERS: PCP Internal Medicine; Visit Provider Nurse Practitioner Family
DX: R10.9 Unspecified abdominal pain (principal); R19.7 Diarrhea, unspecified
CPT/HCPCS: 82272

== ENCOUNTER 2025-07-15 09:57 | Outpatient (CLI) | payer MEDICARE, SELFPAY ==
--- NOTE | ~2025-07-15 | XR_ITS ---
EXAMINATION: XR heel RT min 2V, 07/15/2025 10:05 CDT HISTORY: unable to bear weight, extreme heel pain getting worse 1.5 m COMPARISON: No comparisons available. Findings: No acute fracture or malalignment. Small calcaneal spur Soft tissues unremarkable. Impression: No acute fracture or malalignment. Reviewed, dictated and finalized at location P. Impression: No acute fracture or malalignment.
--- OUTSIDE RECORDS SUMMARY | 2025-07-15 10:45 | XMS_ITS | Clinical Summary ---
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 3 Degenerative lumbar [...] Encounters Date Type Department Care Team Description 07/09/2025 Telephone [facility] Advanced Medicine Radiation [facility]cology [facility] [place] [address] Janice Stewart RN 07/08/2025 8:40 AM CDT - 07/08/2025 11:59 PM CDT Hospital Encounter [facility] [place] [address] Discharge Disposition: Discharge to home or self care 07/07/2025 [facility] [address] [facility] Floor [address] [place] [address] Trip Faust MD 07/04/2025 Orders Only [facility] Medicine Surgery [address] [facility] Floor [address] [place] [address] Tirp Faust MD Right thyroid nodule (Primary Dx) 07/04/2025 Documentation [facility] Radiation [facility] [place] [address] Farnaz Ortega RN 06/30/2025 11:00 AM CDT Office Visit [facility] for [facility] Medicine Radiation Oncology [address] [place] [address] [place] [address] Dawson Alcaraz MD Prostate cancer (HCC) (Primary Dx) 06/25/2025 Documentation [facility] Radiation Oncology [address] [place] [address] [place] [address] Janice Stewart RN 06/23/2025 Orders Only [facility] Radiation Oncology [address] [place] [address] [place] [address] Dawson Alcaraz MD 06/19/2025 2:32 PM CDT - 06/19/2025 11:59 PM CDT Hospital Encounter [facility] ([facility]) [address] [place] [address] Diagnosis unknown Discharge Disposition: Discharge to home or self care 06/19/2025 2:28 PM CDT - 06/19/2025 11:59 PM CDT Hospital Encounter [facility] ([facility]) [address] [place] [address] Discharge Disposition: Discharge to home or self care 06/19/2025 Telephone [facility] Medicine Radiation Oncology [address] [place] [address] [place] [address] Janice Stewart RN 06/19/2025 Documentation [facility] Advanced Medicine Radiation Oncology [address] [place] [address] Janice Stewart RN 05/19/2025 [facility] Advanced Medicine Radiation Oncology [address] [place] [address] Janice Stewart RN 04/17/2025 [facility] Advanced Medicine Radiation Oncology [address] [place] [address] Janice Stewart RN 04/17/2025 [facility] Rad[facility] [place] [address] Janice Stewart RN 04/16/2025 2:20 PM CDT - 04/16/2025 11:59 PM CDT Hospital Encounter [facility] [address] [place] [address] Prostate cancer (HCC) Discharge Disposition: Discharge to home or self care 04/16/2025 2:14 PM CDT - 04/16/2025 11:59 PM CDT Hospital Encounter [facility] [address] [place] [address] Prostate cancer (HCC) Discharge Disposition: Discharge to home or self care 04/16/2025 [facility] Advanced Medicine Radiation Oncology [address] [place] [address] Janice Stewart RN 04/16/2025 Orders Only [facility] Advanced Medicine Rad[facility] [place] [address] Dawson Alcaraz MD Prostate cancer (HCC) (Primary Dx); Pathological fracture in neoplastic disease, other specified site, initial encounter for fracture 04/16/2025 Telephone [facility] Advanced Medicine Radiation Oncology [address] [facility] [place] [address] Janice Stewart RN 04/16/2025 Telephone [facility] Advanced [facility] Radiation Oncology [address] [place] [address] Janice Stewart RN 04/16/2025 Telephone [facility] Advanced [facility] Radiation Oncology [address] [place] [address] Janice Stewart RN 04/15/2025 Documentation 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 Medical Devices Implanted Type Area Industrial Tractor Driver Device Identifier Shelf Expiration Date Model / Serial / Lot Hernia Mesh Left: Pelvis Procedures Procedure Name Priority Date/Time Associated Diagnosis Comments US OUTSIDE CONSULT Routine 07/08/2025 8: 40 AM CDT PSA, TOTAL AND FREE Routine 06/23/2025 2 [...] (HCC) from Last 3 Months Results * US Outside Consult (07/08/2025 8:40 AM CDT) Anatomical Region Laterality Modality Ultrasound 07/08/2025 8:48 AM CDT Impressions 07/08/2025 8:48 AM CDT Available images are not adequate for interpretation or to determine need for thyroid FNA. Consider repeat thyroid US if indicated. Electronically signed by: Mariya Fierro M.D. Narrative 07/08/2025 8:48 AM CDT EXAMINATION: CHANGE CONSULT ON OUTSIDE IMAGES TO REFERENCE IMAGES This thyroid ultrasound study was initially nominated as a consult on outside images via Image Sharing Service. A consult was not performed because the quality of provided images is insufficient for interpretation and/or cine clips are not available. Accordingly, there will be no separate report of this study generated by a [facility] Radiologist. Procedure Note Mariya Fierro MD - 07/08/2025 EXAMINATION: CHANGE CONSULT ON OUTSIDE IMAGES TO REFERENCE IMAGES This thyroid ultrasound study was initially nominated as a consult on outside images via Image Sharing Service. A consult was not performed because the quality of provided images is insufficient for interpretation and/or cine clips are not available. Accordingly, there will be no separate report of this study generated by a [facility] Radiologist. IMPRESSION: Available images are not adequate for interpretation or to determine need for thyroid FNA. Consider repeat thyroid US if indicated. Electronically signed by: Mariya Fierro M.D. us Trip Faust MD IMG US PROCEDURES Final Result * COPY(IES) SENT TO: (06/23/2025 2:16 PM CDT) COPY(IES) SENT TO: [facility] Comment: [address] [address] 06/23/2025 2:16 PM CDT 06/23/2025 2:18 PM CDT us Dawson Alcaraz MD LAB BLOOD ORDERABLES Final Result [facility] * PSA, total and free (06/23/2025 2:16 PM CDT) PSA 0.1 < OR = 4.0 ng/mL [facility] PSA, free <0.1 ng/mL [facility] [place] PSA, free UNABLE TO CALCULATE >25 % (calc) [facility] [place] [facility] Comment: The free PSA level is below [...] 19 < or = 30 93 9 (3)Viridianaona et al.:ZANA 277: 6305-4752 (1996) (4)Catalona et al.:ZANA 279: 1190-1902 (1997) (x)These estimates vary with age, ethnicity, [...] Alcaraz MD LAB BLOOD ORDERABLES Final Result [facility] [address] [place] [address] * (ABNORMAL) Total testosterone (06/23/2025 2:16 PM CDT) Testosterone <10(L) 250 - 827 ng/dL [facility] Comment: In hypogonadal males, Testosterone, Total, LC/MS/MS, is the recommended assay due to the diminished accuracy of immunoassay at levels below 250 ng/dL. This test code (09004) must be collected in a red-top tube with no gel. 06/23/2025 2:16 PM CDT 06/23/2025 2:18 PM CDT Dawson Alcaraz MD LAB BLOOD ORDERABLES Final Result Performing Organization Address [facility] Co de Phone Number [facility] [address] [place] [address] * CT Body Outside Reference (06/19/2025 2:32 PM CDT) Impressions [facility] - 06/19/2025 2:32 PM CDT These images are for Reference purposes only and have not been reviewed by [facility] Radiology. There will be no report generated by a [facility] Radiologist. Narrative RAD_PACS[facility] - 06/19/2025 2:32 PM CDT EXAMINATION: Images For Reference Purposes Only Dawson Alcaraz MD IMG CT PROCEDURES Fin al Result Performing Organization Address [facility] de Phone Number [facility] * CT Body Outside Reference (06/19/2025 2:28 PM CDT) Impressions [facility] - 06/19/2025 2:28 PM CDT These images are for Reference purposes only and have not been reviewed by [facility] Radiology. There will be no report generated by a [facility] Radiologist. Narrative [facility]_PACS[facility] - 06/19/2025 2:28 PM CDT EXAMINATION: Images For Reference Purposes Only Dawson Alcaraz MD IMG CT PROCEDURES Fin al Result Performing Organization Address [facility] Co de Phone Number [email or web address] * MRI Lumbar Spine W WO [...] 11/08/2023, 12/30/2022 and 06/17/2020. FINDINGS: SEGMENTATION: 5 khs-zln-bgqgqdz lumbar type vertebral bodies. ALIGNMENT: Mild retrolisthesis [...] arthropathy. Flattening of the ventral thecal sac. Btfr-jbzebxa-rxoo-right lateral recess effacement. Moderate to severe left and moderate right neural foraminal narrowing. L4-L5: Disc bulge with marginal spur formation. Thickened ligamentum flavum and facet arthropathy. No significant spinal canal stenosis. Jjmft-awwakfh-jqjq-left lateral recess narrowing. Moderate to severe neural [...] Jeovany West D.O. AP: AP Report ID: [id number] Reading Location: [id number] Procedure Note Jeovany West, DO - 04/17/2025 [...] dated 11/08/2023, 12/30/2022 and06/17/2020. FINDINGS: SEGMENTATION: 5 gnv-okb-xvrpnxa lumbar type vertebral bodies. ALIGNMENT: Mild retrolisthesis [...] facet arthropathy. Flattening of the ventral thecal sac.Rruh-aalnjya-flqk-right lateral recess effacement. Moderate to severe left and moderate rightneural foraminal narrowing. L4-L5: Disc bulge with marginal spur formation. Thickened ligamentumflavum and facet arthropathy. No significant spinal canal stenosis. Zyryl-wkptbgv-wffh-left lateral recess narrowing. Moderate to severeneural foraminal [...] Jeovany West D.O. AP: AP Report ID: [id number] Reading Location: [id number] Dawson Alcaraz MD IMKeanu MRI PROCEDURES Fi [...] by Richard Deng M.D. TH: Report ID: [id number] Reading Location: [place] [address] Procedure Note Richard Deng MD - 04/16/2025 [...] Richard Deng M.D. TH: TH Report ID: [id number] Reading Location: [id number] Dawson Alcaraz MD IMG MRI PROCEDURES Fi nal Result from Last 3 Months Insurance MEDICARE [facility] MEDICARE ADVANTAGE [facility] MEDICARE ADVANTAGE MEDICARE [place] [facility] MEDICARE ADVANTAGE [facility] MEDICARE ADVANTAGE [place] [id number] MEDICARE ADVANTAGE [place] [id number] Care Teams Vice President Commercial Bank Relationship Specialty Start Date End Date Ludivina Loaiza MD [address] [place] [address] PCP - General 12/05/16 Christiano Ramesh MD [address] [place] [address] Consulting Physician Neurosurgery 03/02/23 Nadira Valle, veterinary epidemiologist 12/22/23 Dawson Alcaraz MD [address] [facility] [address] [place] [address] Radiation Oncologist Radiation Oncology 07/16/24
--- OUTSIDE RECORDS SUMMARY | 2025-07-15 10:45 | XMS_ITS | Encounter Summary ---
Author Organization [facility] Address [address] [place] [address] Phone Care Team Providers Care Industrial Waste Inspector Name Role Phone Ludivina Loaiza MD Primary Care Provider + [phone] Christiano Ramesh MD Unavailable [phone] Nadira Valle RN Unavailable Unavailabl Dawson Servin MD Unavailable Encounter Details Date Type Department Care Team (Late st Contact Info) Description 07/07/2025 Telephone [facility] Medicine Surgery [address] [facility] Floor [address] [place] [address] Trip Faust MD [address] [place] [address] Social History Tobacco Use Types Packs/Day [...] often do you attend chur ch or jainism services? 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
--- OUTSIDE RECORDS SUMMARY | 2025-07-15 10:45 | XMS_ITS | Data Portability ---
Author Organization [place] [facility] [employer], Main Office Address [address] [place] [address] Care Team Providers Care Customer Account Technician Name Role Phone ANABELLA ISABEL Primary Care Provider [phone] ANABELLA ISABEL Referring Provider Assessment No assessment recorded. Plan of Treatment Reminders Order Date Submit Date Provider Last Modified By Organization Details Last Modified Time Details Appointments None recorded. Lab None recorded. Referral None recorded. Procedures None recorded. Surgeries None recorded. Imaging None recorded. Medication Orders mometasone 0.1 % topical cream 2023 024 [facility]acy #[id number], [address] [place], [address], 12:40:55 Patient TargetsNo targets recorded. Patient Instructions Encounter Date Encounter Id Patient Instructions Last Modified By Organization Details Last Modified Time 06/13/2024 [id number] An audiogram was also ordered the patient reports asymmetrical loss [email or web address] Not available 06/13/2024 12:41:11 Reason for Referral None Reported. Results Created Date Observation Date Name Description Value Unit Range Abnormal Flag Note LastModifiedBy Organization Detail LastModifiedTime 04/13/20 22 XR, knee No observ ation record ed. [id number] [facility] [place] [address], [place], [address], 12/15/2022 01:02:20 04/13/20 22 02/24/2022 XR, knee No observ ation record ed. [id number] [facility]) [address] [place], [address], 12/15/2022 01:02:20 04/13/20 22 02/24/2022 MRI, knee, w/o contr ast No observ ation record ed. [id number] Not Available 12/15/2022 01:02:20 09/02/20 22 XR, knee No observ ation record ed. [id number] [facility] [place] [address], [place], [address], 12/15/2022 01:02:20 Result Notes None recorded. Problems Name Problem SNOMED Code Status Onset Date Resolution Date Notes Provider Name and Address Organization Details Recorded Time Pain of right knee joint 76872059534 4100 Active 2021 Not Available [facility] 3 00:59:56 Arthriti s 7864149 Active 2021 Not Available [facility] 3 00:59:55 Osteoart hritis 588241816 Active 2021 Not Available [facility] 3 00:59:56 Paroxysm al atrial fibrilla tion 200438305 Completed 202306/11/2024 JENNY Perez, [facility] [employer] [facility] 4 12:45:17 Kidney stone 57022154 Completed 202306/11/2024 Renal stones. JENNY Perez [facility] [employer] [facility] 4 17:17:10 COVID-19 346799578 Completed 202306/11/2024 Removal Reason: 2020, 2021. 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 Procedures Surgical History Date Name Laterality Status Provider Name and Address Organization Details Recorded Time hernia repair completed Not Available [facility] 12/15/2022 00:58:09 Back Surgery completed Not Available [facility] 12/15/2022 00:58:09 Imaging Results None recorded. Procedure Notes None recorded. Medical Equipment None [...] injection administe red by the provider active NDC: 0003- 0494- 20 Not Available Not Available [...] bromide 42 mcg (0.06 %) nasal spray Bath 2 sprays 3 times a day by intranasa l route. active Not Available Not Available No t Available fluticasone propionate 50 mcg/actuati on nasal spray,suspe nsion Bath 1 spray every day by intranasa l [...] Updated DateTime 04/13/2022 29.5 kg/m2 175.26 cm 51909.47 g Not Available [facility] 12/15/2022 00:58:15 Date Recorded Body height Provider Name an d Address Organization Details Last Updated DateTime 05/25/2022 175.26 cm Not Available [facility] 00:58:15 Date Recorded Body height Body mass index (BMI) Body weight Body temperature Provider Name and Address Organization Details Last Updated DateTime 06/13/2024 180.34 cm 28.7 kg/m2 77535.59 g 98.6 [degF] [facility]ENNY Perez [facility] 06/13/2024 12:28:29 Date Recorded Body height Provider Name an d Address Organization Details Last Updated DateTime 09/02/2022 175.26 cm Not Available [facility] 00:58:15 Social History None recorded. Functional Status Question Answer Note LastModified by Organizat ion Details LastModified Time What is your level of alcohol consumption? Occasional [id number] Information not available 12/15/2022 Mental Status None recorded. Family History Relationship Description Onset Age of this Age Resolved Age Notes LastModified by Organization Details LastModified Time Brother Heart disease [id number] Not available 12/15/2022 00:58:09 Brother Family history of stroke [id number] Not available 12/15/2022 00:58:09 Brother Diabetes mellitus [id number] Not available 12/15/2022 00:58:09 Notes:NO ENT Medical History Condition Response BLINDNESS N KIDNEY STONES N CARPAL TUNNEL SYNDROME N MRSA N LUNG DISEASE/DISORDER N HISTORY OF DRUG ABUSE N RADIATION / CHEMOTHERAPY N COPD N ANKLE PAIN N SPORTS INJURY N BLOOD DISEASES N SCHIZOPHRENIA N SHINGLES N DEPRESSION (INCLUDING POST ) Y SHOULDER PAIN N BOWEL PROBLEMS N STROKE/TIA N KNEE PAIN Y ULCERS N [...] HAVE YOU BEEN HOSPITALIZED OR SEEN IN [facility] IN THE PAST YEAR ? N [...] Diagnosis SNOMED-CT Code Diagnosis ICD10 Code Diagnosis IMO Codes Diagnosis Note [id number] Noe Fisher MD [facility] [place] [address] [place] [address] 04/13/2022 00:00:00 04/13/2022 12:41:49 [id number] Noe Fisher MD [facility] [place] [address] [place] [address] 05/25/2022 00:00:00 05/25/2022 12:44:51 [id number] MD DELFINA [facility] [place] [address] [place] [address] 09/02/2022 00:00:00 09/02/2022 16:12:17 [id number] MD DELFINA [facility] [place] [address] [place] [address] 06/13/2024 12:10:58 06/14/2024 12:04:16 Eczema of external auditory canal 85121343 H60.549 Health Concerns Section Related Observation LastModified by Organization Detai ls LastModified Time None Recorded Concern Status LastModified by Organization Details LastModified Time None Recorded Advance Directives Directive None Recorded Payers Insurance Date Sequence Insurance Name Policy Number Policy Blair Covered Member ID Blair Member ID Guarantor Name 06/13/2024 [facility] (MEDICARE REPLACEMENT/A DVANTAGE - HMO) [id number] Beck Almeida [id number] Beck Almeida Notes Date Note Type Note Provider Name and Address Organization Details Recorded Time 06/13/2024 text/html The patient reports itching ears a month ago. He was placed on Cortisporin which was effective. In addition he has allergic rhinitis successfully managed with Atrovent Flonase and montelukast. Jake Peres MD [address] [place] [address], [facility] [address], [place], [address], [facility] 06/13/2024 12:41:27
== END 2025-07-15 09:58 | disposition home or self-care (01) ==
LOC: CHSIMG 09:58
PROVIDERS: PCP Internal Medicine; Visit Provider Internal Medicine
DX: M79.671 Pain in right foot (principal)
CPT/HCPCS: 73650

== ENCOUNTER 2025-09-01 13:42 | Emergency (ER) | payer MEDICARE, SELFPAY ==
[2025-09-01] VITALS (9 sets, daily range): BP systolic 119–159; BP diastolic 70–89; PULSE 62–95; RESP 16–62; TEMP 36.7; O2SAT 18–100
--- NOTE | ~2025-09-01 | CT_ITS ---
EXAMINATION:CT diagnostic chest w con DATE: 09/01/2025 15:15 INDICATION: Trauma TECHNIQUE: Computed tomography (CT) of the chest was performed with intravenous contrast. The dose-length product (DLP) was 100.00 mGy-cm. COMPARISON: None. FINDINGS: The lungs are clear. Heart and great vessels are stable. No thoracic aortic aneurysm/dissection or evidence of aortic injury. No mediastinal hematoma. No bulky lymphadenopathy or significant pericardial effusion. No displaced fracture lucency. No acute process seen in the visualized portions of the upper abdomen, bony thorax or extrathoracic soft tissues. Extensive peripelvic cystic changes in both visualized kidneys, left greater than right. IMPRESSION: No acute intrathoracic injury. Reviewed, dictated and finalized at location A. [employer] ANALYST
--- NOTE | ~2025-09-01 | CT_ITS ---
EXAMINATION: CT brain wo con DATE: 09/01/2025 15:15 INDICATION: Head injury TECHNIQUE: Computed tomography (CT) of the head was performed without intravenous contrast. The dose-length product was 100.00 mGy-cm. COMPARISON: 06/08/2022 FINDINGS: No gross intracranial mass effect or hemorrhage. No depressed skull fracture. No large acute ischemic event. IMPRESSION: No gross intracranial mass effect or bleed. Reviewed, dictated and finalized at location A. NDITIONER
[2025-09-01 13:58] LABS: Hematocrit 37.7 % (37.0-46.0); Hemoglobin 12.7 g/dL (12.4-15.3); Immature Granulocyte Percent A 0.4 % (0.0-0.0); Lymphocytes Absolute Auto 1.09 K/mm3 (1.10-4.50); Mean Corpuscular HGB Conc 33.7 g/dL (32-36); Mean Corpuscular Hemoglobin 30.5 pg (27.0-31.0); Mean Corpuscular Volume 90.4 fL (78.0-102.0); Nucleated Red Blood Cells Absolute Auto 0.00 K/mm3 (0.00-0.00); Nucleated Red Blood Cells Perc 0.0 % (0-0.0); Platelet Count Result 263 K/mm3 (150-420); Red Blood Count 4.17 M/mm3 (4.70-6.10); White Blood Count 7.6 K/mm3 (4.8-10.8)
--- NOTE | 2025-09-01 14:02 | PC.NURSE ---
Patient reports he cannot have iv pain medication it makes him violently ill. States he only does well with Tramadol, ERP made aware.
[2025-09-01 14:18] LABS: INR 1.0; Prothrombin Time 11.3 Seconds (9.50-12.1)
[2025-09-01 14:55] LABS: Alanine Aminotransferase 27 U/L (6-50); Albumin Level 4.3 g/dL (3.5-5.1); Alkaline Phosphatase 64 U/L (38-126); Anion Gap 9 mmol/L (4-12); Aspartate Amino Transferase 29 U/L (17-59); Blood Urea Nitrogen 24 mg/dL (9-20); Calcium 9.2 mg/dL (8.4-10.2); Carbon Dioxide 24 mmol/L (22-30); Chloride 105 mmol/L (98-107); Estimated CRCL calculation 74 ml/min; Estimated Glomerular Filt Rate > 60; Glucose 108 mg/dL (65-110); Osmolality Calculated 291 mOsm/kg (285-295); Potassium 3.7 mmol/L (3.4-5.0); Sodium 138 mmol/L (137-145); Total Protein 6.7 g/dL (6.3-8.2)
--- NOTE | 2025-09-01 15:39 | ED.FALL ---
HPI - Fall General Chief Complaint: Fall Stated Complaint: rib pain Time Seen by Provider: 09/01/25 13:46 Source: patient Mode of arrival: ambulatory Limitations: no limitations History of Present Illness HPI Narrative: 65-year-old with a history of atrial fibrillation on Xarelto here with a complains of right-sided chest pain. Patient states that he was raking leaves fell in a ditch. Denies any head and neck injuries. denies any shortness of breath MD complaint: fall Onset (ago): hour(s) (1) Fall from: standing Place fall occurred: home Loss of consciousness: none Prolonged down time: no Symptoms prior to fall: none Context: tripped/slipped Location of injury: chest Associated symptoms (after fall): denies Related Data Home Medications ?Medication ?Instructions ?Recorded ?Confirmed ?Last Taken ?Type finasteride 5 mg tablet 5 mg PO DAILY 09/16/20 03/15/22 08/23/21 History glimepiride 1 mg tablet 1 mg PO QAM 09/16/20 03/15/22 08/23/21 History lovastatin 20 mg tablet,extended 20 mg PO HS 09/16/20 03/15/22 08/23/21 History release 24 hr Saccharomyces boulardii 250 mg 250 mg PO BID 05/24/21 03/15/22 08/23/21 History capsule (Daily Probiotic (S. boulardii)) triamterene 37.5 1 tablet PO DAILY 08/20/21 03/15/22 08/23/21 History mg-hydrochlorothiazide 25 mg tablet albuterol sulfate 90 mcg/actuation 2 puff inhalation PRN PRN 03/15/22 03/15/22 Unknown History aerosol inhaler Shortness Of Breath Allergies Allergy/AdvReac Type Severity Reaction Status Date / Time No Known Allergies Allergy Verified 09/01/25 13:50 Review of Systems Review of Systems: All systems reviewed & are unremarkable except as noted in HPI and below Constitutional: Constitutional: Reports no additional constitutional complaints Eyes: Eyes: Reports no additional eye complaints ENT: Reports system reviewed and no additional complaints, except as documented Cardiovascular: Cardiovascular: Reports as per HPI Respiratory: Respiratory: Reports no additional respiratory complaints Gastrointestinal: Gastrointestinal: Reports no additional gastrointestinal complaints Musculoskeletal: Musculoskeletal: Reports no additional musculoskeletal complaints Integumentary/Breasts: Skin/Breast: Reports system reviewed and no additional complaints, except as docu Neurologic: Reports system reviewed and no additional complaints, except as documented PMFSH Past Medical History Medical History Diarrhea Surgical History Surgical History History of hernia repair LIH hernia repair with mesh 08/24/21 History of lumbar surgery Family History Family History Sibling Acute myocardial infarction Sibling Acute myocardial infarction Social History Social History Smoking status: Never smoker Second hand tobacco smoke exposure: Yes Alcohol intake: never Alcohol use details: 1/MONTH Substance use: never Substance use type: does not use Living arrangements: with family Occupation/Education: retired Gender identity (if verbalized by the patient): Male Spiritual care concerns: No Exam Narrative: GENERAL: Well-appearing, well-nourished, and in no acute distress. Anxious HEAD: Normocephalic, atraumatic. EYES: PERRLA and EOMI. ENT: Nares clear, no rhinorrhea or epistaxis. Mucous membranes moist. NECK: Supple. CHEST: Clear to auscultation. No respiratory distress. No obvious trauma noted. No bruising present HEART: Regular rate and rhythm. No murmur heard. Normal peripheral pulses. ABDOMEN: Soft, nontender, nondistended, normal active bowel sounds. EXTREMITIES: Normal range of motion. No edema. SKIN: Warm, dry, no rash. NEURO: No focal deficits. Alert and oriented x3. PSYCH: Normal mood and affect. Course Course Emergency Course: pt declined morphine , wants tramadol , notified About his lab and CT findings , pain is now tolerable Vital Signs Vital signs: Vital Signs Temperature 36.7 C 09/01/25 13:43 Pulse Rate 95 09/01/25 13:43 Respiratory Rate 20 09/01/25 13:43 Blood Pressure 159/89 H 09/01/25 13:43 Pulse Oximetry 98 09/01/25 13:43 Oxygen Delivery Room Air 09/01/25 13:43 Temperature 36.7 C 09/01/25 13:43 Pulse Rate 95 09/01/25 13:43 Respiratory Rate 20 09/01/25 13:43 Blood Pressure 159/89 H 09/01/25 13:43 Pulse Oximetry 98 09/01/25 13:43 Oxygen Delivery Room Air 09/01/25 13:43 MDM - Fall Differential Diagnosis Differential diagnosis: Likely concussion with loss of consciousness and other (rib fx , chest wall contusion, PTX) Medical Records Attestation: I reviewed the patient's medical records. Lab Data Attestation: I reviewed the patient's lab results. 09/01/25 13:54 09/01/25 13:54 Labs: Lab Results 09/01/25 Range/Units 13:54 WBC 7.6 (4.8-10.8) K/mm3 RBC 4.17 L (4.70-6.10) M/mm3 Hgb 12.7 (12.4-15.3) g/dL Hct 37.7 (37.0-46.0) % MCV 90.4 (78.0-102.0) fL MCH 30.5 (27.0-31.0) pg MCHC 33.7 (32-36) g/dL RDW 12.7 (11.6-14.4) % Plt Count 263 (150-420) K/mm3 MPV 9.7 (8.7-11.0) fl Immature Gran % (Auto) 0.4 H (0.0-0.0) % Neut % (Auto) 74.4 H (50.0-70.0) % Lymph % (Auto) 14.3 L (18.0-42.0) % [place] % (Auto) 8.8 (2.0-11.0) % Eos % (Auto) 1.4 (1.0-6.0) % Baso % (Auto) 0.7 (0.0-1.0) % Lymph # (Auto) 1.09 L (1.10-4.50) K/mm3 [place] # (Auto) 0.67 (0.10-0.90) K/mm3 Eos # (Auto) 0.11 (0.02-0.50) K/mm3 Baso # (Auto) 0.05 (0.00-0.10) K/mm3 Abs Immat Gran (auto) 0.03 H (0.00-0.00) K/mm3 Absolute Neuts (auto) 5.65 (1.70-7.20) K/mm3 Absolute Nucleated RBC 0.00 (0.00-0.00) K/mm3 Nucleated RBC % 0.0 (0-0.0) % PT 11.3 (9.50-12.1) Seconds INR 1.0 Sodium 138 (137-145) mmol/L Potassium 3.7 (3.4-5.0) mmol/L Chloride 105 (98-107) mmol/L Carbon Dioxide 24 (22-30) mmol/L Anion Gap 9 (4-12) mmol/L BUN 24 H (9-20) mg/dL Creatinine 0.90 (0.7-1.3) mg/dL Estim Creat Clear Calc 74 ml/min Estimated GFR > 60 (59 - ) Glucose 108 (65-110) mg/dL Calculated Osmolality 291 (285-295) mOsm/kg Calcium 9.2 (8.4-10.2) mg/dL Total Bilirubin 1.4 H (0.2-1.3) mg/dL AST 29 (17-59) U/L ALT 27 (6-50) U/L Alkaline Phosphatase 64 (38-126) U/L Total Protein 6.7 (6.3-8.2) g/dL Albumin 4.3 (3.5-5.1) g/dL Imaging Data Radiologist's impression: ITS Impressions Chest CT 09/01/25 15:23 IMPRESSION: No acute intrathoracic injury. Discharge Plan Discharge Clinical Impression: Chest wall contusion Qualifiers: Encounter type: initial encounter Laterality: right Qualified Code(s): S20.211A - Contusion of right front wall of thorax, initial encounter Patient Disposition: Home Condition: Stable Instructions: Contusion in Adults (ED) Patient Language: Maltese Prescriptions: New tramadol 50 mg tablet 50 mg PO Q6H PRN (Reason: pain) Qty: 20 0RF No Action albuterol sulfate 90 mcg/actuation HFA aerosol inhaler 2 puff INHALATION PRN PRN (Reason: Shortness Of Breath) carvedilol [Coreg] 3.125 mg Tablet 3.125 mg PO Q12HR Qty: 30 0RF Xarelto 10 mg Tablet 20 mg PO DAILY@1700 Qty: 30 0RF amoxicillin-pot clavulanate [Augmentin] 500-125 mg tablet 1 tablet PO BID 10 Days Qty: 20 0RF prednisone 20 mg tablet 40 mg PO DAILY 3 Days Qty: 6 0RF methylprednisolone [Medrol (Usama)] 4 mg tablets,dose pack See Rx Instructions .ROUTE .COMPLEX Qty: 21 0RF Rx Instructions: for 6 days clindamycin HCl [Cleocin HCl] 300 mg capsule 300 mg PO Q6H 10 Days Qty: 40 0RF triamcinolone acetonide 0.1 % ointment 1 applic topical TID 7 Days Qty: 15 0RF lovastatin 20 mg tablet extended release 24 hr 20 mg PO HS glimepiride 1 mg tablet 1 mg PO QAM Rx Instructions: administer with breakfast finasteride 5 mg tablet 5 mg PO DAILY Saccharomyces boulardii [Daily Probiotic (S. boulardii)] 250 mg capsule 250 mg PO BID triamterene-hydrochlorothiazid 37.5-25 mg tablet 1 tablet PO DAILY hydrocodone-acetaminophen 10-325 mg tablet 1 tablet PO Q4-6H PRN (Reason: pain) Qty: 20 0RF Follow-up/Referrals: Ludivina Loaiza MD [Primary Care Provider, Internal Medicine] Time of Disposition: 15:41
[2025-09-01] MEDS: traMADol HCL (*CRX) 50 MG TABLET PO (16:05)
[2025-09-01 17:27] LABS: Bilirubin,Total 0.1 mg/dL (0.2-1.3)
== END 2025-09-01 16:35 | disposition home or self-care (01) ==
PROVIDERS: Emergency Provider Family Medicine; PCP Internal Medicine
DX: S20.211A Contusion of right front wall of thorax, initial encounter (principal); I48.91 Unspecified atrial fibrillation; Z79.01 Long term (current) use of anticoagulants; W17.89XA Other fall from one level to another, initial encounter
CPT/HCPCS: 36415; 70450; 71260; 80053; 85025; 85610; 99284; A9270; Q9967